=== PATIENT | female | born 1995 | race Caucasian/White ===

== ENCOUNTER → 2022-02-13 | Outpatient (CLI) | payer OTHER, SELFPAY ==
--- NOTE | 2022-02-13 11:59 | US_ITS ---
STUDY: ULTRASOUND OF THE FEMALE PELVIS - COMPLETE REASON FOR EXAM: Female, 26 years old. PELV HENRIK TECHNIQUE: Transabdominal COMPARISON: None. FINDINGS: The uterus is anteverted and is in a midline position. The uterus measures 8.6 x 5.8 cm. There is a Nabothian cyst of the cervix. The endometrium measures 6.8 mm in thickness, and is heterogeneous (striated). There is no demonstrated endometrial mass. There is no demonstrated myometrial mass. I.U.D. - The patient does not have an I.U.D. The right ovary is visualized. The right ovary measures 4.4 cm. Right ovary cyst measures 34 mm. This is cystic with internal echoes. This is likely hemorrhagic cyst. There is no visualized right adnexal mass or complex lesion. There is normal arterial and normal venous vascularity. The left ovary is visualized. The left ovary measures 2.8 cm. There is no left ovarian cyst or ovarian mass. There is no visualized left adnexal mass or complex lesion. There is normal arterial and normal venous vascularity. There is no fluid in the cul-de-sac. Urinary bladder volume is (in cc) 255. US/Pelvic (Non ) IMPRESSION: There are Nabothian cysts of the cervix. Electronically Signed: Nakul Thompson MD at 17:16 EST ,
== END | disposition home or self-care (01) ==
PROVIDERS: Referring Provider Registered Nurse; Visit Provider Registered Nurse
DX: R10.2 Pelvic and perineal pain (principal)
CPT/HCPCS: 76830; 76856; 93976

== ENCOUNTER → 2023-04-02 | Outpatient (CLI) | payer SELFPAY ==
[2023-04-06 20:07] LABS: Chlamydia By Nucleic Acid AMP Negative (Negative); Gonococcus By Nucleic Acid AMP Negative (Negative)
[2023-04-09 18:23] LABS: HPV Reflexed? NOT INDICATED
== END | disposition home or self-care (01) ==
PROVIDERS: Referring Provider Registered Nurse; Visit Provider Registered Nurse
DX: Z34.90 Encounter for supervision of normal pregnancy, unspecified, unspecified trimester (principal); Z3A.00 Weeks of gestation of pregnancy not specified
CPT/HCPCS: 87086; 87088; 87491; 87591; 88175; G0145

== ENCOUNTER → 2023-04-09 | Outpatient (CLI) | payer SELFPAY ==
--- OUTSIDE RECORDS SUMMARY | 2023-04-09 12:56 | XMS RPT_ITS | CCD ---
Author Name Unknown Address [address] [place] [address] [address] [place] [address] Organization [facility] Care Team Providers Care Water Reuse Program Manager Name Role Phone KJ NOVAK Admitting Unavailable NO, PHYSICIAN Primary Care Unavailable Encounters Encounter Date Encounter Type Care Provider Facility Start: 05-04-2018 End: 05-08-2018 Patient encounter procedure KJ NOVAK [facility] Payers Date Payer Category Payer Private Health Insurance [id number] 1995 Unknown [id number] Summary Purpose Family History No Family History Records Found Advance Directives No Advanced Directives Records Found Additional Source Comments INFORMATION SOURCE (unrecogn ized section and content) FOR RECORDS PERTAINING TO PATIENTS WHO ARE OR HAVE BEEN ENROLLED IN A CHEMICAL DEPENDENCY/SUBSTANCEABUSE PROGRAM, SOME INFORMATION MAY BE OMITTED. This clinical summary was aggregated from multiple sources. Caution should be exercised in using it in the provision of clinical care. This summary normalizes information from multiple sources, and as a consequence, information in this document may materially change the coding, format and clinical context of patient data. In addition, data may be omitted in some cases. CLINICAL DECISIONS SHOULD BE BASED ON THE PRIMARY CLINICAL RECORDS. [facility]. provides no warranty or guarantee of the accuracy or completeness of information in this document.
[2023-04-09 13:02] LABS: Absolute Lymphocyte Count 1.64 X10^3/uL (0.83-4.51); Absolute Neutrophil Count 5.2 X10^3/uL (2.0-7.7); Basophil# 0.04 X10^3/uL; Basophil% 0.5 % (0-1); Eosinophil# 0.06 X10^3/uL; Eosinophils% 0.8 % (0-5); Hematocrit 40.5 % (37-47); Hemoglobin 13.5 g/dL (12.0-15.0); Lymphocyte # 1.64 X10^3/ul (0.83-4.51); Lymphocyte % 21.7 % (19-41); Mean Corp Hgb Conc 33.3 g/dL (32-36); Mean Corpuscular Hgb 29.9 pg (27.0-32.0); Mean Corpuscular Volume 89.6 fL (81-99); Monocyte# 0.65 X10^3/uL; Monocyte% 8.6 % (0-10); NRBC Flagged by Analyzer 0 % (0-5); Neutrophil # 5.16 X10^3/uL (2.7-7.7); Neutrophil % 68.3 % (47-70); Platelet Count 285 K/mm3 (150-450); RBC Distribution Width CV 12.3 % (11.6-14.6); RBC Distribution Width SD 40.1 fl (35.1-43.9); Red Blood Count 4.52 M/mm3 (4.2-5.4); White Blood Count 7.6 K/mm3 (4.4-11.0)
[2023-04-09 13:38] LABS: NATERA MAILED SPECIMEN
[2023-04-09 14:05] LABS: HIV - WCH Non-Reactive (Nonreactive); Hepatitis B Surface Antigen Non-Reactive (Nonreactive); Hepatitis C Antibody Non-Reactive (Nonreactive); Rubella IgG Reactive (Nonreactive); Syphilis Antibodies Non-reactive
== END | disposition home or self-care (01) ==
PROVIDERS: Referring Provider Registered Nurse; Visit Provider Registered Nurse
DX: Z34.81 Encounter for supervision of other normal pregnancy, first trimester (principal); Z3A.00 Weeks of gestation of pregnancy not specified
CPT/HCPCS: 36415; 85025; 86703; 86762; 86780; 86803; 86850; 86900; 86901; 87086; 87088; 87340

== ENCOUNTER → 2023-06-11 | Outpatient (CLI) | payer SELFPAY ==
--- NOTE | 2023-06-11 13:58 | US_ITS ---
INDICATION: anatomy EXAMINATION: Ultrasound US OB Complete W/ Detail single or first gestation Ultrasound OB transvaginal TECHNIQUE: Transabdominal pelvic ultrasound was performed with grayscale color flow and M-mode Doppler. Transvaginal grayscale evaluation of the cervix and placental margin was performed.. COMPARISON: None. LMP: 01/28/2023 correlating with 19 weeks 1 day gestation and estimated delivery date 11/04/2023. FINDINGS: Gravid uterus with unremarkable imaged myometrium. Cervix is closed measuring 4.8 cm Anechoic amniotic fluid with deepest vertical pocket 4.7 cm. Single live intrauterine with heart rate 145 bpm. Placenta posterior, grade 0 without evidence of abruption or previa. Normal placental cord insertion. Normal sonographic appearance of the nose and lips. Unremarkable orbits. Normal cerebellum, farias magnum, lateral ventricles, choroid plexus, cava septum pellucidum. Normal appearance of the spine and skin line. Filled stomach. Four-chamber heart. Diaphragm appears intact. kidneys present without pelviectasis. Bladder filled. Three-vessel cord. Normal cord insertion. 2 legs and feet. 2 arms and hands. Biparietal diameter 4.8 cm 20 weeks 3 days Head circumference 17.5 cm 20 weeks 0 days Abdominal circumference 15.1 cm 20 weeks 2 days Femur length 3.1 cm 19 weeks 4 days Composite ultrasound age 20 weeks 0 days correlating with 10/29/2023 delivery date Estimated weight 329 g +/- 49 g. This is 90th percentile with Hadlock method Normal head circumference abdominal circumference ratio. Maternal ovaries are not appreciated due to bowel gas. No free fluid in the pelvis. IMPRESSION: Single live intrauterine with normal heart rate. anatomy assessment as described above is normal in appearance. . Placenta posterior without evidence of abruption or previa. Cervix long and closed with normal amniotic fluid. Electronically Signed: Deo oJe MD at 10:20 EST , INDICATION: anatomy EXAMINATION: Ultrasound US OB Greater Than 14 Weeks Ultrasound OB transvaginal TECHNIQUE: Transabdominal pelvic ultrasound was performed with grayscale color flow and M-mode Doppler. Transvaginal grayscale evaluation of the cervix and placental margin was performed.. COMPARISON: None. LMP: 01/28/2023 correlating with 19 weeks 1 day gestation and estimated delivery date 11/04/2023. FINDINGS: Gravid uterus with unremarkable imaged myometrium. Cervix is closed measuring 4.8 cm Anechoic amniotic fluid with deepest vertical pocket 4.7 cm. Single live intrauterine with heart rate 145 bpm. Placenta posterior, grade 0 without evidence of abruption or previa. Normal placental cord insertion. Normal sonographic appearance of the nose and lips. Unremarkable orbits. Normal cerebellum, farias magnum, lateral ventricles, choroid plexus, cava septum pellucidum. Normal appearance of the spine and skin line. Filled stomach. Four-chamber heart. Diaphragm appears intact. kidneys present without pelviectasis. Bladder filled. Three-vessel cord. Normal cord insertion. 2 legs and feet. 2 arms and hands. Biparietal diameter 4.8 cm 20 weeks 3 days Head circumference 17.5 cm 20 weeks 0 days Abdominal circumference 15.1 cm 20 weeks 2 days Femur length 3.1 cm 19 weeks 4 days Composite ultrasound age 20 weeks 0 days correlating with 10/29/2023 delivery date Estimated weight 329 g +/- 49 g. This is 90th percentile with Hadlock method Normal head circumference abdominal circumference ratio. Maternal ovaries are not appreciated due to bowel gas. No free fluid in the pelvis. US/OB Anatomy w/ Transvaginal IMPRESSION: Single live intrauterine with normal heart rate. anatomy assessment as described above is normal in appearance. . Placenta posterior without evidence of abruption or previa. Cervix long and closed with normal amniotic fluid. Electronically Signed: Deo Joe MD at 10:19 EST ,
--- OUTSIDE RECORDS SUMMARY | 2023-06-11 14:53 | XMS RPT_ITS | CCD ---
Author Name Unknown Address [address] [place] [address] [address] [place] [address] Organization [facility] Care Team Providers Care Welding Machine Operator Thermit Name Role Phone KJ NOVAK Admitting Unavailable NO, PHYSICIAN Primary Care Unavailable Encounters Encounter Date Encounter Type Care Provider Facility Start: 05-04-2018 End: 05-08-2018 Patient encounter procedure KJ NOVAK [facility] Payers Date Payer Category Payer Private Health Insurance [id number] 1995 Unknown [id number] Summary Purpose Family History No Family History [...] BE BASED ON THE PRIMARY CLINICAL RECORDS. [facility]. provides no warranty or guarantee of the accuracy or completeness of information in this document.
== END | disposition home or self-care (01) ==
LOC: US 13:58
PROVIDERS: Referring Provider Registered Nurse; Visit Provider Registered Nurse
DX: Z34.90 Encounter for supervision of normal pregnancy, unspecified, unspecified trimester (principal); Z3A.00 Weeks of gestation of pregnancy not specified
CPT/HCPCS: 76805; 76817

== ENCOUNTER → 2023-08-06 | Outpatient (CLI) | payer OTHER, SELFPAY ==
[2023-08-06 14:47] LABS: Absolute Lymphocyte Count 1.71 X10^3/uL (0.83-4.51); Absolute Neutrophil Count 5.9 X10^3/uL (2.0-7.7); Basophil# 0.04 X10^3/uL; Basophil% 0.5 % (0-1); Eosinophil# 0.15 X10^3/uL; Eosinophils% 1.8 % (0-5); Hematocrit 38.7 % (37-47); Hemoglobin 12.7 g/dL (12.0-15.0); Lymphocyte # 1.71 X10^3/ul (0.83-4.51); Lymphocyte % 20.3 % (19-41); Mean Corp Hgb Conc 32.8 g/dL (32-36); Mean Corpuscular Hgb 29.9 pg (27.0-32.0); Mean Corpuscular Volume 91.1 fL (81-99); Mean Platelet Vol. 10.4 fl (6.2-12.0); Monocyte# 0.61 X10^3/uL; Monocyte% 7.2 % (0-10); NRBC Flagged by Analyzer 0 % (0-5); Neutrophil # 5.87 X10^3/uL (2.7-7.7); Neutrophil % 69.7 % (47-70); Platelet Count 245 K/mm3 (150-450); RBC Distribution Width CV 12.3 % (11.6-14.6); RBC Distribution Width SD 40.4 fl (35.1-43.9); Red Blood Count 4.25 M/mm3 (4.2-5.4); White Blood Count 8.4 K/mm3 (4.4-11.0)
[2023-08-06 15:04] LABS: Glucose Challenge Gest 1H 50g 134 mg/dL (70-140)
[2023-08-06 17:38] LABS: HIV - WCH Non-Reactive (Nonreactive); Syphilis Antibodies Non-reactive
== END | disposition home or self-care (01) ==
LOC: LAB 13:48
PROVIDERS: Referring Provider Registered Nurse; Visit Provider Registered Nurse
DX: O09.92 Supervision of high risk pregnancy, unspecified, second trimester (principal); Z3A.23 23 weeks gestation of pregnancy; Z13.1 Encounter for screening for diabetes mellitus
CPT/HCPCS: 36415; 82950; 85025; 86703; 86780

== ENCOUNTER → 2023-10-15 | Outpatient (CLI) | payer OTHER, SELFPAY | END | disposition home or self-care (01) | LOC: LABSPEC 16:28 | PROVIDERS: Referring Provider Advanced Practice Midwife; Visit Provider Advanced Practice Midwife | DX: Z34.93 Encounter for supervision of normal pregnancy, unspecified, third trimester (principal); Z3A.35 35 weeks gestation of pregnancy | CPT/HCPCS: 87081 ==

== ENCOUNTER 2023-10-25 06:53 | Inpatient (IN) | payer OTHER, SELFPAY ==
[2023-10-25] VITALS (24 sets, daily range): BP systolic 112–139; BP diastolic 56–81; PULSE 65–98; RESP 14–16; TEMP 36.3–36.8; O2SAT 91–99; BMI 29.9
[2023-10-25] MEDS: Lactated Ringers 1,000 ML 999 ML IV (06:50)
[2023-10-25 07:32] LABS: Absolute Lymphocyte Count 1.99 X10^3/uL (0.83-4.51); Basophil# 0.05 X10^3/uL; Basophil% 0.3 % (0-1); Eosinophil# 0.06 X10^3/uL; Eosinophils% 0.4 % (0-5); Hematocrit 41.7 % (37-47); Hemoglobin 14.2 g/dL (12.0-15.0); Lymphocyte # 1.99 X10^3/ul (0.83-4.51); Lymphocyte % 12.4 % (19-41); Mean Corp Hgb Conc 34.1 g/dL (32-36); Mean Corpuscular Hgb 29.5 pg (27.0-32.0); Mean Corpuscular Volume 86.7 fL (81-99); Mean Platelet Vol. 11.6 fl (6.2-12.0); Monocyte# 0.88 X10^3/uL; Monocyte% 5.5 % (0-10); NRBC Flagged by Analyzer 0 % (0-5); Neutrophil # 12.97 X10^3/uL (2.7-7.7); Platelet Count 275 K/mm3 (150-450); RBC Distribution Width CV 13.2 % (11.6-14.6); RBC Distribution Width SD 41.5 fl (35.1-43.9); Red Blood Count 4.81 M/mm3 (4.2-5.4)
[2023-10-25] MEDS: Oxytocin 15 Units/NS 250ml 15 UNITS/250 ML IV.SOLN 334 UNITS IV (07:57)
[2023-10-25] MEDS: Lidocaine 1% (20 ml mdv) 20 ML Vial INFILT (07:58)
[2023-10-25] MEDS: Naproxen 500 MG Tablet PO (08:06)
--- NOTE | 2023-10-25 08:18 | HP.PCM.OB_ITS ---
HPI - General General Date of Admission: 10/25/23 Date of Service: 10/25/23 HPI Narrative KATHY AREVALO, is a 28 F who presents at 38.4 with spontaneous contractions since yesterday afternoon around 4pm. increased in intensity, frequency around 4am and became 5 minutes apart. arrived 9cm with urge to push. leaking of fluid with admission, clear. Maternal Data Information MIRIAM Calculator Estimated Delivery Date Method Current WG Current Estimate 11/04/23 LMP (Certain) 38w 4d Other Estimates 10/28/23 Ultrasound #1 39w 4d PFSH PFSH Medical History Abnormal Pap smear of cervix Chlamydia Seasonal allergies Panic attacks Home Medications ?Medication ?Instructions ?Recorded ?Last Taken ?Type multivit-min no.71-iron fum 28 1 cap PO see provid 03/26/23 10/24/23 19:40 History mg-folate no.1 1 mg-dha 300 mg capsule (PNV-Confluence) famotidine 20 mg tablet (Pepcid) 20 mg PO BID 30 days #60 tabs 08/06/23 Unknown Rx Allergy/AdvReac Type Severity Reaction Status Date / Time No Known Allergies Allergy Verified 10/25/23 07:40 Family History Grandmother Thyroid disorder Cancer thyroid ca- maternal Mother Thyroid disorder Other Diabetes Surgical History [place] teeth extracted Social History adopted: No household members: spouse current occupational status: employed 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, 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 pets and animals: Yes pets and animals: dog(s) history of recent travel: No sexually active: Yes Smoking Status: Never smoker alcohol intake: current alcohol intake frequency: holidays/special occasions only details: not while substance use type: does not use well-balanced diet: daily or most days caffeine: Yes Type: tea Number of servings: 1 eating out: 1-3 times/week during the past year weight has: remained stable what type of physical activity do you participate in: none, walking and other details: rides horses frequency: 5-6 times per week duration: > 90 minutes/day juana/latter-day: Sabianism seatbelt use: always do you feel safe at home: Yes additional social history: Damion Lucas 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 History 1 Elective abortions Hx Para 0 Spontaneous abortions Hx # Term Pregnancies Ectopic pregnancies Hx # Pregnancies Multiple births # of living children Visit Details Expected Delivery Route/Plan Labor Preferences- CB/BF classes: discussed and declined labor support person: zafar labor intervention preferees: prefers minimal intervention, hydrotherapy pain management options preferred: [] cut cord/dad catch: [] : [] PP control planned: [] discussed possible routes of delivery and associated risks: [] special requests: [] Plans Covid status: [] Flu vaccine: declined Tdap vaccine: given Rhogam: na LARC form signed: declined movement and labor precautions reviewed. Problem list reviewed and updated with the most current plan of care details and appropriate orders placed. Relevant counseling for the gestational age provided. Continue routine care and follow up unless otherwise noted in visit notes/problem list details OB Flowsheet Initial Weight: 157 lb Date -?-?-?-?-?-?-?-?-?-?-?-?- EGA Weight BP Urine Prot -?-?-?-?-?-?-?-?-?-?-?-?- Glucose FHR FuHt Pres Dilation -?-?-?-?-?-?-?-?-?-?-?-?- Effaced St Visit Note 04/02/23 -?-?-?-?-?-?-?-?-?-?-?-?- 9w 1d 157 lb 8 oz (+8 oz) 109/73 -?-?-?-?-?-?-?-?-?-?-?-?- 165 -?-?-?-?-?-?-?-?-?-?-?-?- LC- CRL not con with LMP. 10w1d. MIRIAM changed. LC- CRL not con with LMP. 10 w1d. MIRIAM changed 10/28/2023 LC- CRL not con with LMP. 10 w1d. MIRIAM changed 10/28/2023. desires nipt. 05/07/23 -?-?-?-?-?-?-?-?-?-?-?-?- 14w 1d 160 lb 2 oz (+3 lb 2 oz) 110/62 -?-?-?-?-?-?-?-?-?-?-?-?- 140 -?-?-?-?-?-?-?-?-?-?-?-?- LC- no vb/crampi ng. nausea is better! declines afp. low risk nipt its a BOY! 06/04/23 -?-?-?-?-?-?-?-?-?-?-?-?- 18w 1d 163 lb (+6 lb) 108/64 -?-?-?-?-?-?-?-?-?-?-?-?- 153 -?-?-?-?-?-?-?-?-?-?-?-?- JV-no lof, vagin al bleeding, or cramping. has us next week. drives from [employer]. 07/09/23 -?-?-?-?-?-?-?-?-?-?-?-?- 23w 1d 170 lb 4 oz (+13 lb 4 oz) 101/62 -?-?-?-?-?-?-?-?-?-?-?-?- 140 23 -?-?-?-?-?-?-?-?-?-?-?-?- LC- nl anatomy. no concerns. no vb/cramping. 08/06/23 -?-?-?-?-?-?-?-?-?-?-?-?- 27w 1d 175 lb 6 oz (+18 lb 6 oz) 112/78 Negative -?-?-?-?-?-?-?-?-?-?-?-?- Negative 145 -?-?-?-?-?-?-?-?-?-?-?-?- JV- glucose test pending today. not anemic. pepcid 10 mg not working. ordering 20 bid. has chronic constipation. will check in next visit and ask if wants to try reglan. uses levisin as needed also. 08/20/23 -?-?-?-?-?-?-?-?-?-?-?-?- 29w 1d 180 lb (+23 lb) 109/73 Negative -?-?-?-?-?-?-?-?-?-?-?-?- Negative 140 30 -?-?-?-?-?-?-?-?-?-?-?-?- SM- no vb lof go od fm no regular ctx reviewed just breathe classes 09/03/23 -?-?-?-?-?-?-?-?-?-?-?-?- 31w 1d 181 lb (+24 lb) 181 lb (+24 lb) 115/76 Negative -?-?-?-?-?-?-?-?-?-?-?-?- Negative 150 31 -?-?-?-?-?-?-?-?-?-?-?-?- SM- no vb lof go od fm no regular ctx 09/17/23 -?-?-?-?-?-?-?-?-?-?-?-?- 33w 1d 184 lb (+27 lb) 105/73 Negative -?-?-?-?-?-?-?-?-?-?-?-?- Negative 147 33 -?-?-?-?-?-?-?-?-?-?-?-?- LC- no vb/ctx/lo f. good fm. LC- no vb/ctx/lof. good fm. preferences reviewed. no concerns. 10/01/23 -?-?-?-?-?-?-?-?-?-?-?-?- 35w 1d 189 lb (+32 lb) 111/72 Negative -?-?-?-?-?-?-?-?-?-?-?-?- Negative 135 35 -?-?-?-?-?-?-?-?-?-?-?-?- SM- no vb lof go od fm n oregular ctx 10/15/23 -?-?-?-?-?-?-?-?-?-?-?-?- 37w 1d 192 lb 4 oz (+35 lb 4 oz) 128/86 Negative -?-?-?-?-?-?-?-?-?-?-?-?- Negative 130 36 1.5 -?-?-?-?-?-?-?-?-?-?-?-?- 60 -2 KW- no vb/ lof/reg ctx. good fm. gbs today 10/22/23 -?-?-?-?-?-?-?-?-?-?-?-?- 38w 1d 192 lb (+35 lb) 136/79 Negative -?-?-?-?-?-?-?-?-?-?-?-?- Negative 138 38 Cephalic 1 .5 -?-?-?-?-?-?-?-?-?-?-?-?- 80 JV- no l of, vaginal bleeding, or dec fm. ROS Cardiovascular Cardiovascular: Denies abdominal pain, chest pain, diaphoresis or dyspnea Respiratory/Chest Respiratory/Chest: Denies change in mental status, chest congestion, chest tightness, cough, shortness of breath at rest, shortness of breath with exertion, breast mass, breast pain, breast skin changes, breast swelling, change in breast shape or nipple discharge Genitourinary Genitourinary: Reports change in urinary stream Musculoskeletal Musculoskeletal: Reports none Integumentary Integumentary: Reports none Neurologic Neurologic: Reports none Psychiatric Psychiatric: Reports none Endocrine Endocrinology: Reports none Hematologic/Lymphatic Hematologic/Lymphatic: Reports none Allergic/Immunologic Allergic/Immunologic: Reports none Vital Signs Vital Signs Vital Signs: 10/25/23 07:14 10/25/23 07:14 10/25/23 07:14 Temperature Temperature Source Temporal Pulse Rate 77 Respiratory Rate Blood Pressure 139/70 H BP Systolic 139 BP Diastolic 70 Pulse Ox 10/25/23 07:14 10/25/23 07:14 10/25/23 07:14 Temperature 97.4 F L Temperature Source Pulse Rate Respiratory Rate 16 Blood Pressure BP Systolic BP Diastolic Pulse Ox 98 Weight Weight: 188 lb 11.451 oz Body Mass Index (BMI) 29.9 Physical Exam Const alert, oriented x3 and no apparent distress General Appearance: cooperative, comfortable and well kempt Orientation / Consciousness: awake and oriented to person Exam Limitations: no limitations HEENT normocephalic Neck full ROM Chest inspection of chest normal Resp normal respiratory effort, normal air movement and no retractions Effort and Inspection: able to speak in complete sentences and symmetric chest movement Cardio regular rate Peripheral Pulses: pulses 2+ throughout GI normal to inspection, nondistended, normoactive bowel sounds Inspection: gravid no CVA tenderness and appearance of the vagina normal External Female Exam: normal appearance of the urethra; Negative for external lesion OB / External & Speculum: external exam normal Manual OB Exam: estimated gestational size appropriate and presentation cephalic Uterus Palpation: Negative for uterus tender Extremity normal to inspection Skin no rashes or lesions noted Neuro deep tendon reflexes 2+ bilaterally and gait normal Motor Exam: strength 5/5 throughout and clonus absent Psych Activity / Motor Behavior: appropriate eye contact Speech: normal speech Labs Labs Labs: Blood Type O POSITIVE Antibody Screen NEGATIVE Hct 41.7 % (37-47) Hgb 14.2 g/dL (12.0-15.0) Pap Smear Negative Obstetrics Ultrasound Syphilis Total Ab Non-reactive Rubella IgG Antibody Reactive (Nonreactive) Hep Bs Antigen Non-Reactive (Nonreactive) Hepatitis C Antibody Non-Reactive (Nonreactive) Chlamydia DNA ([place]) Negative (Negative) N.gonorrhoeae DNA ([place]) Negative (Negative) HIV 1&2 Antibody Non-Reactive (Nonreactive) Glucose 1 Hr 50 gm 134 mg/dL (70-140) Assessment & Plan (1) Spontaneous onset of labor: PLAN: Patient presents IAL, plan expectant management for , pitocin/AROM PRN if needed. Pain management: plans unmedicated. GBS neg. Management of any complications: none I have reviewed the [facility] and made any clinically relevant updates.
--- NOTE | 2023-10-25 08:20 | OP.PCM_ITS ---
Assessment & Plan (1) Spontaneous vaginal delivery: COMMENT: LC IAL 38.4 Geo Maternal Data Information MIRIAM Calculator Estimated Delivery Date Method Current WG Current Estimate 11/04/23 LMP (Certain) 38w 4d Other Estimates 10/28/23 Ultrasound #1 39w 4d Final MIRIAM: 11/04/23 Final MIRIAM Source: LMP Gestational age: 38.4 Vaginal Delivery Maternal Presentation Maternal Presentation: Active Labor Maternal Presentation: at 38.4 in active labor, arrived 9cm with urge to push Operative Information Date of Procedure: 10/25/23 Pre-Operative Diagnosis: see problem list Post-Operative Diagnosis: Surgery / Procedure Performed: Spontaneous Vaginal Delivery Type of Anesthesia: Local with 1% Lidocaine Estimated Blood Loss: 250 Time of Delivery: 07:48 Findings Description of Procedure: Patient began pushing and delivered the head in the OA presentation. The head was delivered atraumatically. The anterior and posterior shoulders delivered without complication followed by the rest of the and the infant was placed on the maternal abdomen. Delayed cord clamping was employed for approximately 5 minutes, true knot was observed in cord. Cord was clamped and cut and gentle traction was applied to the cord and the placenta delivered spontaneously immediately following it was noted to be intact with three-vessel cord. The perineum and vagina were inspected and noted to have 1st degree laceration, repaired after lidocaine administered with 3.0 Vicryl in usual fashion. EBL was 200cc. Patient and infant tolerated delivery well. Dr. Foster updated on delivery. routine pp orders. Presentation: Vertex Amniotic Membrane Rupture Type: Spontaneous Amniotic Fluid Description: Clear Placental Delivery Description: Spontaneous Placenta Disposition: [facility] Cord Vessel Description: 3 Vessels Cord Entanglement: None A Gender: Male Delayed Cord Clamping: Yes Post Vaginal Delivery Medications Given After Delivery: IV Pitocin Episiotomy Description: None Laceration: 1st degree Procedures Urinary/Genital [id number]: [id number] Vaginal Delivery [facility]
[2023-10-25] MEDS: Oxytocin 15 Units/NS 250ml 15 UNITS/250 ML IV.SOLN 83 UNITS IV (08:42)
[2023-10-25] MEDS: Benzocaine/Lanolin/Aloe Vera 1 SPRAY EACH TOPICAL (09:34)
[2023-10-25] MEDS: Acetaminophen 500 MG Tablet 1000 MG PO ×2 (09:37→20:18)
[2023-10-26] MEDS: Naproxen 500 MG Tablet PO (01:33)
[2023-10-26 04:15] VITALS: BP 114/66; PULSE 79; RESP 12; TEMP 36.3; O2SAT 96
--- NOTE | 2023-10-26 07:38 | PCM.PN.OB ---
Subjective Subjective Patient doing well without complaints. Tolerating PO. Ambulating and voiding without difficulty. Feeding well. Denies chest pain, shortness of breath, calf pain/swelling, fevers, chills, lightheadedness. Objective Data Objective Data Vital Signs: Vital Signs Temp Pulse Resp BP Pulse Ox O2 Del Method 97.4 F L 79 12 114/66 96 Room Air 10/26/23 04:15 10/26/23 04:15 10/26/23 04:15 10/26/23 04:15 10/26/23 04:15 10/26/23 04:15 Oxygen Delivery Method Room Air Weight: 188 lb 11.451 oz Body Mass Index (BMI) 29.9 Intake & Output: Intake and Output for Last 24 Hours 10/24/23 10/25/23 10/26/23 23:59 23:59 23:59 Intake Total 1382.7 / 1382.7 Output Total 900 / 900 Balance 482.7 / 482.7 Lab / Micro Data 10/25/23 06:50 Labs: Laboratory Results - last 24 hr 10/25/23 06:50: Blood Type O POSITIVE, Antibody Screen NEGATIVE Physical Exam Const alert and oriented x3 HEENT normocephalic Eyes PERRL Neck full ROM Resp normal respiratory effort GI soft to palpation GI Narrative: FF below U Assessment & Plan (1) Spontaneous vaginal delivery: COMMENT: ANNA DAHL 38.4 Geo PLAN: Plan s/p PPD # 1 1. routine post delivery care 2. bottle feeding- support given 3. rh positive 4. rubella immune 5. home today
--- NOTE | 2023-10-26 08:30 | DCINST_ITS ---
Discharge Instructions Diet Discharge Diet: No restrictions Activity Discharge Activity: Return to Normal Activity, May Not Drive (while taking narcotic pain medications.) and May Shower May resume sexual activity in: 4 weeks (nothing in the vagina for 4 weeks.) Additional Activity Instructions:: Nothing in the vagina for 4-6 weeks. You may return to work/school in 6 weeks. Dressing / Incision Call your doctor if your incision/area has: Continuous Slow Oozing, Sudden Increased Bleeding, Increased Pain/ Swelling, Increased Redness and Foul Smelling Discharge Follow Up Care When: Call to make an appointment with your doctor in 6 weeks. If you had elevated Blood Pressure or 4th degree laceration you will need to be seen in 2 weeks. Test Results: Test results from this visit will be discussed in further detail at your follow- up appointment, if applicable. Discharge Plan Admission Admit Date/Time: 10/25/23 06:53 Attending Provider: Rhiannon Mccrary Primary Care Provider: Care Physician,No Primary Discharge Orders/Prescriptions Prescriptions: No Action PNV-[facility] [place] 28-1-300 mg capsule 1 cap PO famotidine [Pepcid] 20 mg tablet 20 mg PO BID 30 Days Qty: 60 6RF Referrals / Follow Up: Care Physician,No Primary [Primary Care Provider] -
[2023-10-26 08:45] VITALS: BP 106/66; PULSE 75; RESP 18; TEMP 36.6; O2SAT 97
[2023-10-26] MEDS: Benzocaine/Lanolin/Aloe Vera 1 SPRAY EACH TOPICAL (11:22)
--- NOTE | 2023-11-01 13:48 | NURSING ---
F/up phone call performed. Pt. reports they have been doing good, she did have a headache on right side yesterday, but it resolved once she was able to nap. Denies any issues with lochia or complications. is bottle feeding, doing well. Encouragement and support given.
== END 2023-10-26 13:15 | disposition home or self-care (01) | DRG 807 ==
PROVIDERS: Admitting Provider Obstetrics & Gynecology; Referring Provider Obstetrics & Gynecology; Visit Provider Obstetrics & Gynecology
DX: O42.92 Full-term premature rupture of membranes, unspecified as to length of time between rupture and onset of labor (principal); Z37.0 Single live birth; O69.2XX0 Labor and delivery complicated by other cord entanglement, with compression, not applicable or unspecified; O70.0 First degree perineal laceration during delivery; Z3A.38 38 weeks gestation of pregnancy
CPT/HCPCS: 59025; 59050; 85025; 86850; 86900; 86901; 99221; J7120; G0378

== ENCOUNTER → 2024-08-21 | Outpatient (CLI) | payer BC, SELFPAY ==
[2024-08-21 12:44] LABS: Absolute Lymphocyte Count 1.62 X10^3/uL (0.83-4.51); Absolute Neutrophil Count 4.5 X10^3/uL (2.0-7.7); Basophil# 0.03 X10^3/uL; Basophil% 0.4 % (0-1); Eosinophil# 0.11 X10^3/uL; Eosinophils% 1.6 % (0-5); Hematocrit 39.7 % (37-47); Hemoglobin 13.3 g/dL (12.0-15.0); Lymphocyte # 1.62 X10^3/ul (0.83-4.51); Lymphocyte % 23.2 % (19-41); Mean Corp Hgb Conc 33.5 g/dL (32-36); Mean Corpuscular Hgb 29.3 pg (27.0-32.0); Mean Corpuscular Volume 87.4 fL (81-99); Mean Platelet Vol. 10.6 fl (6.2-12.0); Monocyte# 0.65 X10^3/uL; Monocyte% 9.3 % (0-10); NRBC Flagged by Analyzer 0 % (0-5); Neutrophil # 4.54 X10^3/uL (2.7-7.7); Neutrophil % 65.2 % (47-70); Platelet Count 299 K/mm3 (150-450); RBC Distribution Width CV 13.9 % (11.6-14.6); RBC Distribution Width SD 44.5 fl (35.1-43.9); Red Blood Count 4.54 M/mm3 (4.2-5.4)
[2024-08-21 13:50] LABS: HIV Nonreactive (Nonreactive); Hepatitis B Surface Antigen Nonreactive (Nonreactive); Hepatitis C Antibody Nonreactive (Nonreactive); Rubella IgG REAC (Nonreactive); Syphilis Antibodies Nonreactive (Nonreactive)
[2024-08-22 20:08] LABS: Chlamydia By Nucleic Acid AMP Negative (Negative); Gonococcus By Nucleic Acid AMP Negative (Negative)
== END | disposition home or self-care (01) ==
PROVIDERS: Referring Provider Obstetrics & Gynecology; Visit Provider Obstetrics & Gynecology
DX: Z34.90 Encounter for supervision of normal pregnancy, unspecified, unspecified trimester (principal); Z3A.00 Weeks of gestation of pregnancy not specified
CPT/HCPCS: 36415; 85025; 86703; 86762; 86780; 86803; 86850; 86900; 86901; 87086; 87340; 87491; 87591

== ENCOUNTER → 2024-12-18 | Outpatient (CLI) | payer BC, SELFPAY ==
[2024-12-18 12:15] LABS: Hematocrit 35.4 % (37-47); Hemoglobin 12.0 g/dL (12.0-15.0); Immature Granulocytes Count 0.040 X10^3/uL (0.0-0.0); Mean Corp Hgb Conc 33.9 g/dL (32-36); Mean Corpuscular Volume 90.5 fL (81-99); Mean Platelet Vol. 10.5 fl (6.2-12.0); NRBC Flagged by Analyzer 0 % (0-5); Platelet Count 257 K/mm3 (150-450); RBC Distribution Width CV 13.2 % (11.6-14.6); RBC Distribution Width SD 43.3 fl (35.1-43.9); Red Blood Count 3.91 M/mm3 (4.2-5.4); White Blood Count 8.6 K/mm3 (4.4-11.0)
[2024-12-18 13:39] LABS: Glucose Challenge Gest 1H 50g 81 mg/dL (70-140); HIV Nonreactive (Nonreactive); Syphilis Antibodies Nonreactive (Nonreactive)
== END | disposition home or self-care (01) ==
PROVIDERS: Referring Provider Obstetrics & Gynecology; Visit Provider Obstetrics & Gynecology
DX: Z34.82 Encounter for supervision of other normal pregnancy, second trimester (principal); Z13.1 Encounter for screening for diabetes mellitus
CPT/HCPCS: 36415; 82950; 85025; 86703; 86780

== ENCOUNTER → 2025-02-20 | Outpatient (CLI) | payer BC, SELFPAY | END | disposition home or self-care (01) | LOC: LABSPEC 16:13 | PROVIDERS: Visit Provider Obstetrics & Gynecology | DX: Z34.82 Encounter for supervision of other normal pregnancy, second trimester (principal) | CPT/HCPCS: 87081 ==

== ENCOUNTER 2025-03-13 23:40 | Inpatient (IN) | payer BC, SELFPAY ==
[2025-03-13 23:18] VITALS: BMI 31.9
--- OUTSIDE RECORDS SUMMARY | 2025-03-13 23:18 | XMS RPT_ITS | CCD ---
Author Organization [facility] Care Team Providers Care Medical Appointment Scheduler Name Role Phone No, Physician Unavailable Unavailable Unavailable Primary Care Provider Unavailabl e Unavailable Primary Care Provider Unavailabl e JULIO C ANTON Emergency Provider NONE, NONE Family Provider Unavailable Rex Blackburn MD Primary Care Provider REX BLACKBURN Attending Unavailable BLACKBURNREX SYED Primary Care Unavailable BLACKBURN, REX Mccormack Attending Unavailable BLACKBURNREX SYED Primary Care Unavailable SHAWNA COLVIN Attending Unavailable BLACKBURNREX SYED Primary Care Unavailable BLACKBURN, REX Mccormack Attending Unavailable BLACKBURNREX CONDE Primary Care Unavailable BLACKBURN, REX CELINA Admitting Unavailab le BLACKBURN, REX CELINA Primary Care Unavailab le BLACKBURN, REX CELINA Referring Unavailab le RIVAS, AKEEK SANAT Attending Unavailable Rex Blackburn MD Primary Care Provider MEERA REX CELINA Primary Care Unavailab le RIVAS, AKEEK SANAT Admitting Unavailable BLACKBURN, REX CELINA Primary Care Unavailab le BLACKBURN, REX CELINA Primary Care Unavailab le RIVAS, AKEEK SANAT Admitting Unavailable BLACKBURN, REX CELINA Primary Care Unavailab le RIVAS, AKEEK SANAT Admitting Unavailable RIVAS, AKEEK SANAT Attending Unavailable GREG Aquino Attending Provider [phone] GREG Aquino Attending Provider [phone] Care Physician, No Primary Referring Provider Un available BLACKBURN, REX Primary Care Provider Unavailab le Vande Velde, Dr. Rhiannon Attending Provider [phone] GREG Aquino Attending Provider [phone] Care Physician, No Primary Primary Care Provider Unavailable Marleny LEAL MD, James A Primary Care Provider DARLING FARMER II Attending Unavailable MARLENY LEAL, DARLING Bear Primary Care Unavailable SELF, SELF Referring Unavailable Care Physician, No Primary Primary Care Provider Unavailable Care Physician, No Primary Referring Provider Un available Cristian MORALES, Dr. Solis Attending Provider [phone] Dr. Irma Foster MD Referring Provider Zonia GORDON-CIris Attending Provider [phone] Georgie Anton CNM Attending Provider [phone] PRIMARY CARE, MD Primary Care Unavailable IRIS CALI S Referring Unavailable RHIANNON MARTÍNEZ Attending Unavailable Dr. Rhiannon Mccrary DO Attending Provider Care Physician, No Primary Primary Care Physicia n Unavailable Care Physician, No Primary Referring Provider Un available Zonia GORDON-CIris Attending Physician [phone] Georgie Anton CNM Attending Physician [phone] Dr. Rhiannon Mccrary DO Attending Physician Dr. Rhiannon Mccrary DO Referring Provider Care Physician, No Primary Primary Care Physicia n Unavailable Care Physician, No Primary Referring Provider Un available Zonia GORDON-CIris Attending Physician [phone] Dr. Irma Foster MD Attending Physician Georgie Anton Attending Unavailable Care Physician, No Primary Primary Care Unava ilable Care Physician, No Primary Referring Unava ilable Care Physician, No Primary Primary Care Unava ilable Rhiannon Mccrary Attending Unavailabl e Care Physician, No Primary Referring Unava ilable Care Physician, No Primary Primary Care Unava ilable Iris Cali NP Attending Unavailable Care Physician, No Primary Referring Unava ilable Care Physician, No Primary Primary Care Unava ilable Georgie Anton Attending Unavailable Care Physician, No Primary Referring Unava ilable Irma Foster Attending Unavailable Care Physician, No Primary Referring Unava ilable Care Physician, No Primary Primary Care Unava ilable Care Physician, No Primary Referring Unava ilable Irma Foster Attending Unavailable Care Physician, No Primary Primary Care Unava ilable Irma Foster Attending Unavailable Care Physician, No Primary Primary Care Unava ilable Care Physician, No Primary Referring Unava ilable Care Physician, No Primary Primary Care Unava ilable Iris Cali NP Attending Unavailable Care Physician, No Primary Referring Unava ilable Irma Foster Attending Unavailable Irma Foster Referring Unavailable Care Physician, No Primary Primary Care Unava ilable Care Physician, No Primary Primary Care Unava ilable Rhiannon Mccrary Attending Unavailabl e Nadia Sheikh, Rhiannon Referring Unavailabl e Care Physician, No Primary Referring Unava ilable Rhiannon Mccrary Attending Unavailabl e Care Physician, No Primary Primary Care Unava ilable Medications Current Medications Medication Drug Class(es) Dates Sig (Normalized) Sig (Original) [id number] 200 actuat albuterol 0.09 mg/actuat metered dose inhaler (8 sources) beta2-Adrenergic Agonist take 2 puff(s) by inhalation every six hours as needed for wheezing albuterol 90 mcg/actuation inhaler Inhale 2 (two) puffs every 6 (six) hours as needed for wheezing . 0 Active take 2 puff(s) by in halation every six hours as needed for wheezing albuterol 90 mcg/actuation inhaler Inhal e 2 puffs every 6 (six) hours as needed for wheezing . 0 Active albuterol 90 mcg /actuation inhaler Inhale 2 puffs every 6 (six) hours as needed for wheezing . Active calcium carbonate 500 mg chewable tablet (2 sources) calcium carbonat e (TUMS) 200 mg calcium (500 mg) chewable tablet Chew and Swallow 1 tablet daily . 0 Active cephalexin 500 mg oral capsule (1 source) Cephalosporin Antibacterial Start: 12-11-19 take 1 capsule by mouth three times daily Cephalexin (Keflex) 500 MG Capsule Active 500 MG PO THREE TIMES A DAY 17 08December 10, 2020 4:18pm Ethinyl Estradiol / norgestimate (17 sources) Progestin, Estrogen Start: 04-03-20 take 1 tablet by mouth once daily norgestimate-ethinyl estradioL (Tri-Sprintec, 28,) 0.18/0.215/0.25 mg-35 mcg (28) per tablet Indications: Encounter for surveillance of contraceptive pills Take 1 (one) tablet by mouth daily . 30 tablet 12 04/03/2021 Active Start: 04-16-2020 take 1 tablet by emily th once daily Norgestimate-Ethinyl Estradiol 0.18/0.215/0.25 MG-35 MCG tablet take 1 tablet by mouth daily 28 tablet 04/16/2020 Active Start: 04-16-2020 take 1 tablet by emily th once daily Norgestimate-Ethinyl Estradiol 0.18/0.215/0.25 MG-35 MCG tablet take 1 tablet by mouth daily 28 tablet 0 04/16/2020 Active Start: 04-03-2020 take 1 tablet by meily th once daily norgestimate-ethinyl estradiol 0.25-35 MG-MCG tablet Take 1 tablet by mouth daily. 3 Package 3 04/03/2020 Active Start: 04-04-2019 End: 04-03-2021 take 1 tablet by mouth once daily norgestimate-ethinyl estradiol (Tri-Sprintec, 28,) 0.18/0.215/0.25 mg-35 mcg (28) per tablet Indications: Encounter for surveillance of contraceptive pills Take 1 (one) tablet by mouth daily . 30 tablet 12 04/04/2019 04/03/2021 Discontinued (Reorder) Start: 04-04-2019 take 1 tablet by emily th once daily norgestimate-ethinyl estradiol (Tri-Sprintec, 28,) 0.18/0.215/0.25 mg-35 mcg (28) per tablet Indications: Encounter for surveillance of contraceptive pills Take 1 (one) tablet by mouth daily . 30 tablet 12 04/04/2019 Active Start: 06-28-2018 End: 04-04-2019 take 1 tablet by mouth once daily norgestimate-ethinyl estradiol (TRI-SPRINTEC, 28,) 0.18/0.215/0.25 mg-35 mcg (28) per tablet Indications: Well woman exam with routine gynecological exam Take 1 (one) tablet by mouth daily . 30 tablet 0 06/28/2018 04/04/2019 Discontinued (Reorder) Start: 03-15-2018 take 1 tablet by emily th once daily norgestimate-ethinyl estradiol (TRI-SPRINTEC, 28,) 0.18/0.215/0.25 mg-35 mcg (28) per tablet Indications: Well woman exam with routine gynecological exam Take 1 (one) tablet by mouth daily . 30 tablet 12 03/15/2018 Active take 1 tablet by emily th once daily norgestimate-ethinyl estradiol 0.25-35 MG-MCG tablet Take 1 tablet by mouth daily. 0 Active End: 03-15-2018 take 1 tablet by mouth once daily norgestimate-ethinyl estradiol (ORTHO TRI-CYCLEN LO, 28,) 0.18/0.215/0.25 mg-25 mcg per tablet Take 1 tablet by mouth daily . 03/15/2018 Discontinued End: 03-15-2018 take 1 tablet by mouth once daily norgestimate-ethinyl estradiol (TRI-SPRINTEC, 28,) 0.18/0.215/0.25 mg-35 mcg (28) per tablet Take 1 tablet by mouth daily . 03/15/2018 Discontinued famotidine 20 mg oral tablet (9 sources) Histamine-2 Receptor Antagonist Start: 08-06-2023 take 1 tablet by mouth twice daily Famotidine (Pepcid) 20 mg tablet Active 20 mg PO TWICE A DAY 60 30 6 August 06, 2023 12:00am Complies with drug therapy hyoscyamine sulfate 0.125 mg oral tablet (3 sources) Start: 04-06-2021 take 1 tablet by mouth every four hours as needed hyoscyamine (LEVSIN) 0.125 mg tablet Take 1 (one) tablet (0.125 mg total) by mouth every 4 (four) hours as needed for cramping . 90 tablet 0 04/06/2021 Active lactobacillus combo no.11 (Probiotic) 15 billion cell CpSP (2 sources) lactobacillus co mbo no.11 (Probiotic) 15 billion cell CpSP Take by mouth . 0 Active Mv-Mins 64-Yltp-Pfbeh No.1-Dha (Pnv-Carson) 28-1-300 mg capsule (12 sources) Start: 03-26-2023 Mv-Mins 28-Wsac-Lweaj No.1-Dha (Pnv-Carson) 28-1-300 mg capsule Active 1 NMA PO March 26, 2023 1:00am see provid Complies with drug therapy Start: 03-26-2023 Mv-Mins 71-Iro n-Folic No.1-Dha (Pnv-Carson) 28-1-300 mg capsule Active 1 NMA PO March 26, 2023 1:00am see provid Start: 03-26-2023 Mv-Mins 71-Iro n-Folic No.1-Dha (Pnv-Carson) 28-1-300 mg capsule Active 1 NMA PO March 26, 2023 1:00am Start: 03-26-2023 take 1 capsule by mouth once M v-Mins 66-Waie-Cgirr No.1-Dha (Pnv-Carson) 28-1-300 mg capsule Active CAP PO March 26, 2023 1:00am Start: 03-26-2023 take 1 capsule by mouth once M v-Mins 28-Btao-Yzxwx No.1-Dha (Pnv-Carson) 28-1-300 mg capsule Active CAP PO March 26, 2023 12:00am polyethylene glycol 3350 13702 mg powder for oral solution (4 sources) Osmotic Laxative polyethylene gl ycol (MIRALAX) 17 gram powder Take 17 (seventeen) g by mouth daily . 0 Active vitamin with Ca-Iron-FA 27-1 mg Tab (2 sources) take 1 tablet by mouth once daily vitamin with Ca-Iron-FA 27-1 mg Tab Take 1 (one) tablet by mouth daily . 0 Active Completed/Discontinued Medications Medication Drug Class(es) Dates Sig (Normalized) Sig (Original) estrogens, conjugated (long-term) 0.625 mg/ml vaginal cream (8 sources) Estrogen Start: 12-09-2023 End: 12-16-2023 Conjugated Estrogens 0.625 mg/gram cream Discontinued 0.3125 mg VAGINAL daily 3.5 7 0 December 09, 2023 12:00am December 15, 2023 12:00am December 16, 2023 12:05am Laceration of vagina Laceration without foreign body of vagina and vulva, initial encounter Norethindrone Ac-Eth Estradiol (8 sources) Estrogen Start: 12-10-2023 End: 08-10-2024 Norethindrone Ac-Eth Estradiol (Jeremy 04/24 (21)) 1-20 mg-mcg tablet Discontinued 1 {tbl} PO daily 63 5 December 10, 2023 12:00am August 10, 2024 11:32am Start: 12-10-2023 End: 08-10-2024 Norethindrone Ac-Eth Estradi ol (Jeremy 04/24 (21)) 1-20 mg-mcg tablet Discontinued 1 {tbl} PO daily 63 December 10, 2023 12:00am August 10, 2024 11:32am ferrous sulfate 325 mg oral tablet (2 sources) End: 09-06-2020 ferrous sulfate 325 (65 Fe) MG tablet Take 325 mg by mouth As directed as needed. 0 09/06/2020 Discontinued Lactobacillus Combination No .9 (Adult 50 Plus Probiotic) 4 billion cell capsule (12 sources) Start: 02-04-2022 End: 03-26-2023 Lactobacillus Combination No .9 (Adult 50 Plus Probiotic) 4 billion cell capsule Discontinued PO February 04, 2022 12:00am March 26, 2023 3:24pm Start: 02-04-2022 End: 03-26-2023 Lactobacillus Combination No .9 (Adult 50 Plus Probiotic) 4 billion cell capsule Discontinued PO February 03, 2022 11:00pm March 26, 2023 2:24pm linaclotide 0.072 mg oral capsule (2 sources) Guanylate Cyclase-C Agonist Start: 04-03-2021 End: 04-06-2021 take 1 capsule by mouth once daily linaCLOtide 72 mcg cap Take 1 (one) capsule (72 mcg total) by mouth daily . 30 capsule 0 04/03/2021 04/06/2021 Discontinued Problems Active Problems Problem Classification Problem Date Documented Da te Episodic/Chronic Abdominal pain (20 sources) Generalized abdominal pain; Translations: [Generalized abdominal pain] Onset: 03-31-2021 Episodic Anxiety disorders (20 sources) Anxiety; Translations: [Anxiety disorder, unspecified] Onset: 01-01-2025 03-26-2023 Chronic Comment on above: stable Asthma (20 sources) Asthma; Translations: [Unspecified asthma, uncomplicated] Onset: 02-01-2025 03-26-2023 Chronic Comment on above: mild Contraceptive and procreative management (20 sources) Oral contraception; Translations: [Encounter for surveillance of contraceptive pills] Onset: 04-05-2021 Episodic Malaise and fatigue (1 source) Fatigue; Translations: [Other fatigue] Episodic Nausea and vomiting (3 sources) Nausea and vomiting; Translations: [Nausea with vomiting, unspecified] Onset: 07-13-2024 07-13-2024 Episodic Open wounds of head; neck; and trunk (8 sources) Laceration of vagina; Translations: [Laceration without foreign body of vagina and vulva, initial encounter] 08-21-2024 Episodic Other complications of (12 sources) High risk ; Translations: [Supervision of high risk , unspecified, unspecified trimester] 04-02-2023 Episodic Comment on above: PRR , MIRIAM 4, boy, Geo [place] Other complications of (9 sources) Supervision of high risk , unspecified, unspecified trimester; Translations: [Supervision of unspecified high-risk ] 04-02-2023 Episodic Other female genital disorders (1 source) Pruritus of vagina; Translations: [Other specified noninflammatory disorders of vagina] Episodic Other female genital disorders (8 sources) History of abnormal cervical Papanicolaou smear ; Translations: [Personal history of other diseases of the female genital tract] 08-21-2024 Episodic Comment on above: 2018, nl pap 2022 Other gastrointestinal disorders (1 source) Irritable bowel syndrome characterized by constipation; Translations: [Irritable bowel syndrome with constipation] Chronic Other gastrointestinal disorders (4 sources) Irritable bowel syndrome; Translations: [Irritable bowel syndrome without diarrhea] Onset: 04-05-2021 04-05-2021 Chronic Other gastrointestinal disorders (4 sources) Diarrhea, unspecified; Translations: [Diarrhea, unspecified] Onset: 04-05-2021 Episodic Other gastrointestinal disorders (3 sources) Diarrhea; Translations: [Diarrhea, unspecified] Onset: 09-16-2022 09-03-2022 Episodic Other infections; including parasitic (1 source) History of chlamydial infection; Translations: [History of chlamydia infection] Episodic Other and delivery including normal (20 sources) ; Translations: [Encounter for supervision of normal , unspecified, unspecified trimester] Onset: 05-22-2025 12-29-2023 Episodic Comment on above: , MIRIAM 03/19/25, PC Geo, [place] LC IAL 38.4 Geo discussed NIPT & Car rier testing-declined. GBS neg, declined nt d and carrier testingNIPT low risk. nl anatomy [id number], MIRIAM 5, PC [place], [place] discussed NIPT & Car rier testing-declined, nl anatomy [id number], MIIRAM 5, girl Aneira PC Geo, [place] Residual codes; unclassified (2 sources) First trimester ; Translations: [Less than 8 weeks gestation of ] Onset: 07-13-2024 07-13-2024 Episodic Residual codes; unclassified (1 source) Less than 8 weeks gestation of ; Translations: [Less than 8 weeks gestation of ] Onset: 07-13-2024 Episodic Residual codes; unclassified (8 sources) Infertile 10-26-2023 Episodic Comment on above: 13 months to conceiv e Residual codes; unclassified (1 source) 33 weeks gestation of ; Translations: [33 weeks gestation of ] Onset: 02-01-2025 Episodic Residual codes; unclassified (1 source) 29 weeks gestation of ; Translations: [29 weeks gestation of ] Onset: 01-01-2025 Episodic Residual codes; unclassified (1 source) 23 weeks gestation of ; Translations: [23 weeks gestation of ] Onset: 11-20-2024 Episodic Unclassified (4 sources) Patient encounter status; Translations: [Screening for STD (sexually transmitted disease)] Unclassified (11 sources) Infertile; Translations: [Infertility] 03-26-2023 Past or Other Problems Problem Classification Problem Date Documented Da te Episodic/Chronic Bacterial infection; unspecified site (7 sources) Chlamydial infection; Translations: [Chlamydial infection, unspecified] Onset: 03-16-2018 03-16-2018 Episodic Residual codes; unclassified (1 source) 19 weeks gestation of ; Translations: [19 weeks gestation of ] Onset: 10-23-2024 Episodic Residual codes; unclassified (1 source) 14 weeks gestation of ; Translations: [14 weeks gestation of ] Onset: 09-25-2024 Episodic Residual codes; unclassified (1 source) 10 weeks gestation of ; Translations: [10 weeks gestation of ] Onset: 08-21-2024 Episodic NEGATED: Highlighted row has been ruled out!Unclassified (1 source) No known active problems 07-13-2024 Results Test Name Value Interpretation Reference Range Facility Client Retention Specialist Office Visit Reporton 02-01-2025 Client Retention Specialist Office Visit Report [facility] [address], [address] [place] [address] OFFICE VISIT Date of Service: 02/01/25 MR#: [id number] Acct: [id number] Name: YULI AREVALO Rep #: [id number] : 1995 Provider: Dr. 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 [employer] Required: No Is patient in pain?: No Feel stressed/tense/nervo us/anxious/difficult y sleeping: not at all Allergies No Known Allergies Allergy (Verified 02/01/25 10:39) Medications ???Medication ???Instructions ???Recorded ???Confirmed ???Type multivit-min no.71-iron fum 28 1 cap PO see provid 03/26/2302/01 History mg-folate no.1 1 mg-dha 300 mg capsule (PNV-Carson) famotidine 20 mg tablet (Pepcid) 20 mg PO BID 30 days #60 tabs 06/2602/01/25 Rx Last Menstrual Period: 06/12/24 Zika: Zika virus screening: Negative : No PFSH PFSH Medical History Hx of infertility Abnormal Pap smear of cervix Chlamydia Seasonal allergies Surgical History [place] teeth extracted Family History Grandmother Thyroid disorder Maternal hyperthyroidism prior to cancer Cancer thyroid ca- maternal Mother Thyroid disorder Hyperthyroidism Other Diabetes Social History adopted: No household members: spouse and children housing: house number of children: 1 current occupational status: employed 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 Date Name GA/Weeks Outcome Route Bth Weight Gen Labor Lgth Anesthesia Del Locatn Provider FOB 10/25/23 Geo 38 live - full term 7#3oz Male none [facility] Carmella Golden HPI 34wk ob Details: YULI AREVALO is a 29 year old who presents for routine OB visit. OB Visit MIRIAM Calculator Estimated Delivery Date Method Current WG Current Estimate 03/19/25 LMP (Certain) 33w 3d Other Estimates 03/12/25 Ultrasound #1 34w 3d Expected Delivery Route/Plan Labor Preferences- CB/BF classes: no labor support person: [place] labor intervention preferences: [] pain management options preferred: limited cut cord/dad catch: mom cord : yes PP control planned: discussed discussed possible routes of delivery and associated risks: [] special requests: []. Specific Issue/Plans Covid status: [] Flu vaccine: declined Tdap vaccine: declined Rhogam: Na LARC form signed: yes movement and labor precautions reviewed. Problem list reviewed and updated with the most current plan of care details and appropriate orders placed. Relevant counseling for the gestational age provided. Continue routine care and follow up unless otherwise noted in visit notes/problem list details Initial Weight: Not Recorded Date -???-???-???-???-??? -???-???-???-???-??? -???-???- EGA Weight BP Urine Prot -???-???-???-???-??? -???-???-???-???-??? -???-???- Glucose FHR FuHt Pres Dilation -???-???-???-???-??? -???-???-???-???-??? -???-???- Effaced St Visit Note 08/21/24 -???-???-???-???-??? -???-???-???-???-??? -???-???- 10w 0d 155 lb 6 oz 115/71 -???-???-???-???-??? -???-???-???-???-??? -???-???- 160 -???-???-???-???-??? -???-???-???-???-??? -???-???- SM- no vb cr amping CRL cons with LMP SM- no vb cramping CRL 4.04cm cons with LMP 09/25/24 -???-???-???-???-??? -???-???-???-???-??? -???-???- 15w 0d 160 lb 4 o (more content not included)... Normal [facility] Client Retention Specialist Office Visit Reporton 01-16-2025 Client Retention Specialist Office Visit Report [facility] [address], [address] [place] [address] OFFICE VISIT Date of Service: 01/16/25 MR#: [id number] Acct: [id number] Name: YULI AREVALO Rep #: [id number] : 1995 Provider: Dr. Irma joseph MD Age/Sex: 29/F Location: [facility] [place] Status: Signed Intake Vital Signs 12/18/24 10:06 01/01/25 10:03 01/16/25 10:12 Height 5 ft 6.5 in 5 ft 6.5 in 5 ft 6.5 in Weight: 187 lb BMI 29.7 BP 113/70 Intake Visit Reasons: 32wk ob [employer] Required: No Is patient in pain?: No Allergies No Known Allergies Allergy (Verified 01/16/25 10:15) Medications ???Medication ???Instructions ???Recorded ???Confirmed ???Type multivit-min no.71-iron fum 28 1 cap PO see provid 03/26/2301/16 History mg-folate no.1 1 mg-dha 300 mg capsule (PNV-Carson) famotidine 20 mg tablet (Pepcid) 20 mg PO BID 30 days #60 tabs 05/0 06/2601/16/25 Rx Last Menstrual Period: 06/12/24 Zika: Zika virus screening: Negative : No PFSH PFSH Medical History (Updated 01/16/25 @ 10:[address] 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 Date Name GA/Weeks Outcome Route Bth Weight Infant Gen Labor Lgth Anesthesia Del Locatn Provider FOB 10/25/23 Geo 38 live - full term 7#3oz Male none [facility] Carmella Golden HPI 32wk ob Details: YULI AREVALO is a 29 year old who presents for routine OB visit. OB Visit MIRIAM Calculator Estimated Delivery Date Method Current WG Current Estimate 03/19/25 LMP (Certain) 31w 1d Other Estimates 03/12/25 Ultrasound #1 32w 1d Expected Delivery Route/Plan Labor Preferences- CB/BF classes: no labor support person: [place] labor intervention preferences: [] pain management options preferred: limited cut cord/dad catch: mom cord : yes PP control planned: discussed discussed possible routes of delivery and associated risks: [] special requests: []. Specific Issue/Plans Covid status: [] Flu vaccine: declined Tdap vaccine: declined Rhogam: Na LARC form signed: yes movement and labor precautions reviewed. Problem list reviewed and updated with the most current plan of care details and appropriate orders placed. Relevant counseling for the gestational age provided. Continue routine care and follow up unless otherwise noted in visit notes/problem list details Initial Weight: Not Recorded Date -???-???-???-???-??? -???-???-???-???-??? -???-???- EGA Weight BP Urine Prot -???-???-???-???-??? -???-???-???-???-??? -???-???- Glucose FHR FuHt Pres Dilation -???-???-???-???-??? -???-???-???-???-??? -???-???- Effaced St Visit Note 08/21/24 -???-???-???-???-??? -???-???-???-???-??? -???-???- 10w 0d 155 lb 6 oz 115/71 -???-???-???-???-??? -???-???-???-???-??? -???-???- 160 -???-???-???-???-??? -???-???-???-???-??? -???-???- SM- no vb cr amping CRL cons with LMP SM- no vb cramping CRL 4.04cm cons with LMP 09/25/24 -???-???-???-???-??? -???-???-???-???-??? -???-???- 15w 0d 160 lb 4 oz 114/67 Negative -???-???-???-???-??? -???-???-???-???-??? -? (more content not included)... Normal [facility] - Chemistry and C hemistry - challengeOrdered By: Georgie Anton on 01-01-2025 Glucose Ql (U) Negative [facility] - UrinalysisOrder ed By: Georgie Anton on 01-01-2025 Protein Ql (U) Negative [facility] Client Retention Specialist Office Visit Reporton 01-01-2025 Client Retention Specialist Office Visit Report [facility] Care [address] [place] [address], [address] [place] [address] OFFICE VISIT Date of Service: 01/01/25 MR#: [id number] Acct: [id number] Name: YULI AREVALO Rep #: [id number] : 1995 Provider: GREG White ams Age/Sex: 29/F Location: [facility] [place] Status: Signed Intake Vital Signs 10/23/24 10:17 12/18/24 10:06 01/01/25 10:03 01/01/25 10:03 Height 5 ft 6.5 in 5 ft 6.5 in 5 ft 6.5 in 5 ft 6.5 in Weight: 179 lb 9 oz BMI 28.5 BP 137/81 H Intake Visit Reasons: 30wk ob [employer] Required: No Is patient in pain?: No Allergies No Known Allergies Allergy (Verified 01/01/25 10:02) Medications ???Medication ???Instructions ???Recorded ???Confirmed ???Type multivit-min no.71-iron fum 28 1 cap PO see provid 03/26/2301/01 History mg-folate no.1 1 mg-dha 300 mg capsule (PNV-Carson) famotidine 20 mg tablet (Pepcid) 20 mg PO BID 30 days #60 tabs 05/0 06/2601/01/25 Rx Last Menstrual Period: 06/12/24 Zika: Zika virus screening: Negative : No PFSH PFSH Medical History Hx of infertility Abnormal Pap smear of cervix Chlamydia Seasonal allergies Panic attacks Surgical History [place] teeth extracted Family History Grandmother Thyroid disorder Maternal hyperthyroidism prior to cancer Cancer thyroid ca- maternal Mother Thyroid disorder Hyperthyroidism Other Diabetes Social History adopted: No household members: spouse and children housing: house number of children: 1 current occupational status: employed 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 Date Name GA/Weeks Outcome Route Bth Weight Infant Gen Labor Lgth Anesthesia Del Locatn Provider FOB 10/25/23 Geo 38 live - full term 7#3oz Male none [facility]ell[facility] Aquino [place] HPI 30wk ob Details: YULI AREVALO is a 29 year old who presents for routine OB visit. OB Visit MIRIAM Calculator Estimated Delivery Date Method Current WG Current Estimate 03/19/25 LMP (Certain) 29w 0d Other Estimates 03/12/25 Ultrasound #1 30w 0d Expected Delivery Route/Plan Labor Preferences- CB/BF classes: no labor support person: [place] labor intervention preferences: [] pain management options preferred: limited cut cord/dad catch: mom cord : yes PP control planned: discussed discussed possible routes of delivery and associated risks: [] special requests: []. Specific Issue/Plans Covid status: [] Flu vaccine: [] Tdap vaccine: [] Rhogam: Na LARC form signed: yes Problem list reviewed and updated with the most current plan of care details and appropriate orders placed. Relevant counseling for the gestational age provided. Continue routine care and follow up unless otherwise noted in visit notes/problem list details Initial Weight: Not Recorded Date -???-???-???-???-??? -???-???-???-???-??? -???-???- EGA Weight BP Urine Prot -???-???-???-???-??? -???-???-???-???-??? -???-???- Glucose FHR FuHt Pres Dilation -???-???-???-???-??? -???-???-???-???-??? -???-???- Effaced St Visit Note 08/21/24 -???-???-???-???-??? -???-???-???-???-??? -???-???- 10w 0d 155 lb 6 oz 115/71 -???-???-???-???-??? -???-???-???-???-??? -???-???- 160 -???-???-???-???-??? -???-???-???-???-??? -???-???- SM- no vb cr amping CRL cons with LMP SM- no vb cramping CRL 4.04cm cons with LMP 09/25/24 -???-???-???-???-??? -???-???-???-???-??? -???-???- 15w 0d 160 lb 4 oz 114/67 Negative -???-???-???-???-??? -???-???-???-???-??? -???-???- Negative 163 - (more content not included)... Normal [facility] Absolute lymphocyte countOrd ered By: Rhiannno Sheikh on 12-18-2024 Lymphocytes Auto (Unsp spec) [#/Vol] 1.32 10*3/uL 0.83-4.51 [facility] Absolute neutrophil countOrd ered By: Rhiannon Sheikh on 12-18-2024 Neutrophils (Bld) [#/Vol] 6.3 10*3/uL 2.0-7.7 [facility] Automated lymphocyte count a s percentage of total leukocytesOrdered By: Rhiannon Sheikh on 12-18-2024 Lymphocytes/100 WBC Auto (Unsp spec) 15.4 % Low 19-41 [facility] Basophil percentageOrdered B y: Rhiannon Sheikh on 12-18-2024 Basophils/100 WBC (Bld) 0.3 % 0-1 [facility] CBC W/Diff, Automatedon 12-04 Absolute Lymph 1.32 X10 3/uL Normal 0.83-4.51 [facility] Comment on above: Performed By: #### L 501.0250, L509.8002, L3890.6006, L100.0100 ####[facility] [address] [place], [address] Absolute Neut 6.3 X10 3/uL Normal 2.0-7.7 [facility] Comment on above: Performed By: #### L 501.0250, L509.8002, L3890.6006, L100.0100 ####[facility] [address] [place], [address] Basophils/100 WBC (Bld) 0.3 % Normal 0-1 [facility] Comment on above: Performed By: #### L 501.0250, L509.8002, L3890.6006, L100.0100 ####[facility] [address] [place], [address] Eosinophils/100 WBC (Bld) 2.1 % Normal 0-5 [facility] Comment on above: Performed By: #### L 501.0250, L509.8002, L3890.6006, L100.0100 ####[facility] [address] [place], [address] Erythrocyte distribution width (RBC) [Ratio] 13.2 % Normal 11.6-14.6 [facility] Comment on above: Performed By: #### L 501.0250, L509.8002, L3890.6006, L100.0100 ####[facility] [address] [place], [address] Hematocrit (Bld) [Volume fraction] 35.4 % Low 37-47 [facility] Comment on above: Performed By: #### L 501.0250, L509.8002, L3890.6006, L100.0100 ####[facility] [address] [place], [address] Hemoglobin (Bld) [Mass/Vol] 12.0 g/dL Normal 12.0-15.0 [facility] Comment on above: Performed By: #### L 501.0250, L509.8002, L3890.6006, L100.0100 ####[facility] [address] [place], [address] IG% 0.500 Normal 0.0-0.9 [facility] Comment on above: Result Comment: IG% - Immature Granulocytes (promyelocytes, myelocytes and metamyelocytes) > 1% indicates that a LEFT SHIFT is Present. Performed By: #### L 501.0250, L509.8002, L3890.6006, L100.0100 ####[facility] [address] [place], [address] Lymphocytes/100 WBC (Bld) 15.4 % Low 19-41 [facility] Comment on above: Performed By: #### L 501.0250, L509.8002, L3890.6006, L100.0100 ####[facility] [address] [place], [address] MCH (RBC) [Entitic mass] 30.7 pg Normal 27.0-32.0 [facility] Comment on above: Performed By: #### L 501.0250, L509.8002, L3890.6006, L100.0100 ####[facility] [address] [place], [address] MCHC (RBC) [Mass/Vol] 33.9 g/dL Normal 32-36 [facility] Comment on above: Performed By: #### L 501.0250, L509.8002, L3890.6006, L100.0100 ####[facility] [address] [place], [address] MCV (RBC) [Entitic vol] 90.5 fL Normal 81-99 [facility] Comment on above: Performed By: #### L 501.0250, L509.8002, L3890.6006, L100.0100 ####[facility] [address] [place], [address] Monocytes/100 WBC (Bld) 8.7 % Normal 0-10 [facility] Comment on above: Performed By: #### L 501.0250, L509.8002, L3890.6006, L100.0100 ####[facility] [address] [place], [address] Neutrophils/100 WBC (Bld) 73.0 % High 47-70 [facility] Comment on above: Performed By: #### L 501.0250, L509.8002, L3890.6006, L100.0100 ####[facility] [address] [place], [address] Nucleated RBC (Bld) [#/Vol] 0 10*3/uL Normal 0-5 [facility] Comment on above: Performed By: #### L 501.0250, L509.8002, L3890.6006, L100.0100 ####[facility] [address] [place], [address] Platelet mean volume (Bld) [Entitic vol] 10.5 fL Normal 6.2-12.0 [facility] Comment on above: Performed By: #### L 501.0250, L509.8002, L3890.6006, L100.0100 ####[facility] [address] [place], [address] Platelets (Bld) [#/Vol] 257 10*3/uL Normal 150-450 [facility] Comment on above: Performed By: #### L 501.0250, L509.8002, L3890.6006, L100.0100 ####[facility] [address] [place], [address] RBC (Bld) [#/Vol] 3.91 10*6/uL Low 4.2-5.4 [facility] Comment on above: Performed By: #### L 501.0250, L509.8002, L3890.6006, L100.0100 ####[facility] [address] [place], [address] RDW SD 43.3 fl Normal 35.1-43.9 [facility] Comment on above: Performed By: #### L 501.0250, L509.8002, L3890.6006, L100.0100 ####[facility] [address] [place], [address] WBC (Bld) [#/Vol] 8.6 10*3/uL Normal 4.4-11.0 [facility] Comment on above: Performed By: #### L 501.0250, L509.8002, L3890.6006, L100.0100 ####[facility] [address] [place], [address] Eosinophil percentageOrdered By: Rhiannon Sheikh on 12-18-2024 Eosinophils/100 WBC (Bld) 2.1 % 0-5 [facility] Erythrocyte distribution wid th ratioOrdered By: Rhiannon Sheikh on 12-18-2024 Erythrocyte distribution width (RBC) [Ratio] 13.2 % 11.6-14.6 [facility] Erythrocyte distribution wid th standard deviationOrdered By: Rhiannon Sheikh on 12-18-2024 Erythrocyte distribution width (RBC) [Ratio] 43.3 fl 35.1-43.9 [facility] Glucose Challenge Gest 1H 50 danae 12-18-2024 GLU GEST 50g 1H 81 mg/dL Normal 70-140 [facility] Comment on above: Performed By: #### L 501.0250, L509.8002, L3890.6006, L100.0100 ####[facility] [address] [place], [place], [id number] Glucose measurement at 2 jaime rs post-dose gestational glucose tolerance testOrdered By: Rhiannon Sheikh on 12-18-2024 Glucose [Mass/Vol] 81 mg/dL 70-140 [facility] HIVon 12-18-2024 HIV Non-Reactive Normal Nonreactive [facility] Comment on above: Result Comment: Non- Reactive Reactive Repeatedly reactive samples must be confirmed according to CDC recommended confirmatory algorithms. The subresults for either HIVAG or AHIV can be used as an aid in the selection of the confirmation algorithm for reactive samples. Send out specimens with Reactive results to [facility] for confirmation. Order the HIV antibody detection and differentiation: #[id number] Performed By: #### L 501.0250, L509.8002, L3890.6006, L100.0100 ####[facility] [address] [place], [place], [id number] Hematocrit Auto (Bld) [Volum e fraction]Ordered By: Rhiannon Sheikh on 12-18-2024 Hematocrit (Bld) [Volume fraction] 35.4 % Low 37-47 [facility] Hemoglobin measurementOrdere d By: Rhiannon Sheikh on 12-18-2024 Hemoglobin (Bld) [Mass/Vol] 12.0 g/dL 12.0-15.0 [facility] Immature granulocytes/100 WB C Auto (Bld)Ordered By: Rhiannon Sheikh on 12-18-2024 Immature granulocytes/100 WBC (Bld) 0.500 % 0.0-0.9 [facility] Comment on above: IG% - Immature Granu locytes (promyelocytes, myelocytes and metamyelocytes) > 1% indicates that a LEFT SHIFT is Present. Laboratory - Chemistry and C hemistry - challengeOrdered By: Iris Cali on 12-18-2024 Glucose Ql (U) Negative [facility] - UrinalysisOrder ed By: Iris Cali on 12-18-2024 Protein Ql (U) Negative [facility] MCV (mean corpuscular volume ) determinationOrdered By: Rhiannon Sheikh on 12-18-2024 MCV (RBC) [Entitic vol] 90.5 fL 81-99 [facility] Mean corpuscular hemoglobin (MCH) determinationOrdered By: Rhiannon Sheikh on 12-18-2024 MCH (RBC) [Entitic mass] 30.7 pg 27.0-32.0 [facility] Mean corpuscular hemoglobin concentration (MCHC) determinationOrdered By: Rhiannon Sheikh on 12-18-2024 MCHC (RBC) [Mass/Vol] 33.9 g/dL 32-36 [facility] Mean platelet volume determi nationOrdered By: Rhiannon Sheikh on 12-18-2024 Platelet mean volume (Bld) [Entitic vol] 10.5 fL 6.2-12.0 [facility] Monocyte percentageOrdered B y: Rhiannon Sheikh on 12-18-2024 Monocytes/100 WBC (Bld) 8.7 % 0-10 [facility] Neutrophil percentageOrdered By: Rhiannon Sheikh on 12-18-2024 Neutrophils/100 WBC (Bld) 73.0 % High 47-70 [facility] No Panel InformationOrdered By: Rhiannon Sheikh on 12-18-2024 HIV (1&2) Antibody Non-Reactive Nonreactive [facility] Comment on above: Non-ReactiveReactive Repeatedly reactive samples must be confirmed according to CDC recommended confirmatory algorithms. The subresults for either HIVAG or AHIV can be used as an aid in the selection of the confirmation algorithm for reactive samples.Send out specimens with Reactive results to [facility] for confirmation.Order the HIV antibody detection and differentiation: #[id number] Nucleated red blood cell per centageOrdered By: Rhiannon Sheikh on 12-18-2024 Nucleated RBC/100 WBC (Bld) [Ratio] 0 % 0-5 [facility] Client Retention Specialist Office Visit Reporton 12-18-2024 Client Retention Specialist Office Visit Report [facility]'s [address], [address] [place] [address] OFFICE VISIT Date of Service: 12/18/24 MR#: [id number] Acct: [id number] Name: YULI AREVALO Rep #: [id number] : 1995 Provider: BRENDA kulkarni Age/Sex: 29/F Location: [facility] [place] Status: Signed Intake Vital Signs 10/23/24 10:17 11/20/24 09:31 12/18/24 10:06 12/18/24 10:17 Height 5 ft 6.5 in 5 ft 6.5 in 5 ft 6.5 in Weight: 5 lb 6.5 oz 177 lb 3.2 oz BMI 0.8 BP 123/70 H Intake Visit Reasons: 28wk ob/glucose Chief Complaint: 28 Week OB/Glucose [employer] Required: No Is patient in pain?: No Allergies No Known Allergies Allergy (Verified 12/18/24 10:07) Medications ???Medication ???Instructions ???Recorded ???Confirmed ???Type multivit-min no.71-iron fum 28 1 cap PO see provid 03/26/2312/18 History mg-folate no.1 1 mg-dha 300 mg capsule (PNV-Carson) famotidine 20 mg tablet (Pepcid) 20 mg PO BID 30 days #60 tabs 05/0 06/2612/18/24 Rx Last Menstrual Period: 06/12/24 Zika: Zika virus screening: Negative : Yes PFSH PFSH Medical History Hx of infertility Abnormal Pap smear of cervix Chlamydia Seasonal allergies Panic attacks Surgical History [place] teeth extracted Family History Grandmother Thyroid disorder Maternal hyperthyroidism prior to cancer Cancer thyroid ca- maternal Mother Thyroid disorder Hyperthyroidism Other Diabetes Social History adopted: No household members: spouse and children housing: house number of children: 1 current occupational status: employed 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 Date Name GA/Weeks Outcome Route Bth Weight Infant Gen Labor Lgth Anesthesia Del Locatn Provider FOB 10/25/23 Geo 38 live - full term 7#3oz Male none [facility] Carmella Golden HPI 28wk ob/glucose Details: YULI AREVALO is a 29 year old who presents for routine OB visit. OB Visit MIRIAM Calculator Estimated Delivery Date Method Current WG Current Estimate 03/19/25 LMP (Certain) 27w 0d Other Estimates 03/12/25 Ultrasound #1 28w 0d Expected Delivery Route/Plan Labor Preferences- CB/BF classes: no labor support person: [place] labor intervention preferences: [] pain management options preferred: limited cut cord/dad catch: mom cord : yes PP control planned: discussed discussed possible routes of delivery and associated risks: [] special requests: []. Specific Issue/Plans Covid status: [] Flu vaccine: [] Tdap vaccine: [] Rhogam: Na LARC form signed: yes Problem list reviewed and updated with the most current plan of care details and appropriate orders placed. Relevant counseling for the gestational age provided. Continue routine care and follow up unless otherwise noted in visit notes/problem list details Initial Weight: Not Recorded Date -???-???-???-???-??? -???-???-???-???-??? -???-???- EGA Weight BP Urine Prot -???-???-???-???-??? -???-???-???-???-??? -???-???- Glucose FHR FuHt Pres Dilation -???-???-???-???-??? -???-???-???-???-??? -???-???- Effaced St Visit Note 08/21/24 -???-???-???-???-??? -???-???-???-???-??? -???-???- 10w 0d 155 lb 6 oz 115/71 -???-???-???-???-??? -???-???-???-???-??? -???-???- 160 -???-???-???-???-??? -???-???-???-???-??? -???-???- SM- no vb cr amping CRL cons with LMP SM- no vb cramping CRL 4.04cm cons with LMP 09/25/24 -???-???-???-???-??? -???-???-???-???-??? -???-???- 15w 0d 160 lb 4 oz 114/67 Negative -???-?? (more content not included)... Normal [facility] Platelet countOrdered By: Wilmar Sheikh on 12-18-2024 Platelets (Bld) [#/Vol] 257 10*3/uL 150-450 [facility] RBC Auto (Bld) [#/Vol]Ordere d By: Rhiannon Sheikh on 12-18-2024 RBC (Bld) [#/Vol] 3.91 10*6/uL Low 4.2-5.4 [facility] Syphilis Antibodieson 2024 Syphilis Abs Non-Reactive Normal Nonreactive [facility] Comment on above: Performed By: #### L 501.0250, L509.8002, L3890.6006, L100.0100 ####[facility] [address] [place], [address] White blood cell (WBC) count Ordered By: Rhiannon Sheikh on 12-18-2024 WBC (Bld) [#/Vol] 8.6 10*3/uL 4.4-11.0 [facility] Laboratory - Chemistry and C hemistry - challengeOrdered By: Rhiannon Sheikh on 11-20-2024 Glucose Ql (U) Negative [facility] Laboratory - UrinalysisOrder ed By: Rhiannon Sheikh on 11-20-2024 Protein Ql (U) Negative [facility] Client Retention Specialist Office Visit Reporton 11-20-2024 Client Retention Specialist Office Visit Report [facility]'s [address], [address] [place] [address] OFFICE VISIT Date of Service: 11/20/24 MR#: [id number] Acct: [id number] Name: YULI AREVALO Rep #: [id number] : 1995 Provider: Dr. Rhiannon Doan, Age/Sex: 29/F Location: [facility] [place] Status: Signed Intake Vital Signs 09/25/24 13:32 09/25/24 13:53 10/23/24 10:17 11/20/24 09:31 Height 5 ft 6.5 in 5 ft 6.5 in 5 ft 6.5 in 5 ft 6.5 in Weight: 168 lb 8 oz BMI 26.8 BP 115/67 Intake Visit Reasons: 24 wk ob [employer] Required: No Is patient in pain?: No Allergies No Known Allergies Allergy (Verified 11/20/24 09:31) Medications ???Medication ???Instructions ???Recorded ???Confirmed ???Type multivit-min no.71-iron fum 28 1 cap PO see provid 03/26/2311/20 History mg-folate no.1 1 mg-dha 300 mg capsule (PNV-Carson) famotidine 20 mg tablet (Pepcid) 20 mg PO BID 30 days #60 tabs 05/0 06/2611/20/24 Rx Last Menstrual Period: 06/12/24 Zika: Zika virus screening: Negative : No PFSH PFSH Medical History Hx of infertility Abnormal Pap smear of cervix Chlamydia Seasonal allergies Panic attacks Surgical History [place] teeth extracted Family History Grandmother Thyroid disorder Maternal hyperthyroidism prior to cancer Cancer thyroid ca- maternal Mother Thyroid disorder Hyperthyroidism Other Diabetes Social History adopted: No household members: spouse and children housing: house number of children: 1 current occupational status: employed 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 Date Name GA/Weeks Outcome Route Bth Weight Gen Labor Lgth Anesthesia Del Locatn Provider FOB 10/25/23 Geo 38 live - full term 7#3oz Male none [facility] Carmella ay Aquino [place] HPI 24 wk ob Details: YULI AREVALO is a 29 year old who presents for routine OB visit. OB Visit MIRIAM Calculator Estimated Delivery Date Method Current WG Current Estimate 03/19/25 LMP (Certain) 23w 0d Other Estimates 03/12/25 Ultrasound #1 24w 0d Expected Delivery Route/Plan Labor Preferences- CB/BF classes: [] labor support person: [] labor intervention preferences: [] pain management options preferred: [] cut cord/dad catch: [] : [] PP control planned: [] discussed possible routes of delivery and associated risks: [] special requests: []. Specific Issue/Plans Covid status: [] Flu vaccine: [] Tdap vaccine: [] Rhogam: [] LARC form signed: [] Problem list reviewed and updated with the most current plan of care details and appropriate orders placed. Relevant counseling for the gestational age provided. Continue routine care and follow up unless otherwise noted in visit notes/problem list details Initial Weight: Not Recorded Date -???-???-???-???-??? -???-???-???-???-??? -???-???- EGA Weight BP Urine Prot -???-???-???-???-??? -???-???-???-???-??? -???-???- Glucose FHR FuHt Pres Dilation -???-???-???-???-??? -???-???-???-???-??? -???-???- Effaced St Visit Note 08/21/24 -???-???-???-???-??? -???-???-???-???-??? -???-???- 10w 0d 155 lb 6 oz 115/71 -???-???-???-???-??? -???-???-???-???-??? -???-???- 160 -???-???-???-???-??? -???-???-???-???-??? -???-???- SM- no vb cr amping CRL cons with LMP SM- no vb cramping CRL 4.04cm cons with LMP 09/25/24 -???-???-???-???-??? -???-???-???-???-??? -???-???- 15w 0d 160 lb 4 oz 114/67 Negative -???-???-???-???-??? -???-???-???-???-??? -???-???- Negative 163 -???-???-???-?? (more content not included)... Normal [facility] - Chemistry and C hemistry - challengeOrdered By: Georgie Anton on 10-23-2024 Glucose Ql (U) Negative [facility] - UrinalysisOrder ed By: Georgie Anton on 10-23-2024 Protein Ql (U) Negative [facility] Client Retention Specialist Office Visit Reporton 10-23-2024 Client Retention Specialist Office Visit Report [facility]'s [address], [address] [place] [address] OFFICE VISIT Date of Service: 10/23/24 MR#: [id number] Acct: [id number] Name: YULI AREVALO Rep #: [id number] : 1995 Provider: GREG White ams Age/Sex: 29/F Location: [facility] [place] Status: Signed Intake Vital Signs 08/21/24 10:04 09/25/24 13:53 10/23/24 10:17 Height 5 ft 6.5 in 5 ft 6.5 in 5 ft 6.5 in Weight: 165 lb 8 oz BMI 26.3 BP 122/75 H Intake Visit Reasons: 20wk ob Chief Complaint: 20wk OB [employer] Required: No Is patient in pain?: No Allergies No Known Allergies Allergy (Verified 10/23/24 10:19) Medications ???Medication ???Instructions ???Recorded ???Confirmed ???Type multivit-min no.71-iron fum 28 1 cap PO see provid 03/26/2310/23 History mg-folate no.1 1 mg-dha 300 mg capsule (PNV-Carson) famotidine 20 mg tablet (Pepcid) 20 mg PO BID 30 days #60 tabs 05/0 06/2610/23/24 Rx Last Menstrual Period: 06/12/24 : No PFSH PFSH Medical History Hx of infertility Abnormal Pap smear of cervix Chlamydia Seasonal allergies Panic attacks Surgical History [place] teeth extracted Family History Grandmother Thyroid disorder Maternal hyperthyroidism prior to cancer Cancer thyroid ca- maternal Mother Thyroid disorder Hyperthyroidism Other Diabetes Social History adopted: No household members: spouse and children housing: house number of children: 1 current occupational status: employed 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 Date Name GA/Weeks Outcome Route Bth Weight Gen Labor Lgth Anesthesia Del Locatn Provider FOB 10/25/23 Geo 38 live - full term 7#3oz Male none [facility] ay Miles Golden HPI 20wk ob Details: YULI AREVALO is a 29 year old who presents for routine OB visit. OB Visit MIRIAM Calculator Estimated Delivery Date Method Current WG Current Estimate 03/19/25 LMP (Certain) 19w 0d Other Estimates 03/12/25 Ultrasound #1 20w 0d Expected Delivery Route/Plan Labor Preferences- CB/BF classes: [] labor support person: [] labor intervention preferences: [] pain management options preferred: [] cut cord/dad catch: [] : [] PP control planned: [] discussed possible routes of delivery and associated risks: [] special requests: []. Specific Issue/Plans Covid status: [] Flu vaccine: [] Tdap vaccine: [] Rhogam: [] LARC form signed: [] Problem list reviewed and updated with the most current plan of care details and appropriate orders placed. Relevant counseling for the gestational age provided. Continue routine care and follow up unless otherwise noted in visit notes/problem list details Initial Weight: Not Recorded Date -???-???-???-???-??? -???-???-???-???-??? -???-???- EGA Weight BP Urine Prot -???-???-???-???-??? -???-???-???-???-??? -???-???- Glucose FHR FuHt Pres Dilation -???-???-???-???-??? -???-???-???-???-??? -???-???- Effaced St Visit Note 08/21/24 -???-???-???-???-??? -???-???-???-???-??? -???-???- 10w 0d 155 lb 6 oz 115/71 -???-???-???-???-??? -???-???-???-???-??? -???-???- 160 -???-???-???-???-??? -???-???-???-???-??? -???-???- SM- no vb cr amping CRL cons with LMP SM- no vb cramping CRL 4.04cm cons with LMP 09/25/24 -???-???-???-???-??? -???-???-???-???-??? -???-???- 15w 0d 160 lb 4 oz 114/67 Negative -???-???-???-???-??? -???-???-???-???-??? -???-???- Negative 163 -???-???-???-???-??? -???-???-???-???-??? -???-???- -No VB. Na usea resolved. Br U (more content not included)... Normal [facility] - Chemistry and C hemistry - challengeOrdered By: Iris Cali on 09-25-2024 Glucose Ql (U) Negative [facility] - UrinalysisOrder ed By: Iris Cali on 09-25-2024 Protein Ql (U) Negative [facility] Client Retention Specialist Office Visit Reporton 09-25-2024 Client Retention Specialist Office Visit Report [address], [address] [place] [address] OFFICE VISIT Date of Service: 09/25/24 MR#: [id number] Acct: [id number] Name: YULI AREVALO Rep #: [id number] : 1995 Provider: BRENDA kulkarni Age/Sex: 29/F Location: [facility] [place] Status: Signed Intake Vital Signs 12/09/23 15:05 08/21/24 10:04 09/25/24 13:32 Height 5 ft 6.5 in 5 ft 6.5 in 5 ft 6.5 in Weight: 160 lb 4 oz BMI 25.4 BP 114/67 Intake Visit Reasons: 16wk ob Chief Complaint: 16 Week OB [employer] Required: No Is patient in pain?: No Allergies No Known Allergies Allergy (Verified 09/25/24 13:36) Medications ???Medication ???Instructions ???Recorded ???Confirmed ???Type multivit-min no.71-iron fum 28 1 cap PO see provid 03/26/2309/25 History mg-folate no.1 1 mg-dha 300 mg capsule (PNV-Carson) famotidine 20 mg tablet (Pepcid) 20 mg PO BID 30 days #60 tabs 0506/2609/25/24 Rx Last Menstrual Period: 06/12/24 Zika: Zika virus screening: Negative : No PFSH PFSH Medical History Hx of infertility Abnormal Pap smear of cervix Chlamydia Seasonal allergies Panic attacks Surgical History [place] teeth extracted Family History Grandmother Thyroid disorder Maternal hyperthyroidism prior to cancer Cancer thyroid ca- maternal Mother Thyroid disorder Hyperthyroidism Other Diabetes Social History adopted: No household members: spouse and children housing: house number of children: 1 current occupational status: employed 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 Date Name GA/Weeks Outcome Route Bth Weight Gen Labor Lgth Anesthesia Del Locatn Provider FOB 10/25/23 Geo 38 live - full term 7#3oz Male none [facility] Carmella [place] HPI 16wk ob Details: YULI AREVALO is a 29 year old who presents for routine OB visit. OB Visit MIRIAM Calculator Estimated Delivery Date Method Current WG Current Estimate 03/19/25 LMP (Certain) 15w 0d Other Estimates 03/12/25 Ultrasound #1 16w 0d Expected Delivery Route/Plan Labor Preferences- CB/BF classes: [] labor support person: [] labor intervention preferences: [] pain management options preferred: [] cut cord/dad catch: [] : [] PP control planned: [] discussed possible routes of delivery and associated risks: [] special requests: []. Specific Issue/Plans Covid status: [] Flu vaccine: [] Tdap vaccine: [] Rhogam: [] LARC form signed: [] Problem list reviewed and updated with the most current plan of care details and appropriate orders placed. Relevant counseling for the gestational age provided. Continue routine care and follow up unless otherwise noted in visit notes/problem list details Initial Weight: Not Recorded Date -???-???-???-???-??? -???-???-???-???-??? -???-???- EGA Weight BP Urine Prot -???-???-???-???-??? -???-???-???-???-??? -???-???- Glucose FHR FuHt Pres Dilation -???-???-???-???-??? -???-???-???-???-??? -???-???- Effaced St Visit Note 08/21/24 -???-???-???-???-??? -???-???-???-???-??? -???-???- 10w 0d 155 lb 6 oz 115/71 -???-???-???-???-??? -???-???-???-???-??? -???-???- 160 -???-???-???-???-??? -???-???-???-???-??? -???-???- SM- no vb cr amping CRL cons with LMP SM- no vb cramping CRL 4.04cm cons with LMP 09/25/24 -???-???-???-???-??? -???-???-???-???-??? -???-???- 15w 0d 160 lb 4 oz 114/67 Negative -???-???-???-???-??? -???-???-???-???-??? -???-???- Negative 163 -???-???-???-???-??? - (more content not included)... Normal [facility] Chlamydia/GC HOLLEY aptimaon CHLAMY,NUC ACID Negative Normal Negative [facility] Comment on above: Performed By: #### M 100.2200, L7000.1800 #### [facility] [address] [place], [place], [id number] GC BY NUC ACID Negative Normal Negative [facility] Comment on above: Result Comment: Perf ormed at: =G - [facility] [address] [id number] Education Dean: Jennifer Hoang MD, Phone: [phone] Performed By: #### M 100.2200, L7000.1800 #### [facility] [address] [place], [address] Urine Cultureon 08-22-2024 [facility] Culture exhibits no growth. Normal [facility] Comment on above: Performed By: #### M 100.2200, L7000.1800 #### [facility] [address] [place], [address] Absolute lymphocyte countOrd ered By: Irma Cristian on 08-21-2024 Lymphocytes Auto (Unsp spec) [#/Vol] 1.62 10*3/uL 0.83-4.51 [facility] Absolute neutrophil countOrd ered By: Irma Cristian on 08-21-2024 Neutrophils (Bld) [#/Vol] 4.5 10*3/uL 2.0-7.7 [facility] Automated lymphocyte count a s percentage of total leukocytesOrdered By: Irma Foster on 08-21-2024 Lymphocytes/100 WBC Auto (Unsp spec) 23.2 % 19-41 [facility] Basophil percentageOrdered B y: Irma Cristian on 08-21-2024 Basophils/100 WBC (Bld) 0.4 % 0-1 [facility] CBC W/Diff, Automatedon 08-03 Absolute Lymph 1.62 X10 3/uL Normal 0.83-4.51 [facility] Comment on above: Performed By: #### L 3890.6006, L3890.6102, L100.0100, L3890.6301, L509.8002, L509.4006, BTS #### [facility] [address] [place], [address] Absolute Neut 4.5 X10 3/uL Normal 2.0-7.7 [facility] Comment on above: Performed By: #### L 3890.6006, L3890.6102, L100.0100, L3890.6301, L509.8002, L509.4006, BTS #### [facility] [address] [place], [address] Basophils/100 WBC (Bld) 0.4 % Normal 0-1 [facility] Comment on above: Performed By: #### L 3890.6006, L3890.6102, L100.0100, L3890.6301, L509.8002, L509.4006, BTS #### [facility] [address] [place], [address] Eosinophils/100 WBC (Bld) 1.6 % Normal 0-5 [facility] Comment on above: Performed By: #### L 3890.6006, L3890.6102, L100.0100, L3890.6301, L509.8002, L509.4006, BTS #### [facility] [address] [place], [address] Erythrocyte distribution width (RBC) [Ratio] 13.9 % Normal 11.6-14.6 [facility] Comment on above: Performed By: #### L 3890.6006, L3890.6102, L100.0100, L3890.6301, L509.8002, L509.4006, BTS #### [facility] [address] [place], [address] Hematocrit (Bld) [Volume fraction] 39.7 % Normal 37-47 [facility] Comment on above: Performed By: #### L 3890.6006, L3890.6102, L100.0100, L3890.6301, L509.8002, L509.4006, BTS #### [facility] [address] [place], [address] Hemoglobin (Bld) [Mass/Vol] 13.3 g/dL Normal 12.0-15.0 [facility] Comment on above: Performed By: #### L 3890.6006, L3890.6102, L100.0100, L3890.6301, L509.8002, L509.4006, BTS #### [facility] [address] [facility], [address] IG% 0.300 Normal 0.0-0.9 [facility] Comment on above: Result Comment: IG% - Immature Granulocytes (promyelocytes, myelocytes and metamyelocytes) > 1% indicates that a LEFT SHIFT is Present. Performed By: #### L 3890.6006, L3890.6102, L100.0100, L3890.6301, L509.8002, L509.4006, BTS #### [facility] [address] [facility], [address] Lymphocytes/100 WBC (Bld) 23.2 % Normal 19-41 [facility] Comment on above: Performed By: #### L 3890.6006, L3890.6102, L100.0100, L3890.6301, L509.8002, L509.4006, BTS #### [facility] [address] [facility] [place], [address] MCH (RBC) [Entitic mass] 29.3 pg Normal 27.0-32.0 [facility] Comment on above: Performed By: #### L 3890.6006, L3890.6102, L100.0100, L3890.6301, L509.8002, L509.4006, BTS #### [facility] [address] [place], [address] MCHC (RBC) [Mass/Vol] 33.5 g/dL Normal 32-36 [facility] Comment on above: Performed By: #### L 3890.6006, L3890.6102, L100.0100, L3890.6301, L509.8002, L509.4006, BTS #### [facility] [address] [place], [address] MCV (RBC) [Entitic vol] 87.4 fL Normal 81-99 [facility] Comment on above: Performed By: #### L 3890.6006, L3890.6102, L100.0100, L3890.6301, L509.8002, L509.4006, BTS #### [facility] [address] [place], [address] Monocytes/100 WBC (Bld) 9.3 % Normal 0-10 [facility] Comment on above: Performed By: #### L 3890.6006, L3890.6102, L100.0100, L3890.6301, L509.8002, L509.4006, BTS #### [facility] [address] [place], [address] Neutrophils/100 WBC (Bld) 65.2 % Normal 47-70 [facility] Comment on above: Performed By: #### L 3890.6006, L3890.6102, L100.0100, L3890.6301, L509.8002, L509.4006, BTS #### [facility] [address] [place], [address] Nucleated RBC (Bld) [#/Vol] 0 10*3/uL Normal 0-5 [facility] Comment on above: Performed By: #### L 3890.6006, L3890.6102, L100.0100, L3890.6301, L509.8002, L509.4006, BTS #### [facility] [address] [place], [address] Platelet mean volume (Bld) [Entitic vol] 10.6 fL Normal 6.2-12.0 [facility] Comment on above: Performed By: #### L 3890.6006, L3890.6102, L100.0100, L3890.6301, L509.8002, L509.4006, BTS #### [facility] [address] [place], [address] Platelets (Bld) [#/Vol] 299 10*3/uL Normal 150-450 [facility] Comment on above: Performed By: #### L 3890.6006, L3890.6102, L100.0100, L3890.6301, L509.8002, L509.4006, BTS #### [facility] [address] [place], [address] RBC (Bld) [#/Vol] 4.54 10*6/uL Normal 4.2-5.4 [facility] Comment on above: Performed By: #### L 3890.6006, L3890.6102, L100.0100, L3890.6301, L509.8002, L509.4006, BTS #### [facility] [address] [place], [address] RDW SD 44.5 fl High 35.1-43.9 [facility] Comment on above: Performed By: #### L 3890.6006, L3890.6102, L100.0100, L3890.6301, L509.8002, L509.4006, BTS #### [facility] [address] [place], [address] WBC (Bld) [#/Vol] 7.0 10*3/uL Normal 4.4-11.0 [facility] Comment on above: Performed By: #### L 3890.6006, L3890.6102, L100.0100, L3890.6301, L509.8002, L509.4006, BTS #### [facility] [address] [place], [address] Chlamydia trachomatis rRNA d etection by probe and target amplification methodOrdered By: Irma Foster on 08-21-2024 C. trachomatis rRNA HOLLEY+probe Ql (Unsp spec) Negative Negative [facility] Eosinophil percentageOrdered By: Irma Foster on 08-21-2024 Eosinophils/100 WBC (Bld) 1.6 % 0-5 [facility] Erythrocyte distribution wid th ratioOrdered By: Irma Foster on 08-21-2024 Erythrocyte distribution width (RBC) [Ratio] 13.9 % 11.6-14.6 [facility] Erythrocyte distribution wid th standard deviationOrdered By: Irma Foster on 08-21-2024 Erythrocyte distribution width (RBC) [Ratio] 44.5 fl High 35.1-43.9 [facility] HIVon 08-21-2024 HIV Non-Reactive Normal Nonreactive [facility] Comment on above: Result Comment: Non- Reactive Reactive Repeatedly reactive samples must be confirmed according to CDC recommended confirmatory algorithms. The subresults for either HIVAG or AHIV can be used as an aid in the selection of the confirmation algorithm for reactive samples. Send out specimens with Reactive results to [facility] for confirmation. Order the HIV antibody detection and differentiation: [id number] Performed By: #### L 3890.6006, L3890.6102, L100.0100, L3890.6301, L509.8002, L509.4006, BTS #### [facility] [address] [place], [place], [id number] Hematocrit Auto (Bld) [Volum e fraction]Ordered By: Irma Foster on 08-21-2024 Hematocrit (Bld) [Volume fraction] 39.7 % 37-47 [facility] Hemoglobin measurementOrdere d By: Irma Foster on 08-21-2024 Hemoglobin (Bld) [Mass/Vol] 13.3 g/dL 12.0-15.0 [facility] Hepatitis C Antibodyon 08-21 Hepatitis C Ab Non-Reactive Normal Nonreactive [facility] Comment on above: Result Comment: Reac tive: Presumptive evidence of antibodies to HCV. Follow CDC recommendations for supplemental testing. Non-Reactive: Antibodies to HCV were not detected; does not exclude the possibility of exposure to HCV Reactive Results are presumptive evidence of antibodies to HCV. Follow CDC recommendations for supplemental testing. Order confirmation testing: HCV Quant by PCR testing - HCVPCR #[id number] Non Reactive: < 0.8 Equivocal: >/= 0.8 to < 1.0 Reactive: >/= 1.0 The CDC requires that a reactive/equivocal HCV antibody result be sent out for confirmation. HCV Quant by PCR testing. Performed By: #### L 3890.6006, L3890.6102, L100.0100, L3890.6301, L509.8002, L509.4006, BTS ####[facility] [id number] [place], [place], [id number] Immature granulocytes/100 WB C Auto (Bld)Ordered By: Irma Foster on 08-21-2024 Immature granulocytes/100 WBC (Bld) 0.300 % 0.0-0.9 [facility] Comment on above: IG% - Immature Granu locytes (promyelocytes, myelocytes and metamyelocytes) > 1% indicates that a LEFT SHIFT is Present. L3890.6102on 08-21-2024 HEP B Surf Ag Non-Reactive Normal Nonreactive [facility] Comment on above: Result Comment: Reac tive: Presumptive evidence of HBV. Repeatedly reactive samples must be confirmed using a neutralization test ([employer] HBsAg Confirmatory Test) Non-Reactive: HBsAg not detected; does not exclude the possibility of exposure to HBV Performed By: #### L 3890.6006, L3890.6102, L100.0100, L3890.6301, L509.8002, L509.4006, BTS ####[facility] [address] [place], [place], [id number] L509.4006on 08-21-2024 Rubella IgG REAC Normal Nonreactive [facility] Comment on above: Result Comment: Anti body Result: Interpretation Non-Reactive: Non-Immune Reactive: Immune The following results were obtained with the [employer] Rubella IgG assay. Results from assays of other manufacturers cannot be used interchangeably. Performed By: #### L 3890.6006, L3890.6102, L100.0100, L3890.6301, L509.8002, L509.4006, BTS #### [facility] [place], [address] Laboratory - Microbiology an d Antimicrobial susceptibilityOrdered By: Irma Foster on 08-21-2024 HBV surface Ag Ql (S) Non-Reactive Nonreactive [facility] Comment on above: Reactive: Presumptiv e evidence of HBV. Repeatedly reactive samples must be confirmed using a neutralization test ([employer] HBsAg Confirmatory Test)Non-Reactive: HBsAg not detected; does not exclude the possibility of exposure to HBV MCV (mean corpuscular volume ) determinationOrdered By: Irma Foster on 08-21-2024 MCV (RBC) [Entitic vol] 87.4 fL 81-99 [facility] Mean corpuscular hemoglobin (MCH) determinationOrdered By: Irma Foster on 08-21-2024 MCH (RBC) [Entitic mass] 29.3 pg 27.0-32.0 [facility] Mean corpuscular hemoglobin concentration (MCHC) determinationOrdered By: Irma Foster on 08-21-2024 MCHC (RBC) [Mass/Vol] 33.5 g/dL 32-36 [facility] Mean platelet volume determi nationOrdered By: Irma Foster on 08-21-2024 Platelet mean volume (Bld) [Entitic vol] 10.6 fL 6.2-12.0 [facility] Monocyte percentageOrdered B y: Irma Foster on 08-21-2024 Monocytes/100 WBC (Bld) 9.3 % 0-10 [facility] Neisseria gonorrhoeae nuclei c acid detection by amplified probe techniqueOrdered By: Irma Foster on 08-21-2024 N. gonorrhoeae DNA HOLLEY+probe Ql (Unsp spec) Negative Negative [facility] Comment on above: Performed at: =G - [address] [place] [id number] Director: Jennifer Hoang MD, Phone: [phone] Neutrophil percentageOrdered By: Irma Foster on 08-21-2024 Neutrophils/100 WBC (Bld) 65.2 % 47-70 [facility] No Panel InformationOrdered By: Irma Foster on 08-21-2024 HIV (1&2) Antibody Non-Reactive Nonreactive [facility] Comment on above: Non-ReactiveReactive Repeatedly reactive samples must be confirmed according to CDC recommended confirmatory algorithms. The subresults for either HIVAG or AHIV can be used as an aid in the selection of the confirmation algorithm for reactive samples.Send out specimens with Reactive results to [facility] for confirmation.Order the HIV antibody detection and differentiation: #[id number] Nucleated red blood cell per centageOrdered By: Irma Foster on 08-21-2024 Nucleated RBC/100 WBC (Bld) [Ratio] 0 % 0-5 [facility] Client Retention Specialist Office Visit Reporton 08-21-2024 Client Retention Specialist Office Visit Report [facility] [address], [address] [place] [address] OFFICE VISIT Date of Service: 08/21/24 MR#: [id number] Acct: [id number] Name: YULI AREVALO Rep #: [id number] : 1995 Provider: Dr. Irma joseph MD Age/Sex: 29/F Location: [facility] [place] Status: Signed Intake Vital Signs 12/09/23 15:05 08/21/24 10:04 Height 5 ft 6.5 in 5 ft 6.5 in Weight: 155 lb 6 oz BMI 24.7 BP 115/71 Intake Visit Reasons: NOB: LMP 06/12, MIRIAM 03/19 [employer] Required: No Is patient in pain?: No Feel stressed/tense/nervo us/anxious/difficult y sleeping: not at all Allergies No Known Allergies Allergy (Verified 08/21/24 10:05) Medications ???Medication ???Instructions ???Recorded ???Confirmed ???Type multivit-min no.71-iron fum 28 1 cap PO see provid 03/26/2312/08 History mg-folate no.1 1 mg-dha 300 mg capsule (PNV-Carson) famotidine 20 mg tablet (Pepcid) 20 mg PO BID 30 days #60 tabs 06/2612/09/23 Rx Last Menstrual Period: 06/12/24 Zika: Zika virus screening: Negative : No PFSH PFSH Medical History Hx of infertility Abnormal Pap smear of cervix Chlamydia Seasonal allergies Panic attacks Surgical History [place] teeth extracted Family History Grandmother Thyroid disorder Maternal hyperthyroidism prior to cancer Cancer thyroid ca- maternal Mother Thyroid disorder Hyperthyroidism Other Diabetes Social History adopted: No household members: spouse and children housing: house number of children: 1 current occupational status: employed 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 Date Name GA/Weeks Outcome Route Bth Weight Gen Labor Lgth Anesthesia Del Locatn Provider FOB 10/25/23 Geo 38 live - full term 7#3oz Male none [facility] Carmella Golden HPI NOB: LMP 06/12, MIRIAM 03/19 Details: YULI AREVALO is a 29 year old who presents for New OB visit. OB Visit MIRIAM Calculator Estimated Delivery Date Method Current WG Current Estimate 03/19/25 LMP (Certain) 10w 0d Other Estimates 03/12/25 Ultrasound #1 11w 0d Comments: HIV: Urine Culture: Sequential Screen: NIPT Screen: Estimated Due Date: 03/19/25 Expected Delivery Route/Plan Labor Preferences- CB/BF classes: [] labor support person: [] labor intervention preferences: [] pain management options preferred: [] cut cord/dad catch: [] : [] PP control planned: [] discussed possible routes of delivery and associated risks: [] special requests: []. Specific Issue/Plans Covid status: [] Flu vaccine: [] Tdap vaccine: [] Rhogam: [] LARC form signed: [] Problem list reviewed and updated with the most current plan of care details and appropriate orders placed. Relevant counseling for the gestational age provided. Continue routine care and follow up unless otherwise noted in visit notes/problem list details Initial Weight: Not Recorded Date -???-???-???-???-??? -???-???-???-???-??? -???-???- EGA Weight BP Urine Prot -???-???-???-???-??? -???-???-???-???-??? -???-???- Glucose FHR FuHt Pres Dilation -???-???-???-???-??? -???-???-???-???-??? -???-???- Effaced St Visit Note 08/21/24 -???-???-???-???-??? -???-???-???-???-??? -???-???- 10w 0d 155 lb 6 oz 115/71 -???-???-???-???-??? -???-???-???-???-??? -???-???- 160 -???-???-???-???-??? -???-???-???-???-??? -???-???- SM- no vb cr amping CRL cons with LMP SM- no vb cramping CRL 4.04cm cons with LMP Menstrual History Last Menstrual Period: 06/03 (more content not included)... Normal [facility] Platelet countOrdered By: Dafne Foster on 08-21-2024 Platelets (Bld) [#/Vol] 299 10*3/uL 150-450 [facility] RBC Auto (Bld) [#/Vol]Ordere d By: Irma Foster on 08-21-2024 RBC (Bld) [#/Vol] 4.54 10*6/uL 4.2-5.4 [facility] Syphilis Antibodieson 2024 Syphilis Abs Non-Reactive Normal Nonreactive [facility] Comment on above: Performed By: #### L 3890.6006, L3890.6102, L100.0100, L3890.6301, L509.8002, L509.4006, BTS #### [facility] [address] [place], [place], [id number] Type AND Screenon 08-21-2024 Ab SCREEN GEL Negative Normal [facility] Comment on above: Order Comment: PN Performed By: #### L 3890.6006, L3890.6102, L100.0100, L3890.6301, L509.8002, L509.4006, BTS #### [facility] [address] [place], [address] Urine cultureOrdered By: Edil Foster on 08-21-2024 Bacteria identified Cx Nom (U) Culture exhibits no growth. [facility] White blood cell (WBC) count Ordered By: Irma Foster on 08-21-2024 WBC (Bld) [#/Vol] 7.0 10*3/uL 4.4-11.0 [facility] Absolute lymphocyte countOrd ered By: Ernestina Aquino on 08-06-2023 Lymphocytes Auto (Unsp spec) [#/Vol] 1.71 10*3/uL 0.83-4.51 [facility] Automated lymphocyte count a s percentage of total leukocytesOrdered By: Ernestina Aquino on 08-06-2023 Lymphocytes/100 WBC Auto (Unsp spec) 20.3 % 19-41 [facility] Basophil percentageOrdered B y: Ernestina Aquino on 08-06-2023 Basophils/100 WBC (Bld) 0.5 % 0-1 [facility] Eosinophils/100 WBC (Bld) 1.8 % 0-5 [facility] Hemoglobin (Bld) [Mass/Vol] 12.7 g/dL 12.0-15.0 [facility] Monocytes/100 WBC (Bld) 7.2 % 0-10 [facility] Neutrophils (Bld) [#/Vol] 5.9 10*3/uL 2.0-7.7 [facility] Neutrophils/100 WBC (Bld) 69.7 % 47-70 [facility] WBC (Bld) [#/Vol] 8.4 10*3/uL 4.4-11.0 [facility] Determination of erythrocyte mean corpuscular volume (MCV)Ordered By: Ernestina Aquino on 08-06-2023 MCV (RBC) [Entitic vol] 91.1 fL 81-99 [facility] Erythrocyte distribution wid th ratioOrdered By: Ernestina Aquino on 08-06-2023 Erythrocyte distribution width (RBC) [Ratio] 12.3 % 11.6-14.6 [facility] Erythrocyte distribution wid th standard deviationOrdered By: Ernestina Aquino on 08-06-2023 Erythrocyte distribution width (RBC) [Entitic vol] 40.4 fL 35.1-43.9 [facility] Gestational diabetes screen 1-hour screen with 50g oral glucose loadOrdered By: Ernestina Aquino on 08-06-2023 Glucose 1 Hr post 50 g glucose PO [Mass/Vol] 134 mg/dL 70-140 [facility] HIV 1 and HIV-2 antibody ass ay with HIV-1 p24 antigen detectionOrdered By: Ernestina Aquino on 08-06-2023 HIV 1+2 Ab+HIV1 p24 Ag IA Ql Non-Reactive Nonreactive [facility] Hematocrit Auto (Bld) [Volum e fraction]Ordered By: Ernestina Auqino on 08-06-2023 Hematocrit (Bld) [Volume fraction] 38.7 % 37-47 [facility] Immature granulocytes/100 WB C Auto (Bld)Ordered By: Ernestina Aquino on 08-06-2023 Immature granulocytes/100 WBC (Bld) 0.500 % 0.0-0.9 [facility] Comment on above: IG% - Immature Granu locytes (promyelocytes, myelocytes and metamyelocytes) > 1% indicates that a LEFT SHIFT is Present. Laboratory - Chemistry and C hemistry - challengeon 08-06-2023 Glucose Ql (U) Negative [facility] - Hematology and Cell countsOrdered By: Ernestina Aquino on 08-06-2023 MCH (RBC) [Entitic mass] 29.9 pg 27.0-32.0 [facility] MCHC (RBC) [Mass/Vol] 32.8 g/dL 32-36 [facility] Nucleated RBC/100 WBC (Bld) [Ratio] 0 % 0-5 [facility] Platelet mean volume (Bld) [Entitic vol] 10.4 fL 6.2-12.0 [facility] Platelets (Bld) [#/Vol] 245 10*3/uL 150-450 [facility] Laboratory - Urinalysison Protein Ql (U) Negative [facility] RBC Auto (Bld) [#/Vol]Ordere d By: Ernestina Aquino on 08-06-2023 RBC (Bld) [#/Vol] 4.25 10*6/uL 4.2-5.4 [facility] Serum Treponema species anti body detectionOrdered By: Ernestina Aquino on 08-06-2023 Treponema sp Ab Ql (S) Non-Reactive [facility] Absolute lymphocyte countOrd ered By: Ernestina Aquino on 04-09-2023 Lymphocytes Auto (Unsp spec) [#/Vol] 1.64 10*3/uL 0.83-4.51 [facility] Basophil percentageOrdered B y: Ernestina Aquino on 04-09-2023 Basophils/100 WBC (Bld) 0.5 % 0-1 [facility] Eosinophils/100 WBC (Bld) 0.8 % 0-5 [facility] Neutrophils (Bld) [#/Vol] 5.2 10*3/uL 2.0-7.7 [facility] Neutrophils/100 WBC (Bld) 68.3 % 47-70 [facility] WBC (Bld) [#/Vol] 7.6 10*3/uL 4.4-11.0 [facility] Blood erythrocytes count (nu mber/volume)Ordered By: Ernestina Aquino on 04-09-2023 RBC (Bld) [#/Vol] 4.52 10*6/uL 4.2-5.4 [facility] Blood hemoglobin measurement (mass/volume)Ordered By: Ernestina Aquino on 04-09-2023 Hemoglobin (Bld) [Mass/Vol] 13.5 g/dL 12.0-15.0 [facility] Blood lymphocytes/100 leukoc ytesOrdered By: Ernestina Aquino on 04-09-2023 Lymphocytes/100 WBC (Bld) 21.7 % 19-41 [facility] Blood monocytes/100 leukocyt esOrdered By: Ernestina Aquino on 04-09-2023 Monocytes/100 WBC (Bld) 8.6 % 0-10 [facility] Blood platelet mean volumeOr dered By: Ernestina Aquino on 04-09-2023 Platelet mean volume (Bld) [Entitic vol] 10.0 fL 6.2-12.0 [facility] Culture, urineOrdered By: Yasmany Anton on 04-09-2023 Bacteria identified Cx Nom (U) Positive [facility] Bacteria identified Cx Nom (U) Positive [facility] Determination of erythrocyte mean corpuscular volume (MCV)Ordered By: Ernestina Aquino on 04-09-2023 MCV (RBC) [Entitic vol] 89.6 fL 81-99 [facility] HIV 1 and HIV-2 antibody ass ay with HIV-1 p24 antigen detectionOrdered By: Ernestina Aquino on 04-09-2023 HIV 1+2 Ab+HIV1 p24 Ag IA Ql Non-Reactive Nonreactive [facility] Hematocrit Auto (Bld) [Volum e fraction]Ordered By: Ernestina Aquino on 04-09-2023 Hematocrit (Bld) [Volume fraction] 40.5 % 37-47 [facility] - Hematology and Cell countsOrdered By: Ernestina Aquino on 04-09-2023 Erythrocyte distribution width (RBC) [Entitic vol] 40.1 fL 35.1-43.9 [facility] Erythrocyte distribution width (RBC) [Ratio] 12.3 % 11.6-14.6 [facility] Immature granulocytes/100 WBC (Bld) 0.100 % 0.0-0.9 [facility] Comment on above: IG% - Immature Granu locytes (promyelocytes, myelocytes and metamyelocytes) > 1% indicates that a LEFT SHIFT is Present. MCH (RBC) [Entitic mass] 29.9 pg 27.0-32.0 [facility] Nucleated RBC/100 WBC (Bld) [Ratio] 0 % 0-5 [facility] MCHC Auto (RBC) [Mass/Vol]Or dered By: Ernestina Aquino on 04-09-2023 MCHC (RBC) [Mass/Vol] 33.3 g/dL 32-36 [facility] No Panel InformationOrdered By: Ernestina Aquino on 04-09-2023 Hepatitis B Surface Antigen Non-Reactive Nonreactive [facility] Hepatitis C Antibody Non-Reactive Nonreactive [facility] Comment on above: Non Reactive: < 0.8 Equivocal: >/= 0.8 to < 1.0 Reactive: >/= 1.0The CDC recommends that a reactive/equivocal HCV antibody result be followed up by the HCV Nucleic Acid Amplificationtest (147686) Rubella IgG Antibody Reactive Nonreactive [facility] Comment on above: Antibody Results Int erpretation of Immune Status Non Reactive Presumed Non-Immune Equivocal Equivocal Reactive Presumed Immune Miscellaneous Test Comment MAILED SPECIMEN [facility] Platelets bldOrdered By: Elma Aquino on 04-09-2023 Platelets (Bld) [#/Vol] 285 10*3/uL 150-450 [facility] Serum Treponema species anti body detectionOrdered By: Ernestina Aquino on 04-09-2023 Treponema sp Ab Ql (S) Non-Reactive [facility] Cervical or vagninal specime n microscopic examination by cytology stain (reported asOrdered By: Ernestina Aquino on 04-02-2023 Cytology report Cyto stain Doc (Cvx/Vag) Comment . [facility] Comment on above: The Pap smear is a s creening test designed to aid in thedetection of premalignant and malignant conditions of theuterine cervix. It is not a diagnostic procedure andshould not be used as the sole means of detecting cervicalcancer. Both false-positive and false-negative reports dooccur. Chlamydia trachomatis rRNA d etection by probe and target amplification methodOrdered By: Ernestina Aquino on 04-02-2023 C. trachomatis rRNA HOLLEY+probe Ql (Unsp spec) Negative Negative [facility] Culture, urineOrdered By: Viridiana Aquino on 04-02-2023 Bacteria identified Cx Nom (U) Mixed Gram Pos & Gram Neg Org [facility] Bacteria identified Cx Nom (U) Mixed Gram Pos & Gram Neg Org [facility] Laboratory - CytologyOrdered By: Ernestina Aquino on 04-02-2023 Mechanic'S Assistant Cyto stain Nom (Cvx/Vag) [ID] Comment . [facility] Comment on above: Rosie Malik chnologist (ASC) Laboratory - Microbiology an d Antimicrobial susceptibilityOrdered By: Ernestina Aquino on 04-02-2023 N. gonorrhoeae DNA HOLLEY+probe Ql (Unsp spec) Negative Negative [facility] Comment on above: Performed at: =[address] [id number] Director: Jennifer Hoang MD, Phone: [phone] Laboratory - Miscellaneous t estsOrdered By: Ernestina Aquino on 04-02-2023 Service comment (Unsp spec) [Interp] Comment . [facility] Comment on above: This liquid based Th inPrep(R) pap test was screened withthe use of an image guided system. Service comment (Unsp spec) [Interp] . . [facility] No Panel InformationOrdered By: Ernestina Aquino on 04-02-2023 Human Papillomavirus Screen Comment . [facility] Comment on above: The HPV DNA reflex c riteria were not met with this specimenresult therefore, no HPV testing was performed.Performed at: [facility] [address] [facility], [place], [place] [id number] Director: Aden Avila MD, Phone: [phone] at: [facility] - [facility] [address] [place] [id number] Director: Jennifer Hoang MD, Phone: [phone] Pathology report final diagnosis Narrative Comment . [facility] Comment on above: NEGATIVE FOR INTRAEP ITHELIAL LESION OR MALIGNANCY. CRP [Mass/Vol]on 09-03-2022 Interpretation and review of laboratory results Normal [facility] CRP, Inflammationon 09-04-19 CRP [Mass/Vol] mg/L NINF - 10.0 mg/L [facility] ESR Westergren method (Bld) [Velocity]on 09-03-2022 ESR (Bld) [Velocity] 7 mm/h [facility] Interpretation and review of laboratory results Normal [facility] FACIAL BONES MIN 3 VIEWSon 0 12-10-2020 FACIAL BONES MIN 3 VIEWS [facility] Patient: YULI AREVALO [address] [place] [id number] Admit Date: 12/10/20 /Age: 04 1995 ED Physician: FARHEEN Pratt DIAGNOSTIC RADIOLOGY REQUISITION Attending Physician: Med Rec #: [id number] EXAM: FACIAL BONES MIN 3 VIEWS HISTORY: Hit in face by spooked horse outer canthus lac/edema. COMPARISON: None. TECHNIQUE: Facial bones 3 views. FINDINGS: Nasal bones and spinous process of maxilla normal. No air-fluid level. No facial bone fracture. Orbital floors are intact. IMPRESSION: Normal facial bones. Authenticated on: 12/10/201656 [id number]/JUAN JOSEIA 56 Job ID# [id number] CC: NONE,NONE FARHEEN Pratt Normal [facility].PROVREPon 12-10-2020 [facility] Patient: YULI AREVALO URGENT CARE PROVIDER REPORT Admit Date: 12/10/20 /Age/Sex: 1995 Author: FARHEEN Pratt Provider: Med Rec #: [id number] History Of Present Illness - General Time Seen by Provider: 12/10/20 15:50 History Provided By: Patient Exam Limitations: No Limitations Patient Complains Of Injury To: Face HPI: 25-year-old female presents to the urgent care with complaint of laceration over her left eye which happened just prior to arrival. 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 She denies any change or vision loss. Patient denies any oral injury or neck pain. Patient is up-to-date with her tetanus vaccination. She denies any other symptoms related to this complaint. Timing: Just Prior to Arrival Duration: Constant Severity: Mild Context: Direct Blow Location: Face Past Medical History Allergies No Known Allergies Allergy (Unverified 12/10/20 15:56) Home Medications Cephalexin [Keflex] 500 mg PO TID 5 Days #15 cap 12/10/20 - Vaccination History Hx Tetanus, Diphtheria Vaccination: Yes - just recently - Female History Patient : No - bc pill Review Of Systems All Other Systems: Reviewed and negative for new complaints Constitutional: Reports: No Symptoms Reported EENT: Reports: No Symptoms Reported Respiratory: Reports: No Symptoms Reported Cardiac (ROS): Reports: No Symptoms Reported ABD/GI: Reports: No Symptoms Reported : Reports: No Symptoms Reported Musculoskeletal: Reports: See HPI Skin: Reports: See HPI Neurological/Psych: Reports: No Symptoms Reported Hematologic/Lymphati c: Reports: No Symptoms Reported Physical Exam General Appearance: No Acute Distress, Alert Head: See Diagram Eyes Bilateral: Normal Inspection, PERRL Face Map: 1 - 1 cm superficial laceration 2 - Mild edema 3 - Ecchymosis 4 - Ecchymosis Neck: Non-Tender, Painless ROM, Trachea Midline Nexus Criteria: Negative Respiratory: Chest Non-Tender, No Respiratory Distress, Breath Sounds Normal Cardiovascular: Reg Rate Rhythm, No Murmur, No Gallop Peripheral Pulses: Radial (L): 2+, Radial (R): 2+ Back: Normal Inspection Skin: No Embolic Lesions, Color Normal, No Rash, Warm, Dry, See Diagram Extremities: Non-Tender, Full ROM, Normal Appearance Neurologic/Psychiatr ic: Oriented x3, CN's Normal (2-12), Motor Normal, Sensation Normal, Mood/Affect Normal Progress ED Course/Plan: Radiologist report of facial bones does not indicate any bony abnormalities. X-ray report discussed with patient. Patient was given ice pack upon presentation. Wound was flushedwith spray normal saline and dried with sterile gauze. Wound was closed using Steri-Strips. Wound is hemostatic. There was no evidence of foreign body in the wound. Patient to continue applying ice pack for 15 to 20 minutes every 1-2 hours while awake and instructed to sleep with her head elvated to decrease edema surrounding her orbit. Patient to follow-up with her primary care provider return to the emergency department for worsening symptoms as indicated on her discharge instructions and discussed with her. Patient prescribed Keflex prophylactically. Patient was also given acial laceration discharge instructions with emphasis on sterile tape wound closure. Patient verbalized understanding of the discharge instructions and agrees with the treatment plan. Departure Last Set Of Vital Signs: Last Vital Signs Temp 97.9 F 12/10/20 16:01 Pulse 83 12/10/20 16:01 Resp 12 12/10/20 16:01 BP 116/79 12/10/20 16:01 Pulse Ox 99 12/10/20 16:01 Impression: Impression: 1 cm superficial left eyelid laceration with Steri-Strip repair and left upper facial contusion This dictation is generated by a voice recognition computer software. Although all attempts are made to check the dictation for accuracy, there may be errors in the transcriptions that are not intended. Instructions: Facial Laceration (ED) Additional Instructions: Facial x-ray does not indicate that there is any fracture of bone surrounding your eye. Read sterile tape closure section of facial laceration. May take ibuprofen or Tylenol for discomfort as needed. Apply ice or cold pack for 20 minutes every 1-2 hours while awake to help decrease swelling. Complete antibiotic as prescribed to help prevent any infection. Follow-up with primary care provider or return for further concerns as necessary. Prescriptions: Cephalexin [Keflex] 500 mg PO TID 5 Days #15 cap Disposition: HOME/SELF CARE ROUTINE Condition: Stable Referrals: NONE,NONE [Family Provider] - 12/11/20 1308 [id number] [phone] [id number] CC: NONE,NONE Normal [facility] CBC, EDIF, PLATELETon 2019 ABSOLUTE BASOPHIL COUNT 0.0 10*3/uL 0 - 0.2 10*3/uL [facility] Comment on above: Testing performed at [place], [place] [address] Basophils/100 WBC (Bld) 0.5 % 0 - 2 % [facility] Differential cell count method Nom (Bld) AUTO DIFF % [facility] Eosinophils (Bld) [#/Vol] 0.10 10*3/uL 0 - 0.7 10*3/uL [facility] Eosinophils/100 WBC (Bld) 1.4 % 0 - 11 % [facility] Erythrocyte distribution width (RBC) [Ratio] 13.2 % 11.5 - 14.5 % [facility] Hematocrit (Bld) [Volume fraction] 41.2 % 36 - 48 % [facility] Hemoglobin (Bld) [Mass/Vol] 14.2 g/dL [facility] Lymphocytes (Bld) [#/Vol] 1.60 10*3/uL 1.2 - 3.4 10*3/uL [facility] Lymphocytes/100 WBC (Bld) 26.6 % 20 - 55 % [facility] MCH (RBC) [Entitic mass] 30.5 pg 26 - 35 PG [facility] MCHC (RBC) [Mass/Vol] 34.4 g/dL [facility] MCV (RBC) [Entitic vol] 88.7 fL [facility] Monocytes (Bld) [#/Vol] 0.5 10*3/uL 0 - 0.7 10*3/uL [facility] Monocytes/100 WBC (Bld) 8.7 % 0 - 10 % [facility] Neutrophils (Bld) [#/Vol] 3.8 10*3/uL 1.4 - 6.5 10*3/uL [facility] Neutrophils/100 WBC (Bld) 62.8 % 37 - 75 % [facility] Platelet mean volume (Bld) [Entitic vol] 8.9 fL [facility] Platelets (Bld) [#/Vol] 279 10*3/uL 130 - 400 10*3/uL [facility] RBC (Bld) [#/Vol] 4.65 10*6/uL 4 - 5.4 10*6/uL [facility] WBC (Bld) [#/Vol] 6.1 10*3/uL 3.6 - 11 10*3/uL [facility] TSHon 03-15-2020 TSH Qn 3.230 m[IU]/L [facility] Comment on above: Testing performed at [place], [place] [address] Vital Signs Date Time Vital Sign Value Performing Clinician Facility 01-16-2025 10:120400 Body height 168.91 cm No Primary Care Physician [facility] 01-16-2025 10:12-0400 Body mass index (BMI) [Ratio] 29.7 kg/m2 No Primary Care Physician [facility] 01-16-2025 10:12-0400 Body weight 84.82 kg No Primary Care Physician [facility] 01-16-2025 10:12-0400 Diastolic blood pressure 70 mm[Hg] No Primary Care Physician [facility] 01-16-2025 10:12-0400 Systolic blood pressure 113 mm[Hg] No Primary Care Physician [facility] 01-01-2025 10:03-0400 Body height 168.91 cm No Primary Care Physician [facility] 01-01-2025 10:03-0400 Body mass index (BMI) [Ratio] 28.5 kg/m2 No Primary Care Physician [facility] 01-01-2025 10:03-0400 Body weight 81.44 kg No Primary Care Physician [facility] 01-01-2025 10:03-0400 Diastolic blood pressure 81 mm[Hg] No Primary Care Physician [facility] 01-01-2025 10:03-0400 Systolic blood pressure 137 mm[Hg] No Primary Care Physician [facility] 12-18-2024 10:17-0400 Body weight 80.37 kg No Primary Care Physician [facility] 12-18-2024 10:06-0400 Body height 168.91 cm No Primary Care Physician [facility] 12-18-2024 10:06-0400 Body mass index (BMI) [Ratio] 0.8 kg/m2 No Primary Care Physician [facility] 12-18-2024 10:06-0400 Body weight 2.45 kg No Primary Care Physician [facility] 12-18-2024 10:06-0400 Diastolic blood pressure 70 mm[Hg] No Primary Care Physician [facility] 12-18-2024 10:06-0400 Systolic blood pressure 123 mm[Hg] No Primary Care Physician [facility] 11-20-2024 09:31-0400 Body height 168.91 cm No Primary Care Physician [facility] 11-20-2024 09:31-0400 Body mass index (BMI) [Ratio] 26.8 kg/m2 No Primary Care Physician [facility] 11-20-2024 09:31-0400 Body weight 76.43 kg No Primary Care Physician [facility] 11-20-2024 09:31-0400 Diastolic blood pressure 67 mm[Hg] No Primary Care Physician [facility] 11-20-2024 09:31-0400 Systolic blood pressure 115 mm[Hg] No Primary Care Physician [facility] 10-23-2024 10:17-0400 Body height 168.91 cm No Primary Care Physician [facility] 10-23-2024 10:17-0400 Body mass index (BMI) [Ratio] 26.3 kg/m2 No Primary Care Physician [facility] 10-23-2024 10:17-0400 Body weight 75.06 kg No Primary Care Physician [facility] 10-23-2024 10:17-0400 Diastolic blood pressure 75 mm[Hg] No Primary Care Physician [facility] 10-23-2024 10:17-0400 Systolic blood pressure 122 mm[Hg] No Primary Care Physician [facility] 09-25-2024 13:32-0400 Body mass index (BMI) [Ratio] 25.4 kg/m2 No Primary Care Physician [facility] 09-25-2024 13:32-0400 Body weight 72.68 kg No Primary Care Physician [facility] 09-25-2024 13:32-0400 Diastolic blood pressure 67 mm[Hg] No Primary Care Physician [facility] 09-25-2024 13:32-0400 Systolic blood pressure 114 mm[Hg] No Primary Care Physician [facility] 08-21-2024 10:04-0400 Body height 168.91 cm No Primary Care Physician [facility] 08-21-2024 10:04-0400 Body mass index (BMI) [Ratio] 24.7 kg/m2 No Primary Care Physician [facility] 08-21-2024 10:04-0400 Body weight 70.47 kg No Primary Care Physician [facility] 08-21-2024 10:04-0400 Diastolic blood pressure 71 mm[Hg] No Primary Care Physician [facility] 08-21-2024 10:04-0400 Systolic blood pressure 115 mm[Hg] No Primary Care Physician [facility] 07-13-2024 13:46-0400 Body height 168.9 cm Darling Farmer II, MD Work Phone: [facility] 07-13-2024 13:46-0400 Body mass index (BMI) [Ratio] 24.72 kg/m2 Darling Farmer II, MD Work Phone: [facility] 07-13-2024 13:46-0400 Body temperature 98.1 [degF] Darling Farmer II, MD Work Phone: [facility] 07-13-2024 13:46-0400 Body weight 70.53 kg Darling Farmer II, MD Work Phone: [facility] 07-13-2024 13:46-0400 Diastolic blood pressure 70 mm[Hg] Darling Farmer II, MD Work Phone: [facility] 07-13-2024 13:46-0400 Heart rate 80 /min Darling Farmer II, MD Work Phone: [facility] 07-13-2024 13:46-0400 Respiratory rate 16 /min Darling Farmer II, MD Work Phone: [facility] 07-13-2024 13:46-0400 SaO2% (BldA) [Mass fraction] 99 % Darling Farmer II, MD Work Phone: [facility] 07-13-2024 13:46-0400 Systolic blood pressure 118 mm[Hg] Darling Farmer II, MD Work Phone: [facility] 08-06-2023 14:44-0400 Body height 168.91 cm No Primary Care Physician [facility] 08-06-2023 14:44-0400 Body mass index (BMI) [Ratio] 27.8 kg/m2 No Primary Care Physician [facility] 08-06-2023 14:44-0400 Body weight 79.54 kg No Primary Care Physician [facility] 08-06-2023 14:44-0400 Diastolic blood pressure 78 mm[Hg] No Primary Care Physician [facility] 08-06-2023 14:44-0400 Systolic blood pressure 112 mm[Hg] No Primary Care Physician [facility] 07-09-2023 14:04-0400 Body mass index (BMI) [Ratio] 27 kg/m2 No Primary Care Physician [facility] 07-09-2023 14:04-0400 Body weight 77.22 kg No Primary Care Physician [facility] 07-09-2023 14:04-0400 Diastolic blood pressure 62 mm[Hg] No Primary Care Physician [facility] 07-09-2023 14:04-0400 Systolic blood pressure 101 mm[Hg] No Primary Care Physician [facility] 06-04-2023 13:11-0500 Body height 168.91 cm No Primary Care Physician [facility] 06-04-2023 13:08-0500 Body mass index (BMI) [Ratio] 25.9 kg/m2 No Primary Care Physician [facility] 06-04-2023 13:08-0500 Body weight 73.93 kg No Primary Care Physician [facility] 06-04-2023 13:08-0500 Diastolic blood pressure 64 mm[Hg] No Primary Care Physician [facility] 06-04-2023 13:08-0500 Systolic blood pressure 108 mm[Hg] No Primary Care Physician [facility] 05-07-2023 13:29-0500 Body mass index (BMI) [Ratio] 25.4 kg/m2 No Primary Care Physician [facility] 05-07-2023 13:29-0500 Body weight 72.63 kg No Primary Care Physician [facility] 05-07-2023 13:29-0500 Diastolic blood pressure 62 mm[Hg] No Primary Care Physician [facility] 05-07-2023 13:29-0500 Systolic blood pressure 110 mm[Hg] No Primary Care Physician [facility] 04-02-2023 14:16-0500 Body height 168.91 cm [facility] Ernestina Aquino Work Phone: [facility] 04-02-2023 14:15-0500 Body mass index (BMI) [Ratio] 25 kg/m2 [facility] Ernestina Aquino Work Phone: [facility] 04-02-2023 14:15-0500 Body weight 71.44 kg [facility] Ernestina Aquino Work Phone: [facility] 04-02-2023 14:15-0500 Diastolic blood pressure 73 mm[Hg] [facility] Ernestina Aquino Work Phone: [facility] 04-02-2023 14:15-0500 Systolic blood pressure 109 mm[Hg] [facility] Ernestina Aquino Work Phone: [facility] 09-03-2022 10:50-0400 Body mass index (BMI) [Ratio] 23.27 kg/m2 Anay Paredes MD Work Phone: [facility] 09-03-2022 10:50-0400 Body weight 67.41 kg Anay Paredes MD Work Phone: [facility] 09-03-2022 10:50-0400 Diastolic blood pressure 64 mm[Hg] Anay Paredes MD Work Phone: [facility] 09-03-2022 10:50-0400 Heart rate 65 /min Anay Paredes MD Work Phone: [facility] 09-03-2022 10:50-0400 SaO2% (BldA) [Mass fraction] 99 % Anay Paredes MD Work Phone: [facility] 09-03-2022 10:50-0400 Systolic blood pressure 102 mm[Hg] Anay Paredes MD Work Phone: [facility] 04-03-2021 14:07-0500 Body height 170.2 cm Rex Blackburn MD Work Phone: [facility] 04-03-2021 14:07-0500 Body mass index (BMI) [Ratio] 25.31 kg/m2 Rex Blackburn MD Work Phone: [facility] 04-03-2021 14:07-0500 Body temperature 97.81 [degF] Rex Blackburn MD Work Phone: [facility] 04-03-2021 14:07-0500 Body weight 73.3 kg Rex Blackburn MD Work Phone: [facility] 04-03-2021 14:07-0500 Diastolic blood pressure 72 mm[Hg] Rex Blackburn MD Work Phone: [facility] 04-03-2021 14:07-0500 Heart rate 79 /min Rex Blackburn MD Work Phone: [facility] 04-03-2021 14:07-0500 Respiratory rate 18 /min Rex Blackburn MD Work Phone: [facility] 04-03-2021 14:07-0500 SaO2% (BldA) [Mass fraction] 99 % Rex Blackburn MD Work Phone: [facility] 04-03-2021 14:07-0500 Systolic blood pressure 124 mm[Hg] Rex Blackburn MD Work Phone: [facility] 03-21-2021 14:18-0500 Body height 170.2 cm Rex Blackburn MD Work Phone: [facility] 03-21-2021 14:18-0500 Body mass index (BMI) [Ratio] 24.35 kg/m2 Rex Blackburn MD Work Phone: [facility] 03-21-2021 14:18-0500 Body temperature 98.4 [degF] Rex Blackburn MD Work Phone: [facility] 03-21-2021 14:18-0500 Body weight 70.53 kg Rex Blackburn MD Work Phone: [facility] 03-21-2021 14:18-0500 Diastolic blood pressure 73 mm[Hg] Rex Blackburn MD Work Phone: [facility] 03-21-2021 14:18-0500 SaO2% (BldA) [Mass fraction] 98 % Rex Blackburn MD Work Phone: [facility] 03-21-2021 14:18-0500 Systolic blood pressure 124 mm[Hg] Rex Blackburn MD Work Phone: [facility] 12-10-2020 16:01-0400 Body temperature 97.9 [degF] JULIO C ANTON Work Phone: [facility] Work Phone: 12-10-2020 16:01-0400 Diastolic blood pressure 79 mm[Hg] JULIO C ANTON Work Phone: [facility] Work Phone: 12-10-2020 16:01-0400 Heart rate 83 /min JULIO C ANTON Work Phone: [facility] Work Phone: 12-10-2020 16:01-0400 Respiratory rate 12 /min JULIO C ANTON Work Phone: [facility] Work Phone: 12-10-2020 16:01-0400 SaO2% (BldA) [Mass fraction] 99 % JULIO C ANTON Work Phone: [facility] Work Phone: 12-10-2020 16:01-0400 Systolic blood pressure 116 mm[Hg] JULIO C ANTON Work Phone: [facility] Work Phone: 09-06-2020 13:19-0400 Body height 168.9 cm Paco Kendall MD Work Phone: [facility] 09-06-2020 13:19-0400 Body mass index (BMI) [Ratio] 24.64 kg/m2 Paco Kendall MD Work Phone: [facility] 09-06-2020 13:19-0400 Body temperature 98.4 [degF] Paco Kendall MD Work Phone: [facility] 09-06-2020 13:19-0400 Body weight 70.31 kg Paco Kendall MD Work Phone: [facility] 09-06-2020 13:19-0400 Diastolic blood pressure 80 mm[Hg] Paco Kendall MD Work Phone: [facility] 09-06-2020 13:19-0400 Systolic blood pressure 104 mm[Hg] Paco Kendall MD Work Phone: [facility] 03-15-2020 13:58-0500 Body Temperature 98.01 [degF] Paco Kendall [facility] 03-15-2020 13:58-0500 Body weight 72.67 kg Paco Faiza [facility] 03-15-2020 13:58-0500 BP Diastolic 60 mm[Hg] Paco Kendall [facility] 03-15-2020 13:58-0500 BP Systolic 118 mm[Hg] Paco Kendall [facility] 04-04-2019 13:37-0500 BP Diastolic 84 mm[Hg] [facility] 04-04-2019 13:37-0500 BP Systolic 134 mm[Hg] [facility] 04-04-2019 12:58-0500 BMI (Body Mass Index) 26.31 kg/m2 [facility] 04-04-2019 12:58-0500 Body weight 76.2 kg [facility] 04-04-2019 12:58-0500 Height 170.2 cm [facility] 04-04-2019 12:58-0500 Pulse (Heart Rate) 77 /min [facility] 05-04-2018 13:47-0500 BMI (Body Mass Index) 25.37 kg/m2 [facility] 05-04-2018 13:47-0500 BP Diastolic 81 mm[Hg] [facility] 05-04-2018 13:47-0500 BP Systolic 132 mm[Hg] [facility] 05-04-2018 13:47-0500 Pulse (Heart Rate) 73 /min [facility] 05-04-2018 13:47-0500 Weight 73.48 kg [facility] 03-15-2018 09:07-0500 BMI (Body Mass Index) 25.06 kg/m2 [facility] 03-15-2018 09:07-0500 BP Diastolic 72 mm[Hg] [facility] 03-15-2018 09:07-0500 BP Systolic 117 mm[Hg] [facility] 03-15-2018 09:07-0500 Height 170.2 cm [facility] 03-15-2018 09:07-0500 Pulse (Heart Rate) 77 /min [facility] 03-15-2018 09:07-0500 Weight 72.58 kg [facility] Encounters Encounter Date Encounter Type Care Provider Facility Start: 02-15-2025 ambulatory No Primary Car e Physician Facility:[facility] Start: 02-01-2025 End: 02-01-2025 ambulatory No Primary Care Physician Facility:[facility] Start: 01-16-2025 End: 01-16-[address] Irma Foster MD -[facility] Work Phone: Start: 01-16-2025 End: 01-16-2025 ambulatory No Primary Care Physician -[facility] Start: 01-01-2025 End: 01-01-2025 Patient encounter procedure Georgie Anton CNM -[facility] Work Phone: Start: 01-01-2025 End: 01-01-2025 ambulatory No Primary Care Physician -[facility] Start: 12-18-2024 End: 12-18-2024 Patient encounter procedure Iris GUTIERREZ -[facility] Work Phone: Start: 12-18-2024 End: 12-18-2024 ambulatory No Primary Care Physician -[facility] Start: 12-18-2024 End: 12-18-2024 ambulatory No Primary Care Physician Facility:[facility] Start: 11-20-2024 End: 11-20-[address] Rhiannon Mccrary DO -[facility] Work Phone: Start: 11-20-2024 End: 11-20-2024 ambulatory No Primary Care Physician -[facility] Start: 10-26-2024 End: 10-26-2024 ambulatory MD NO PRIMARY CARE [facility] Start: 10-23-2024 End: 10-23-2024 Patient encounter procedure Georgie Anton CNM -[facility] Work Phone: Start: 10-23-2024 End: 10-23-2024 ambulatory No Primary Care Physician -[facility] Start: 09-25-2024 End: 09-25-2024 Patient encounter procedure Iris Cali NP-Cristi -[facility] Work Phone: Start: 09-25-2024 End: 09-25-2024 ambulatory No Primary Care Physician [facility] Work Phone: Start: 08-21-2024 End: 08-21-[address] Irma Foster MD -[facility] Start: 08-21-2024 End: 08-21-[address] Irma Foster MD -[facility] Work Phone: Start: 08-21-2024 End: 08-21-2024 ambulatory No Primary Care Physician [facility] Work Phone: Start: 08-21-2024 End: 08-21-2024 ambulatory Irma Foster Facility:[facility] Start: 07-13-2024 End: 07-13-2024 Office outpatient new 30 minutes Darling Farmer MD Work Phone: [facility] [place] Comment on above: Nausea and vomiting, unspecified vomiting type (Primary Dx); Less than 8 weeks gestation of Start: 07-13-2024 ambulatory DARLING Bear MARLENY [facility] Start: 08-06-2023 End: 08-06-2023 ambulatory No Primary Care Physician [facility] Work Phone: Start: 08-06-2023 End: 08-06-2023 Patient encounter procedure No Primary Care Physician [facility] Work Phone: Start: 07-09-2023 End: 07-09-2023 Patient encounter procedure No Primary Care Physician [facility] Work Phone: Start: 06-11-2023 End: 06-11-2023 ambulatory No Primary Care Physician [facility] Work Phone: Start: 06-11-2023 End: 06-11-2023 Patient encounter procedure No Primary Care Physician [facility] Work Phone: Start: 06-04-2023 End: 06-04-2023 Patient encounter procedure No Primary Care Physician [facility] Work Phone: Start: 05-07-2023 End: 05-07-2023 Patient encounter procedure No Primary Care Physician [facility] Work Phone: Start: 04-09-2023 End: 04-09-2023 ambulatory CNM Ernestina Aquino Work Phone: [facility] Work Phone: Start: 04-09-2023 End: 04-09-2023 Patient encounter procedure CNM Ernestina Aquino Work Phone: [facility] Work Phone: Start: 04-02-2023 End: 04-02-2023 ambulatory CN Ernestina Aquino Work Phone: [facility] Work Phone: Start: 04-02-2023 End: 04-02-2023 Patient encounter procedure GREG Aquino Work Phone: [facility], Specimen Work Phone: Start: 04-02-2023 End: 04-02-2023 Patient encounter procedure GREG Aquino Work Phone: [facility] Work Phone: Start: 09-25-2022 End: 09-29-2022 ambulatory [facility] Start: 09-17-2022 ambulatory [facility] Start: 09-16-2022 [facility] Kathleen Gutierrez LPN [facility] Comment on above: Diarrhea, unspecifie d type (Primary Dx) Start: 09-14-2022 End: 09-18-2022 ambulatory [facility] Start: 09-03-2022 End: 09-07-2022 ambulatory [facility] Start: 09-03-2022 End: 09-03-2022 Office outpatient new 30 minutes Rex Blackburn MD Work Phone: [facility] Comment on above: Diarrhea, unspecifie d type (Primary Dx) Start: 07-07-2021 [facility] Start: 05-09-2021 End: 05-09-2021 ambulatory SHAWNA COLVIN [facility] Start: 04-06-2021 Orders Only Rex Blackburn MD Work Phone: [facility] Start: 04-03-2021 End: 04-03-2021 [facility] Start: 04-03-2021 End: 04-03-2021 Office outpatient visit 25 minutes Rex Blackburn MD Work Phone: [facility] Comment on above: Generalized abdomina l pain (Primary Dx); Irritable bowel syndrome with constipation; Encounter for surveillance of contraceptive pills Start: 03-21-2021 End: 03-21-2021 ambulatory REX BLACKBURN [facility] Start: 03-21-2021 End: 03-21-2021 Office outpatient new 30 minutes Rex Blackburn MD Work Phone: [facility] Comment on above: Generalized abdomina l pain (Primary Dx) Start: 12-10-2020 End: 12-10-2020 Emergency department patient visit JULIO C ANTON [facility] Start: 09-06-2020 End: 09-06-2020 Office outpatient visit 15 minutes Deepak Garrett MD Work Phone: [facility] [employer] Comment on above: Itching in the vagin al area (Primary Dx) Start: 03-15-2020 End: 03-15-2020 Initial preventive medicine new pt age 18-39yrs Paco Kendall Work Phone: [facility] [employer] ATTEND[employer] Comment on above: Other fatigue (Prima ry Dx); Annual physical exam Start: 04-04-2019 End: 04-04-2019 Periodic preventive med est patient 18-39 yrs Fay Oliver Work Phone: [facility] Comment on above: Encounter for gyneco logical examination without abnormal finding (Primary Dx); Encounter for surveillance of contraceptive pills Start: 05-04-2018 End: 05-04-2018 Office outpatient visit 15 minutes Fay Oliver Work Phone: [facility] Comment on above: History of chlamydia infection (Primary Dx); Screening for STD (sexually transmitted disease) Start: 03-15-2018 End: 03-15-2018 Initial preventive medicine new pt age 18-39yrs Fay Oliver Work Phone: [facility] Comment on above: Well woman exam with routine gynecological exam (Primary Dx); Encounter for surveillance of contraceptive pills Procedures Date Procedure Procedure Detail Performing Clinician Start: 12-18-2024 Serologic test for syphilis No Primary Care Physician Start: 08-21-2024 Urine culture No Primar y Care Physician Start: 08-21-2024 Hepatitis C antibody measurement No Primary Care Physician Comment on above: Reactive: Presumptiv e evidence of antibodies to HCV. Follow CDC recommendations for supplemental testing.Non-Reactive: Antibodies to HCV were not detected; does not exclude the possibility of exposure to HCVReactive Results are presumptive evidence of antibodies to HCV. Follow CDC recommendations for supplemental testing.Order confirmation testing: HCV Quant by PCR testing - HCVPCR #[id number] Non Reactive: < 0.8 Equivocal: >/= 0.8 to < 1.0 Reactive: >/= 1.0The CDC requires that a reactive/equivocal HCV antibody result be sent out for confirmation. HCV Quant by PCR testing. Start: 08-21-2024 Rubella IgG measurement No Primary Care Physician Comment on above: Antibody Result: Int erpretationNon-Reactive: Non- ImmuneReactive: ImmuneThe following results were obtained with the [employer] Rubella IgG assay. Results from assays of other manufacturers cannot be used interchangeably. Start: 08-21-2024 Serologic test for syphilis No Primary Care Physician Start: 06-11-2023 Ultrasonography in f irst trimester No Primary Care Physician Start: 04-09-2023 Urine culture GREG Aquino Work Phone: Start: 04-02-2023 Urine culture CNKristina Aquino Work Phone: Start: 03-21-2021 Adult depression scr eening assessment Rex Blackburn MD Work Phone: Start: 12-10-2020 Diagnostic radiograp hy of facial bones JULIO C ANTON Work Phone: Start: 03-15-2020 Assay of thyroid sti mulating hormone tsh Paco Kendall Work Phone: Start: 03-15-2020 Complete blood count with white cell differential, automated Paco Kendall Work Phone: Start: 03-15-2020 PAP IG, RFX HPV ASCU Karrie Kendall Work Phone: Start: 03-15-2018 Microscopic observat ion [Identifier] in Cervix by Cyto stain Fay Oliver Plan of Treatment Date Care Activity Detail Author Start: 07-05-2070 RSV VACCINE (1 - 1-d ose 75+ series) RSV VACCINE (1 - 1-dose 75+ series) [facility] Start: 08-19-2033 Tetanus vaccination TETANUS [facility] Start: 10-31-2030 Tetanus vaccination Tetanus: Every 1 0yrs [facility] Start: 01-16-2025 [facility] Start: 01-01-2025 End: 01-01-2025 Patient encounter procedure Anxiety -[facility] Work Phone: Start: 12-04-2024 Influenza vaccination INFLUENZ A VACCINE (Season Ended) [facility] Start: 08-21-2024 CBC W Auto Different ial panel - Blood [facility] Start: 08-21-2024 Hepatitis C antibody measurement [facility] Start: 08-21-2024 Rubella IgG measurement [facility] Start: 08-21-2024 Serologic test for syphilis [facility] Start: 08-21-2024 [facility] Start: 08-11-2024 End: 08-11-2024 Clinical Support Encounter 08/11/2024 2:00 PM EDT Clinical Support Encounter [facility] [employer] [address] [place] [id number] [facility] [employer]END[employer] Start: 12-05-2023 COVID-19 VACCINE ( season) COVID-19 VACCINE ( season) [facility] Start: 04-02-2023 Liquid based cervica l cytology screening [facility] Start: 12-04-2022 Influenza vaccination Sequenti al Influenza Vaccine (Season Ended) [facility] Start: 12-04-2022 Subsequent hospital visit by physician 12/04/2022 Hospital Encounter [facility] [address] [place] [id number] Anay Paredes MD [address] [place] [address] [facility] Start: 09-03-2022 End: 09-04-2023 Comprehensive metabolic 2000 panel - Serum or Plasma [facility] Comment on above: Expected: 09/03/2022 , Expires: 09/04/2023 Start: 09-03-2022 End: 09-04-2023 Measurement of immunoglobulin A in serum specimen [facility] Comment on above: Expected: 09/03/2022 , Expires: 09/04/2023 Start: 09-03-2022 End: 09-04-2023 Quantitative measurement of calprotectin in stool specimen Calprote[facility] Lab Routine Diarrhea, unspecified type Expected: 09/03/2022, Expires: 09/04/2023 [facility] Comment on above: Expected: 09/03/2022 , Expires: 09/04/2023 Start: 09-03-2022 End: 09-04-2023 Tissue transglutaminase IgA measurement [facility] Work Phone: Comment on above: Expected: 09/03/2022 , Expires: 09/04/2023 Start: 03-21-2022 Depression screening using PHQ-9 (Patient Health Questionnaire 9) score Depression Screening (PHQ-2/9) [facility] Start: 05-02-2021 End: 05-02-2021 Patient encounter procedure 05/02/2021 Office Visit Primary Care Rex Blackburn MD [address] [place] [id number] [facility] Start: 04-03-2021 End: 04-03-2021 Patient encounter procedure 04/03/2021 Office Visit Primary Care Rex Blackburn MD [address] [place] [id number] [facility] Start: 03-15-2021 History and physical examination, annual for health maintenance [facility] [facility] Start: 03-15-2021 Screening for malign ant neoplasm of cervix [facility] Start: 12-04-2020 [facility] Start: 04-04-2020 History and physical examination, annual for health maintenance Wellness Visit [facility] Start: 12-05-2019 Influenza vaccination INFLUENZA VACC INE (#1) [facility] Start: 05-04-2019 Screening for Chlamy promise trachomatis Chlamydia Screening [facility] Start: 03-15-2019 History and physical examination, annual for health maintenance [facility] Start: 12-04-2018 Influenza vaccinatio n given SEQUENTIAL INFLUENZA VACCINE (#1) [facility] Start: 12-04-2017 Influenza vaccination SEQUENTI AL INFLUENZA VACCINE (#1) [facility] Start: 12-04-2017 Influenza vaccinatio n given SEQUENTIAL INFLUENZA VACCINE (#1) [facility] Start: 07-05-2014 Hepatitis B vaccination HEP B VACCINE (1 of 3 - 19+ 3-dose series) [facility] Start: 07-05-2014 Third diphtheria, te tanus and acellular pertussis (DTaP) vaccination TDAP (ADULT) [facility] Start: 07-05-2013 Tetanus vaccination TETANUS [facility] Start: 2011 Screening for Chlamy promise trachomatis CHLAMYDIA SCREEN [facility] Start: 07-05-2010 HIV screening HIV SCREENING DISCUSSION [facility] Start: 07-05-2010 Vaccination for zakiya n papillomavirus HPV VACCINES (1 - Female 3-dose series) [facility] Start: 07-05-2008 HIV screening HIV SCREENING DISCUSSION [facility] Start: 2007 COVID-19 VACCINE (1) COVID-19 VACCIN E (1) [facility] Start: 07-05-2006 Vaccination for zakiya n papillomavirus [facility] Start: 07-05-2000 COVID-19 Vaccine (1) COVID-19 Vaccin e (1) [facility] Start: 01-05-1996 COVID-19 Vaccine (#1) COVID-19 Vacci ne (#1) [facility] Start: 1995 GONORRHEA SCREEN GONORRHEA SCREEN [facility] Start: 1995 Hepatitis C antibody , confirmatory test HEPATITIS C VIRUS SCREENING [facility] Start: 1995 Hepatitis C screening HEPATITI S C VIRUS SCREENING [facility] Start: 1995 Screening for malign ant neoplasm of cervix PAP SMEAR [facility] Start: 1995 Tetanus vaccination TETANUS EVERY 10 YR [facility] End: 09-04-2023 B12/Folate B12/Folate Lab Routine Diarrhea, unspecified type 1 Occurrences starting 09/03/2022 until 09/04/2023 [facility] Comment on above: 1 Occurrences starti ng 09/03/2022 until 09/04/2023 B12/Folate B12/Folate Lab R outine Diarrhea, unspecified type 09/03/2022 11:34 AM EDT [facility] CBC W Auto Different ial panel - Blood [facility] CBC W Auto Different ial panel - Blood [facility] Chlamydia deoxyribon ucleic acid detection [facility] Chlamydia trachomati s rRNA assay [facility] Comment on above: Ordered: 03/15/2018 Ordered: 05/04/2018 Ordered: 04/04/2019 Colonoscopy COLONOSCOPY Diar michelle, unspecified type [facility] Erythrocyte mean corpuscular volume determination [facility] Hematocrit [Volume Fraction] of Blood [facility] Hemoglobin [Mass/vol ume] in Blood [facility] Hepatitis B surface antigen measurement Hepatitis B Surface Antigen Routine Screening for STD (sexually transmitted disease) History of chlamydia infection 05/04/2018 1:58 PM EST [facility] Hepatitis B surface antigen measurement [facility] Hepatitis B virus adams rface Ag [Presence] in Serum [facility] Hepatitis C antibody measurement Hepatitis C Antibody Routine Screening for STD (sexually transmitted disease) History of chlamydia infection 05/04/2018 1:58 PM EST [facility] Hepatitis C antibody measurement [facility] HIV 1+2 Ab+HIV1 p24 Ag [Presence] in Serum or Plasma by Immunoassay [facility] Human immunodeficien cy virus test HIV Antibody (HIV1/HIV2) Routine Screening for STD (sexually transmitted disease) History of chlamydia infection 05/04/2018 1:58 PM EST [facility] End: 09-04-2023 Iron measurement Iron Study with Ferritin Lab Routine Diarrhea, unspecified type 1 Occurrences starting 09/03/2022 until 09/04/2023 [facility] Comment on above: 1 Occurrences starti ng 09/03/2022 until 09/04/2023 Iron measurement Iron Study with Ferritin Lab Routine Diarrhea, unspecified type 09/03/2022 11:34 AM EDT [facility] Leukocytes [#/volume ] in Blood [facility] Mean corpuscular hemoglobin concentration determination [facility] Mean corpuscular hemoglobin determination [facility] Measurement of gluco se 2 hours after glucose challenge for glucose tolerance test [facility] Microscopic examinat ion of vaginal Papanicolaou smear Thinprep Pap Smear Routine Well woman exam with routine gynecological exam Ordered: 03/15/2018 [facility] Comment on above: Ordered: 03/15/2018 Neisseria gonorrhoea e nucleic acid detection [facility] Comment on above: Ordered: 03/15/2018 Ordered: 05/04/2018 Ordered: 04/04/2019 Neutrophil count [facility] Neutrophil percent differential count [facility] PAP IG, RFX HPV ASCU PAP IG, RFX HPV ASCU LAB SEND OUTS Routine 03/15/2020 2:44 PM EST [facility] Path report.final Dx Spec [facility] Patient Education Facial Laceration (ED) [facility] Work Phone: Patient referral [facility] Work Phone: Platelets [#/volume] in Blood [facility] Red blood cell count [facility] Red cell distributio n width determination [facility] Rubella IgG measurement [facility] Serologic test for syphilis [facility] T. pallidum IgG Ql (S) Syphilis Antibody Routine Screening for STD (sexually transmitted disease) History of chlamydia infection 05/04/2018 1:58 PM EST [facility] End: 09-04-2023 Tissue transglutaminase IgG measurement Tissue Transglutaminase, IgG Lab Routine Diarrhea, unspecified type 1 Occurrences starting 09/03/2022 until 09/04/2023 [facility] Comment on above: 1 Occurrences starti ng 09/03/2022 until 09/04/2023 Tissue transglutamin ase IgG measurement Tissue Transglutaminase, IgG Lab Routine Diarrhea, unspecified type 09/03/2022 11:34 AM EDT [facility] Treponema sp Ab [Pre sence] in Serum [facility] Trichomonas vaginali s Amplified RNA [facility] Comment on above: Ordered: 03/15/2018 Ordered: 05/04/2018 Ordered: 04/04/2019 [facility] Immunizations Immunization Date Immunization Notes Care Provider Fa [facility] 08-20-2023 tetanus toxoid, reduced diphtheria toxoid, and acellular pertussis vaccine, adsorbed No Primary Care Physician [facility] 10-31-2020 tetanus toxoid, reduced diphtheria toxoid, and acellular pertussis vaccine, adsorbed Rex Blackburn MD Work Phone: [facility] Payers Date Payer Category Payer Self-pay [id number] 2024 Medicaid (Managed Care) NED [employer] [id number] 2024 Private Health Insurance [id number] 2024 Managed Care (unspecified) ANTH HMO PPO POS [id number] 2024 Unknown [id number] 2021 Unknown MMO MED MUTUAL S UPERMED PPO ACCESS/TPA [id number] 2021-Present [address] [address] [place] [address] [id number] 2021 Unknown [id number] 2017 Private Health Insurance TAYLOR VAZQUEZ xxxxxxxxxx 2017-Present xxxxxxxxxx [id number] 2017 Private Health Insurance [id number] 1995 Unknown [id number] 2.16.840.1.843563.3.579.2. 903 1995 Unknown [id number] 2.16.840.1.125115.3.579.2. 903 1995 Unknown [id number] 2.16.840.1.401461.3.579.2. 903 1995 Unknown [id number] 2.16.840.1.401911.3.579.2. 903 1995 Unknown [id number] 2.16.840.1.401834.3.579.2. 903 1995 Unknown [id number] 2.16840.1.647110.3.579.2. 903 1995 Unknown [id number] 2.840.1.968364.3.579.2. 983 1995 Unknown [id number] 2.16840.1.779351.3.579.2. 479 Self-pay [id number] Unknown [id number] Unknown [facility] PACKAGE PLAN [id number] Unknown [id number] 2.16840.1.504406.3.579.2. 462 Unknown [id number] 2.16.840.1.538020.3.579.2. 462 Unknown [id number] 2.16.840.1.769557.3.579.2. 462 Unknown [id number] 2.16.840.1.416343.3.579.2. 462 Unknown [id number] 2.16840.1.062130.3.579.2. 462 Unknown [id number] 2.16840.1.184367.3.579.2. 462 Unknown [id number] 2.0.1.918337.3.579.2. 462 Unknown [id number] 2.0.1.030211.3.579.2. 462 Unknown [id number] 2.0.1.077216.3.579.2. 462 Unknown [id number] 20.1.364616.3.579.2. 462 Unknown [id number] 2.0.1.225780.3.579.2. 462 Social History Date Type Detail Facility Start: 03-15-2018 End: 09-25-2024 Tobacco smoking status NMIS Never smoker [facility] Start: 1995 Sex Assigned At Not on file [facility] Start: 03-15-2018 End: 09-06-2020 Alcohol Comment social [facility] Start: 04-04-2019 End: 07-13-2024 Alcohol intake Current drinker of alcohol (finding) [facility] Start: 09-06-2020 End: 09-03-2022 Tobacco use and exposure [facility] Start: 08-24-2022 End: 09-03-2022 Exposure to SARS-CoV-2 (event) Not sure [facility] Start: 1995 Sex Assigned At Female [facility] Start: 10-22-2021 End: 07-13-2024 History of Social function [facility] Start: 10-22-2021 End: 07-13-2024 Humiliation, Afraid, Rape, and Kick questionnaire [HARK] [facility] Within the last year , have you been afraid of your partner or ex-partner? No [facility] In a typical week, h ow many times do you talk on the telephone with family, friends, or neighbors? Patient refused [facility] Are you now , , , , never or living with a partner? [facility] How often to you hav e a drink containing alcohol? 2-4 times a month [facility] How many standard dr inks containing alcohol do you have on a typical day? 3 or 4 [facility] How often do you hav e 6 or more drinks on 1 occasion? Less than monthly [facility] (I/We) worried wheth er (my/our) food would run out before (I/we) got money to buy more. DK or Refused [facility] Start: 03-15-2018 Gender identity Identifies as female gender (finding) [facility] Start: 03-15-2018 Sexual orientation Heterosexual (finding) [facility] Start: 04-02-2023 End: 07-09-2023 Tobacco smoking status NHIS Unknown if ever smoked [facility] Start: 06-26-2024 [facility] Start: 03-04-2020 Sex Female (finding) [facility] Clinical Notes 09-06-2020 to 01-16-2025 Note Date & Type Note Facility 01-16-2025 Progress note [facility] 01-01-2025 Progress note [facility] 11-20-2024 Progress note [facility] 10-23-2024 Evaluation note Diagnosis Onset Date Resolution Asthma acute October 23 10:13am acute October 23 10:13am Supervision of normal acute October 23, 2024 10:13am Anxiety resolved October 23 10:13am Asthma acute November 20 025 9:25am acute November 20 9:25am Supervision of normal acute November 20 9:25am Anxiety resolved November 20 9:25am acute December 9:57am Supervision of normal acute December 18, 2024 9:57am Anxiety resolved December 9:57am Asthma acute December 9:55am acute December 9:55am Supervision of normal acute January 01, 2025 9:55am Anxiety resolved December 9:55am Asthma acute January 16, 2025 10:09am acute January 16, 2025 10:09am Supervision of normal acute January 16 10:09am [facility] Work Phone: 1(900) 889-514507-21-2025 [facility] [address] [place] [address], [address] [place] [address] OFFICE VISIT Date of Service: 10/23/24 MR#: [id number] Acct: [id number] Name: YULI AREVALO Rep #: [id number] : 1995 Provider: GREG Anton Age/Sex: 29/F Location: [facility] Status: Signed Intake Vital Signs 08/21/24 10:04 09/25/24 13:53 10/23/24 10:17 Height 5 ft 6.5 in 5 ft 6.5 in 5 ft 6.5 in Weight: 165 lb 8 oz BMI 26.3 BP 122/75 H Intake Visit Reasons: 20wk ob Chief Complaint: 20wk OB [employer] Required: No Is patient in pain?: No Allergies No Known Allergies Allergy (Verified 10/23/24 10:19) Medications ?Medication ?Instructions ?Recorded ?Confirmed ?Type multivit-min no.71-iron fum 28 1 cap PO see provid 10/23/24 History mg-folate no.1 1 mg-dha 300 mg capsule (PNV-Carson) famotidine 20 mg tablet (Pepcid) 20 mg PO BID 30 days #60 tabs 08/06/23 10/23/24 Rx Last Menstrual Period: 06/12/24 : No PFSH PFSH Medical History Hx of infertility Abnormal Pap smear of cervix Chlamydia Seasonal allergies Panic attacks Surgical History [place] teeth extracted Family History Grandmother Thyroid disorder Maternal hyperthyroidism prior to cancer Cancer thyroid ca- maternal Mother Thyroid disorder Hyperthyroidism Other Diabetes Social History adopted: No household members: spouse and children housing: house number of children: 1 current occupational status: employed 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 Date Name GA/Weeks Outcome Route Bth Weight Gen Labor Lgth Anesthesia Del Locatn Provider FOB 10/25/23 Geo 38 live - full term 7#3oz Male none [facility] Ernestina Golden HPI 20wk ob Details: YULI ARVEALO is a 29 year old who presents for routine OB visit. OB Visit MIRIAM Calculator Estimated Delivery Date Method Current WG Current Estimate 03/19/25 LMP (Certain) 19w 0d Other Estimates 03/12/25 Ultrasound #1 20w 0d Expected Delivery Route/Plan Labor Preferences- CB/BF classes: [] labor support person: [] labor intervention preferences: [] pain management options preferred: [] cut cord/dad catch: [] : [] PP control planned: [] discussed possible routes of delivery and associated risks: [] special requests: []. Specific Issue/Plans Covid status: [] Flu vaccine: [] Tdap vaccine: [] Rhogam: [] LARC form signed: [] Problem list reviewed and updated with the most current plan of care details and appropriate ordersplaced. Relevant counseling for the gestational age provided. Continue routine care and follow up unless otherwise noted in visit notes/problem list details Initial Weight: Not Recorded Date -?-?-?-?-?-?-?-?-?-?-?-?- EGA Weight BP Urine Prot -?-?-?-?-?-?-?-?-?-?-?-?- Glucose FHR FuHt Pres Dilation -?-?-?-?-?-?-?-?-?-?-?-?- Effaced St Visit Note 08/21/24 -?-?-?-?-?-?-?-?-?-?-?-?- 10w 0d 155 lb 6 oz 115/71 -?-?-?-?-?-?-?-?-?-?-?-?- 160 -?-?-?-?-?-?-?-?-?--?-?-?- SM- no vb crampi ng CRL cons with LMP SM- no vb cramping CRL 4.04c m cons with LMP 09/25/24 -?-?-?-?-?-?-?-?-?-?-?-?- 15w 0d 160 lb 4 oz 114/67 Nega tive -?-?-?-?-?-?-?-?-?-?-?-?- Negative 163 -?-?-?-?-?-?-?-?-?-?-?-?- MH-No VB. Nausea resolved. Br US confirm FHT 10/23/24 -?-?-?-?-?-?-?-?-?-?--?-?- 19w 0d 165 lb 8 oz 122/75 Nega tive -?-?-?-?-?-?-?-?-?-?-?-?- Negative 145 -?-?-?-?-?-?-?-?-?-?-?-?- KW- no vb/crampi ng. anatomy US on thurs. ACOG First Trimester First Trimester: Desire for , Alcohol, Tobacco Cessation, Illicit/Recreational Drug/Substance Use, Intimate Partner Violence, Barriers to care, Unstable Housing, Communication Barriers, Environmental/Work Hazards, Anticipated Course of Care, Toxoplasmosis Precations, Use of Any med ications, Sexual activity, Exercise, Dental Care, Sauna/Hot tub use, Seat Belt use, Childbirth classes/Hospital facilities, Travel, Indications for Ultrasound and Screening for Aneuploidy; Discussed Second Trimester Second Trimester: Signs and Symptoms of Labor, Selecting a care provider, Reproductive Life Planning & Contreception, Care Planning, Depression/Anxiety and Intimate Partner Violence; Discussed Tobacco Cessation Third Trimester Third Trimester: Pain Management Plans, Labor support person(s), Immediate Larc, Movement Monitoring, Signs and Symptoms of Preeclampsia and [place] Education ROS Const Reports system reviewed and no additional complaints, except as documented Eyes Reports system reviewed and no additional complaints, except as documented ENT Reports system reviewed and no additional complaints, except as documented Card Reports system reviewed and no additional complaints, except as documented Resp Reports system reviewed and no additional complaints, except as documented GI Reports system reviewed and no additional complaints, except as documented, Denies nausea and Denies vomiting Reports system reviewed and no additional complaints, except as documented Musc Reports system reviewed and no additional complaints, except as documented Skin/Breast Reports system reviewed and no additional complaints, except as documented Neuro Yes system reviewed and no additional complaints, except as documented Psych Reports system reviewed and no additional complaints, except as documented Endo Reports system reviewed and no additional complaints, except as documented Benedict/Lymph Reports system reviewed and no additional complaints, except as documented Aller/Immun Reports system reviewed and no additional complaints, except as documented Exam Const General: cooperative, healthy appearing and no acute distress Orientation: alert, awake and oriented x3 Neck Neck: normal visual inspection and full ROM Resp Effort & Inspection: normal respiratory effort, able to speak in complete sentences and symmetric chest movement GI Inspection: normal to inspection Palpation: soft and other Other: gravid Skin General: no rashes or lesions noted Neuro General: patient alert, patient awake and patient oriented x3 Cognition: normal cognition Speech: speech normal Gait: normal gait Motor: muscle tone normal throughout Extrem General: normal to inspection and full ROM Psych Appearance: grossly normal Mental Status: mental status grossly normal Mood: congruent mood Affect: normal affect Speech and Movement: speech and movement normal Attitude: cooperative Thought Process: normal Thought Content: normal Judgment: judgment good Results POC Urinalysis 2 Dip (Clinic) Office Urine Glucose Negative Last Edit by Trinity Valadez on 10/23/24 10:24 Office Urine Protein Negative Last Edit by Trinity Valadez on 10/23/24 10:24 Coding Level of Care Code OB Routine Diagnoses Encounter for supervision of other normal in second trimester Z34.82 Normal : other normal Trimester: second trimester 19 weeks gestation of Z3A.19 Weeks of gestation: 19 weeks Anxiety F41.9 Asthma J45.909 Assessment and Plan Assessment and Plan (1) Supervision of normal : Status: Acute Qualifiers: Normal : other normal Trimester: second trimester Qualified Code(s): Z34.82 - Encounter for supervision of other normal , second trimester Comment: [id number], MIRIAM 03/19/25, PC [place], [place] (2) : Status: Acute Qualifiers: Weeks of gestation: 19 weeks Qualified Code(s): Z3A.19 - 19 weeks gestation of Comment: discussed NIPT & Carrier testing-declined. (3) Anxiety: Status: Acute Comment: stable (4) Asthma: Status: Acute Comment: mild Orders: Orders POC Urinalysis 2 Dip (Clinic) Today Plan Details Additional Comments: ACOG trimester education reviewed and updated. see problem list details for updated plan management information and see below for orders placed atthis visit. GA appropriate handout given. 10/23/24 1036 s GREG> Date _ Georgie Anton CNM Cosigner Signature: Date (if applicable) CC: ~ [facility]06-23-2025 Evaluation note* Diagnosis Onset Date Resolution Status Admit Date Anxiety acute September 25 1:30pm acute September 25 1:30pm Supervision of normal acute September 25, 2024 1:30pm Anxiety acute October 23 10:13am Asthma acute October 23 10:13am acute October 23 10:13am Supervision of normal acute October 23, 2024 10:13am Anxiety acute November 20, 025 9:25am Asthma acute November 20 025 9:25am acute November 20 025 9:25am Supervision of normal acute November 20 9:25am Anxiety acute December 9:57am acute December 9:57am Supervision of normal acute December 18, 2024 9:57am Anxiety acute December 9:55am Asthma acute December 9:55am acute December 9:55am Supervision of normal acute January 01, 2025 9:55am [facility] Work Phone: 1(381) 189-394406-23-2025 [facility] [address], [address] [place] [address] OFFICE VISIT Date of Service: 09/25/24 MR#: [id number] Acct: [id number] Name: YULI AREVALO Rep #: [id number] : 1995 Provider: BRENDA Cali Age/Sex: 29/F Location: [facility] [place] Status: Signed Intake Vital Signs 12/09/23 15:05 08/21/24 10:04 09/25/24 13:32 Height 5 ft 6.5 in 5 ft 6.5 in 5 ft 6.5 in Weight: 160 lb 4 oz BMI 25.4 BP 114/67 Intake Visit Reasons: 16wk ob Chief Complaint: 16 Week OB [employer] Required: No Is patient in pain?: No Allergies No Known Allergies Allergy (Verified 09/25/24 13:36) Medications ?Medication ?Instructions ?Recorded ?Confirmed ?Type multivit-min no.71-iron fum 28 1 cap PO see provid 09/25/24 History mg-folate no.1 1 mg-dha 300 mg capsule (PNV-Carson) famotidine 20 mg tablet (Pepcid) 20 mg PO BID 30 days #60 tabs 08/06/23 09/25/24 Rx Last Menstrual Period: 06/12/24 Zika: Zika virus screening: Negative : No PFSH PFSH Medical History Hx of infertility Abnormal Pap smear of cervix Chlamydia Seasonal allergies Panic attacks Surgical History [place] teeth extracted Family History Grandmother Thyroid disorder Maternal hyperthyroidism prior to cancer Cancer thyroid ca- maternal Mother Thyroid disorder Hyperthyroidism Other Diabetes Social History adopted: No household members: spouse and children housing: house number of children: 1 current occupational status: employed 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 Date Name GA/Weeks Outcome Route Bth Weight Infant Gen Labor Lgth Anesthesia Del Locatn Provider FOB 10/25/23 Geo 38 live - full term 7#3oz Male none [facility] Ernestina Golden HPI 16wk ob Details: YULI AREVALO is a 29 year old who presents for routine OB visit. OB Visit MIRIAM Calculator Estimated Delivery Date Method Current WG Current Estimate 03/19/25 LMP (Certain) 15w 0d Other Estimates 03/12/25 Ultrasound #1 16w 0d Expected Delivery Route/Plan Labor Preferences- CB/BF classes: [] labor support person: [] labor intervention preferences: [] pain management options preferred: [] cut cord/dad catch: [] : [] PP control planned: [] discussed possible routes of delivery and associated risks: [] special requests: []. Specific Issue/Plans Covid status: [] Flu vaccine: [] Tdap vaccine: [] Rhogam: [] LARC form signed: [] Problem list reviewed and updated with the most current plan of care details and appropriate ordersplaced. Relevant counseling for the gestational age provided. Continue routine care and follow up unless otherwise noted in visit notes/problem list details Initial Weight: Not Recorded Date -?-?-?-?-?-?-?-?-?-?-?-?- EGA Weight BP Urine Prot -?--?-?-?-?-?-?-?-?-?-?-?- Glucose FHR FuHt Pres Dilation -?-?-?-?-?-?-?--?-?-?-?-?- Effaced St Visit Note 08/21/24 -?-?-?-?-?-?-?-?-?-?-?-?- 10w 0d 155 lb 6 oz 115/71 -?-?-?-?-?-?-?-?-?-?-?-?- 160 -?-?-?-?-?-?-?-?-?-?-?-?- SM- no vb crampi ng CRL cons with LMP SM- no vb cramping CRL 4.04c m cons with LMP 09/25/24 -?-?-?-?-?-?-?-?-?-?-?-?- 15w 0d 160 lb 4 oz 114/67 Nega tive -?-?-?-?-?-?-?-?-?-?-?-?- Negative 163 -?-?-?-?-?-?-?-?-?-?-?-?- MH-No VB. Nausea resolved. Br US confirm FHT ACOG First Trimester First Trimester: Desire for , Alcohol, Tobacco Cessation, Illicit/Recreational Drug/Substance Use, Intimate Partner Violence, Barriers to care, Unstable Housing, Communication Barriers, Environmental/Work Hazards, Anticipated Course of Care, Toxoplasmosis Precations, Use of Any med ications, Sexual activity, Exercise, Dental Care, Sauna/Hot tub use, Seat Belt use, Childbirth classes/Hospital facilities, Travel, Indications for Ultrasound and Screening for Aneuploidy; Discussed Second Trimester Second Trimester: Signs and Symptoms of Labor, Selecting a care provider, Reproductive Life Planning & Contreception, Care Planning, Depression/Anxiety and Intimate Partner Violence; Discussed Tobacco Cessation Third Trimester Third Trimester: Pain Management Plans, Labor support person(s), Immediate Larc, Movement Monitoring, Signs and Symptoms of Preeclampsia and Millsap Education ROS Const Reports system reviewed and no additional complaints, except as documented GI Denies abdominal pain, Denies nausea and Denies vomiting Exam Const General: cooperative Nutritional Appearance: well nourished GI Palpation: soft, nontender and other (gravid) Results POC Urinalysis 2 Dip (Clinic) Office Urine Glucose Negative Last Edit by Jennifer Heath on 09/25/24 13 :40 Office Urine Protein Negative Last Edit by Jennifer Heath on 09/25/24 13 :40 Coding Level of Care Code OB Routine Diagnoses Encounter for supervision of other normal in second trimester Z34.82 Normal : other normal Trimester: second trimester 14 weeks gestation of Z3A.14 Weeks of gestation: 14 weeks Anxiety F41.9 Assessment and Plan Assessment and Plan (1) Supervision of normal : Status: Acute Qualifiers: Normal : other normal Trimester: second trimester Qualified Code(s): Z34.82 - Encounter for supervision of other normal , second trimester Comment: [id number], MIRIAM 03/19/25, PC [place], [place] (2) : Status: Acute Qualifiers: Weeks of gestation: 14 weeks Qualified Code(s): Z3A.14 - 14 weeks gestation of Comment: discussed NIPT & Carrier testing-declined. (3) Anxiety: Status: Acute Comment: stable Orders: Orders POC Urinalysis 2 Dip (Clinic) Today Plan problem list reviewed and updated for most current plan of care and appropriate orders placed. Relevant counseling for the gestational age appropriate provided and ACOG education checklist updated. Continue routine care and follow up. 09/25/24 1352 s PRINT BUYER PRINT BUYER-C> Date _ Iris Cali PRINT BUYER PRINT BUYER-C Cosigner Signature: Date (if applicable) CC: ~ [facility]05-19-2025 Evaluation note* Diagnosis Onset Date Resolution Status Admit Date Anxiety acute August 21, 2024 9:42am Asthma acute August 21, 2024 9:42am acute August 21, 2024 9:42am Supervision of normal acut e August 21, 2024 9:42am Anxiety acute September 25 1:30pm acute September 25 1:30pm Supervision of normal acut e September 25, 2024 1:30pm [place] [facility] Work Phone: 1(211) 762-447905-19-2025 Evaluation note* Diagnosis Onset Date Resolution Status Admit Date Anxiety acute August 21, 2024 9:42am Asthma acute August 21, 2024 9:42am acute August 21, 2024 9:42am Supervision of normal acut e August 21, 2024 9:42am Anxiety acute September 25 1:30pm acute September 25 1:30pm Supervision of normal acut e September 25, 2024 1:30pm Anxiety acute October 23 10:13am Asthma acute October 23 10:13am acute October 23 10:13am Supervision of normal acut e October 23, 2024 10:13am [facility] Work Phone: 1(466) 404-363705-19-2025 Evaluation note* Diagnosis Onset Date Resolution Status Admit Date Anxiety acute August 21, 2024 9:42am Asthma acute August 21, 2024 9:42am acute August 21, 2024 9:42am Supervision of normal acut e August 21, 2024 9:42am Anxiety acute September 25 1:30pm acute September 25 1:30pm Supervision of normal acut e September 25, 2024 1:30pm Anxiety acute October 23 10:13am Asthma acute October 23 10:13am acute October 23 10:13am Supervision of normal acut e October 23, 2024 10:13am Anxiety acute November 20, 2 025 9:25am Asthma acute November 20, 2 025 9:25am acute November 20, 2 025 9:25am Supervision of normal acut e November 20, 2024 9:25am [facility] Work Phone: 1(860) 174-937605-19-2025 Evaluation note* Diagnosis Onset Date Resolution Status Admit Date Anxiety acute August 21, 2024 9:42am Asthma acute August 21, 2024 9:42am acute August 21, 2024 9:42am Supervision of normal acute August 21, 2024 9 :42am Anxiety acute September 25 1:30pm acute September 25 1:30pm Supervision of normal acute September 25, 2024 1:30pm Anxiety acute October 23 10:13am Asthma acute October 23 10:13am acute October 23 10:13am Supervision of normal acute October 23, 2024 10:13am Anxiety acute November 20, 025 9:25am Asthma acute November 20 025 9:25am acute November 20, 025 9:25am Supervision of normal acute November 20 9:25am Anxiety acute December 9:57am Asthma acute December 9:57am acute December 9:57am Supervision of normal acute December 18, 2024 9:57am [facility] Work Phone: 1(794) 542-257405-19-2025 [facility] [address] [place] [address], [address] [place] [address] OFFICE VISIT Date of Service: 08/21/24 MR#: [id number] Acct: [id number] Name: YULI AREVALO Rep #: [id number] : 1995 Provider: Dr. Jimmy Foster MD Age/Sex: 29/F Location: [facility] [place] Status: Signed Intake Vital Signs 12/09/23 15:05 08/21/24 10:04 Height 5 ft 6.5 in 5 ft 6.5 in Weight: 155 lb 6 oz BMI 24.7 BP 115/71 Intake Visit Reasons: NOB: LMP 310, MIRIAM 03/19 [employer] Required: No Is patient in pain?: No Feel stressed/tense/nervous/anxious/difficulty sleeping: not at all Allergies No Known Allergies Allergy (Verified 08/21/24 10:05) Medications ?Medication ?Instructions ?Recorded ?Confirmed ?Type multivit-min no.71-iron fum 28 1 cap PO see provid 12/09/23 History mg-folate no.1 1 mg-dha 300 mg capsule (PNV-Carson) famotidine 20 mg tablet (Pepcid) 20 mg PO BID 30 days #60 tabs 08/06/23 12/09/23 Rx Last Menstrual Period: 06/12/24 Zika: Zika virus screening: Negative : No PFSH PFSH Medical History Hx of infertility Abnormal Pap smear of cervix Chlamydia Seasonal allergies Panic attacks Surgical History [place] teeth extracted Family History Grandmother Thyroid disorder Maternal hyperthyroidism prior to cancer Cancer thyroid ca- maternal Mother Thyroid disorder Hyperthyroidism Other Diabetes Social History adopted: No household members: spouse and children housing: house number of children: 1 current occupational status: employed 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 Date Name GA/Weeks Outcome Route Bth Weight Infant Gen Labor Lgth Anesthesia Del Locatn Provider FOB 10/25/23 Geo 38 live - full term 7#3oz Male none [facility] Ernestina Golden HPI NOB: LMP 06/12, MIRIAM 03/19 Details: YULI AREVALO is a 29 year old who presents for New OB visit. OB Visit MIRIAM Calculator Estimated Delivery Date Method Current WG Current Estimate 03/19/25 LMP (Certain) 10w 0d Other Estimates 03/12/25 Ultrasound #1 11w 0d Comments: HIV: Urine Culture: Sequential Screen: NIPT Screen: Estimated Due Date: 03/19/25 Expected Delivery Route/Plan Labor Preferences- CB/BF classes: [] labor support person: [] labor intervention preferences: [] pain management options preferred: [] cut cord/dad catch: [] : [] PP control planned: [] discussed possible routes of delivery and associated risks: [] special requests: []. Specific Issue/Plans Covid status: [] Flu vaccine: [] Tdap vaccine: [] Rhogam: [] LARC form signed: [] Problem list reviewed and updated with the most current plan of care details and appropriate ordersplaced. Relevant counseling for the gestational age provided. Continue routine care and follow up unless otherwise noted in visit notes/problem list details Initial Weight: Not Recorded Date -?-?-?-?-?-?-?-?-?-?-?-?- EGA Weight BP Urine Prot -?-?-?-?-?-?-?-?-?-?-?-?- Glucose FHR FuHt Pres Dilation -?-?-?-?-?-?-?-?-?-?-?-?- Effaced St Visit Note 08/21/24 -?-?-?-?-?-?-?-?-?-?-?-?- 10w 0d 155 lb 6 oz 115/71 -?-?-?-?-?-?-?-?-?-?-?-?- 160 -?-?-?-?-?-?-?-?-?-?-?-?- SM- no vb crampi ng CRL cons with LMP SM- no vb cramping CRL 4.04c m cons with LMP Menstrual History Last Menstrual Period: 06/12/24 Reported LMP: definite Normal amount/duration: Yes Frequency in days: 28 On hormonal BC at conception: No hCG+: 07/11/24 Antepartum Record Genetic Screening: Congenital Heart Defect: Other, Neural Tube Defect: Other, Hemoglobinopathy Or Carrier: Other, Cystic Fibrosis: Other, Chromosome Abnormality: Other, Ruben-Sachs: Other, Hemophilia: Other, Intellectual Disability/Autism: Other, Recurrent Loss/Stillbirth: Other, Other Structural Defect: Other, Other Genetic Disease: Other and Maternal Metabolic Disorder: Other Infection History: Live with someone with TB or Exposed to TB: No, Patient or Partner has history of Genital Herpes: No, Rash or Viral illness since last mentrual period: Yes (stomach flu -June), Prior GBS-Infected child: No, History of STD: Yes (chlamydia 7yrs ago), HIV Infection: No, History of Hepatitis: No, Recent travel outside of [place]: No, Concern for hepatitis exposure: No, Varicella immune: Yes (immune- Virus) and Covid Vaccinated: No Medical History Medical History: Positive: Psychiatric (H/O anxiety resolved), Seasonal allergies (mild), Operations/hospitalizations (wisdom teeth) and Infertility (13 months for first , 3 months to conceive this ) and Negative: Diabetes, Hypertension, Heart disease, Auto-immune disorder, Kidneydisease/UTI, Neurologic/epilepsy, Depression/ depression, Hepatitis/liver disease, Varicosities/phlebitis, Thyroid dysfunction, Trauma/domestic violence, History of blood transfusions, D (Rh) Sensitized, Pulmonary (e.g.,TB,Asthma) (mild childhood asthma, exercise induced), Drug/latex allergies/reactions, Breast, Right Of Way Worker surgery, Anesthetic complications, History of abnormal pap, Uterine anom tonja/haile, Anti-retroviral treatment, Relevant family history (Nothing to add. See PFSH) and Other ACOG First Trimester First Trimester: Desire for , Alcohol, Tobacco Cessation, Illicit/Recreational Drug/Substance Use, Intimate Partner Violence, Barriers to care, Unstable Housing, Communication Barriers, Environmental/Work Hazards, Anticipated Course of Care, Nurtrition and weight gain, Toxoplasmosis Precations, Use of Any medications, Sexual activity, Exercise, Dental Care, Sauna/Hot tub use, Seat Belt use, Childbirth classes/Hospital facilities, Travel, Indications for Ultrasound and Screening for Aneuploidy; Discussed Second Trimester Second Trimester: Signs and Symptoms of Labor, Selecting a care provider, Reproductive Life Planning & Contreception, Care Planning, Depression/Anxiety and Intimate Partner Violence; Discussed Tobacco Cessation Third Trimester Third Trimester: Pain Management Plans, Labor support person(s), Immediate Larc, Movement Monitoring, Signs and Symptoms of Preeclampsia and Millsap Education ROS Const Reports system reviewed and no additional complaints, except as documented, Reports fatigue and Denies fever(s) Eyes Reports system reviewed and no additional complaints, except as documented ENT Reports system reviewed and no additional complaints, except as documented Card Denies chest pain and Denies dyspnea Resp Reports system reviewed and no additional complaints, except as documented, Denies cough and Deniesdyspnea GI Denies abdominal pain and Reports nausea Reports system reviewed and no additional complaints, except as documented Musc Reports system reviewed and no additional complaints, except as documented Skin/Breast Reports system reviewed and no additional complaints, except as documented Neuro Yes system reviewed and no additional complaints, except as documented Psych Reports system reviewed and no additional complaints, except as documented Endo Reports system reviewed and no additional complaints, except as documented and Reports fatigue Exam Const General: healthy appearing, comfortable and no acute distress Orientation: alert HENMT Head: normal to inspection, normocephalic and atraumatic Ears: hearing grossly normal bilaterally and external ears normal Nose: external nose normal and nares normal Mouth: oral mucosae normal Teeth and gingiva: dentition normal Eyes General: appearance normal, both eyes and all related structures Neck Neck: normal visual inspection, no lymphadenopathy and supple Thyroid: thyroid normal Chest Chest palpation & inspection: normal inspection of the chest Breast inspection: normal inspection of the breasts and normal inspection of the axillae Breast palpation: normal palpation of the breasts and normal palpation of the axillae Resp Effort & Inspection: normal respiratory effort GI Inspection: normal to inspection Palpation: soft and no hepatosplenomegaly General: bladder normal to palpation External Female Exam: normal external appearance and normal appearance of the urethra Urethra: normal appearance of the urethra Speculum Exam - Vagina: normal appearance of the vagina and normal vaginal discharge Speculum Exam - Cervix: normal appearance of the cervix Bimanual Exam- Vagina & Uterus: normal bimanual exam, bladder normal to palpation, non-tender and other Bimanual Exam- Adnexa, other: non-tender Skin General: no rashes or lesions noted Neuro Motor: muscle tone normal throughout and no movement abnormalities noted Extrem General: normal to inspection and full ROM Supplemental Info ACOG book given and patient encouraged to read about nutrition, exercise, weight gain, and food avoidance in . Coding Level of Care Code OB Routine Diagnoses Supervision of normal Z34.90 10 weeks gestation of Z3A.10 Weeks of gestation: 10 weeks Anxiety F41.9 Asthma J45.909 Assessment and Plan Assessment and Plan (1) Supervision of normal : Status: Acute Comment: , MIRIAM 03/19/25, PC [facility], [place] (2) : Status: Acute Qualifiers: Weeks of gestation: 10 weeks Qualified Code(s): Z3A.10 - 10 weeks gestation of Comment: discussed NIPT & Carrier testing-declined. (3) Anxiety: Status: Acute Comment: stable (4) Asthma: Status: Acute Comment: mild Orders: Orders CBC W/Diff, Automated 08/10/24 Z34.90 - Encounter for supervision of normal , unspecified,unspecified trimester Type & Screen 08/10/24 Z34.90 - Encounter for supervision of normal , unspecified, unspecified trimester Rubella IgG 08/10/24 Z34.90 - Encounter for supervision of normal , unspecified, unspecified trimester Hepatitis C Antibody 08/10/24 Z34.90 - Encounter for supervision of normal , unspecified, unspecified trimester Hepatitis B Surface Antigen 08/10/24 Z34.90 - Encounter for supervision of normal , unspecified, unspecified trimester Culture, Urine Today Z34.90 - Encounter for supervision of normal , unspecified, unspecified trimester Syphilis Antibodies 08/10/24 Z34.90 - Encounter for supervision of normal , unspecified, unspecified trimester Chlamydia/GC HOLLEY aptima Today Z34.90 - Encounter for supervision of normal , unspecified, unspecified trimester HIV 08/10/24 Z34.90 - Encounter for supervision of normal , unspecified, unspecified trimester Plan Patient oriented to practice and discussed care expectations and screenings. ACOG book offered to patient. Discussed routine and specially indicated labs if needed- patient consents to testing. See problem list details for plan information. Optional screening including maternal carrier screenings, neural tube defect screening, genetic screening options including quad screen, nuchal translucency, sequential screening, and NIPT screening offered to patient and patient chose: declined 08/21/24 Mckenzie correa MD> Date _ Irma Foster MD [facility] Signature: Date (if applicable) CC: ~ [facility]04-10-2025 History of Present illness Narrative* Emory Vallecillo LPN - 07/13/2024 2:15 PM EDT Nurse Note: Review of Systems Constitutional: Negative. HENT: Negative. Eyes: Negative. Respiratory: Negative. Cardiovascular: Negative. Gastrointestinal: Negative. Endocrine: Negative. Genitourinary: Negative. Musculoskeletal: Negative. Skin: Negative. Allergic/Immunologic: Negative. Neurological: Negative. Hematological: Negative. Psychiatric/Behavioral: Negative. Pt is currently Nursing Assessment: * Darling Farmer II, MD - 07/13/2024 2:15 PM EDT Nurse Note: Review of Systems Constitutional: Negative. HENT: Negative. Eyes: Negative. Respiratory: Negative. Cardiovascular: Negative. Gastrointestinal: Negative. Endocrine: Negative. Genitourinary: Negative. Musculoskeletal: Negative. Skin: Negative. Allergic/Immunologic: Negative. Neurological: Negative. Hematological: Negative. Psychiatric/Behavioral: Negative. Pt is currently Nursing Assessment: HISTORY OF PRESENT ILLNESS 29 y.o. female History No Known Allergies does not have a problem list on file. Current Outpatient Medications Medication Sig Dispense Refill Norgestimate-Ethinyl Estradiol 0.18/0.215/0.25 MG-35 MCG tablet take 1 tablet by mouth daily (Patient not taking: Reported on 07/13/2024) 28 tablet 0 norgestimate-ethinyl estradiol 0.25-35 MG-MCG tablet Take 1 tablet by mouth daily. (Patient not taking: Reported on 07/13/2024) 3 Package 3 No current facility-administered medications for this visit. family history includes Hypertension in her paternal grandmother; No known problems in her brother and sister; Thyroid Cancer in her maternal grandmother; Thyroid Disease in her mother. Past Medical History: Diagnosis Date Anemia Asthma H/O seasonal allergies Past Surgical History: Procedure Laterality Date WISDOM TEETH EXTRACTION Social History Tobacco Use Smoking Status Never Smokeless Tobacco Never Social History Substance and Sexual Activity Alcohol Use Yes Comment: social Physical Examination: Vital Signs: BP 118/70 (BP Location: Left arm, BP Position: Sitting) Pulse 80 Temp 98.1 F (36.7 C) (Infrared) Resp 16 Ht 1.689 m (5' 6.5) Wt 70.5 kg (155 lb 8 oz) SpO2 99% BMI 24.72 kg/m Smoking Status Never Constitutional: Oriented to person, place, and time. Appears well developed and well nourished. Eyes: conjunctiva/corneas clear, normal vision Ears/Nose/Mouth Eyes -EOMI. Ears - External normal ear. Hearing normal. Mouth - Lips normal color. Head/Neck: Face symmetrical, trachea midline, Head - Normocephalic. symmetrical. Normal ROM, neck supple. Thyroid normal. Pulmonary/chest: Normal respiratory effort, non-labored breathing. Abdominal/GI: Soft, non-tender, no organomegaly. Bowel sounds normal. Cardiovascular Normal rate and regular rhythm. No Murmurs or Rubs, Radial pulses normal. Circulation Normal. Neurologic: Alert and oriented x3. No focal neurological deficits noted. Extremities: No clubbing, cyanosis, or edema noted, no calf tenderness bilaterally. Skin: Warm and dry.Normal turgor, well-hydrated, no rashes noted. Psych: Normal mood and affect. Behavior is normal. ASSESSMENT AND PLAN patient is here for evaluation abdominal pain. Over the past couple years she has had abdominal pain cramping at times diarrhea. At other times preceded by constipation. Stool hard enough to cause rectal bleeding. Uses MiraLax at times which usually results in diarrhea does get a good bowel movement. Patient states even after eating and bowels are moving still can get nausea and vomiting. Abdominal pain is pretty generalized. Exam today is nonspecific no pain no guarding no rebound positive bowel sounds normal patient does have a 9-1/2-month-old son in his now can. Discussed that does limit us in what we can use. Would like her to get established with a youth court judge [place] and help us use are medication. Would like to use of milk of magnesia tablets to keep her bowel soft and Pepcid for stomach upset.. Will need to run that by the OBGYN. Yuli was seen today for new patient. Diagnoses and all orders for this visit: Nausea and vomiting, unspecified vomiting type Less than 8 weeks gestation of [facility] NotePap Smear Specimen AdequacyDekresge eye instituteer 2022 11:59pmComment.Satisfactory for evaluation. Endocervical and/or squamous metaplasticcells (endocervical component)are present.[facility] INTERFACED A#[id number] Health SystemComment on above: Satisfactory for evaluation. Endocervical and/or squamous metaplasticcells (endocervical component)are present.04-02-2023 NotePap Smear Specimen Adequacy April 03, 2023 12:59amComment.Satisfactory for evaluation. Endocervical and/or squamous metaplasticcells (endocervical component)are present.[facility] INTERFACED A#[id number] Health SystemComment on above:Satisfactory for evaluation. Endocervical and/or squamous metaplasticcells (endocervical component)are present.09-03-2022 Instructions* Patient Instructions* Anay Paredes MD - 09/03/2022 11:14 AM EDT For Diarrhea: 1)Start with increasing fiber with a fiber supplement. For example, Benefiber 2tsps 2-3x/day in 4oznoncarbonated hot or cold beverage or Metamucil (psyllium fiber) 1 tbsp in 8oz water twice daily 2) Start daily probiotic--[facility] or [facility] brand or daily Activia yogurt 3)Start relaxation techniques such as exercise, yoga, meditation 4) Explore FODMAPs as a trigger (visit [employer]) 5)Start logging a food diary to identify triggers I recommend a trial of lactose/dairy elimination (stop milk, cheese, ice cream, sweets/desserts, anything that has milk or is dairy based) for 2 weeks. If diarrhea improves or resolves, you have lactose intolerance. Most people with lactose intolerance can enjoy some milk products without symptoms. It may be possible to increase your tolerance to dairy products by gradually introducing them into your diet. Some people find that they can tolerate full-fat dairy products, such as whole milk and cheese, more easily than dairy products with no or reduced fat. Ways to change your diet to minimize symptoms of lactose intolerance include: Choosing smaller servings of dairy. Sip small servings of milk up to 4 ounces (118 milliliters) at a time. The smaller the serving, the less likely it is to cause gastrointestinal problems. Saving milk for mealtimes. Drink milk with other foods. This slows the digestive process and may lessen symptoms of lactose intolerance. Experimenting with an assortment of dairy products. Not all dairy products have the same amount of lactose. For example, hard cheeses, such as Salvadorean or cheddar, have small amounts of lactose and generally cause no symptoms. You may be able to tolerate cultured milk products, such as yogurt, becausethe bacteria used in the culturing process naturally produce the enzyme that breaks down lactose. Buying lactose-reduced or lactose-free products. You can find these products at most supermarkets in the refrigerated dairy section. Using lactase enzyme tablets or drops. Hbvz-wcx-tcsttjx tablets or drops containing the lactase enzyme (Dairy Ease, Lactaid, others) may help you digest dairy products. You can take tablets just before a meal or snack. Or the drops can be added to a carton of milk. Not everyone with lactose intolerance is helped by these products. documented in this [id number] History of Present illness Narrative* Anay Paredes MD - 09/03/2022 10:55 AM EDT [facility] [address] [place] [id number] Yuliso Arevalo is here today for Chief Complaint Patient presents with Consult Inconsistent constipation with diarrhea Abd pain, and cramping History: HPI 27yo WF referred by Dr Blackburn in [place]. She complains of generalized abd cramping and diarrhea, intermittently lasting 4 hours never for more than that day, occuring for the past few years. No blood in stools.She says symptoms have improved with probiotics that she has been on for a few months. Levsin helps when she has episodes. She says she can get pale, sweat and shiver with episodes. She has normal bowel movements otherwise. No flushing, rashes, swelling. She tried FODMAP elimination without improvement. No famhx of IBD or colon cancer. Past Medical History: Diagnosis Date Asthma STD (sexually transmitted disease) History reviewed. No pertinent surgical history. No Known Allergies Prior to Admission medications Medication Sig Start Date End Date Taking? Authorizing Provider albuterol 90 mcg/actuation inhaler Inhale 2 (two) puffs every 6 (six) hours as needed for wheezing . Yes Historical Provider, hyoscyamine (LEVSIN) 0.125 mg tablet Take 1 (one) tablet (0.125 mg total) by mouth every 4 (four) hours as needed for cramping . 04/06/21 Yes Rex Blackburn MD lactobacillus combo no.11 (Probiotic) 15 billion cell CpSP Take by mouth . Yes Historical Provider, polyethylene glycol (MIRALAX) 17 gram powder Take 17 (seventeen) g by mouth daily . Yes Historical Provider, vitamin with Ca-Iron-FA 27-1 mg Tab Take 1 (one) tablet by mouth daily . Yes Historical Provider, norgestimate-ethinyl estradioL (Tri-Sprintec, 28,) 0.18/0.215/0.25 mg-35 mcg (28) per tablet Take 1(one) tablet by mouth daily . Patient not taking: Reported on 09/03/2022 . 04/03/21 Rex Blackburn MD Family History Problem Relation Age of Onset Cancer Maternal Grandmother Thyroid Breast cancer Neg Hx Colon cancer Neg Hx Ovarian cancer Neg Hx Uterine cancer Neg Hx Review of Systems All other systems reviewed and are negative. Social History Tobacco Use Smoking status: Never Smokeless tobacco: Never Vaping Use Vaping Use: Never used Substance Use Topics Alcohol use: Yes Comment: social Drug use: No Data Unavailable BP 102/64 (BP Location: Right arm) Pulse 65 Wt 67.4 kg (148 lb 9.6 oz) SpO2 99% BMI 23.27 kg/m Wt Readings from Last 6 Encounters: 09/03/22 67.4 kg (148 lb 9.6 oz) 04/03/21 73.3 kg (161 lb 9.6 oz) 03/21/21 70.5 kg (155 lb 8 oz) 04/04/19 76.2 kg (168 lb) 05/04/18 73.5 kg (162 lb) 03/15/18 72.6 kg (160 lb) Body mass index is 23.27 kg/m . Physical Exam Constitutional: Oriented to person, place, and time. Well-developed, well- nourished, and in no distress. HEENT: Head: Normocephalic and atraumatic. Mouth/Throat: Oropharynx is clear and moist. No lesions. Eyes: Conjunctivae and EOM are normal. Neck: Neck supple. No tracheal deviation. No thyromegaly present. Cardiovascular: Normal rate and regular rhythm. Normal S1/S2. No murmurs, rubs, or gallops. Pulmonary/Chest: Clear to auscultation bilaterally. No wheezes, rales or rhonchi. Normal respiratory effort. Abdominal: Soft, nontender, nondistended. No hepatosplenomegaly. No fluid wave. No caput medusae. No hernia. No masses. Musculoskeletal: No gross deformities. Lymphadenopathy: No cervical or supraclavicular LAD. Neurological: Alert and oriented to person, place, and time. No cranial nerve deficits. Skin: Skin is warm and dry. No rash noted. No cyanosis. Nails show no clubbing. Psychiatric: Mood and affect normal. Assessment and Plan: 1. Diarrhea, unspecified type Tissue Transglutaminase, IgA Tissue Transglutaminase, IgG IgA Sedimentation Rate CRP, Inflammation CBC and Differential Comprehensive Metabolic Panel B12/Folate Iron Study with Ferritin Calprotectin Suspect IBS-D if normal labs For Diarrhea: 1)Start with increasing fiber with a fiber supplement. For example, Benefiber 2tsps 2-3x/day in 4oznoncarbonated hot or cold beverage or Metamucil (psyllium fiber) 1 tbsp in 8oz water twice daily 2) Start daily probiotic--[facility]S or [facility] brand or daily Activia yogurt 3)Start relaxation techniques such as exercise, yoga, meditation 4) Explore FODMAPs as a trigger (visit [employer]FoodFan) 5)Start logging a food diary to identify triggers I recommend a trial of lactose/dairy elimination (stop milk, cheese, ice cream, sweets/desserts, anything that has milk or is dairy based) for 2 weeks. If diarrhea improves or resolves, you have lactose intolerance. Most people with lactose intolerance can enjoy some milk products without symptoms. It may be possible to increase your tolerance to dairy products by gradually introducing them into your diet. Some people find that they can tolerate full-fat dairy products, such as whole milk and cheese, more easily than dairy products with no or reduced fat. Ways to change your diet to minimize symptoms of lactose intolerance include: Choosing smaller servings of dairy. Sip small servings of milk up to 4 ounces (118 milliliters) at a time. The smaller the serving, the less likely it is to cause gastrointestinal problems. Saving milk for mealtimes. Drink milk with other foods. This slows the digestive process and may lessen symptoms of lactose intolerance. Experimenting with an assortment of dairy products. Not all dairy products have the same amount of lactose. For example, hard cheeses, such as Salvadorean or cheddar, have small amounts of lactose and generally cause no symptoms. You may be able to tolerate cultured milk products, such as yogurt, becausethe bacteria used in the culturing process naturally produce the enzyme that breaks down lactose. Buying lactose-reduced or lactose-free products. You can find these products at most supermarkets in the refrigerated dairy section. Using lactase enzyme tablets or drops. Zasw-efl-aprophv tablets or drops containing the lactase enzyme (Dairy Ease, Lactaid, others) may help you digest dairy products. You can take tablets just before a meal or snack. Or the drops can be added to a carton of milk. Not everyone with lactose intolerance is helped by these products. Return if symptoms worsen or fail to improve. Thank you very much for allowing me to participate in your patient's care and if you have any further questions please do not hesitate to call. Sincerely; Anay Paredes MD documented in this [id number] Miscellaneous Notes* Assessment & Plan Note - Rex Blackburn MD - 04/05/2021 8:14 PM EST Associated Problem(s): IBS (irritable bowel syndrome) Will trial linzess. Patient to message if medication not covered or too expensive. May need to trial elavil. * Assessment & Plan Note - Rex Blackburn MD - 04/05/2021 8:12 PM EST Associated Problem(s): Abdominal pain Can continue miralax Will order linzess, if not covered or too expensive then will trial elavil. Follow up in 4 weeks. * Assessment & Plan Note - Rex Blackburn MD - 04/05/2021 6:16 PM EST Associated Problem(s): Encounter for surveillance of contraceptive pills Refilled control. documented in this [id number] History of Present illness Narrative* Rex Blackburn MD - 04/03/2021 2:31 PM EST OFFICE VISIT PROGRESS NOTE HPI Yuli Arevalo is here to follow up for abdominal pain. States that miralax is helping bowel movements slightly But abdominal pain still occurring, sharp pain with bloating and gas pains after consuming food. Does not matter what she eats, pain occurs with everything. Irregular bowel movements occurring since she was a child The following portions of the patient's history were reviewed and updated as appropriate: allergies, current medications and problem list. The patient's surgical, family, and social history was reviewed and updated as appropriate. Review of Systems Review of Systems Constitutional: Negative for chills and fever. HENT: Negative for congestion and sore throat. Eyes: Negative for visual disturbance. Respiratory: Negative for cough. Gastrointestinal: Positive for abdominal distention, abdominal pain and constipation. Negative for diarrhea. Musculoskeletal: Negative for back pain and myalgias. Skin: Negative for rash and wound. Neurological: Negative for dizziness, weakness and headaches. Psychiatric/Behavioral: Negative for sleep disturbance. The patient is not nervous/anxious. Vitals: 04/03/21 1407 BP: 124/72 BP Location: Left arm Patient Position: Sitting BP Cuff Size: Adult Pulse: 79 Resp: 18 Temp: 97.8 F (36.6 C) TempSrc: Oral SpO2: 99% Weight: 73.3 kg (161 lb 9.6 oz) Height: 5' 7 Body mass index is 25.31 kg/m . Physical Exam Physical Exam Vitals and nursing note reviewed. Constitutional: Appearance: Normal appearance. HENT: Head: Normocephalic and atraumatic. Eyes: Conjunctiva/sclera: Conjunctivae normal. Cardiovascular: Rate and Rhythm: Normal rate and regular rhythm. Heart sounds: Normal heart sounds. Pulmonary: Effort: Pulmonary effort is normal. Breath sounds: Normal breath sounds. Skin: General: Skin is warm. Neurological: General: No focal deficit present. Mental Status: She is alert. Psychiatric: Mood and Affect: Mood normal. Behavior: Behavior normal. Thought Content: Thought content normal. Judgment: Judgment normal. OARRS/NARxCHECK Report Received and Assessed: No data found Date controlled substance agreement signed: No data found Date of last drug screen: No data found Functional Assessment: No data found Assessment/Plan Problem List Items Addressed This Visit Digestive IBS (irritable bowel syndrome) Will trial linzess. Patient to message if medication not covered or too expensive. May need to trial elavil. Other Abdominal pain - Primary Can continue miralax Will order linzess, if not covered or too expensive then will trial elavil. Follow up in 4 weeks. Encounter for surveillance of contraceptive pills Refilled control. Relevant Medications norgestimate-ethinyl estradioL (Tri-Sprintec, 28,) 0.18/0.215/0.25 mg-35 mcg (28) per tablet Goals None If any referrals were placed at today's visit the patient was instructed to call the office if theyhavn't heard anything about the referral within 2 weeks of today's visit. For any new medications prescribed today, patient was educated about indications for the medication, how to take the medication and potential side effects of the medications. Depression Screening 03/21/2021 Little interest or pleasure in doing things 0 Feeling down, depressed, or hopeless 0 PHQ-2 Total Score 0 Trouble falling or staying asleep, or sleeping too much 0 Feeling tired or having little energy 0 Poor appetite or overeating 0 Feeling bad about yourself - or that you are a failure or have let yourself or your family down 0 Trouble concentrating on things, such as reading the newspaper or watching television 0 Moving or speaking so slowly that other people could have noticed. Or the opposite - being so fidgety or restless that you have been moving around a lot more than usual 0 Thoughts that you would be better off , or of hurting yourself in some way 0 PHQ-9 Total Score 0 If you checked off any problems, how difficult have these problems made it for you to do your work,take care of things at home, or get along with other people? Not difficult at all * Parvin Venegas LPN - 04/03/2021 2:09 PM EST Patient not interested in COVID or flu shot at this time Patient's last PAP was done in Apr at Dr. Kendall in [place], will call and get report documented in this [id number] Miscellaneous Notes* Assessment & Plan Note - Rex Blackburn MD - 03/31/2021 12:54 AM EST Associated Problem(s): Abdominal pain Most likely due to constipation. Discussed doing a bowel clean out with miralax. Follow up in 2 weeks. documented in this [id number] History of Present illness Narrative* Rex Blackburn MD - 03/21/2021 2:59 PM EST OFFICE VISIT PROGRESS NOTE HPI Yuli Arevalo is here to establish care with complaints of abdominal pain. Having bowel movements 2-3 times a week Occasionally with straining No blood in stool Sharp pain generalized abdominal pain No nausea or vomiting Eating well Drinking water Stool softener did not help Has not tried miralax The following portions of the patient's history were reviewed and updated as appropriate: allergies, current medications and problem list. The patient's surgical, family, and social history was reviewed and updated as appropriate. Review of Systems Review of Systems Constitutional: Negative for chills and fever. HENT: Negative for congestion and sore throat. Eyes: Negative for visual disturbance. Respiratory: Negative for cough. Gastrointestinal: Positive for abdominal pain and constipation. Negative for diarrhea. Musculoskeletal: Negative for back pain and myalgias. Skin: Negative for rash and wound. Neurological: Negative for dizziness, weakness and headaches. Psychiatric/Behavioral: Negative for sleep disturbance. The patient is not nervous/anxious. Vitals: 03/21/21 1418 BP: 124/73 BP Location: Left arm Patient Position: Sitting BP Cuff Size: Adult Temp: 98.4 F (36.9 C) TempSrc: Oral SpO2: 98% Weight: 70.5 kg (155 lb 8 oz) Height: 5' 7 Body mass index is 24.35 kg/m . Physical Exam Physical Exam Vitals and nursing note reviewed. Constitutional: Appearance: Normal appearance. HENT: Head: Normocephalic and atraumatic. Eyes: Conjunctiva/sclera: Conjunctivae normal. Cardiovascular: Rate and Rhythm: Normal rate and regular rhythm. Heart sounds: Normal heart sounds. Pulmonary: Effort: Pulmonary effort is normal. Breath sounds: Normal breath sounds. Abdominal: General: Abdomen is flat. Palpations: Abdomen is soft. Tenderness: There is no abdominal tenderness. Skin: General: Skin is warm. Neurological: General: No focal deficit present. Mental Status: She is alert. Psychiatric: Mood and Affect: Mood normal. Behavior: Behavior normal. Thought Content: Thought content normal. Judgment: Judgment normal. OARRS/NARxCHECK Report Received and Assessed: No data found Date controlled substance agreement signed: No data found Date of last drug screen: No data found Functional Assessment: No data found Assessment/Plan Problem List Items Addressed This Visit Other Abdominal pain - Primary Most likely due to constipation. Discussed doing a bowel clean out with miralax. Follow up in 2 weeks. Goals None If any referrals were placed at today's visit the patient was instructed to call the office if theyhavn't heard anything about the referral within 2 weeks of today's visit. For any new medications prescribed today, patient was educated about indications for the medication, how to take the medication and potential side effects of the medications. Depression Screening 03/21/2021 Little interest or pleasure in doing things 0 Feeling down, depressed, or hopeless 0 PHQ-2 Total Score 0 Trouble falling or staying asleep, or sleeping too much 0 Feeling tired or having little energy 0 Poor appetite or overeating 0 Feeling bad about yourself - or that you are a failure or have let yourself or your family down 0 Trouble concentrating on things, such as reading the newspaper or watching television 0 Moving or speaking so slowly that other people could have noticed. Or the opposite - being so fidgety or restless that you have been moving around a lot more than usual 0 Thoughts that you would be better off , or of hurting yourself in some way 0 PHQ-9 Total Score 0 If you checked off any problems, how difficult have these problems made it for you to do your work,take care of things at home, or get along with other people? Not difficult at all Depression Screening 03/21/2021 Little interest or pleasure in doing things 0 Feeling down, depressed, or hopeless 0 PHQ-2 Total Score 0 Trouble falling or staying asleep, or sleeping too much 0 Feeling tired or having little energy 0 Poor appetite or overeating 0 Feeling bad about yourself - or that you are a failure or have let yourself or your family down 0 Trouble concentrating on things, such as reading the newspaper or watching television 0 Moving or speaking so slowly that other people could have noticed. Or the opposite - being so fidgety or restless that you have been moving around a lot more than usual 0 Thoughts that you would be better off , or of hurting yourself in some way 0 PHQ-9 Total Score 0 If you checked off any problems, how difficult have these problems made it for you to do your work,take care of things at home, or get along with other people? Not difficult at all * Kalani Soler MA - 03/21/2021 2:17 PM EST PHQ-9: 0 KATHY-7: 0 [facility]: [place]: Colonoscopy: Mammo: PAP: Pt Is due COVID Vaccine: pt declined Flu Vaccine: pt declined documented in this [id number] Hospital Discharge instructions Additional Instructions Facial x-ray does not indicate that there is any fracture of bone surrounding your eye. Read sterile tape closure section of facial laceration. May take ibuprofen or Tylenol for discomfort as needed. Apply ice or cold pack for 20 minutes every 1-2 hours while awake to help decrease swelling. Complete antibiotic as prescribed to help prevent any infection. Follow-up with primary care provider or return for further concerns as necessary.[facility] Work Phone: [phone] 786-107606-04-2021 History of Present illness Narrative* Paco Kendall MD - 09/06/2020 1:30 PM EDT [facility] HPI: Ms. Yuli Arevalo is a 25 y.o. who presents for Chief Complaint Patient presents with Vaginal Discharge vaginal itching with occ. pelvic pain and white discharge. x 1-2 months Ms. Arevalo reports vaginal itching that has been present for 1-2 months. She also notes a change inthe amount of her discharge. She describes the the itching location at the superior aspect of the the fold between the labia minora and majora. She denies odor. She recalls using napkins since running out of toilet paper in one of her bathrooms. She has switched back to toilet paper recently. She has also started wearing cotton underwear. She began using a different body wash 3 days ago. About 2 days ago, her symptoms resolved and she no longer has any vaginal itching. She denies any other changes in clothes, soaps, detergents, etc. She reports normal bowel and bladder function, but has bowel movements only every 3-4 days. She was advised to start a stool softener until having bowel movement frequency at least every 1-[address] [employer] History: Last menstrual period: Patient's last menstrual period was 08/19/2020. Menses: Prior to OCPs, every month, with 5 days of medium bleeding. Menarche: Age ~9 Menopause: N/A Last Pap: NILM 03/15/2020 History of abnormal Paps: Denies Sexual activity: Active with for 3 years ( for 1 year) Contraception: OCPs History of STIs: Remote history of chlamydia (2018) Family [employer] [address] Worker Cancer: Denies Mammogram: Due at age 40 Colonoscopy: Due at age 50 REVIEW OF SYSTEMS She reports vaginal itching and discharge, and constipation. She denies any vaginal bleeding, pain, burning, or odor. She denies headache, changes in vision, fevers, chills, cough, shortness of breath, nausea, vomiting, diarrhea, dysuria, or swelling of her extremities. PHYSICAL EXAMINATION BP 104/80 (BP Location: Left arm, BP Position: Sitting) Temp 98.4 F (36.9 C) (Temporal) Ht 5' 6.5 (1.689 m) Wt 155 lb (70.3 kg) BMI 24.64 kg/m Smoking Status Never Smoker General: WNWD, NAD Pulm: Normal work of breathing Abd: Soft, NTND Ext: No LE edema. No calf TTP. Pelvic: Normal external genitalia. No visible lesions. Skin between labia minor and majora without lesions, erythema, or current itching. Vaginal rizo without lesions, moist, pink, well rugated. Normal appearing physiologic discharge in posterior fornix. Cervix without lesions. No apparent odor. Bimanual: No cervical motion tenderness No adnexal fullness or tenderness. Mobile, normal sized uterus. Firm stool palpable through posterior vaginal wall. ASSESSMENT AND PLAN Ms. Yuli Arevalo is a 25 y.o. who presents for vaginal itching. - Advised patient to dart stool softener - Symptoms have resolved as of 2 days ago. - Patient advised to return if symptoms recur. Schedule return in 6 months for annual exam No future appointments. 09/06/2020 Paco Kendall MD * Kemi Tijerina LPN - 09/06/2020 1:30 PM EDT vaginal itching with occ. pelvic pain and white discharge. x 1-2 months [facility] Diagnosis Itching in the vaginal area- Primary Pruritus of genital organs [facility] noteNo assessment information availableThe [facility] Work Phone: Evaluation note* Diagnosis Generalized abdominal pain- Primary Abdominal pain, generalized [facility] Diagnosis Generalized abdominal pain- Primary Abdominal pain, generalized Irritable bowel syndrome with constipation Irritable bowel syndrome Encounter for surveillance of contraceptive pills [facility] Diagnosis Diarrhea, unspecified type- Primary [facility] Diagnosis Diarrhea, unspecified type- Primary [facility]* Diagnosis Onset Date Resolution Status Anxiety acute Asthma acute Infertility acute Pelvic pain acute Pre-conception counseling [place] Supervision of high-risk [facility] Work Phone: Evaluation note* Diagnosis Onset Date Resolution Status Anxiety acute Asthma acute Infertility acute Pelvic pain acute Pre-conception counseling [place] acute Supervision of high-risk acute Anxiety acute Asthma acute acute Supervision of high-risk acute Anxiety acute Asthma acute Infertility acute Pelvic pain acute Pre-conception counseling [place] acute Supervision of high-risk [facility] Work Phone: Evaluation note* Diagnosis Onset Date Resolution Status Anxiety acute Asthma acute acute Supervision of high-risk acute Anxiety acute Asthma acute Infertility acute Pelvic pain acute Pre-conception counseling [place] acute Supervision of high-risk acute Anxiety acute Asthma acute Infertility acute Pelvic pain acute Pre-conception counseling [place] acute Supervision of high-risk acute Anxiety acute Asthma acute Infertility acute Pelvic pain acute Pre-conception counseling [place] acute Supervision of high-risk [facility] Work Phone: Evaluation note* Diagnosis Nausea and vomiting, unspecified vomiting type- Primary Less than 8 weeks gestation of state, incidental documented in this encounter [facility] Diagnosis Onset Date Resolution Status Admit Date Anxiety acute August 21, 2024 9:42am Asthma acute August 21, 2024 9:42am acute August 21, 2024 9:42am Supervision of normal acut e August 21, 2024 9:42am [facility] Work Phone: Progress note Author Irma Foster [facility] Note Date/Time August 21, 2024 10:58 am [facility] [address] [place] [address], [address] [place] [address] OFFICE VISIT Date of Service: 08/21/24 MR#: [id number] Acct: [id number] Name: YULI AREVALO Rep #: [id number] : 1995 Provider: Dr. Jimmy Foster MD Age/Sex: 29/F Location: [facility] [place] Status: Signed Intake Vital Signs 12/09/23 15:05 08/21/24 10:04 Height 5 ft 6.5 in 5 ft 6.5 in Weight: 155 lb 6 oz BMI 24.7 BP 115/71 Intake Visit Reasons: NOB: LMP 06/12, MIRIAM 03/19 [employer] Required: No Is patient in pain?: No Feel stressed/tense/nervous/anxious/difficulty sleeping: not at all Allergies No Known Allergies Allergy (Verified 08/21/24 10:05) Medications ?Medication ?Instructions ?Recorded ?Confirmed ?Type multivit-min no.71-iron fum 28 1 cap PO see provid 12/09/23 History mg-folate no.1 1 mg-dha 300 mg capsule (PNV-Carson) famotidine 20 mg tablet (Pepcid) 20 mg PO BID 30 days #60 tabs 08/06/23 12/09/23 Rx Last Menstrual Period: 06/12/24 Zika: Zika virus screening: Negative : No PFSH PFSH Medical History Hx of infertility Abnormal Pap smear of cervix Chlamydia Seasonal allergies Panic attacks Surgical History [place] teeth extracted Family History Grandmother Thyroid disorder Maternal hyperthyroidism prior to cancer Cancer thyroid ca- maternal Mother Thyroid disorder Hyperthyroidism Other Diabetes Social History adopted: No household members: spouse and children housing: house number of children: 1 current occupational status: employed 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 Date Name GA/Weeks Outcome Route Bth Weight Gen Labor Lgth Anesthesia Del Locatn Provider FOB 10/25/23 Geo 38 live - full term 7#3oz Male none [facility] Ernestina Golden HPI NOB: LMP 06/12, MIRIAM 03/19 Details: YULI AREVALO is a 29 year old who presents for New OB visit. OB Visit MIRIAM Calculator Estimated Delivery Date Method Current WG Current Estimate 03/19/25 LMP (Certain) 10w 0d Other Estimates 03/12/25 Ultrasound #1 11w 0d Comments: HIV: Urine Culture: Sequential Screen: NIPT Screen: Estimated Due Date: 03/19/25 Expected Delivery Route/Plan Labor Preferences- CB/BF classes: [] labor support person: [] labor intervention preferences: [] pain management options preferred: [] cut cord/dad catch: [] : [] PP control planned: [] discussed possible routes of delivery and associated risks: [] special requests: []. Specific Issue/Plans Covid status: [] Flu vaccine: [] Tdap vaccine: [] Rhogam: [] LARC form signed: [] Problem list reviewed and updated with the most current plan of care details and appropriate orders placed. Relevant counseling for the gestational age provided. Continue routine care and follow up unless otherwise noted in visit notes/problem list details Initial Weight: Not Recorded Date -?-?-?-?-?-?-?-?-?-?-?-?- EGA Weight BP Urine Prot -?-?-?-?-?-?-?-?-?-?-?-?- Glucose FHR FuHt Pres Dilation -?-?-?-?-?-?-?-?-?-?-?-?- Effaced St Visit Note 08/21/24 -?-?-?-?-?-?-?-?-?-?-?-?- 10w 0d 155 lb 6 oz 115/71 -?-?-?-?-?-?-?-?-?-?-?-?- 160 -?-?-?-?-?-?-?-?-?-?-?-?- SM- no vb crampi ng CRL cons with LMP SM- no vb cramping CRL 4.04c m cons with LMP Menstrual History Last Menstrual Period: 06/12/24 Reported LMP: definite Normal amount/duration: Yes Frequency in days: 28 On hormonal BC at conception: No hCG+: 07/11/24 Antepartum Record Genetic Screening: Congenital Heart Defect: Other, Neural Tube Defect: Other, Hemoglobinopathy Or Carrier: Other, Cystic Fibrosis: Other, Chromosome Abnormality: Other, Ruben-Sachs: Other, Hemophilia: Other, Intellectual Disability/Autism: Other, Recurrent Loss/Stillbirth: Other, Other Structural Defect: Other, Other Genetic Disease: Other and Maternal Metabolic Disorder: Other Infection History: Live with someone with TB or Exposed to TB: No, Patient or Partner has history of Genital Herpes: No, Rash or Viral illness since last mentrual period: Yes (stomach flu -June), Prior GBS-Infected child: No, History of STD: Yes (chlamydia 7yrs ago), HIV Infection: No, History of Hepatitis: No, Recent travel outside of [place]: No, Concern for hepatitis exposure: No, Varicella immune: Yes (immune- Virus) and Covid Vaccinated: No Medical History Medical History: Positive: Psychiatric (H/O anxiety resolved), Seasonal allergies (mild), Operations/hospitalizations (wisdom teeth) and Infertility (13 months for first , 3 months to conceive this ) and Negative: Diabetes, Hypertension, Heart disease, Auto-immune disorder, Kidney disease/UTI, Neurologic/epilepsy, Depression/ depression, Hepatitis/liver disease, Varicosities/phlebitis, Thyroid dysfunction, Trauma/domestic violence, History of blood transfusions, D (Rh) Sensitized, Pulmonary (e.g.,TB,Asthma) (mild childhood asthma, exercise induced), Drug/latex allergies/reactions, Breast, Right Of Way Worker surgery, Anesthetic complications, History of abnormal pap, Uterine anomaly/haile, Anti-retroviral treatment, Relevant family history (Nothing to add. See PFSH) and Other ACOG First Trimester First Trimester: Desire for , Alcohol, Tobacco Cessation, Illicit/Recreational Drug/Substance Use, Intimate Partner Violence, Barriers to care, Unstable Housing, Communication Barriers, Environmental/Work Hazards, Anticipated Course of Care, Nurtrition and weight gain, Toxoplasmosis Precations, Use of Any medications, Sexual activity, Exercise, Dental Care, Sauna/Hot tub use, Seat Belt use, Childbirth classes/Hospital facilities, Travel, Indications for Ultrasound and Screening for Aneuploidy; Discussed Second Trimester Second Trimester: Signs and Symptoms of Labor, Selecting a care provider, Reproductive Life Planning & Contreception, Care Planning, Depression/Anxiety and Intimate Partner Violence; Discussed Tobacco Cessation Third Trimester Third Trimester: Pain Management Plans, Labor support person(s), Immediate Larc, Movement Monitoring, Signs and Symptoms of Preeclampsia and Millsap Education ROS Const Reports system reviewed and no additional complaints, except as documented, Reports fatigue and Denies fever(s) Eyes Reports system reviewed and no additional complaints, except as documented ENT Reports system reviewed and no additional complaints, except as documented Card Denies chest pain and Denies dyspnea Resp Reports system reviewed and no additional complaints, except as documented, Denies cough and Denies dyspnea GI Denies abdominal pain and Reports nausea Reports system reviewed and no additional complaints, except as documented Musc Reports system reviewed and no additional complaints, except as documented Skin/Breast Reports system reviewed and no additional complaints, except as documented Neuro Yes system reviewed and no additional complaints, except as documented Psych Reports system reviewed and no additional complaints, except as documented Endo Reports system reviewed and no additional complaints, except as documented and Reports fatigue Exam Const General: healthy appearing, comfortable and no acute distress Orientation: alert [facility] Head: normal to inspection, normocephalic and atraumatic Ears: hearing grossly normal bilaterally and external ears normal Nose: external nose normal and nares normal Mouth: oral mucosae normal Teeth and gingiva: dentition normal Eyes General: appearance normal, both eyes and all related structures Neck Neck: normal visual inspection, no lymphadenopathy and supple Thyroid: thyroid normal Chest Chest palpation & inspection: normal inspection of the chest Breast inspection: normal inspection of the breasts and normal inspection of the axillae Breast palpation: normal palpation of the breasts and normal palpation of the axillae Resp Effort & Inspection: normal respiratory effort GI Inspection: normal to inspection Palpation: soft and no hepatosplenomegaly General: bladder normal to palpation External Female Exam: normal external appearance and normal appearance of the urethra Urethra: normal appearance of the urethra Speculum Exam - Vagina: normal appearance of the vagina and normal vaginal discharge Speculum Exam - Cervix: normal appearance of the cervix Bimanual Exam- Vagina & Uterus: normal bimanual exam, bladder normal to palpation, non-tender and other Bimanual Exam- Adnexa, other: non-tender Skin General: no rashes or lesions noted Neuro Motor: muscle tone normal throughout and no movement abnormalities noted Extrem General: normal to inspection and full ROM Supplemental Info ACOG book given and patient encouraged to read about nutrition, exercise, weight gain, and food avoidance in . Coding Level of Care Code OB Routine Diagnoses Supervision of normal Z34.90 10 weeks gestation of Z3A.10 Weeks of gestation: 10 weeks Anxiety F41.9 Asthma J45.909 Assessment and Plan Assessment and Plan (1) Supervision of normal : Status: Acute Comment: , MIRIAM 03/19/25, PC [place], [place] (2) : Status: Acute Qualifiers: Weeks of gestation: 10 weeks Qualified Code(s): Z3A.10 - 10 weeks gestation of Comment: discussed NIPT & Carrier testing-declined. (3) Anxiety: Status: Acute Comment: stable (4) Asthma: Status: Acute Comment: mild Orders: Orders CBC W/Diff, Automated 08/10/24 Z34.90 - Encounter for supervision of normal , unspecified, unspecified trimester Type & Screen 08/10/24 Z34.90 - Encounter for supervision of normal , unspecified, unspecified trimester Rubella IgG 08/10/24 Z34.90 - Encounter for supervision of normal , unspecified, unspecified trimester Hepatitis C Antibody 08/10/24 Z34.90 - Encounter for supervision of normal , unspecified, unspecified trimester Hepatitis B Surface Antigen 08/10/24 Z34.90 - Encounter for supervision of normal , unspecified, unspecified trimester Culture, Urine Today Z34. - Encounter for supervision of normal , unspecified, unspecified trimester Syphilis Antibodies 08/10/24 Z34.90 - Encounter for supervision of normal , unspecified, unspecified trimester Chlamydia/GC HOLLEY aptima Today Z34. - Encounter for supervision of normal , unspecified, unspecified trimester HIV 08/10/24 Z34.90 - Encounter for supervision of normal , unspecified, unspecified trimester Plan Patient oriented to practice and discussed care expectations and screenings. ACOG book offered to patient. Discussed routine and specially indicated labs if needed- patient consents to testing. See problem list details for plan information. Optional screening including maternal carrier screenings, neural tube defect screening, genetic screening options including quad screen, nuchal translucency, sequential screening, and NIPT screening offered to patient and patient chose: declined 08/21/24 7631 <Electronically signed by Irma correa MD> Date _ Irma Foster MD Cosigner Signature: Date (if applicable) CC: ~ [facility] Work Phone: Progress note Author Iris Cali [facility] Note Date/Time September 25, 2024 1:52 pm [facility] [address], [address] [place] [address] OFFICE VISIT Date of Service: 09/25/24 MR#: [id number] Acct: [id number] Name: YULI AREVALO Rep #: [id number] : 1995 Provider: BRENDA Cali Age/Sex: 29/F Location: [facility] [place] Status: Signed Intake Vital Signs 12/09/23 15:05 08/21/24 10:04 09/25/24 13:32 Height 5 ft 6.5 in 5 ft 6.5 in 5 ft 6.5 in Weight: 160 lb 4 oz BMI 25.4 BP 114/67 Intake Visit Reasons: 16wk ob Chief Complaint: 16 Week OB [employer] Required: No Is patient in pain?: No Allergies No Known Allergies Allergy (Verified 09/25/24 13:36) Medications ?Medication ?Instructions ?Recorded ?Confirmed ?Type multivit-min no.71-iron fum 28 1 cap PO see provid 09/25/24 History mg-folate no.1 1 mg-dha 300 mg capsule (PNV-Carson) famotidine 20 mg tablet (Pepcid) 20 mg PO BID 30 days #60 tabs 08/06/23 09/25/24 Rx Last Menstrual Period: 06/12/24 Zika: Zika virus screening: Negative : No PFSH PFSH Medical History Hx of infertility Abnormal Pap smear of cervix Chlamydia Seasonal allergies Panic attacks Surgical History [place] teeth extracted Family History Grandmother Thyroid disorder Maternal hyperthyroidism prior to cancer Cancer thyroid ca- maternal Mother Thyroid disorder Hyperthyroidism Other Diabetes Social History adopted: No household members: spouse and children housing: house number of children: 1 current occupational status: employed 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 Date Name GA/Weeks Outcome Route Bth Weight Infant Gen Labor Lgth Anesthesia Del Locatn Provider FOB 10/25/23 Geo 38 live - full term 7#3oz Male none [facility] Ernestina Aquino [place] HPI 16wk ob Details: YULI AREVALO is a 29 year old who presents for routine OB visit. OB Visit MIRIAM Calculator Estimated Delivery Date Method Current WG Current Estimate 03/19/25 LMP (Certain) 15w 0d Other Estimates 03/12/25 Ultrasound #1 16w 0d Expected Delivery Route/Plan Labor Preferences- CB/BF classes: [] labor support person: [] labor intervention preferences: [] pain management options preferred: [] cut cord/dad catch: [] : [] PP control planned: [] discussed possible routes of delivery and associated risks: [] special requests: []. Specific Issue/Plans Covid status: [] Flu vaccine: [] Tdap vaccine: [] Rhogam: [] LARC form signed: [] Problem list reviewed and updated with the most current plan of care details and appropriate orders placed. Relevant counseling for the gestational age provided. Continue routine care and follow up unless otherwise noted in visit notes/problem list details Initial Weight: Not Recorded Date -?-?-?-?-?-?-?-?-?-?-?-?- EGA Weight BP Urine Prot -?--?-?-?-?-?-?-?-?-?-?-?- Glucose FHR FuHt Pres Dilation -?-?-?-?-?-?-?--?-?-?-?-?- Effaced St Visit Note 08/21/24 -?-?-?-?-?-?-?-?-?-?-?-?- 10w 0d 155 lb 6 oz 115/71 -?-?-?-?-?-?-?-?-?-?-?-?- 160 -?-?-?-?-?-?-?-?-?-?-?-?- SM- no vb crampi ng CRL cons with LMP SM- no vb cramping CRL 4.04c m cons with LMP 09/25/24 -?-?-?-?-?-?-?-?-?-?-?-?- 15w 0d 160 lb 4 oz 114/67 Nega tive -?-?-?-?-?-?-?-?-?-?-?-?- Negative 163 -?-?-?-?-?-?-?-?-?-?-?-?- MH-No VB. Nausea resolved. Br US confirm FHT ACOG First Trimester First Trimester: Desire for , Alcohol, Tobacco Cessation, Illicit/Recreational Drug/Substance Use, Intimate Partner Violence, Barriers to care, Unstable Housing, Communication Barriers, Environmental/Work Hazards, Anticipated Course of Care, Toxoplasmosis Precations, Use of Any medications, Sexual activity, Exercise, Dental Care, Sauna/Hot tub use, Seat Belt use, Childbirth classes/Hospital facilities, Travel, Indications for Ultrasound and Screening for Aneuploidy; Discussed Second Trimester Second Trimester: Signs and Symptoms of Labor, Selecting a care provider, Reproductive Life Planning & Contreception, Care Planning, Depression/Anxiety and Intimate Partner Violence; Discussed Tobacco Cessation Third Trimester Third Trimester: Pain Management Plans, Labor support person(s), Immediate Larc, Movement Monitoring, Signs and Symptoms of Preeclampsia and Millsap Education ROS Const Reports system reviewed and no additional complaints, except as documented GI Denies abdominal pain, Denies nausea and Denies vomiting Exam Const General: cooperative Nutritional Appearance: well nourished GI Palpation: soft, nontender and other (gravid) Results POC Urinalysis 2 Dip (Clinic) Office Urine Glucose Negative Last Edit by Jennifer Heath on 09/25/24 13 :40 Office Urine Protein Negative Last Edit by Jennifer Heath on 09/25/24 13 :40 Coding Level of Care Code OB Routine Diagnoses Encounter for supervision of other normal in second trimester Z34.82 Normal : other normal Trimester: second trimester 14 weeks gestation of Z3A.14 Weeks of gestation: 14 weeks Anxiety F41.9 Assessment and Plan Assessment and Plan (1) Supervision of normal : Status: Acute Qualifiers: Normal : other normal Trimester: second trimester Qualified Code(s): Z34.82 - Encounter for supervision of other normal , second trimester Comment: [id number], MIRIAM 03/19/25, PC [place], [place] (2) : Status: Acute Qualifiers: Weeks of gestation: 14 weeks Qualified Code(s): Z3A.14 - 14 weeks gestation of Comment: discussed NIPT & Carrier testing-declined. (3) Anxiety: Status: Acute Comment: stable Orders: Orders POC Urinalysis 2 Dip (Clinic) Today Plan problem list reviewed and updated for most current plan of care and appropriate orders placed. Relevant counseling for the gestational age appropriate provided and ACOG education checklist updated. Continue routine care and follow up. 09/25/24 1352 <Electronically signed by Iris lundberg PRINT BUYER PRINT BUYER-C> Date _ Iris Cali NP PRINT BUYER-C Cosigner Signature: Date (if applicable) CC: ~ [facility] Work Phone: Progress note Author Georgie Anton [facility] Note Date/Time October 23, 2024 10:3 6am [facility] [address], [address] [place] [address] OFFICE VISIT Date of Service: 10/23/24 MR#: [id number] Acct: [id number] Name: YULI AREVALO Rep #: [id number] : 1995 Provider: GREG Anton Age/Sex: 29/F Location: [facility] [place] Status: Signed Intake Vital Signs 08/21/24 10:04 09/25/24 13:53 10/23/24 10:17 Height 5 ft 6.5 in 5 ft 6.5 in 5 ft 6.5 in Weight: 165 lb 8 oz BMI 26.3 BP 122/75 H Intake Visit Reasons: 20wk ob Chief Complaint: 20wk OB [employer] Required: No Is patient in pain?: No Allergies No Known Allergies Allergy (Verified 10/23/24 10:19) Medications ?Medication ?Instructions ?Recorded ?Confirmed ?Type multivit-min no.71-iron fum 28 1 cap PO see provid 10/23/24 History mg-folate no.1 1 mg-dha 300 mg capsule (PNV-Carson) famotidine 20 mg tablet (Pepcid) 20 mg PO BID 30 days #60 tabs 08/06/23 10/23/24 Rx Last Menstrual Period: 06/12/24 : No PFSH PFSH Medical History Hx of infertility Abnormal Pap smear of cervix Chlamydia Seasonal allergies Panic attacks Surgical History [place] teeth extracted Family History Grandmother Thyroid disorder Maternal hyperthyroidism prior to cancer Cancer thyroid ca- maternal Mother Thyroid disorder Hyperthyroidism Other Diabetes Social History adopted: No household members: spouse and children housing: house number of children: 1 current occupational status: employed 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 Date Name GA/Weeks Outcome Route Bth Weight Gen Labor Lgth Anesthesia Del Locatn Provider FOB 10/25/23 Geo 38 live - full term 7#3oz Male none [facility] Ernestina Golden HPI 20wk ob Details: YULI AREVALO is a 29 year old who presents for routine OB visit. OB Visit MIRIAM Calculator Estimated Delivery Date Method Current WG Current Estimate 03/19/25 LMP (Certain) 19w 0d Other Estimates 03/12/25 Ultrasound #1 20w 0d Expected Delivery Route/Plan Labor Preferences- CB/BF classes: [] labor support person: [] labor intervention preferences: [] pain management options preferred: [] cut cord/dad catch: [] : [] PP control planned: [] discussed possible routes of delivery and associated risks: [] special requests: []. Specific Issue/Plans Covid status: [] Flu vaccine: [] Tdap vaccine: [] Rhogam: [] LARC form signed: [] Problem list reviewed and updated with the most current plan of care details and appropriate orders placed. Relevant counseling for the gestational age provided. Continue routine care and follow up unless otherwise noted in visit notes/problem list details Initial Weight: Not Recorded Date -?-?-?-?-?-?-?-?-?-?-?-?- EGA Weight BP Urine Prot -?-?-?-?-?-?-?-?-?-?-?-?- Glucose FHR FuHt Pres Dilation -?-?-?-?-?-?-?-?-?-?-?-?- Effaced St Visit Note 05/19/25 -?-?-?-?-?-?-?-?-?-?-?-?- 10w 0d 155 lb 6 oz 115/71 -?-?-?-?-?-?-?-?-?-?-?-?- 160 -?-?-?-?-?-?-?-?-?--?-?-?- SM- no vb crampi ng CRL cons with LMP SM- no vb cramping CRL 4.04c m cons with LMP 09/25/24 -?-?-?-?-?-?-?-?-?-?-?-?- 15w 0d 160 lb 4 oz 114/67 Nega tive -?-?-?-?-?-?-?-?-?-?-?-?- Negative 163 -?-?-?-?-?-?-?-?-?-?-?-?- MH-No VB. Nausea resolved. Br US confirm FHT 10/23/24 -?-?-?-?-?-?-?-?-?-?--?-?- 19w 0d 165 lb 8 oz 122/75 Nega tive -?-?-?-?-?-?-?-?-?-?-?-?- Negative 145 -?-?-?-?-?-?-?-?-?-?-?-?- KW- no vb/crampi ng. anatomy US on thurs. ACOG First Trimester First Trimester: Desire for , Alcohol, Tobacco Cessation, Illicit/Recreational Drug/Substance Use, Intimate Partner Violence, Barriers to care, Unstable Housing, Communication Barriers, Environmental/Work Hazards, Anticipated Course of Care, Toxoplasmosis Precations, Use of Any medications, Sexual activity, Exercise, Dental Care, Sauna/Hot tub use, Seat Belt use, Childbirth classes/Hospital facilities, Travel, Indications for Ultrasound and Screening for Aneuploidy; Discussed Second Trimester Second Trimester: Signs and Symptoms of Labor, Selecting a care provider, Reproductive Life Planning & Contreception, Care Planning, Depression/Anxiety and Intimate Partner Violence; Discussed Tobacco Cessation Third Trimester Third Trimester: Pain Management Plans, Labor support person(s), Immediate Larc, Movement Monitoring, Signs and Symptoms of Preeclampsia and [place] Education ROS Const Reports system reviewed and no additional complaints, except as documented Eyes Reports system reviewed and no additional complaints, except as documented ENT Reports system reviewed and no additional complaints, except as documented Card Reports system reviewed and no additional complaints, except as documented Resp Reports system reviewed and no additional complaints, except as documented GI Reports system reviewed and no additional complaints, except as documented, Denies nausea and Denies vomiting Reports system reviewed and no additional complaints, except as documented Musc Reports system reviewed and no additional complaints, except as documented Skin/Breast Reports system reviewed and no additional complaints, except as documented Neuro Yes system reviewed and no additional complaints, except as documented Psych Reports system reviewed and no additional complaints, except as documented Endo Reports system reviewed and no additional complaints, except as documented Benedict/Lymph Reports system reviewed and no additional complaints, except as documented Aller/Immun Reports system reviewed and no additional complaints, except as documented Exam Const General: cooperative, healthy appearing and no acute distress Orientation: alert, awake and oriented x3 Neck Neck: normal visual inspection and full ROM Resp Effort & Inspection: normal respiratory effort, able to speak in complete sentences and symmetric chest movement GI Inspection: normal to inspection Palpation: soft and other Other: gravid Skin General: no rashes or lesions noted Neuro General: patient alert, patient awake and patient oriented x3 Cognition: normal cognition Speech: speech normal Gait: normal gait Motor: muscle tone normal throughout Extrem General: normal to inspection and full ROM Psych Appearance: grossly normal Mental Status: mental status grossly normal Mood: congruent mood Affect: normal affect Speech and Movement: speech and movement normal Attitude: cooperative Thought Process: normal Thought Content: normal Judgment: judgment good Results POC Urinalysis 2 Dip (Clinic) Office Urine Glucose Negative Last Edit by Trinity Valadez on 10/23/24 10:24 Office Urine Protein Negative Last Edit by Trinity Valadez on 10/23/24 10:24 Coding Level of Care Code OB Routine Diagnoses Encounter for supervision of other normal in second trimester Z34.82 Normal : other normal Trimester: second trimester 19 weeks gestation of Z3A.19 Weeks of gestation: 19 weeks Anxiety F41.9 Asthma J45.909 Assessment and Plan Assessment and Plan (1) Supervision of normal : Status: Acute Qualifiers: Normal : other normal Trimester: second trimester Qualified Code(s): Z34.82 - Encounter for supervision of other normal , second trimester Comment: [id number], MIRIAM 03/19/25, PC Geo, [place] (2) : Status: Acute Qualifiers: Weeks of gestation: 19 weeks Qualified Code(s): Z3A.19 - 19 weeks gestation of Comment: discussed NIPT & Carrier testing-declined. (3) Anxiety: Status: Acute Comment: stable (4) Asthma: Status: Acute Comment: mild Orders: Orders POC Urinalysis 2 Dip (Clinic) Today Plan Details Additional Comments: ACOG trimester education reviewed and updated. see problem list details for updated plan management information and see below for orders placed at this visit. GA appropriate handout given. 10/23/24 1036 <Electronically signed by Georgie lundberg CNM> Date _ Georgie Anton CNM Cosigner Signature: Date (if applicable) CC: ~ [facility] Work Phone: Progress note Author Rhiannon Sheikh [facility] Note Date/Time November 20, 2024 9: 45am [facility] [address] [place] [address], [address] [place] [address] OFFICE VISIT Date of Service: 11/20/24 MR#: [id number] Acct: [id number] Name: YULI AREVALO Rep #: [id number] : 1995 Provider: Dr. Nuvia Mccrray, Age/Sex: 29/F Location: [facility] [place] Status: Signed Intake Vital Signs 09/25/24 13:32 09/25/24 13:53 10/23/24 10:17 11/20/24 09:31 Height 5 ft 6.5 in 5 ft 6.5 in 5 ft 6.5 in 5 ft 6.5 in Weight: 168 lb 8 oz BMI 26.8 BP 115/67 Intake Visit Reasons: 24 wk ob [employer] Required: No Is patient in pain?: No Allergies No Known Allergies Allergy (Verified 11/20/24 09:31) Medications ?Medication ?Instructions ?Recorded ?Confirmed ?Type multivit-min no.71-iron fum 28 1 cap PO see provid 11/20/24 History mg-folate no.1 1 mg-dha 300 mg capsule (PNV-Carson) famotidine 20 mg tablet (Pepcid) 20 mg PO BID 30 days #60 tabs 08/06/23 11/20/24 Rx Last Menstrual Period: 06/12/24 Zika: Zika virus screening: Negative : No PFSH PFSH Medical History Hx of infertility Abnormal Pap smear of cervix Chlamydia Seasonal allergies Panic attacks Surgical History [place] teeth extracted Family History Grandmother Thyroid disorder Maternal hyperthyroidism prior to cancer Cancer thyroid ca- maternal Mother Thyroid disorder Hyperthyroidism Other Diabetes Social History adopted: No household members: spouse and children housing: house number of children: 1 current occupational status: employed 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 Date Name GA/Weeks Outcome Route Bth Weight Infant Gen Labor Lgth Anesthesia Del Locatn Provider FOB 10/25/23 Geo 38 live - full term 7#3oz Male none [facility] Ernestina Golden HPI 24 wk ob Details: YULI AREVALO is a 29 year old who presents for routine OB visit. OB Visit MIRIAM Calculator Estimated Delivery Date Method Current WG Current Estimate 03/19/25 LMP (Certain) 23w 0d Other Estimates 03/12/25 Ultrasound #1 24w 0d Expected Delivery Route/Plan Labor Preferences- CB/BF classes: [] labor support person: [] labor intervention preferences: [] pain management options preferred: [] cut cord/dad catch: [] : [] PP control planned: [] discussed possible routes of delivery and associated risks: [] special requests: []. Specific Issue/Plans Covid status: [] Flu vaccine: [] Tdap vaccine: [] Rhogam: [] LARC form signed: [] Problem list reviewed and updated with the most current plan of care details and appropriate orders placed. Relevant counseling for the gestational age provided. Continue routine care and follow up unless otherwise noted in visit notes/problem list details Initial Weight: Not Recorded Date -?-?-?-?-?-?-?-?-?-?-?-?- EGA Weight BP Urine Prot -?--?-?-?-?-?-?-?-?-?-?-?- Glucose FHR FuHt Pres Dilation -?-?-?-?-?-?-?--?-?-?-?-?- Effaced St Visit Note 08/21/24 -?-?-?-?-?-?-?-?-?-?-?-?- 10w 0d 155 lb 6 oz 115/71 -?-?-?-?-?-?-?-?-?-?-?-?- 160 -?-?-?-?-?-?-?-?-?-?-?-?- SM- no vb crampi ng CRL cons with LMP SM- no vb cramping CRL 4.04c m cons with LMP 09/25/24 -?-?-?-?-?-?-?-?-?-?-?-?- 15w 0d 160 lb 4 oz 114/67 Nega tive -?-?-?-?-?-?-?-?-?-?-?-?- Negative 163 -?-?-?-?-?-?-?-?-?-?-?-?- MH-No VB. Nausea resolved. Br US confirm FHT 10/23/24 -?-?-?-?-?-?-?-?-?-?-?-?- 19w 0d 165 lb 8 oz 122/75 Nega tive -?-?-?-?-?-?-?-?-?-?-?-?- Negative 145 -?-?-?-?-?-?-?-?-?-?-?-?- KW- no vb/crampi ng. anatomy US on thurs. 11/20/24 -?-?-?-?-?-?-?-?-?-?-?-?- 23w 0d 168 lb 8 oz 115/67 -?-?-?-?-?-?-?-?-?-?-?-?- 145 25 -?-?-?-?-?-?-?-?-?-?-?-?- JV- no lof, vagi nal bleeding, or cramping. normal anatomy scan. ACOG First Trimester First Trimester: Desire for , Alcohol, Tobacco Cessation, Illicit/Recreational Drug/Substance Use, Intimate Partner Violence, Barriers to care, Unstable Housing, Communication Barriers, Environmental/Work Hazards, Anticipated Course of Care, Toxoplasmosis Precations, Use of Any medications, Sexual activity, Exercise, Dental Care, Sauna/Hot tub use, Seat Belt use, Childbirth classes/Hospital facilities, Travel, Indications for Ultrasound and Screening for Aneuploidy; Discussed Second Trimester Second Trimester: Signs and Symptoms of Labor, Selecting a care provider, Reproductive Life Planning & Contreception, Care Planning, Depression/Anxiety and Intimate Partner Violence; Discussed Tobacco Cessation Third Trimester Third Trimester: Pain Management Plans, Labor support person(s), Immediate Larc, Movement Monitoring, Signs and Symptoms of Preeclampsia and Education Coding Level of Care Code OB Routine Diagnoses Encounter for supervision of other normal in second trimester Z34.82 Normal : other normal Trimester: second trimester 23 weeks gestation of Z3A.23 Weeks of gestation: 23 weeks Anxiety F41.9 Asthma J45.909 Assessment and Plan Assessment and Plan (1) Supervision of normal : Status: Acute Qualifiers: Normal : other normal Trimester: second trimester Qualified Code(s): Z34.82 - Encounter for supervision of other normal , second trimester Comment: [id number], MIRIAM 03/19/25, PC Geo, [place] (2) : Status: Acute Qualifiers: Weeks of gestation: 23 weeks Qualified Code(s): Z3A.23 - 23 weeks gestation of Comment: discussed NIPT & Carrier testing-declined, nl anatomy (3) Anxiety: Status: Acute Comment: stable (4) Asthma: Status: Acute Comment: mild Orders: Orders POC Urinalysis 2 Dip (Clinic) Today CBC W/Diff, Automated Today Z34.82 - Encounter for supervision of other normal , second trimester Glucose Challenge Gest 1H 50g Today Z13.1 - Encounter for screening for diabetes mellitus, Z34.82 - Encounter for supervision of other normal , second trimester HIV Today Z34.82 - Encounter for supervision of other normal , second trimester Syphilis Antibodies Today Z34.82 - Encounter for supervision of other normal , second trimester 11/20/24 0945 <Electronically signed by Rhiannon Rome DO> Date _ Rhiannon Mccrary DO Cosigner Signature: Date (if applicable) CC: ~ [facility] Work Phone: Progress note Author Georgie Anton [facility] Note Date/Time January 01, 2025 10:15[facility] [address], [address] [place] [address] OFFICE VISIT Date of Service: 01/01/25 MR#: [id number] Acct: [id number] Name: YULI AREVALO Rep #: [id number] : 1995 Provider: GREG Anton Age/Sex: 29/F Location: [facility] [place] Status: Signed Intake Vital Signs 10/23/24 10:17 12/18/24 10:06 01/01/25 10:03 01/01/25 10:03 Height 5 ft 6.5 in 5 ft 6.5 in 5 ft 6.5 in 5 ft 6.5 in Weight: 179 lb 9 oz BMI 28.5 BP 137/81 H Intake Visit Reasons: 30wk ob [employer] Required: No Is patient in pain?: No Allergies No Known Allergies Allergy (Verified 01/01/25 10:02) Medications ?Medication ?Instructions ?Recorded ?Confirmed ?Type multivit-min no.71-iron fum 28 1 cap PO see provid 01/01/25 History mg-folate no.1 1 mg-dha 300 mg capsule (PNV-Carson) famotidine 20 mg tablet (Pepcid) 20 mg PO BID 30 days #60 tabs 08/06/23 01/01/25 Rx Last Menstrual Period: 06/12/24 Zika: Zika virus screening: Negative : No PFSH PFSH Medical History Hx of infertility Abnormal Pap smear of cervix Chlamydia Seasonal allergies Panic attacks Surgical History [place] teeth extracted Family History Grandmother Thyroid disorder Maternal hyperthyroidism prior to cancer Cancer thyroid ca- maternal Mother Thyroid disorder Hyperthyroidism Other Diabetes Social History adopted: No household members: spouse and children housing: house number of children: 1 current occupational status: employed 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 Date Name GA/Weeks Outcome Route Bth Weight Gen Labor Lgth Anesthesia Del Locatn Provider FOB 10/25/23 Geo 38 live - full term 7#3oz Male none [facility] Ernestina Golden HPI 30wk ob Details: YULI AREVALO is a 29 year old who presents for routine OB visit. OB Visit MIRIAM Calculator Estimated Delivery Date Method Current WG Current Estimate 03/19/25 LMP (Certain) 29w 0d Other Estimates 03/12/25 Ultrasound #1 30w 0d Expected Delivery Route/Plan Labor Preferences- CB/BF classes: no labor support person: [place] labor intervention preferences: [] pain management options preferred: limited cut cord/dad catch: mom cord : yes PP control planned: discussed discussed possible routes of delivery and associated risks: [] special requests: []. Specific Issue/Plans Covid status: [] Flu vaccine: [] Tdap vaccine: [] Rhogam: Na LARC form signed: yes Problem list reviewed and updated with the most current plan of care details and appropriate orders placed. Relevant counseling for the gestational age provided. Continue routine care and follow up unless otherwise noted in visit notes/problem list details Initial Weight: Not Recorded Date -?-?-?-?-?-?-?-?-?-?-?-?- EGA Weight BP Urine Prot -?-?-?-?-?-?-?-?-?-?-?-?- Glucose FHR FuHt Pres Dilation -?-?-?-?-?-?-?-?-?-?-?-?- Effaced St Visit Note 08/21/24 -?-?-?-?-?-?-?-?-?-?-?-?- 10w 0d 155 lb 6 oz 115/71 -?-?-?-?-?-?-?-?-?-?-?-?- 160 -?-?-?-?-?-?-?-?-?-?-?-?- SM- no vb crampi ng CRL cons with LMP SM- no vb cramping CRL 4.04c m cons with LMP 09/25/24 -?-?-?-?-?-?-?-?-?-?-?-?- 15w 0d 160 lb 4 oz 114/67 Nega tive -?-?-?-?-?-?-?-?-?-?-?-?- Negative 163 -?-?-?-?-?-?-?-?-?-?-?-?- MH-No VB. Nausea resolved. Br US confirm FHT 10/23/24 -?-?-?-?-?-?-?-?-?-?-?-?- 19w 0d 165 lb 8 oz 122/75 Nega tive -?-?-?-?-?-?-?-?-?-?-?-?- Negative 145 -?-?-?-?-?-?-?-?-?-?-?-?- KW- no vb/crampi ng. anatomy US on thurs. 11/20/24 -?-?-?-?-?-?-?-?-?-?-?-?- 23w 0d 168 lb 8 oz 115/67 Nega tive -?-?-?-?-?-?-?-?-?-?-?-?- Negative 145 25 -?-?-?-?-?-?-?-?-?-?-?-?- JV- no lof, vagi nal bleeding, or cramping. normal anatomy scan. 12/18/24 -?-?-?-?-?-?-?-?-?-?-?-?- 27w 0d 5 lb 6.5 oz 177 lb 3.2 oz 123/70 Negative -?-?-?-?-?-?-?-?-?-?-?-?- Negative 142 27 -?-?-?-?-?-?-?-?-?-?-?-?- MH-No Vb, LOF. G ood FM. Larc. 28 wk labs pending 01/01/25 -?-?-?-?-?-?-?-?-?-?-?-?- 29w 0d 179 lb 9 oz 137/81 Nega tive -?-?-?-?-?-?-?-?-?-?-?-?- Negative 140 29 -?-?-?-?-?-?-?-?-?-?-?-?- KW- no vb/lof/ct x. good fm. ACOG First Trimester First Trimester: Desire for , Alcohol, Tobacco Cessation, Illicit/Recreational Drug/Substance Use, Intimate Partner Violence, Barriers to care, Unstable Housing, Communication Barriers, Environmental/Work Hazards, Anticipated Course of Care, Toxoplasmosis Precations, Use of Any medications, Sexual activity, Exercise, Dental Care, Sauna/Hot tub use, Seat Belt use, Childbirth classes/Hospital facilities, Travel, Indications for Ultrasound and Screening for Aneuploidy; Discussed Second Trimester Second Trimester: Signs and Symptoms of Labor, Selecting a care provider, Reproductive Life Planning & Contreception, Care Planning, Depression/Anxiety and Intimate Partner Violence; Discussed Tobacco Cessation Third Trimester Third Trimester: Pain Management Plans, Labor support person(s), Immediate Larc, Movement Monitoring, Signs and Symptoms of Preeclampsia, Infant Feeding No , Mills[place] Education and Family Medical Leave or Disability Forms ROS Const Reports system reviewed and no additional complaints, except as documented Eyes Reports system reviewed and no additional complaints, except as documented ENT Reports system reviewed and no additional complaints, except as documented Card Reports system reviewed and no additional complaints, except as documented Resp Reports system reviewed and no additional complaints, except as documented GI Reports system reviewed and no additional complaints, except as documented, Denies nausea and Denies vomiting Reports system reviewed and no additional complaints, except as documented Musc Reports system reviewed and no additional complaints, except as documented Skin/Breast Reports system reviewed and no additional complaints, except as documented Neuro Yes system reviewed and no additional complaints, except as documented Psych Reports system reviewed and no additional complaints, except as documented Endo Reports system reviewed and no additional complaints, except as documented Benedict/Lymph Reports system reviewed and no additional complaints, except as documented Aller/Immun Reports system reviewed and no additional complaints, except as documented Exam Const General: cooperative, healthy appearing and no acute distress Orientation: alert, awake and oriented x3 Neck Neck: normal visual inspection and full ROM Resp Effort & Inspection: normal respiratory effort, able to speak in complete sentences and symmetric chest movement GI Inspection: normal to inspection Palpation: soft and other Other: gravid Skin General: no rashes or lesions noted Neuro General: patient alert, patient awake and patient oriented x3 Cognition: normal cognition Speech: speech normal Gait: normal gait Motor: muscle tone normal throughout Extrem General: normal to inspection and full ROM Psych Appearance: grossly normal Mental Status: mental status grossly normal Mood: congruent mood Affect: normal affect Speech and Movement: speech and movement normal Attitude: cooperative Thought Process: normal Thought Content: normal Judgment: judgment good Results POC Urinalysis 2 Dip (Clinic) Office Urine Glucose Negative Last Edit by Michelle Mahmood on 01/01/25 10: 11 Office Urine Protein Negative Last Edit by Michelle Mahmood on 01/01/25 10: 11 Coding Level of Care Code OB Routine Diagnoses Encounter for supervision of other normal in second trimester Z34.82 Normal : other normal Trimester: second trimester 29 weeks gestation of Z3A.29 Weeks of gestation: 29 weeks Anxiety F41.9 Asthma J45.909 Assessment and Plan Assessment and Plan (1) Supervision of normal : Status: Acute Qualifiers: Normal : other normal Trimester: second trimester Qualified Code(s): Z34.82 - Encounter for supervision of other normal , second trimester Comment: [id number], MIRIAM 03/19/25, ALBERT [place], [place] (2) : Status: Acute Qualifiers: Weeks of gestation: 29 weeks Qualified Code(s): Z3A.29 - 29 weeks gestation of Comment: discussed NIPT & Carrier testing-declined, nl anatomy (3) Anxiety: Status: Acute Comment: stable (4) Asthma: Status: Acute Comment: mild Orders: Orders POC Urinalysis 2 Dip (Clinic) Today Plan Details Additional Comments: ACOG trimester education reviewed and updated. see problem list details for updated plan management information and see below for orders placed at this visit. [place] appropriate handout given. 01/01/25 1015 <Electronically signed by Georgie lundberg CNM> Date _ Georgie Anton CNM Cosigner Signature: Date (if applicable) CC: ~ [facility] Work Phone: Progress note Author Irma Foster [facility] Note Date/Time January 16, 2025 1 0:38am [facility] [address], [address] [place] [address] OFFICE VISIT Date of Service: 01/16/25 MR#: [id number] Acct: [id number] Name: YULI AREVALO Rep #: [id number] : 1995 Provider: Dr. Jimmy Foster MD Age/Sex: 29/F Location: [facility] [place] Status: Signed Intake Vital Signs 12/18/24 10:06 01/01/25 10:03 01/16/25 10:12 Height 5 ft 6.5 in 5 ft 6.5 in 5 ft 6.5 in Weight: 187 lb BMI 29.7 BP 113/70 Intake Visit Reasons: 32wk ob [employer] Required: No Is patient in pain?: No Allergies No Known Allergies Allergy (Verified 01/16/25 10:15) Medications ?Medication ?Instructions ?Recorded ?Confirmed ?Type multivit-min no.71-iron fum 28 1 cap PO see provid 01/16/25 History mg-folate no.1 1 mg-dha 300 mg capsule (PNV-Carson) famotidine 20 mg tablet (Pepcid) 20 mg PO BID 30 days #60 tabs 08/06/23 01/16/25 Rx Last Menstrual Period: 06/12/24 Zika: Zika virus screening: Negative : No PFSH PFSH Medical History (Updated 01/16/25 @ 10:[address] 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 Date Name GA/Weeks Outcome Route Bth Weight Gen Labor Lgth Anes t hesia Del Locatn Provider FOB 10/25/23 Geo 38 live - full term 7#3oz Male none [facility] Ernestina Golden HPI 32wk ob Details: YULI AREVALO is a 29 year old who presents for routine OB visit. OB Visit MIRIAM Calculator Estimated Delivery Date Method Current WG Current Estimate 03/19/25 LMP (Certain) 31w 1d Other Estimates 03/12/25 Ultrasound #1 32w 1d Expected Delivery Route/Plan Labor Preferences- CB/BF classes: no labor support person: [place] labor intervention preferences: [] pain management options preferred: limited cut cord/dad catch: mom cord : yes PP control planned: discussed discussed possible routes of delivery and associated risks: [] special requests: []. Specific Issue/Plans Covid status: [] Flu vaccine: declined Tdap vaccine: declined Rhogam: Na LARC form signed: yes movement and labor precautions reviewed. Problem list reviewed and updated with the most current plan of care details and appropriate orders placed. Relevant counseling for the gestational age provided. Continue routine care and follow up unless otherwise noted in visit notes/problem list details Initial Weight: Not Recorded Date -?-?-?-?-?-?-?-?-?-?-?-?- EGA Weight BP Urine Prot -?-?-?-?-?-?-?-?-?-?-?-?- Glucose FHR FuHt Pres Dilation -?-?-?-?-?-?-?-?-?-?-?-?- Effaced St Visit Note 08/21/24 -?-?-?-?-?-?-?-?-?-?-?-?- 10w 0d 155 lb 6 oz 115/71 -?-?-?-?-?-?-?-?-?-?-?-?- 160 -?-?-?-?-?-?-?-?-?-?-?-?- SM- no vb crampi ng CRL cons with LMP SM- no vb cramping CRL 4.04c m cons with LMP 09/25/24 -?-?-?-?-?-?-?-?-?-?-?-?- 15w 0d 160 lb 4 oz 114/67 Nega tive -?-?-?-?-?-?-?-?-?-?-?-?- Negative 163 -?-?-?-?-?-?-?-?-?--?-?-?- MH-No VB. Nausea resolved. Br US confirm FHT 10/23/24 -?-?-?-?-?-?-?-?-?-?-?-?- 19w 0d 165 lb 8 oz 122/75 Nega tive -?-?-?-?-?-?-?-?-?-?-?-?- Negative 145 -?-?-?-?-?-?-?-?-?-?-?-?- KW- no vb/crampi ng. anatomy US on thurs. 11/20/24 -?-?-?-?-?-?-?-?-?-?-?-?- 23w 0d 168 lb 8 oz 115/67 Nega tive -?-?-?-?-?-?-?-?-?-?-?-?- Negative 145 25 -?-?-?-?-?-?-?-?-?-?-?-?- JV- no lof, vagi nal bleeding, or cramping. normal anatomy scan. 12/18/24 -?-?-?-?-?-?-?-?-?-?-?-?- 27w 0d 5 lb 6.5 oz 177 lb 3.2 oz 123/70 Negative -?-?-?-?-?-?-?-?-?-?-?-?- Negative 142 27 -?-?-?-?-?-?--?-?-?-?-?-?- MH-No Vb, LOF. G ood FM. Larc. 28 wk labs pending 01/01/25 -?-?-?-?-?-?-?-?-?-?-?-?- 29w 0d 179 lb 9 oz 137/81 Nega tive -?-?-?-?-?-?-?-?-?-?-?-?- Negative 140 29 -?-?-?-?-?-?-?-?-?-?-?-?- KW- no vb/lof/ct x. good fm. 01/16/25 -?-?-?-?-?-?-?-?-?-?-?-?- 31w 1d 187 lb 113/70 -?-?-?-?-?-?-?-?-?-?-?-?- 140 30 -?-?-?-?-?-?-?-?-?-?-?-?- Sm- no vb lof go od fm n oregular ctx ACOG First Trimester First Trimester: Desire for , Alcohol, Tobacco Cessation, Illicit/Recreational Drug/Substance Use, Intimate Partner Violence, Barriers to care, Unstable Housing, Communication Barriers, Environmental/Work Hazards, Anticipated Course of Care, Toxoplasmosis Precations, Use of Any medications, Sexual activity, Exercise, Dental Care, Sauna/Hot tub use, Seat Belt use, Childbirth classes/Hospital facilities, Travel, Indications for Ultrasound and Screening for Aneuploidy; Discussed Second Trimester Second Trimester: Signs and Symptoms of Labor, Selecting a care provider, Reproductive Life Planning & Contreception, Care Planning, Depression/Anxiety and Intimate Partner Violence; Discussed Tobacco Cessation Third Trimester Third Trimester: Pain Management Plans, Labor support person(s), Immediate Larc, Movement Monitoring, Signs and Symptoms of Preeclampsia, Infant Feeding No , Education and Family Medical Leave or Disability Forms Coding Level of Care Code OB Routine Diagnoses Encounter for supervision of other normal in second trimester Z34.82 Normal : other normal Trimester: second trimester 31 weeks gestation of Z3A.31 Weeks of gestation: 31 weeks Asthma J45.909 Assessment and Plan Assessment and Plan (1) Supervision of normal : Status: Acute Qualifiers: Normal : other normal Trimester: second trimester Qualified Code(s): Z34.82 - Encounter for supervision of other normal , second trimester Comment: [id number], MIRIAM 03/19/25, girl Julian Guardado, [place] (2) : Status: Acute Qualifiers: Weeks of gestation: 31 weeks Qualified Code(s): Z3A.31 - 31 weeks gestation of Comment: discussed NIPT & Carrier testing-declined, nl anatomy (3) Asthma: Status: Acute Comment: mild Orders: Orders POC Urinalysis 2 Dip (Clinic) Today 01/16/25 1038 <Electronically signed by Irma correa MD> Date _ Irma Foster MD [facility] Signature: Date (if applicable) CC: ~ [facility] Work Phone: Reason for referral (narrative)No reason for referral information availableMer[facility] Work Phone: Instructions * Patient Instructions - Fay Oliver MD - 03/15/2018 9:24 AM EST Breast Self-Exam: Care Instructions Your Care Instructions A breast self-exam is when you check your breasts for lumps or changes. This regular exam helps youlearn how your breasts normally look and feel. Most breast problems or changes are not because of cancer. Breast self-exam is not a substitute for a mammogram. Having regular breast exams by your doctor and regular mammograms improve your chances of finding any problems with your breasts. Some women set a time each month to do a [id number] breast self-exam. Other women like a less formal system. They might look at their breasts as they brush their teeth, or feel their breasts once in a while in the shower. If you notice a change in your breast, tell your doctor. Follow-up care is a rogers part of your treatment and safety. Be sure to make and go to all appointments, and call your doctor if you are having problems. It's also a good idea to know your test resultsand keep a list of the medicines you take. How do you do a breast self-exam? The best time to examine your breasts is usually one week after your menstrual period begins. Your breasts should not be tender then. If you do not have periods, you might do your exam on a day of the month that is easy to remember. To examine your breasts: Remove all your clothes above the waist and lie down. When you are lying down, your breast tissue spreads evenly over your chest wall, which makes it easier to feel all your breast tissue. Use the pads-not the fingertips-of the 3 middle fingers of your left hand to check your right breast. Move your fingers slowly in small coin-sized circles that overlap. Use three levels of pressure to feel of all your breast tissue. Use light pressure to feel the tissue close to the skin surface. Use medium pressure to feel a little deeper. Use firm pressure to feelyour tissue close to your breastbone and ribs. Use each pressure level to feel your breast tissue before moving on to the next spot. Check your entire breast, moving up and down as if following a strip from the collarbone to the braline, and from the armpit to the ribs. Repeat until you have covered the entire breast. Repeat this procedure for your left breast, using the pads of the 3 middle fingers of your right hand. To examine your breasts while in the shower: Place one arm over your head and lightly soap your breast on that side. Using the pads of your fingers, gently move your hand over your breast (in the strip pattern described above), feeling carefully for any lumps or changes. Repeat for the other breast. Have your doctor inspect anything you notice to see if you need further testing. Where can you learn more? Log into your personal health record on https://ClearServe.[employer]ble[employer] and enter P148 in the Education box to learn more about Breast Self-Exam: Care Instructions. Current as of: August 14, 2016 Content Version: 11.6 9494-4875 [employer]. Care instructions adapted under license by your healthcare professional. If you have questions about a medical condition or this instruction, always ask your healthcare professional. [employer] disclaims any warranty or liability for your use of this information. in this encounter* Patient Instructions* Fay Oliver MD - 04/04/2019 1:19 PM EST Breast Self-Exam: Care Instructions Your Care Instructions A breast self-exam is when you check your breasts for lumps or changes. This regular exam helps youlearn how your breasts normally look and feel. Most breast problems or changes are not because of cancer. Breast self-exam is not a substitute for a mammogram. Having regular breast exams by your doctor and regular mammograms improve your chances of finding any problems with your breasts. Some women set a time each month to do a [id number] breast self-exam. Other women like a less formal system. They might look at their breasts as they brush their teeth, or feel their breasts once in a while in the shower. If you notice a change in your breast, tell your doctor. Follow-up care is a rogers part of your treatment and safety. Be sure to make and go to all appointments, and call your doctor if you are having problems. It's also a good idea to know your test resultsand keep a list of the medicines you take. How do you do a breast self-exam? The best time to examine your breasts is usually one week after your menstrual period begins. Your breasts should not be tender then. If you do not have periods, you might do your exam on a day of the month that is easy to remember. To examine your breasts: ? Remove all your clothes above the waist and lie down. When you are lying down, your breast tissuespreads evenly over your chest wall, which makes it easier to feel all your breast tissue. ? Use the pads not the fingertips of the 3 middle fingers of your left hand to check your right breast. Move your fingers slowly in small coin-sized circles that overlap. ? Use three levels of pressure to feel of all your breast tissue. Use light pressure to feel the tissue close to the skin surface. Use medium pressure to feel a little deeper. Use firm pressure to feel your tissue close to your breastbone and ribs. Use each pressure level to feel your breast tissuebefore moving on to the next spot. ? Check your entire breast, moving up and down as if following a strip from the collarbone to the bra line, and from the armpit to the ribs. Repeat until you have covered the entire breast. ? Repeat this procedure for your left breast, using the pads of the 3 middle fingers of your right hand. To examine your breasts while in the shower: ? Place one arm over your head and lightly soap your breast on that side. ? Using the pads of your fingers, gently move your hand over your breast (in the strip pattern described above), feeling carefully for any lumps or changes. ? Repeat for the other breast. Have your doctor inspect anything you notice to see if you need further testing. Where can you learn more? Log into your personal health record on https://ClearServe.[employer] and enter P148 in the Education box to learn more about Breast Self-Exam: Care Instructions. Current as of: November 23, 2018 Content Version: 12.3 [employer]. Care instructions adapted under license by your healthcare professional. If you have questions about a medical condition or this instruction, always ask your healthcare professional. [employer] disclaims any warranty or liability for your use of this information. documented in this encounter History of Present Illness * Fay Oliver MD - 03/15/2018 9:23 AM EST Formatting of this note may be different from the original. [facility] [address] [place] [id number] HPI: Yuli Stevenson is a 22 y.o. female who presents for an annual exam. The patient has no complaints today. The patient is sexually active. [employer] screening history: last pap: was normal 1 year prior per pt. Moved here form [place]. 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 The following portions of the patients chart were reviewed: OB History: OB History Para Term AB Living 0 0 0 0 0 0 SAB TAB Ectopic Multiple Live Births 0 0 0 0 0 Menstrual History: Patient's last menstrual period was 03/09/2018. Period Cycle (Days): 28 Period Duration (Days): 6-7 Period Pattern: Regular Menstrual Flow: Moderate Dysmenorrhea: None Past Medical History: Diagnosis Date Asthma No past surgical history on file. Family History Problem Relation Age of Onset Cancer Maternal Grandmother Thyroid Breast cancer Neg Hx Colon cancer Neg Hx Ovarian cancer Neg Hx Uterine cancer Neg Hx Social History Social History Marital status: Spouse name: N/A Number of children: N/A Years of education: N/A Occupational History Not on file. Social History Main Topics Smoking status: Never Smoker Smokeless tobacco: Never Used Alcohol use Yes Comment: social Drug use: No Sexual activity: Yes Partners: Male control/ protection: OCP Other Topics Concern Not on file Social History Narrative No narrative on file No Known Allergies Current Outpatient Prescriptions Medication Sig Dispense Refill albuterol 90 mcg/actuation inhaler Inhale 2 puffs every 6 (six) hours as needed for wheezing . norgestimate-ethinyl estradiol (TRI-SPRINTEC, 28,) 0.18/0.215/0.25 mg-35 mcg (28) per tablet Take 1tablet by mouth daily . No current facility-administered medications for this visit. Review of Systems Constitutional: Negative for chills and fever. Respiratory: Negative for shortness of breath. Cardiovascular: Negative for chest pain. Gastrointestinal: Negative for nausea and vomiting. Genitourinary: Negative for dysuria, hematuria, menstrual problem and pelvic pain. Patient's last menstrual period was 03/09/2018. BP 117/72 Pulse 77 Ht 5' 7 Wt 72.6 kg (160 lb) LMP 03/09/2018 BMI 25.06 kg/m General: alert, appears stated age and cooperative Lungs: Normal effort Breast: normal appearance, no masses or tenderness Abdomen: soft, non-tender, without masses or organomegaly Vulva: normal Vagina: normal mucosa, scant blood Cervix: no bleeding following Pap, no cervical motion tenderness, no lesions and nulliparous appearance Uterus: normal size, mobile, non-tender, normal shape and consistency Adnexa: normal adnexa and no mass, fullness, tenderness Assessment and Plan: SNOMED CT(R) 1. Well woman exam with routine gynecological exam PATIENT ENCOUNTER STATUS Chlamydia/GC/Trichomonas Amplified RNA Thinprep Pap Smear - Pap, GC/CT done - SBE encouraged - Cont OCPs Await pap smear results. No orders of the defined types were placed in this encounter. in this encounter* Fay Oliver MD - 05/04/2018 1:48 PM EST [facility] [address] [place] [id number] HPI: Yuli Stevenson is a 22 y.o. female who presents for retesting for chlamydia. Pt was diagnosed with chlamydia at annual exam in March. Her and her partner were both treated. Is still with the same partner. Patient's history reviewed including allergies, current medications and problem list Review of Systems No LMP recorded. BP 132/81 Pulse 73 Wt 73.5 kg (162 lb) BMI 25.37 kg/m General: alert, appears stated age and cooperative Abdomen: soft, non-tender, without masses or organomegaly Vulva: normal Vagina: normal mucosa Cervix: no lesions and nulliparous appearance Assessment and Plan: SNOMED CT(R) 1. Screening for STD (sexually transmitted disease) PATIENT ENCOUNTER STATUS Chlamydia/GC/Trichomonas Amplified RNA - GC/CT repeated today - Offered pt full STD testing and she accepted No orders of the defined types were placed in this encounter. in this encounter* Fay Oliver MD - 04/04/2019 1:08 PM EST [facility] [address] [place] [id number] HPI: Yuli Stevenson is a 23 y.o. female who presents for an annual exam. The patient has no complaints today. The patient is sexually active. [employer] screening history: last pap: was normal, NILM in 2018. Pt reports dryness with IC. 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 Pt got engaged earlier this month. The following portions of the patients chart were reviewed: OB History: OB History 0 Para 0 Term 0 0 AB 0 Living 0 SAB 0 TAB 0 Ectopic 0 Multiple 0 Live Births 0 Menstrual History: Patient's last menstrual period was 03/26/2019. Past Medical History: Diagnosis Date Asthma History reviewed. No pertinent surgical history. Family History Problem Relation Age of Onset Cancer Maternal Grandmother Thyroid Breast cancer Neg Hx Colon cancer Neg Hx Ovarian cancer Neg Hx Uterine cancer Neg Hx Social History Socioeconomic History Marital status: Spouse name: Not on file Number of children: Not on file Years of education: Not on file Highest education level: Not on file Occupational History Not on file Social Needs Financial resource strain: Not on file Food insecurity Worry: Not on file Inability: Not on file Transportation needs Medical: Not on file Non-medical: Not on file Tobacco Use Smoking status: Never Smoker Smokeless tobacco: Never Used Substance and Sexual Activity Alcohol use: Yes Comment: social Drug use: No Sexual activity: Yes Partners: Male control/protection: OCP Lifestyle Physical activity Days per week: Not on file Minutes per session: Not on file Stress: Not on file Relationships Social connections Talks on phone: Not on file Gets together: Not on file Attends roman catholic service: Not on file Active member of club or organization: Not on file Attends meetings of clubs or organizations: Not on file Relationship status: Not on file Other Topics Concern Not on file Social History Narrative Not on file No Known Allergies Current Outpatient Medications Medication Sig Dispense Refill albuterol 90 mcg/actuation inhaler Inhale 2 puffs every 6 (six) hours as needed for wheezing . norgestimate-ethinyl estradiol (TRI-SPRINTEC, 28,) 0.18/0.215/0.25 mg-35 mcg (28) per tablet Take 1(one) tablet by mouth daily . 30 tablet 0 No current facility-administered medications for this visit. Review of Systems Patient's last menstrual period was 03/26/2019. BP (!) 143/79 Pulse 77 Ht 5' 7 Wt 76.2 kg (168 lb) LMP 03/26/2019 BMI 26.31 kg/m General: alert, appears stated age and cooperative Lungs: Normal effort Breast: normal appearance, no masses or tenderness Abdomen: soft, non-tender, without masses or organomegaly Vulva: normal Vagina: normal mucosa, thin white frothy discharge noted Cervix: no cervical motion tenderness, no lesions and nulliparous appearance Uterus: normal size, mobile, non-tender, normal shape and consistency Adnexa: normal adnexa and no mass, fullness, tenderness Assessment and Plan: 1. Encounter for gynecological examination without abnormal finding Chlamydia/GC/Trichomonas Amplified RNA - Pap not due. GC/CT done. - Contraception: pt's BP elevated at beginning of visit but she had a [place]ull immediately prior. BPimproved on rpt, cont OCPs. - Vaginal dryness: nl exam. Discussed using water based lubricants. All questions answered. No orders of the defined types were placed in this encounter. documented in this encounter* Paco Kendall MD - 03/15/2020 2:10 PM EST [facility] [place] [facility] Visit Ms. Yuli Arevalo is a 24 y.o. who presents for her annual exam. Ms. Arevalo has well controlled asthma and seasonal allergies, and a history of anemia. 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 Menses: Prior to OCPs, every month, with 5 days of medium bleeding. Menarche: Age ~9 Menopause: N/A Last Pap: Normal per patient 2018. History of abnormal Paps: Denies Sexual activity: Active with for 2 years Contraception: OCPs History of STIs: Remote history of chlamydia (2018) Family Right Of Way Worker Cancer: Denies Mammogram: Due at age 40 Colonoscopy: Due at age 50 Health and Safety Wears seatbelt?: Yes Immunizations up to date? Yes The patient reports that there has never been intimate partner violence in her life. REVIEW OF SYSTEMS Review of Systems Constitutional: Negative for activity change, appetite change, chills, fatigue, fever and unexpected weight change. HENT: Negative for trouble swallowing. Respiratory: Negative for cough and shortness of breath. Cardiovascular: Negative for chest pain, palpitations and leg swelling. Gastrointestinal: Negative for blood in stool, constipation, diarrhea, nausea and vomiting. Endocrine: Positive for cold intolerance. Negative for heat intolerance. Genitourinary: Negative for difficulty urinating, dyspareunia, dysuria, frequency, hematuria, menstrual problem, pelvic pain, urgency, vaginal bleeding, vaginal discharge and vaginal pain. Musculoskeletal: Negative for neck pain. Skin: Negative. Neurological: Negative for weakness and headaches. Psychiatric/Behavioral: The patient is not nervous/anxious. PHYSICAL EXAMINATION BP 118/60 (BP Location: Left arm, BP Position: Sitting) Temp 98 F (36.7 C) (Temporal) Wt 160 lb3.2 oz (72.7 kg) Smoking Status Never Smoker Physical Exam Exam conducted with a computer technology trainer present. Constitutional: General: She is awake. She is not in acute distress. Appearance: Normal appearance. She is well-developed and normal weight. Comments: Wearing facemask for coronavirus SARS-2 prophylaxis HENT: Head: Normocephalic and atraumatic. Mouth/Throat: Mouth: Mucous membranes are moist. Pharynx: Oropharynx is clear. Eyes: Extraocular Movements: Extraocular movements intact. Conjunctiva/sclera: Conjunctivae normal. Neck: Musculoskeletal: Neck supple. Thyroid: No thyroid mass, thyromegaly or thyroid tenderness. Cardiovascular: Rate and Rhythm: Normal rate and regular rhythm. Heart sounds: Normal heart sounds. No murmur. No friction rub. No gallop. Pulmonary: Effort: Pulmonary effort is normal. Breath sounds: Normal breath sounds. Abdominal: General: Abdomen is flat. Bowel sounds are normal. There is no distension. Palpations: Abdomen is soft. Tenderness: There is no abdominal tenderness. There is no guarding or rebound. Genitourinary: General: Normal vulva. Exam position: Lithotomy position. Casey stage (genital): 5. Labia: Right: No rash, tenderness or lesion. Left: No rash, tenderness or lesion. Vagina: Normal. No vaginal discharge, erythema, bleeding or lesions. Cervix: Normal. Uterus: Normal. Adnexa: Right adnexa normal and left adnexa normal. Right: No mass, tenderness or fullness. Left: No mass, tenderness or fullness. Musculoskeletal: Normal range of motion. Right lower leg: No edema. Left lower leg: No edema. Comments: No calf tenderness bilaterally Lymphadenopathy: Head: Right side of head: No submandibular adenopathy. Left side of head: No submandibular adenopathy. Cervical: No cervical adenopathy. Upper Body: Right upper body: No supraclavicular adenopathy. Left upper body: No supraclavicular adenopathy. Lower Body: No right inguinal adenopathy. No left inguinal adenopathy. Skin: General: Skin is warm and dry. Neurological: General: No focal deficit present. Mental Status: She is alert and oriented to person, place, and time. Cranial Nerves: Cranial nerves are intact. Sensory: Sensation is intact. Motor: Motor function is intact. Coordination: Coordination is intact. Gait: Gait is intact. Deep Tendon Reflexes: Reflex Scores: Patellar reflexes are 2+ on the right side and 2+ on the left side. Psychiatric: Mood and Affect: Mood normal. Behavior: Behavior normal. Behavior is cooperative. ASSESSMENT AND PLAN Ms. Yuli Arevalo is a 24 y.o. who presents for her annual exam. - TSH drawn for cold intolerance - CBC drawn for report of anemia - Pap collected Schedule return in 1 year for annual exam. No future appointments. 03/15/2020 Paco Kendall MD * Kemi Tijerina LPN - 03/15/2020 2:10 PM EST Breast Health Screening Breast concerns or complaints? No Last mammogram: NA She reports that she is performing self breast examination regularly. History of Previous breast biopsy or other breast surgery? No Breast cancer in the family? No Osteoporosis Screening She reports that she is participating in regular exercise (Daily). She is not taking calcium and vitamin D supplements. She has not had a bone density study (result NA). History of Osteoporosis? No Osteoporosis in the family? No Genitourinary Screening Last Pap: was normal Abnormal bleeding? No Pelvic pressure or fullness? No Urinary complaints or concerns? No Pelvic prolapse symptoms? No Fecal incontinence or concerns? No Dyspareunia or sexual concerns? Yes 1 x sharp abdominal pain with intercourse. Premenstrual symptoms? Yes cramps Other comments: NA documented in this encounter Assessments Diagnosis Well woman exam with routine gynecological exam - Primary Routine gynecological examination Encounter for surveillance o f contraceptive pills Diagnosis History of chlamydia infection- Primary Screening for STD (sexually transmitted disease) Diagnosis Encounter for gynecological examination without abnormal finding Encounter for surveillance of contraceptive pills Diagnosis Other fatigue- Primary Annual physical exam Routine general medical examination at a health care facility Advance Directives No Advanced Directives Records FoundDocuments on File Type Date Recorded Patient Receiving Operator Expl anation Advance Directives and Living Will Advance Directive Response Recorded Date/ Time State DNR No December 10 021 4:30pm Living Will No December 10 4:30pm Chief Complaint and Reason for Visit Chief Complaint CUT ON FACE Chief Complaint LMP 01/28 Reason for Visit Anxiety Asthma Infertility Pelvic pain Pre-conception counseling Supervision of high-risk Chief Complaint LMP 01/28 E ORDERS Reason for Visit Anxiety Asthma Infertility Pelvic pain Pre-conception counseling Supervision of high-risk Chief Complaint LMP 01/28 E ORDERS 14 WK OB, declined sooner 18 WK OB Reason for Visit Anxiety Asthma Infertility Pelvic pain Pre-conception counseling Supervision of high-risk Anxiety Asthma Supervision of high-risk Anxiety Asthma Infertility Pelvic pain Pre-conception counseling Supervision of high-risk Chief Complaint 14 WK OB, declined s ooner 18 WK OB 23 WK OB 27 WK OB Reason for Visit Anxiety Asthma Supervision of high-risk Anxiety Asthma Infertility Pelvic pain Pre-conception counseling Supervision of high-risk Anxiety Asthma Infertility Pelvic pain Pre-conception counseling Supervision of high-risk Anxiety Asthma Infertility Pelvic pain Pre-conception counseling Supervision of high-risk Chief Complaint Admit Date NOB: LMP 06/12, MIRIAM 03/19August 21, 2024 9:42am Reason for Visit Admit Date Anxiety August 21, 2024 9:42a m Asthma August 21, 2024 9:42a m August 21, 2024 9:42a m Supervision of normal August 9:42am Chief Complaint Admit Date NOB: LMP 3/10, MIRIAM 03/19August 21, 2024 9:42am 16wk ob September 25, 2024 1:30 pm Reason for Visit Admit Date Anxiety August 21, 2024 9:42a m Asthma August 21, 2024 9:42a m August 21, 2024 9:42a m Supervision of normal August 9:42am Anxiety September 25, 2024 1:30 pm September 25, 2024 1:30 pm Supervision of normal September 1:30pm Chief Complaint Admit Date NOB: LMP 3/10, MIRIAM 03/19August 21, 2024 9:42am 16wk ob September 25, 2024 1:30 pm 20wk ob October 23, 2024 10:1 3am Reason for Visit Admit Date Anxiety August 21, 2024 9:42a m Asthma August 21, 2024 9:42a m August 21, 2024 9:42a m Supervision of normal August 9:42am Anxiety September 25, 2024 1:30 pm September 25, 2024 1:30 pm Supervision of normal September 1:30pm Anxiety October 23, 2024 10:1 3am Asthma October 23, 2024 10:1 3am October 23, 2024 10:1 3am Supervision of normal October 10:13am Chief Complaint Admit Date NOB: LMP 3/10, MIRIAM 03/19August 21, 2024 9:42am 16wk ob September 25, 2024 1:30 pm 20wk ob October 23, 2024 10:1 3am 24 wk ob November 20, 2024 9: 25am Reason for Visit Admit Date Anxiety August 21, 2024 9:42a m Asthma August 21, 2024 9:42a m August 21, 2024 9:42a m Supervision of normal August 9:42am Anxiety September 25, 2024 1:30 pm September 25, 2024 1:30 pm Supervision of normal September 1:30pm Anxiety October 23, 2024 10:1 3am Asthma October 23, 2024 10:1 3am October 23, 2024 10:1 3am Supervision of normal October 10:13am Anxiety November 20, 2024 9: 25am Asthma November 20, 2024 9: 25am November 20, 2024 9: 25am Supervision of normal November 032024 9:25am Chief Complaint Admit Date NOB: LMP 06/12, MIRIAM 03/19August 21, 2024 9:42am 16wk ob September 25, 2024 1:30 pm 20wk ob October 23, 2024 10:1 3am 24 wk ob November 20, 2024 9: 25am 28wk ob/glucose December 18, 2024 9:57am Reason for Visit Admit Date Anxiety August 21, 2024 9:42a m Asthma August 21, 2024 9:42a m August 21, 2024 9:42a m Supervision of normal August 9:42am Anxiety September 25, 2024 1:30 pm September 25, 2024 1:30 pm Supervision of normal September 1:30pm Anxiety October 23, 2024 10:1 3am Asthma October 23, 2024 10:1 3am October 23, 2024 10:1 3am Supervision of normal October 10:13am Anxiety November 20, 2024 9: 25am Asthma November 20, 2024 9: 25am November 20, 2024 9: 25am Supervision of normal November 032024 9:25am Anxiety December 18, 2024 9:57am Asthma December 18, 2024 9:57am December 18, 2024 9:57am Supervision of normal Septembe 2024 9:57am Chief Complaint Admit Date 16wk ob September 25, 2024 1:30 pm 20wk ob October 23, 2024 10:1 3am 24 wk ob November 20, 2024 9: 25am 28wk ob/glucose December 18, 2024 9:57am 30wk ob January 01, 2025 9:55am Reason for Visit Admit Date Anxiety September 25, 2024 1:30 pm September 25, 2024 1:30 pm Supervision of normal September 1:30pm Anxiety October 23, 2024 10:1 3am Asthma October 23, 2024 10:1 3am October 23, 2024 10:1 3am Supervision of normal October 10:13am Anxiety November 20, 2024 9: 25am Asthma November 20, 2024 9: 25am November 20, 2024 9: 25am Supervision of normal November 032024 9:25am Anxiety December 18, 2024 9:57am December 18, 2024 9:57am Supervision of normal Septembe r 2024 9:57am Anxiety January 01, 2025 9:55am Asthma January 01, 2025 9:55am January 01, 2025 9:55am Supervision of normal Septembe r 2024 9:55am Chief Complaint Admit Date 20wk ob October 23, 2024 10:1 3am 24 wk ob November 20, 2024 9: 25am 28wk ob/glucose December 18, 2024 9:57am 30wk ob January 01, 2025 9:55am 32wk ob January 16, 2025 1 0:09am Reason for Visit Admit Date Asthma October 23, 2024 10:1 3am October 23, 2024 10:1 3am Supervision of normal October 10:13am Anxiety October 23, 2024 10:1 3am Asthma November 20, 2024 9: 25am November 20, 2024 9: 25am Supervision of normal November 032024 9:25am Anxiety November 20, 2024 9: 25am December 18, 2024 9:57am Supervision of normal Septembe r 2024 9:57am Anxiety December 18, 2024 9:57am Asthma January 01, 2025 9:55am January 01, 2025 9:55am Supervision of normal Septembe r 2024 9:55am Anxiety January 01, 2025 9:55am Asthma January 16, 2025 1 0:09am January 16, 2025 1 0:09am Supervision of normal January 16, 2025 10:09am Summary Purpose Family History No Family History Records Found Relationship Condition Age at Onset Recorded Date/T linda Not Specified Diabetes mellitus Unknown grandmother Disorder of thyroid Unknown Malignant neoplasm Unknown mother Disorder of thyroid Unknown Additional Source Comments Reason for Visit (unrecogniz ed section and content) Reason Comments Annual Exam here for WWE, no con cerns Reason Comments Follow-up pt present for MAGED, pt denies any concerns Reason Comments Annual Exam here for WWE, states occ dryness w/IC Reason Comments 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 done with [facility] Status Reason Specialty Diagnoses / Procedures Referre d By Contact Referred To Contact Closed Diagnoses Encounter to establish care System, Provider Not In Teetee Blanchard, [employer]COMPUT[employer] TRAINING SPECIALIST [id number] [place] [address] Reason Comments Vaginal Discharge vaginal itching with occ. pelvic pain and white discharge. x 1-2 months Reason Comments Establish Care Stomach pain Reason Comments Acute Visit Abdominal pain start ed about 1 year ago. Experiencing sharp pain, bloating and gas pains after consuming food. Pt states doesn't matter what she eats she experiences these symptoms after eating. Irregular BM's since a child. Reason Comments Consult Inconsistent constip ation with diarrheaAbd pain, and cramping Specialty Diagnoses / Procedures Referred By Moustapha t Referred To Contact Gastroenterology Diagnoses Irritable bowel syndrome with constipation Generalized abdominal pain Rex Blackburn MD [address] [place] [address] Anay Paredes MD [facility] [place] [address] Referral ID Status Reason Start Date Expiration Date Visits Re quested Visits Authorized [id number] Closed 07/20/2022 07/20/2023 1 1 Reason Comments New Patient 29 YOF-Patient arriv es at clinic to establish care Goals (unrecognized section and content) Type Care Experience svdLabor Preferences -CB/BF classes: discussed and declinedlabor support person: justinlabor intervention preferees: prefers minimal intervention, hydrotherapypain management options preferred: []cut cord/dad catch: []: []PP control planned: []discussed possible routes of delivery and associated risks: []special requests: [] Care Experience Labor Preferences-CB /BF classes: nolabor support person: Justinlabor intervention preferences: []pain management options preferred: limitedcut cord/dad catch: mom cordbreastfeeding: yesPP control planned: discusseddiscussed possible routes of delivery and associated risks: []special requests: []. Type Detail Care Experience svdLabor Preferences -CB/BF classes: discussed and declinedlabor support person: justinlabor intervention preferees: prefers minimal intervention, hydrotherapypain management options preferred: []cut cord/dad catch: []: []PP control planned: []discussed possible routes of delivery and associated risks: []special requests: [] Care Experience svdLabor Preferences -CB/BF classes: nolabor support person: Justinlabor intervention preferences: []pain management options preferred: limitedcut cord/dad catch: mom cordbreastfeeding: yesPP control planned: discusseddiscussed possible routes of delivery and associated risks: []special requests: []. INFORMATION SOURCE (unrecogn ized section and content) DATE CREATED AUTHOR 12/12/2020 [facility] DATE CREATED AUTHOR AUTHOR[facility]S OR[facility]IZ AT[facility] DATE CREATED AUTHOR AUTHOR'S ORGANIZ ATION 09/12/2022 [facility] DATE CREATED AUTHOR AUTHOR'S ORGANIZ ATION 09/29/2022 [facility] DATE CREATED AUTHOR AUTHOR'S ORGANIZ ATION 07/14/2024 [facility] DATE CREATED AUTHOR AUTHOR'S ORGANIZ ATION 10/27/2024 [facility] DATE CREATED AUTHOR AUTHOR'S ORGANIZ ATION 02/13/2025 [facility] Care Teams (unrecognized sec tion and content) Medical Appointment Scheduler Relationship Specialty Start Date End Date Rex Blackburn MD [address] [place] [address] PCP - General Family Medicine 03/21/21 Medical Appointment Scheduler Relationship Specialty Start Date End Date Rex Blackburn MD [address] [place] [address] PCP - General Family Medicine 03/21/21 Medical Appointment Scheduler Relationship Specialty Start Date End Date Rex Blackburn MD [address] [place] [address] PCP - General Family Medicine 03/21/21 Medical Appointment Scheduler Relationship Specialty Start Date End Date Rex Blackburn MD [address] [place] [address] PCP - General Family Medicine 03/21/21 Medical Appointment Scheduler Relationship Specialty Start Date End Date Rex Blackburn MD [address] [place] [address] PCP - General Family Medicine 03/21/21 Team Status: Active Member Role Status Dates No Primary Care Physician Primary Care Provider Active Team Status: Inactive Member Role Status Dates Ernestina Aquino CNM Attending Provider Active Team Status: Inactive Member Role Status Dates Ernestina Aquino CNM Attending Provider, Referring Pr ovider Active No Primary Care Physician Primary Care Provider Active Team Status: Active Member Role Status Dates REX BLACKBURN Primary Care Provider Active Team Status: Inactive Member Role Status Dates MEERA SIEGEL Primary Care Provider Active Ernestina Aquino CNM Attending Provider, Referring Pr ovider Active Team Status: Inactive Member Role Status Dates No Primary Care Physician Referring Provider Active Ernestina Aquino CNM Attending Provider Active MEERA SIEGEL Primary Care Provider Active Team Status: Inactive Member Role Status Dates Dr. Rhiannon Mccrary , DO Attending Provider Activ e Team Status: Inactive Member Role Status Dates Ernestina Aquino CNM Attending Provider Active No Primary Care Physician Primary Care Provider, Refer ring Provider Active Team Status: Inactive Member Role Status Dates No Primary Care Physician Primary Care Provider, Refer ring Provider Active Dr. Rhiannon Mccrary DO Attending Provider Activ e Team Status: Inactive Member Role Status Dates No Primary Care Physician Primary Care Provider Active Ernestina Aquino CNM Attending Provider, Referring Pr ovider Active Medical Appointment Scheduler Relationship Specialty Start Date End Date Darling Farmer II, MD [address] [place] [address] PCP - General Internal Medicine 07/13/24 Team Status: Inactive Member Role Status Dates No Primary Care Physician Primary Care Provider Active Start: August 21, 2024 End: August 21, 2024 No Primary Care Physician Referring Provider Active Start: August 21, 2024 End: August 21, 2024 Dr. Irma Foster MD Attending Provider Active Start: August 21, 2024 End: August 21, 2024 Team Status: Active Member Role Status Dates No Primary Care Physician Primary Care Provider Active Start: August 21, 2024 Dr. Irma Foster MD Attending Provider Active Start: August 21, 2024 Dr. Irma Foster MD Referring Provider Active Start: August 21, 2024 Team Status: Inactive Member Role Status Dates No Primary Care Physician Primary Care Provider Active Start: August 21, 2024 End: August 21, 2024 Dr. Irma Foster MD Attending Provider Active Start: August 21, 2024 End: August 21, 2024 Dr. Irma Foster MD Referring Provider Active Start: August 21, 2024 End: August 21, 2024 Team Status: Inactive Member Role Status Dates No Primary Care Physician Primary Care Provider Active Start: September 25, 2024 End: September 25, 2024 No Primary Care Physician Referring Provider Active Start: September 25, 2024 End: September 25, 2024 Iris Cali NP, [employer] BU[employer]ER-C Attending Provider Active Start: September 25, 2024 End: September 25, 2024 Team Status: Active Member Role/Relationship Status Dates No Primary Care Physician Primary Care Provider Active Team Status: Inactive Member Role/Relationship Status Dates No Primary Care Physician Primary Care Provider Active Start: August 21, 2024 End: August 21, 2024 No Primary Care Physician Referring Provider Active Start: August 21, 2024 End: August 21, 2024 Dr. Irma Foster MD Attending Provider Active Start: August 21, 2024 End: August 21, 2024 Team Status: Inactive Member Role/Relationship Status Dates No Primary Care Physician Primary Care Provider Active Start: August 21, 2024 End: August 21, 2024 Dr. Irma Foster MD Attending Provider Active Start: August 21, 2024 End: August 21, 2024 Dr. Irma Foster MD Referring Provider Active Start: August 21, 2024 End: August 21, 2024 Team Status: Inactive Member Role/Relationship Status Dates No Primary Care Physician Primary Care Provider Active Start: September 25, 2024 End: September 25, 2024 No Primary Care Physician Referring Provider Active Start: September 25, 2024 End: September 25, 2024 Iris Cali PRINT BUYER, [employer] BU[employer]ER-C Attending Provider Active Start: September 25, 2024 End: September 25, 2024 Team Status: Inactive Member Role/Relationship Status Dates No Primary Care Physician Primary Care Provider Active Start: October 23, 2024 End: October 23, 2024 No Primary Care Physician Referring Provider Active Start: October 23, 2024 End: October 23, 2024 Georgie Anton CNM Attending Provider Active S tart: October 23, 2024 End: October 23, 2024 Team Status: Inactive Member Role/Relationship Status Dates No Primary Care Physician Primary Care Provider Active Start: November 20, 2024 End: November 20, 2024 No Primary Care Physician Referring Provider Active Start: November 20, 2024 End: November 20, 2024 Dr. Rhiannon Mccrary DO Attending Provider Activ e Start: November 20, 2024 End: November 20, 2024 Team Status: Inactive Member Role/Relationship Status Dates No Primary Care Physician Primary Care Provider Active Start: December 18, 2024 End: December 18, 2024 No Primary Care Physician Referring Provider Active Start: December 18, 2024 End: December 18, 2024 Iris Cali NP, PRINT BU[employer]ER-C Attending Provider Active Start: December 18, 2024 End: December 18, 2024 Team Status: Active Member Role/Relationship Status Dates No Primary Care Physician Primary care physician Activ e Team Status: Inactive Member Role/Relationship Status Dates No Primary Care Physician Primary care physician Activ e Start: September 25, 2024 End: September 25, 2024 No Primary Care Physician Referring Provider Active Start: September 25, 2024 End: September 25, 2024 Iris Cali NP [employer]-C Attending physician Active Start: September 25, 2024 End: September 25, 2024 Team Status: Inactive Member Role/Relationship Status Dates No Primary Care Physician Primary care physician Activ e Start: October 23, 2024 End: October 23, 2024 No Primary Care Physician Referring Provider Active Start: October 23, 2024 End: October 23, 2024 Georgie Anton CNM Attending physician Active Start: October 23, 2024 End: October 23, 2024 Team Status: Inactive Member Role/Relationship Status Dates No Primary Care Physician Primary care physician Activ e Start: November 20, 2024 End: November 20, 2024 No Primary Care Physician Referring Provider Active Start: November 20, 2024 End: November 20, 2024 Dr. Rhiannon Mccrary DO Attending physician Acti ve Start: November 20, 2024 End: November 20, 2024 Team Status: Inactive Member Role/Relationship Status Dates No Primary Care Physician Primary care physician Activ e Start: December 18, 2024 End: December 18, 2024 No Primary Care Physician Referring Provider Active Start: December 18, 2024 End: December 18, 2024 Iris Cali NP [employer]-C Attending physician Active Start: December 18, 2024 End: December 18, 2024 Team Status: Inactive Member Role/Relationship Status Dates No Primary Care Physician Primary care physician Activ e Start: December 18, 2024 End: December 18, 2024 Dr. Rhiannon Mccrary DO Attending physician Active Start: December End: December 18, 2024 Dr. Rhiannon Mccrary DO Referring Provider Active Start: December End: December 18, 2024 Team Status: Inactive Member Role/Relationship Status Dates No Primary Care Physician Primary care physician Activ e Start: January 01, 2025 End: January 01, 2025 No Primary Care Physician Referring Provider Active Start: January 01, 2025 End: January 01, 2025 Georgie Anton CNM Attending physician Active Start: January 01, 2025 End: January 01, 2025 Team Status: Inactive Member Role/Relationship Status Dates No Primary Care Physician Primary care physician Activ e Start: October 23, 2024 End: October 23, 2024 No Primary Care Physician Referring Provider Active Start: October 23, 2024 End: October 23, 2024 Georgie Anton CNM Attending physician Active Start: October 23, 2024 End: October 23, 2024 Team Status: Inactive Member Role/Relationship Status Dates No Primary Care Physician Primary care physician Activ e Start: November 20, 2024 End: November 20, 2024 No Primary Care Physician Referring Provider Active Start: November 20, 2024 End: November 20, 2024 Dr. Rhiannon Mccrary DO Attending physician Acti ve Start: November 20, 2024 End: November 20, 2024 Team Status: Inactive Member Role/Relationship Status Dates No Primary Care Physician Primary care physician Activ e Start: December 18, 2024 End: December 18, 2024 No Primary Care Physician Referring Provider Active Start: December 18, 2024 End: December 18, 2024 Iris Cali NP, PRINT BUYER-C Attending physician Active Start: December 18, 2024 End: December 18, 2024 Team Status: Inactive Member Role/Relationship Status Dates No Primary Care Physician Primary care physician Activ e Start: December 18, 2024 End: December 18, 2024 Dr. Rhiannon Mccrary DO Attending physician Active Start: December End: December 18, 2024 Dr. Rhiannon Mccrary DO Referring Provider Active Start: December End: December 18, 2024 Team Status: Inactive Member Role/Relationship Status Dates No Primary Care Physician Primary care physician Activ e Start: January 01, 2025 End: January 01, 2025 No Primary Care Physician Referring Provider Active Start: January 01, 2025 End: January 01, 2025 Georgie Anton CNM Attending physician Active Start: January 01, 2025 End: January 01, 2025 Team Status: Inactive Member Role/Relationship Status Dates No Primary Care Physician Primary care physician Activ e Start: January 16, 2025 End: January 16, 2025 No Primary Care Physician Referring Provider Active Start: January 16, 2025 End: January 16, 2025 Dr. Irma Foster MD Attending physician Active Start: January 16, 2025 End: January 16, 2025 FOR RECORDS PERTAINING TO PATIENTS WHO ARE [...] BE BASED ON THE PRIMARY CLINICAL RECORDS. [facility] [employer] [facility]. provides no warranty or guarantee of the accuracy or completeness of information in this document.
[2025-03-13 23:29] VITALS: PULSE 82; RESP 15; TEMP 36.4; O2SAT 98
[2025-03-13 23:30] VITALS: BP 122/68; PULSE 81; O2SAT 85
[2025-03-13] MEDS: 0.9% Saline Lock 10 ML Syringe IV (23:45)
--- OUTSIDE RECORDS SUMMARY | 2025-03-13 23:45 | XMS RPT_ITS | CCD ---
Author Organization [facility] Care Team Providers Care News Analyst Name Role Phone No, Physician Unavailable Unavailable Unavailable Primary Care Provider Unavailabl e Unavailable Primary Care Provider Unavailabl e JULIO C ANTON Emergency Provider [phone] NONE, NONE Family Provider Unavailable Rex Blackburn [...] SANAT Attending Unavailable GREG Aquino Attending Provider GREG Aquino Attending Provider Care Physician, No Primary Referring Provider Un available BLACKBURN, REX Primary Care Provider Unavailab le Vande Velde, Dr. Rhiannon Attending Provider [phone] GREG Aquino Attending Provider [phone] Care Physician, No Primary Primary Care Provider Unavailable Marleny LEAL MD, James A Primary Care Provider [phone] DARLING FARMER II Attending Unavailable MARLENY LEAL, DARLING Bear Primary Care Unavailable SELF, SELF Referring Unavailable Care Physician, No Primary Primary Care Provider Unavailable Care Physician, No Primary Referring Provider Un available Cristian MORALES, Dr. Solis Attending Provider Dr. Irma Foster MD Referring Provider Zonia [...] Drug Class(es) Dates Sig (Normalized) Sig (Original) [id number] 200 actuat albuterol 0.09 mg/actuat metered dose [...] Active Start: 04-03-2020 take 1 tablet by emily th once [...] Take by mouth . 0 Active Mv-Mins 51-Oemc-Ovbwq No.1-Dha (Pnv-Gresham) 28-1-300 mg capsule (12 sources) Start: 03-26-2023 Mv-Mins 53-Lqbz-Xcazx No.1-Dha (Pnv-Gresham) 28-1-300 mg capsule Active 1 NMA PO March 26, 2023 1:00am see provid Complies with drug therapy Start: 03-26-2023 Mv-Mins 71-Iro n-Folic No.1-Dha (Pnv-Gresham) 28-1-300 mg capsule Active 1 NMA PO March 26, 2023 1:00am see provid Start: 03-26-2023 Mv-Mins 71-Iro n-Folic No.1-Dha (Pnv-Gresham) 28-1-300 mg capsule Active 1 NMA PO March 26, 2023 1:00am Start: 03-26-2023 take 1 capsule by mouth once M v-Mins 34-Nxmp-Njlwh No.1-Dha (Pnv-Gresham) 28-1-300 mg capsule Active CAP PO March 26, 2023 1:00am Start: 03-26-2023 take 1 capsule by mouth once M v-Mins 92-Kupu-Ghqcw No.1-Dha (Pnv-Gresham) 28-1-300 mg capsule Active CAP PO March 26, 2023 12:00am polyethylene glycol 3350 33979 mg powder for oral solution (4 sources) [...] Dates Sig (Normalized) Sig (Original) estrogens, conjugated (prison) 0.625 mg/ml vaginal cream (8 sources) Estrogen [...] and carrier testingNIPT low risk. nl anatomy [id number], MIRIAM 5, PC [place], [place] discussed NIPT & Car rier testing-declined, nl anatomy [id number], MIRIAM 5, girl Aneira [facility] [place], [place] Residual [...] Test Name Value Interpretation Reference Range Facility Property Supervisor Office Visit Reporton 02-01-2025 Property Supervisor Office Visit Report [facility] [address], [address] [place] [address] OFFICE VISIT Date of Service: 02/01/25 MR#: [id number] Acct: [id number] Name: YULI AREVALO Rep #: [id number] : 1995 Provider: Dr. Irma joseph MD Age/Sex: 29/F Location: [facility] Status: Signed Intake Vital Signs 12/18/24 10:06 01/16/25 10:12 02/01/25 10:39 Height 5 ft 6.5 in 5 ft 6.5 in 5 ft 6.5 in Weight: 190 lb 8 oz BMI 30.2 BP 116/68 Intake Visit Reasons: 34wk ob Manager Pe Required: No Is patient in pain?: No Feel stressed/tense/nervo us/anxious/difficult y sleeping: not at all Allergies No Known Allergies Allergy (Verified 02/01/25 10:39) Medications ???Medication ???Instructions ???Recorded ???Confirmed ???Type multivit-min no.71-iron fum 28 1 cap PO see provid 03/26/2302/01 History mg-folate no.1 1 mg-dha 300 mg capsule (PNV-Gresham) famotidine 20 mg tablet (Pepcid) 20 mg PO BID 30 days #60 tabs 06/2602/01/25 Rx Last Menstrual Period: 06/12/24 Zika: Zika virus screening: Negative : No PFSH PFSH Medical History Hx of infertility Abnormal Pap smear of cervix Chlamydia Seasonal allergies Surgical History [place] teeth extracted Family History Grandmother Thyroid disorder [...] 3-4 times per week duration: 30-45 minutes/day juana/gnosticist: Gnosticist seatbelt use: always do you feel safe at home: Yes additional social history: [employer] 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 Date Name GA/Weeks Outcome Route Bth Weight Gen Labor Lgth Anesthesia Del Locatn Provider FOB 10/25/23 Geo 38 live - full term 7#3oz Male none [facility] Carmella Golden HPI 34wk ob Details: [...] 4 o (more content not included)... Normal [facility] Property Supervisor Office Visit Reporton 01-16-2025 Property Supervisor Office Visit Report [facility] [address], [address] [place] [address] OFFICE VISIT Date of Service: 01/16/25 MR#: [id number] Acct: [id number] Name: YULI AREVALO Rep #: [id number] : 1995 Provider: Dr. Irma joseph MD Age/Sex: 29/F Location: [facility] Status: Signed Intake Vital Signs 12/18/24 10:06 01/01/25 10:03 01/16/25 10:12 Height 5 ft 6.5 in 5 ft 6.5 in 5 ft 6.5 in Weight: 187 lb BMI 29.7 BP 113/70 Intake Visit Reasons: 32wk ob Manager Pe Required: No Is patient in pain?: No Allergies No Known Allergies Allergy (Verified 01/16/25 10:15) Medications ???Medication ???Instructions ???Recorded ???Confirmed ???Type multivit-min no.71-iron fum 28 1 cap PO see provid 03/26/2301/16 History mg-folate no.1 1 mg-dha 300 mg capsule (PNV-Gresham) famotidine 20 mg tablet (Pepcid) 20 mg PO BID 30 days #60 tabs 05/0 06/2601/16/25 Rx Last Menstrual Period: 06/12/24 Zika: Zika virus screening: Negative : No PFSH PFSH Medical History (Updated 01/16/25 @ 10:[address] 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 Date Name GA/Weeks Outcome Route Bth Weight Infant Gen Labor Lgth Anesthesia Del Locatn Provider FOB 10/25/23 Geo 38 live - full term 7#3oz Male none [facility] Camrella Golden HPI 32wk ob Details: YULI AREVALO [...] -???-???-???-???-??? -? (more content not included)... Normal [facility] Laboratory - Chemistry and C hemistry - challengeOrdered By: Georgie Anton on 01-01-2025 Glucose Ql (U) Negative [facility] Laboratory - UrinalysisOrder ed By: Georgie Anton on 01-01-2025 Protein Ql (U) Negative [facility] Property Supervisor Office Visit Reporton 01-01-2025 Property Supervisor Office Visit Report [facility] [address] [place] [address], [address] [place] [address] OFFICE VISIT Date of Service: 01/01/25 MR#: [id number] Acct: [id number] Name: YULI AREVALO Rep #: [id number] : 1995 Provider: GREG White ams Age/Sex: 29/F Location: [facility] Status: Signed Intake Vital Signs 10/23/24 10:17 12/18/24 10:06 01/01/25 10:03 01/01/25 10:03 Height 5 ft 6.5 in 5 ft 6.5 in 5 ft 6.5 in 5 ft 6.5 in Weight: 179 lb 9 oz BMI 28.5 BP 137/81 H Intake Visit Reasons: 30wk ob Manager Pe Required: No Is patient in pain?: No Allergies No Known Allergies Allergy (Verified 01/01/25 10:02) Medications ???Medication ???Instructions ???Recorded ???Confirmed ???Type multivit-min no.71-iron fum 28 1 cap PO see provid 03/26/2301/01 History mg-folate no.1 1 mg-dha 300 mg capsule (PNV-Gresham) famotidine 20 mg tablet (Pepcid) 20 mg PO BID 30 days #60 tabs 05/0 06/2601/01/25 Rx Last Menstrual Period: 06/12/24 Zika: Zika virus screening: Negative : No PFSH PFSH Medical History Hx of infertility Abnormal Pap smear of cervix Chlamydia Seasonal allergies Panic attacks Surgical History [place] teeth extracted Family History Grandmother Thyroid disorder [...] 3-4 times per week duration: 30-45 minutes/day juana/gnosticist: Gnosticist seatbelt use: always do you feel safe at home: Yes additional social history: Damion Lucas 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 Normal [facility] Absolute lymphocyte countOrd ered By: Rhiannon Sheikh on 12-18-2024 Lymphocytes Auto (Unsp spec) [#/Vol] 1.32 10*3/uL 0.83-4.51 [facility] Absolute neutrophil countOrd ered By: Rhiannon Sheikh on 12-18-2024 Neutrophils (Bld) [#/Vol] 6.3 10*3/uL 2.0-7.7 [facility] Automated lymphocyte count a s percentage of total leukocytesOrdered By: Rhiannon Sheikh on 12-18-2024 Lymphocytes/100 WBC Auto (Unsp spec) 15.4 % Low 19-41 [facility] Basophil percentageOrdered B y: Rhiannon Sheikh on 12-18-2024 Basophils/100 WBC (Bld) 0.3 % 0-1 [facility] CBC W/Diff, Automatedon 12-04 Absolute Lymph 1.32 X10 3/uL Normal 0.83-4.51 [facility] Comment on above: Performed By: #### L 501.0250, L509.8002, L3890.6006, L100.0100 ####[facility] [address] [place], [address] Absolute Neut 6.3 X10 3/uL Normal 2.0-7.7 [facility] Comment on above: Performed By: #### L 501.0250, L509.8002, L3890.6006, L100.0100 ####[facility] [address] [place], [address] Basophils/100 WBC (Bld) 0.3 % Normal 0-1 [facility] Comment on above: Performed By: #### L 501.0250, L509.8002, L3890.6006, L100.0100 ####[facility] [address] [place], [address] Eosinophils/100 WBC (Bld) 2.1 % Normal 0-5 [facility] Comment on above: Performed By: #### L 501.0250, L509.8002, L3890.6006, L100.0100 ####[facility] [address] [place], [address] Erythrocyte distribution width (RBC) [Ratio] 13.2 % Normal 11.6-14.6 [facility] Comment on above: Performed By: #### L 501.0250, L509.8002, L3890.6006, L100.0100 ####[facility] [address] [place], [address] Hematocrit (Bld) [Volume fraction] 35.4 % Low 37-47 [facility] Comment on above: Performed By: #### L 501.0250, L509.8002, L3890.6006, L100.0100 ####[facility] [address] [place], [address] Hemoglobin (Bld) [Mass/Vol] 12.0 g/dL Normal 12.0-15.0 [facility] Comment on above: Performed By: #### L 501.0250, L509.8002, L3890.6006, L100.0100 ####[facility] [address] [place], [address] IG% 0.500 Normal 0.0-0.9 [facility] Comment on above: Result Comment: IG% - Immature Granulocytes (promyelocytes, myelocytes and metamyelocytes) > 1% indicates that a LEFT SHIFT is Present. Performed By: #### L 501.0250, L509.8002, L3890.6006, L100.0100 ####[facility] [address] [place], [address] Lymphocytes/100 WBC (Bld) 15.4 % Low 19-41 [facility] Comment on above: Performed By: #### L 501.0250, L509.8002, L3890.6006, L100.0100 ####[facility] [address] [place], [address] MCH (RBC) [Entitic mass] 30.7 pg Normal 27.0-32.0 [facility] Comment on above: Performed By: #### L 501.0250, L509.8002, L3890.6006, L100.0100 ####[facility] [address] [place], [address] MCHC (RBC) [Mass/Vol] 33.9 g/dL Normal 32-36 [facility] Comment on above: Performed By: #### L 501.0250, L509.8002, L3890.6006, L100.0100 ####[facility] [address] [place], [address] MCV (RBC) [Entitic vol] 90.5 fL Normal 81-99 [facility] Comment on above: Performed By: #### L 501.0250, L509.8002, L3890.6006, L100.0100 ####[facility] [address] [place], [address] Monocytes/100 WBC (Bld) 8.7 % Normal 0-10 [facility] Comment on above: Performed By: #### L 501.0250, L509.8002, L3890.6006, L100.0100 ####[facility] [address] [place], [address] Neutrophils/100 WBC (Bld) 73.0 % High 47-70 [facility] Comment on above: Performed By: #### L 501.0250, L509.8002, L3890.6006, L100.0100 ####[facility] [address] [place], [address] Nucleated RBC (Bld) [#/Vol] 0 10*3/uL Normal 0-5 [facility] Comment on above: Performed By: #### L 501.0250, L509.8002, L3890.6006, L100.0100 ####[facility] [address] [place], [address] Platelet mean volume (Bld) [Entitic vol] 10.5 fL Normal 6.2-12.0 [facility] Comment on above: Performed By: #### L 501.0250, L509.8002, L3890.6006, L100.0100 ####[facility] [address] [place], [address] Platelets (Bld) [#/Vol] 257 10*3/uL Normal 150-450 [facility] Comment on above: Performed By: #### L 501.0250, L509.8002, L3890.6006, L100.0100 ####[facility] [address] [place], [address] RBC (Bld) [#/Vol] 3.91 10*6/uL Low 4.2-5.4 [facility] Comment on above: Performed By: #### L 501.0250, L509.8002, L3890.6006, L100.0100 ####[facility] [address] [place], [address] RDW SD 43.3 fl Normal 35.1-43.9 [facility] Comment on above: Performed By: #### L 501.0250, L509.8002, L3890.6006, L100.0100 ####[facility] [address] [place], [address] WBC (Bld) [#/Vol] 8.6 10*3/uL Normal 4.4-11.0 [facility] Comment on above: Performed By: #### L 501.0250, L509.8002, L3890.6006, L100.0100 ####[facility] [address] [place], [address] Eosinophil percentageOrdered By: Rhiannon Sheikh on 12-18-2024 Eosinophils/100 WBC (Bld) 2.1 % 0-5 [facility] Erythrocyte distribution wid th ratioOrdered By: Rhiannon Sheikh on 12-18-2024 Erythrocyte distribution width (RBC) [Ratio] 13.2 % 11.6-14.6 [facility] Erythrocyte distribution wid th standard deviationOrdered By: Rhiannon Sheikh on 12-18-2024 Erythrocyte distribution width (RBC) [Ratio] 43.3 fl 35.1-43.9 [facility] Glucose Challenge Gest 1H 50 danae 12-18-2024 GLU GEST 50g 1H 81 mg/dL Normal 70-140 [facility] Comment on above: Performed By: #### L 501.0250, L509.8002, L3890.6006, L100.0100 ####[facility] [address] [place], [place], [id number] Glucose measurement at 2 jaime rs post-dose gestational glucose tolerance testOrdered By: Rhiannon Sheikh on 12-18-2024 Glucose [Mass/Vol] 81 mg/dL 70-140 [facility] HIVon 12-18-2024 HIV Non-Reactive Normal Nonreactive [facility] Comment on above: Result Comment: Non- Reactive Reactive Repeatedly reactive samples must be confirmed according to CDC recommended confirmatory algorithms. The subresults for either HIVAG or AHIV can be used as an aid in the selection of the confirmation algorithm for reactive samples. Send out specimens with Reactive results to [facility] for confirmation. Order the HIV antibody detection and differentiation: #[id number] Performed By: #### L 501.0250, L509.8002, L3890.6006, L100.0100 ####[facility] [address] [place], [place], [address] Hematocrit Auto (Bld) [Volum e fraction]Ordered By: Rhiannon Sheikh on 12-18-2024 Hematocrit (Bld) [Volume fraction] 35.4 % Low 37-47 [facility] Hemoglobin measurementOrdere d By: Rhiannon Sheikh on 12-18-2024 Hemoglobin (Bld) [Mass/Vol] 12.0 g/dL 12.0-15.0 [facility] Immature granulocytes/100 WB C Auto (Bld)Ordered By: Rhiannon Sheikh on 12-18-2024 Immature granulocytes/100 WBC (Bld) 0.500 % 0.0-0.9 [facility] Comment on above: IG% - Immature Granu locytes (promyelocytes, myelocytes and metamyelocytes) > 1% indicates that a LEFT SHIFT is Present. Laboratory - Chemistry and C hemistry - challengeOrdered By: Iris Cali on 12-18-2024 Glucose Ql (U) Negative [facility] Laboratory - UrinalysisOrder ed By: Iris Cali on 12-18-2024 Protein Ql (U) Negative [facility] MCV (mean corpuscular volume ) determinationOrdered By: Rhiannon Sheikh on 12-18-2024 MCV (RBC) [Entitic vol] 90.5 fL 81-99 [facility] Mean corpuscular hemoglobin (MCH) determinationOrdered By: Rhiannon Sheikh on 12-18-2024 MCH (RBC) [Entitic mass] 30.7 pg 27.0-32.0 [facility] Mean corpuscular hemoglobin concentration (MCHC) determinationOrdered By: Rhiannon Sheikh on 12-18-2024 MCHC (RBC) [Mass/Vol] 33.9 g/dL 32-36 [facility] Mean platelet volume determi nationOrdered By: Rhiannon Sheikh on 12-18-2024 Platelet mean volume (Bld) [Entitic vol] 10.5 fL 6.2-12.0 [facility] Monocyte percentageOrdered B y: Rhiannon Sheikh on 12-18-2024 Monocytes/100 WBC (Bld) 8.7 % 0-10 [facility] Neutrophil percentageOrdered By: Rhiannon Sheikh on 12-18-2024 Neutrophils/100 WBC (Bld) 73.0 % High 47-70 [facility] No Panel InformationOrdered By: Rhiannon Sheikh on 12-18-2024 HIV (1&2) Antibody Non-Reactive Nonreactive [facility] Comment on above: Non-ReactiveReactive Repeatedly reactive samples must be confirmed according to CDC recommended confirmatory algorithms. The subresults for either HIVAG or AHIV can be used as an aid in the selection of the confirmation algorithm for reactive samples.Send out specimens with Reactive results to [facility] for confirmation.Order the HIV antibody detection and differentiation: #[id number] Nucleated red blood cell per centageOrdered By: Rhiannon Sheikh on 12-18-2024 Nucleated RBC/100 WBC (Bld) [Ratio] 0 % 0-5 [facility] Property Supervisor Office Visit Reporton 12-18-2024 Property Supervisor Office Visit Report [facility] [address], [address] [place] [address] OFFICE VISIT Date of Service: 12/18/24 MR#: [id number] Acct: [id number] Name: YULI AREVALO Rep #: [id number] : 1995 Provider: BRENDA kulkarni Age/Sex: 29/F Location: [facility] Status: Signed Intake Vital Signs 10/23/24 10:17 11/20/24 09:31 12/18/24 10:06 12/18/24 10:17 Height 5 ft 6.5 in 5 ft 6.5 in 5 ft 6.5 in Weight: 5 lb 6.5 oz 177 lb 3.2 oz BMI 0.8 BP 123/70 H Intake Visit Reasons: 28wk ob/glucose Chief Complaint: 28 Week OB/Glucose Manager Pe Required: No Is patient in pain?: No Allergies No Known Allergies Allergy (Verified 12/18/24 10:07) Medications ???Medication ???Instructions ???Recorded ???Confirmed ???Type multivit-min no.71-iron fum 28 1 cap PO see provid 03/26/2312/18 History mg-folate no.1 1 mg-dha 300 mg capsule (PNV-Gresham) famotidine 20 mg tablet (Pepcid) 20 mg PO BID 30 days #60 tabs 05/0 06/2612/18/24 Rx Last Menstrual Period: 06/12/24 Zika: Zika virus screening: Negative : Yes PFSH PFSH Medical History Hx of infertility Abnormal Pap smear of cervix Chlamydia Seasonal allergies Panic attacks Surgical History [place] teeth extracted Family History Grandmother Thyroid disorder [...] 3-4 times per week duration: 30-45 minutes/day juana/gnosticist: Gnosticist seatbelt use: always do you feel safe at home: Yes additional social history: Damion Lucas 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 Date Name GA/Weeks Outcome Route Bth Weight Infant Gen Labor Lgth Anesthesia Del Locatn Provider FOB 10/25/23 Geo 38 live - full term 7#3oz Male none [facility] Carmella Golden HPI 28wk ob/glucose Details: [...] 12-18-2024 Platelets (Bld) [#/Vol] 257 10*3/uL 150-450 [facility] RBC Auto (Bld) [#/Vol]Ordere d By: Rhiannon Sheikh on 12-18-2024 RBC (Bld) [#/Vol] 3.91 10*6/uL Low 4.2-5.4 [facility] Syphilis Antibodieson 2024 Syphilis Abs Non-Reactive Normal Nonreactive [facility] Comment on above: Performed By: #### L 501.0250, L509.8002, L3890.6006, L100.0100 ####[facility] [address] [place], [address] White blood cell (WBC) count Ordered By: Rhiannon Sheikh on 12-18-2024 WBC (Bld) [#/Vol] 8.6 10*3/uL 4.4-11.0 [facility] Laboratory - Chemistry and C hemistry - challengeOrdered By: Rhiannon Sheikh on 11-20-2024 Glucose Ql (U) Negative [facility] Laboratory - UrinalysisOrder ed By: Rhiannon Sheikh on 11-20-2024 Protein Ql (U) Negative [facility] Property Supervisor Office Visit Reporton 11-20-2024 Property Supervisor Office Visit Report [facility] [address], [address] [place] [address] OFFICE VISIT Date of Service: 11/20/24 MR#: [id number] Acct: [id number] Name: YULI AREVALO Rep #: [id number] : 1995 Provider: Dr. Rhiannon Doan, Age/Sex: 29/F Location: [facility] Status: Signed Intake Vital Signs 09/25/24 13:32 09/25/24 13:53 10/23/24 10:17 11/20/24 09:31 Height 5 ft 6.5 in 5 ft 6.5 in 5 ft 6.5 in 5 ft 6.5 in Weight: 168 lb 8 oz BMI 26.8 BP 115/67 Intake Visit Reasons: 24 wk ob Manager Pe Required: No Is patient in pain?: No Allergies No Known Allergies Allergy (Verified 11/20/24 09:31) Medications ???Medication ???Instructions ???Recorded ???Confirmed ???Type multivit-min no.71-iron fum 28 1 cap PO see provid 03/26/2311/20 History mg-folate no.1 1 mg-dha 300 mg capsule (PNV-Gresham) famotidine 20 mg tablet (Pepcid) 20 mg PO BID 30 days #60 tabs 05/0 06/2611/20/24 Rx Last Menstrual Period: 06/12/24 Zika: Zika virus screening: Negative : No PFSH PFSH Medical History Hx of infertility Abnormal Pap smear of cervix Chlamydia Seasonal allergies Panic attacks Surgical History [place] teeth extracted Family History Grandmother Thyroid disorder [...] 3-4 times per week duration: 30-45 minutes/day juana/gnosticist: Gnosticist seatbelt use: always do you feel safe at home: Yes additional social history: [place]atalie Lucas 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 Date Name GA/Weeks Outcome Route Bth Weight Gen Labor Lgth Anesthesia Del Locatn Provider FOB 10/25/23 Geo 38 live - full term 7#3oz Male none [facility] Carmella ay Aquino [place] HPI 24 [...] 163 -???-???-???-?? (more content not included)... Normal [facility] Laboratory - Chemistry and C hemistry - challengeOrdered By: Georgie Anton on 10-23-2024 Glucose Ql (U) Negative [facility] Laboratory - UrinalysisOrder ed By: Georgie Anton on 10-23-2024 Protein Ql (U) Negative [facility] Property Supervisor Office Visit Reporton 10-23-2024 Property Supervisor Office Visit Report [facility] [address], [address] [place] [address] OFFICE VISIT Date of Service: 10/23/24 MR#: [id number] Acct: [id number] Name: YULI AREVALO Rep #: [id number] : 1995 Provider: GREG White ams Age/Sex: 29/F [place] [facility] Status: Signed Intake Vital Signs 08/21/24 10:04 09/25/24 13:53 10/23/24 10:17 Height 5 ft 6.5 in 5 ft 6.5 in 5 ft 6.5 in Weight: 165 lb 8 oz BMI 26.3 BP 122/75 H Intake Visit Reasons: 20wk ob Chief Complaint: 20wk OB Manager Pe Required: No Is patient in pain?: No Allergies No Known Allergies Allergy (Verified 10/23/24 10:19) Medications ???Medication ???Instructions ???Recorded ???Confirmed ???Type multivit-min no.71-iron fum 28 1 cap PO see provid 03/26/2310/23 History mg-folate no.1 1 mg-dha 300 mg capsule (PNV-Gresham) famotidine 20 mg tablet (Pepcid) 20 mg PO BID 30 days #60 tabs 05/0 06/2610/23/24 Rx Last Menstrual Period: 06/12/24 : No PFSH PFSH Medical History Hx of infertility Abnormal Pap smear of cervix Chlamydia Seasonal allergies Panic attacks Surgical History [place] teeth extracted Family History Grandmother Thyroid disorder [...] 3-4 times per week duration: 30-45 minutes/day juana/gnosticist: Gnosticist seatbelt use: always do you feel safe at home: Yes additional social history: Damion Lucas 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 Date Name GA/Weeks Outcome Route Bth Weight Gen Labor Lgth Anesthesia Del Locatn Provider FOB 10/25/23 Geo 38 live - full term 7#3oz Male none [facility] ay Miles Golden HPI 20wk ob Details: [...] Br U (more content not included)... Normal [facility] - Chemistry and C hemistry - challengeOrdered By: Iris Cali on 09-25-2024 Glucose Ql (U) Negative [facility] - UrinalysisOrder ed By: Iris Cali on 09-25-2024 Protein Ql (U) Negative [facility] Property Supervisor Office Visit Reporton 09-25-2024 Property Supervisor Office Visit Report [address], [address] [place] [address] OFFICE VISIT Date of Service: 09/25/24 MR#: [id number] Acct: [id number] Name: YULI AREVALO Rep #: [id number] : 1995 Provider: BRENDA kulkarni Age/Sex: 29/F Location: [facility] Status: Signed Intake Vital Signs 12/09/23 15:05 08/21/24 10:04 09/25/24 13:32 Height 5 ft 6.5 in 5 ft 6.5 in 5 ft 6.5 in Weight: 160 lb 4 oz BMI 25.4 BP 114/67 Intake Visit Reasons: 16wk ob Chief Complaint: 16 Week OB Manager Pe Required: No Is patient in pain?: No Allergies No Known Allergies Allergy (Verified 09/25/24 13:36) Medications ???Medication ???Instructions ???Recorded ???Confirmed ???Type multivit-min no.71-iron fum 28 1 cap PO see provid 03/26/2309/25 History mg-folate no.1 1 mg-dha 300 mg capsule (PNV-Gresham) famotidine 20 mg tablet (Pepcid) 20 mg PO BID 30 days #60 tabs 0506/2609/25/24 Rx Last Menstrual Period: 06/12/24 Zika: Zika virus screening: Negative : No PFSH PFSH Medical History Hx of infertility Abnormal Pap smear of cervix Chlamydia Seasonal allergies Panic attacks Surgical History [place] teeth extracted Family History Grandmother Thyroid disorder [...] 3-4 times per week duration: 30-45 minutes/day juana/gnosticist: Gnosticist seatbelt use: always do you feel safe at home: Yes additional social history: Damion Lucas 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 - (more content not included)... Normal [facility] Chlamydia/GC HOLLEY aptimaon CHLAMY,NUC ACID Negative Normal Negative [facility] Comment on above: Performed By: #### M 100.2200, L7000.1800 #### [facility] [address] [place], [place], [id number] GC BY NUC ACID Negative Normal Negative [facility] Comment on above: Result Comment: Perf ormed at: =G - [facility] [address] [id number] High Speed Printer Operator: Jennifer Hoang MD, Phone: [phone] Performed By: #### M 100.2200, L7000.1800 #### [facility] [address] [place], [address] Urine Cultureon 08-22-2024 [facility] Culture exhibits no growth. Normal [facility] Comment on above: Performed By: #### M 100.2200, L7000.1800 #### [facility] [address] [place], [address] Absolute lymphocyte countOrd ered By: Irma Cristian on 08-21-2024 Lymphocytes Auto (Unsp spec) [#/Vol] 1.62 10*3/uL 0.83-4.51 [facility] Absolute neutrophil countOrd ered By: Irma Cristian on 08-21-2024 Neutrophils (Bld) [#/Vol] 4.5 10*3/uL 2.0-7.7 [facility] Automated lymphocyte count a s percentage of total leukocytesOrdered By: Irma Foster on 08-21-2024 Lymphocytes/100 WBC Auto (Unsp spec) 23.2 % 19-41 [facility] Basophil percentageOrdered B y: Irma Cristian on 08-21-2024 Basophils/100 WBC (Bld) 0.4 % 0-1 [facility] CBC W/Diff, Automatedon 08-03 Absolute Lymph 1.62 X10 3/uL Normal 0.83-4.51 [facility] Comment on above: Performed By: #### L 3890.6006, L3890.6102, L100.0100, L3890.6301, L509.8002, L509.4006, BTS #### [facility] [address] [place], [address] Absolute Neut 4.5 X10 3/uL Normal 2.0-7.7 [facility] Comment on above: Performed By: #### L 3890.6006, L3890.6102, L100.0100, L3890.6301, L509.8002, L509.4006, BTS #### [facility] [address] [place], [address] Basophils/100 WBC (Bld) 0.4 % Normal 0-1 [facility] Comment on above: Performed By: #### L 3890.6006, L3890.6102, L100.0100, L3890.6301, L509.8002, L509.4006, BTS #### [facility] [address] [place], [address] Eosinophils/100 WBC (Bld) 1.6 % Normal 0-5 [facility] Comment on above: Performed By: #### L 3890.6006, L3890.6102, L100.0100, L3890.6301, L509.8002, L509.4006, BTS #### [facility] [address] [place], [address] Erythrocyte distribution width (RBC) [Ratio] 13.9 % Normal 11.6-14.6 [facility] Comment on above: Performed By: #### L 3890.6006, L3890.6102, L100.0100, L3890.6301, L509.8002, L509.4006, BTS #### [facility] [address] [place], [address] Hematocrit (Bld) [Volume fraction] 39.7 % Normal 37-47 [facility] Comment on above: Performed By: #### L 3890.6006, L3890.6102, L100.0100, L3890.6301, L509.8002, L509.4006, BTS #### [facility] [address] [place], [address] Hemoglobin (Bld) [Mass/Vol] 13.3 g/dL Normal 12.0-15.0 [facility] Comment on above: Performed By: #### L 3890.6006, L3890.6102, L100.0100, L3890.6301, L509.8002, L509.4006, BTS #### [facility] [address] [facility] [place], [address] IG% 0.300 Normal 0.0-0.9 [facility] Comment on above: Result Comment: IG% - Immature Granulocytes (promyelocytes, myelocytes and metamyelocytes) > 1% indicates that a LEFT SHIFT is Present. Performed By: #### L 3890.6006, L3890.6102, L100.0100, L3890.6301, L509.8002, L509.4006, BTS #### [facility] [address] [facility] [place], [address] Lymphocytes/100 WBC (Bld) 23.2 % Normal 19-41 [facility] Comment on above: Performed By: #### L 3890.6006, L3890.6102, L100.0100, L3890.6301, L509.8002, L509.4006, BTS #### [facility] [address] [place], [address] MCH (RBC) [Entitic mass] 29.3 pg Normal 27.0-32.0 [facility] Comment on above: Performed By: #### L 3890.6006, L3890.6102, L100.0100, L3890.6301, L509.8002, L509.4006, BTS #### [facility] [address] [place], [address] MCHC (RBC) [Mass/Vol] 33.5 g/dL Normal 32-36 [facility] Comment on above: Performed By: #### L 3890.6006, L3890.6102, L100.0100, L3890.6301, L509.8002, L509.4006, BTS #### [facility] [address] [place], [address] MCV (RBC) [Entitic vol] 87.4 fL Normal 81-99 [facility] Comment on above: Performed By: #### L 3890.6006, L3890.6102, L100.0100, L3890.6301, L509.8002, L509.4006, BTS #### [facility] [address] [place], [address] Monocytes/100 WBC (Bld) 9.3 % Normal 0-10 [facility] Comment on above: Performed By: #### L 3890.6006, L3890.6102, L100.0100, L3890.6301, L509.8002, L509.4006, BTS #### [facility] [address] [place], [address] Neutrophils/100 WBC (Bld) 65.2 % Normal 47-70 [facility] Comment on above: Performed By: #### L 3890.6006, L3890.6102, L100.0100, L3890.6301, L509.8002, L509.4006, BTS #### [facility] [address] [place], [address] Nucleated RBC (Bld) [#/Vol] 0 10*3/uL Normal 0-5 [facility] Comment on above: Performed By: #### L 3890.6006, L3890.6102, L100.0100, L3890.6301, L509.8002, L509.4006, BTS #### [facility] [address] [place], [address] Platelet mean volume (Bld) [Entitic vol] 10.6 fL Normal 6.2-12.0 [facility] Comment on above: Performed By: #### L 3890.6006, L3890.6102, L100.0100, L3890.6301, L509.8002, L509.4006, BTS #### [facility] [address] [place], [address] Platelets (Bld) [#/Vol] 299 10*3/uL Normal 150-450 [facility] Comment on above: Performed By: #### L 3890.6006, L3890.6102, L100.0100, L3890.6301, L509.8002, L509.4006, BTS #### [facility] [address] [place], [address] RBC (Bld) [#/Vol] 4.54 10*6/uL Normal 4.2-5.4 [facility] Comment on above: Performed By: #### L 3890.6006, L3890.6102, L100.0100, L3890.6301, L509.8002, L509.4006, BTS #### [facility] [address] [place], [address] RDW SD 44.5 fl High 35.1-43.9 [facility] Comment on above: Performed By: #### L 3890.6006, L3890.6102, L100.0100, L3890.6301, L509.8002, L509.4006, BTS #### [facility] [address] [place], [address] WBC (Bld) [#/Vol] 7.0 10*3/uL Normal 4.4-11.0 [facility] Comment on above: Performed By: #### L 3890.6006, L3890.6102, L100.0100, L3890.6301, L509.8002, L509.4006, BTS #### [facility] [address] [place], [address] Chlamydia trachomatis rRNA d etection by probe and target amplification methodOrdered By: Irma Foster on 08-21-2024 C. trachomatis rRNA HOLLEY+probe Ql (Unsp spec) Negative Negative [facility] Eosinophil percentageOrdered By: Irma Foster on 08-21-2024 Eosinophils/100 WBC (Bld) 1.6 % 0-5 [facility] Erythrocyte distribution wid th ratioOrdered By: Irma Foster on 08-21-2024 Erythrocyte distribution width (RBC) [Ratio] 13.9 % 11.6-14.6 [facility] Erythrocyte distribution wid th standard deviationOrdered By: Irma Foster on 08-21-2024 Erythrocyte distribution width (RBC) [Ratio] 44.5 fl High 35.1-43.9 [facility] HIVon 08-21-2024 HIV Non-Reactive Normal Nonreactive [facility] Comment on above: Result Comment: Non- Reactive Reactive Repeatedly reactive samples must be confirmed according to CDC recommended confirmatory algorithms. The subresults for either HIVAG or AHIV can be used as an aid in the selection of the confirmation algorithm for reactive samples. Send out specimens with Reactive results to [facility] for confirmation. Order the HIV antibody detection and differentiation: lc#[id number] Performed By: #### L 3890.6006, L3890.6102, L100.0100, L3890.6301, L509.8002, L509.4006, BTS #### [facility] [address] [place], [place], [id number] Hematocrit Auto (Bld) [Volum e fraction]Ordered By: Irma Foster on 08-21-2024 Hematocrit (Bld) [Volume fraction] 39.7 % 37-47 [facility] Hemoglobin measurementOrdere d By: Irma Foster on 08-21-2024 Hemoglobin (Bld) [Mass/Vol] 13.3 g/dL 12.0-15.0 [facility] Hepatitis C Antibodyon 08-21 Hepatitis C Ab Non-Reactive Normal Nonreactive [facility] Comment on above: Result Comment: Reac tive: Presumptive evidence of antibodies to HCV. Follow CDC recommendations for supplemental testing. Non-Reactive: Antibodies to HCV were not detected; does not exclude the possibility of exposure to HCV Reactive Results are presumptive evidence of antibodies to HCV. Follow CDC recommendations for supplemental testing. Order confirmation testing: HCV Quant by PCR testing - HCVPCR #[id number] Non Reactive: < 0.8 Equivocal: >/= 0.8 to < 1.0 Reactive: >/= 1.0 The CDC requires that a reactive/equivocal HCV antibody result be sent out for confirmation. HCV Quant by PCR testing. Performed By: #### L 3890.6006, L3890.6102, L100.0100, L3890.6301, L509.8002, L509.4006, BTS ####[facility] [address] [place], [place], [id number] Immature granulocytes/100 WB C Auto (Bld)Ordered By: Irma Foster on 08-21-2024 Immature granulocytes/100 WBC (Bld) 0.300 % 0.0-0.9 [facility] Comment on above: IG% - Immature Granu locytes (promyelocytes, myelocytes and metamyelocytes) > 1% indicates that a LEFT SHIFT is Present. L3890.6102on 08-21-2024 HEP B Surf Ag Non-Reactive Normal Nonreactive [facility] Comment on above: Result Comment: Reac tive: Presumptive evidence of HBV. Repeatedly reactive samples must be confirmed using a neutralization test ([employer] HBsAg Confirmatory Test) Non-Reactive: HBsAg not detected; does not exclude the possibility of exposure to HBV Performed By: #### L 3890.6006, L3890.6102, L100.0100, L3890.6301, L509.8002, L509.4006, BTS ####[facility] [address] [place], [place], [id number] L509.4006on 08-21-2024 Rubella IgG REAC Normal Nonreactive [facility] Comment on above: Result Comment: Anti body Result: Interpretation Non-Reactive: Non-Immune Reactive: Immune The following results were obtained with the [employer] Rubella IgG assay. Results from assays of other manufacturers cannot be used interchangeably. Performed By: #### L 3890.6006, L3890.6102, L100.0100, L3890.6301, L509.8002, L509.4006, BTS #### [facility] [place], [address] Laboratory - Microbiology an d Antimicrobial susceptibilityOrdered By: Irma Foster on 08-21-2024 HBV surface Ag Ql (S) Non-Reactive Nonreactive [facility] Comment on above: Reactive: Presumptiv e evidence of HBV. Repeatedly reactive samples must be confirmed using a neutralization test ([employer] HBsAg Confirmatory Test)Non-Reactive: HBsAg not detected; does not exclude the possibility of exposure to HBV MCV (mean corpuscular volume ) determinationOrdered By: Irma Foster on 08-21-2024 MCV (RBC) [Entitic vol] 87.4 fL 81-99 [facility] Mean corpuscular hemoglobin (MCH) determinationOrdered By: Irma Foster on 08-21-2024 MCH (RBC) [Entitic mass] 29.3 pg 27.0-32.0 [facility] Mean corpuscular hemoglobin concentration (MCHC) determinationOrdered By: Irma Foster on 08-21-2024 MCHC (RBC) [Mass/Vol] 33.5 g/dL 32-36 [facility] Mean platelet volume determi nationOrdered By: Irma Foster on 08-21-2024 Platelet mean volume (Bld) [Entitic vol] 10.6 fL 6.2-12.0 [facility] Monocyte percentageOrdered B y: Irma Foster on 08-21-2024 Monocytes/100 WBC (Bld) 9.3 % 0-10 [facility] Neisseria gonorrhoeae nuclei c acid detection by amplified probe techniqueOrdered By: Irma Foster on 08-21-2024 N. gonorrhoeae DNA HOLLEY+probe Ql (Unsp spec) Negative Negative [facility] Comment on above: Performed at: =G - [address] [place] [place] [id number] Director: Jennifer Hoang MD, Phone: [phone] Neutrophil percentageOrdered By: Irma Foster on 08-21-2024 Neutrophils/100 WBC (Bld) 65.2 % 47-70 [facility] No Panel InformationOrdered By: Irma Foster on 08-21-2024 HIV (1&2) Antibody Non-Reactive Nonreactive [facility] Comment on above: Non-ReactiveReactive Repeatedly reactive samples must be confirmed according to CDC recommended confirmatory algorithms. The subresults for either HIVAG or AHIV can be used as an aid in the selection of the confirmation algorithm for reactive samples.Send out specimens with Reactive results to [facility] for confirmation.Order the HIV antibody detection and differentiation: #[id number] Nucleated red blood cell per centageOrdered By: Irma Foster on 08-21-2024 Nucleated RBC/100 WBC (Bld) [Ratio] 0 % 0-5 [facility] Property Supervisor Office Visit Reporton 08-21-2024 Property Supervisor Office Visit Report [facility] [address], [address] [place] [address] OFFICE VISIT Date of Service: 08/21/24 MR#: [id number] Acct: [id number] Name: YULI AREVALO Rep #: [id number] : 1995 Provider: Dr. Irma joseph MD Age/Sex: 29/F Location: [facility] Status: Signed Intake Vital Signs 12/09/23 15:05 08/21/24 10:04 Height 5 ft 6.5 in 5 ft 6.5 in Weight: 155 lb 6 oz BMI 24.7 BP 115/71 Intake Visit Reasons: NOB: LMP 06/12, MIRIAM 03/19 Manager Pe Required: No Is patient in pain?: No Feel stressed/tense/nervo us/anxious/difficult y sleeping: not at all Allergies No Known Allergies Allergy (Verified 08/21/24 10:05) Medications ???Medication ???Instructions ???Recorded ???Confirmed ???Type multivit-min no.71-iron fum 28 1 cap PO see provid 03/26/2312/08 History mg-folate no.1 1 mg-dha 300 mg capsule (PNV-Gresham) famotidine 20 mg tablet (Pepcid) 20 mg PO BID 30 days #60 tabs 06/2612/09/23 Rx Last Menstrual Period: 06/12/24 Zika: Zika virus screening: Negative : No PFSH PFSH Medical History Hx of infertility Abnormal Pap smear of cervix Chlamydia Seasonal allergies Panic attacks Surgical History [place] teeth extracted Family History Grandmother Thyroid disorder [...] 3-4 times per week duration: 30-45 minutes/day juana/gnosticist: Gnosticist seatbelt use: always do you feel safe at home: Yes additional social history: Damion Lucas 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 Date Name GA/Weeks Outcome Route Bth Weight Gen Labor Lgth Anesthesia Del Locatn Provider FOB 10/25/23 Geo 38 live - full term 7#3oz Male none [facility] Carmella Golden HPI NOB: LMP 06/12, [...] Period: 06/03 (more content not included)... Normal [facility] Platelet countOrdered By: Dafne Foster on 08-21-2024 Platelets (Bld) [#/Vol] 299 10*3/uL 150-450 [facility] RBC Auto (Bld) [#/Vol]Ordere d By: Irma Foster on 08-21-2024 RBC (Bld) [#/Vol] 4.54 10*6/uL 4.2-5.4 [facility] Syphilis Antibodieson 2024 Syphilis Abs Non-Reactive Normal Nonreactive [facility] Comment on above: Performed By: #### L 3890.6006, L3890.6102, L100.0100, L3890.6301, L509.8002, L509.4006, BTS #### [facility] [address] [place], [place], [id number] Type AND Screenon 08-21-2024 Ab SCREEN GEL Negative Normal [facility] Comment on above: Order Comment: PN Performed By: #### L 3890.6006, L3890.6102, L100.0100, L3890.6301, L509.8002, L509.4006, BTS #### [facility] [address] [place], [address] Urine cultureOrdered By: Edil Foster on 08-21-2024 Bacteria identified Cx Nom (U) Culture exhibits no growth. [facility] White blood cell (WBC) count Ordered By: Irma Foster on 08-21-2024 WBC (Bld) [#/Vol] 7.0 10*3/uL 4.4-11.0 [facility] Absolute lymphocyte countOrd ered By: Ernestina Aquino on 08-06-2023 Lymphocytes Auto (Unsp spec) [#/Vol] 1.71 10*3/uL 0.83-4.51 [facility] Automated lymphocyte count a s percentage of total leukocytesOrdered By: Ernestina Aquino on 08-06-2023 Lymphocytes/100 WBC Auto (Unsp spec) 20.3 % 19-41 [facility] Basophil percentageOrdered B y: Ernestina Aquino on 08-06-2023 Basophils/100 WBC (Bld) 0.5 % 0-1 [facility] Eosinophils/100 WBC (Bld) 1.8 % 0-5 [facility] Hemoglobin (Bld) [Mass/Vol] 12.7 g/dL 12.0-15.0 [facility] Monocytes/100 WBC (Bld) 7.2 % 0-10 [facility] Neutrophils (Bld) [#/Vol] 5.9 10*3/uL 2.0-7.7 [facility] Neutrophils/100 WBC (Bld) 69.7 % 47-70 [facility] WBC (Bld) [#/Vol] 8.4 10*3/uL 4.4-11.0 [facility] Determination of erythrocyte mean corpuscular volume (MCV)Ordered By: Ernestina Aquino on 08-06-2023 MCV (RBC) [Entitic vol] 91.1 fL 81-99 [facility] Erythrocyte distribution wid th ratioOrdered By: Ernestina Aquino on 08-06-2023 Erythrocyte distribution width (RBC) [Ratio] 12.3 % 11.6-14.6 [facility] Erythrocyte distribution wid th standard deviationOrdered By: Ernestina Aquino on 08-06-2023 Erythrocyte distribution width (RBC) [Entitic vol] 40.4 fL 35.1-43.9 [facility] Gestational diabetes screen 1-hour screen with 50g oral glucose loadOrdered By: Ernestina Aquino on 08-06-2023 Glucose 1 Hr post 50 g glucose PO [Mass/Vol] 134 mg/dL 70-140 [facility] HIV 1 and HIV-2 antibody ass ay with HIV-1 p24 antigen detectionOrdered By: Ernestina Aquino on 08-06-2023 HIV 1+2 Ab+HIV1 p24 Ag IA Ql Non-Reactive Nonreactive [facility] Hematocrit Auto (Bld) [Volum e fraction]Ordered By: Ernestina Aquino on 08-06-2023 Hematocrit (Bld) [Volume fraction] 38.7 % 37-47 [facility] Immature granulocytes/100 WB C Auto (Bld)Ordered By: Ernestina Aquino on 08-06-2023 Immature granulocytes/100 WBC (Bld) 0.500 % 0.0-0.9 [facility] Comment on above: IG% - Immature Granu locytes (promyelocytes, myelocytes and metamyelocytes) > 1% indicates that a LEFT SHIFT is Present. Laboratory - Chemistry and C hemistry - challengeon 08-06-2023 Glucose Ql (U) Negative [facility] - Hematology and Cell countsOrdered By: Ernestina Aquino on 08-06-2023 MCH (RBC) [Entitic mass] 29.9 pg 27.0-32.0 [facility] MCHC (RBC) [Mass/Vol] 32.8 g/dL 32-36 [facility] Nucleated RBC/100 WBC (Bld) [Ratio] 0 % 0-5 [facility] Platelet mean volume (Bld) [Entitic vol] 10.4 fL 6.2-12.0 [facility] Platelets (Bld) [#/Vol] 245 10*3/uL 150-450 [facility] Laboratory - Urinalysison Protein Ql (U) Negative [facility] RBC Auto (Bld) [#/Vol]Ordere d By: Ernestina Aquino on 08-06-2023 RBC (Bld) [#/Vol] 4.25 10*6/uL 4.2-5.4 [facility] Serum Treponema species anti body detectionOrdered By: Ernestina Aquino on 08-06-2023 Treponema sp Ab Ql (S) Non-Reactive [facility] Absolute lymphocyte countOrd ered By: Ernestina Aquino on 04-09-2023 Lymphocytes Auto (Unsp spec) [#/Vol] 1.64 10*3/uL 0.83-4.51 [facility] Basophil percentageOrdered B y: Ernestina Aquino on 04-09-2023 Basophils/100 WBC (Bld) 0.5 % 0-1 [facility] Eosinophils/100 WBC (Bld) 0.8 % 0-5 [facility] Neutrophils (Bld) [#/Vol] 5.2 10*3/uL 2.0-7.7 [facility] Neutrophils/100 WBC (Bld) 68.3 % 47-70 [facility] WBC (Bld) [#/Vol] 7.6 10*3/uL 4.4-11.0 [facility] Blood erythrocytes count (nu mber/volume)Ordered By: Ernestina Aquino on 04-09-2023 RBC (Bld) [#/Vol] 4.52 10*6/uL 4.2-5.4 [facility] Blood hemoglobin measurement (mass/volume)Ordered By: Ernestina Aquino on 04-09-2023 Hemoglobin (Bld) [Mass/Vol] 13.5 g/dL 12.0-15.0 [facility] Blood lymphocytes/100 leukoc ytesOrdered By: Ernestina Aquino on 04-09-2023 Lymphocytes/100 WBC (Bld) 21.7 % 19-41 [facility] Blood monocytes/100 leukocyt esOrdered By: Ernestina Aquino on 04-09-2023 Monocytes/100 WBC (Bld) 8.6 % 0-10 [facility] Blood platelet mean volumeOr dered By: Ernestina Aquino on 04-09-2023 Platelet mean volume (Bld) [Entitic vol] 10.0 fL 6.2-12.0 [facility] Culture, urineOrdered By: Yasmany Anton on 04-09-2023 Bacteria identified Cx Nom (U) Positive [facility] Bacteria identified Cx Nom (U) Positive [facility] Determination of erythrocyte mean corpuscular volume (MCV)Ordered By: Ernestina Aquino on 04-09-2023 MCV (RBC) [Entitic vol] 89.6 fL 81-99 [facility] HIV 1 and HIV-2 antibody ass ay with HIV-1 p24 antigen detectionOrdered By: Ernestina Aquino on 04-09-2023 HIV 1+2 Ab+HIV1 p24 Ag IA Ql Non-Reactive Nonreactive [facility] Hematocrit Auto (Bld) [Volum e fraction]Ordered By: Ernestina Aquino on 04-09-2023 Hematocrit (Bld) [Volume fraction] 40.5 % 37-47 [facility] - Hematology and Cell countsOrdered By: Ernestina Aquino on 04-09-2023 Erythrocyte distribution width (RBC) [Entitic vol] 40.1 fL 35.1-43.9 [facility] Erythrocyte distribution width (RBC) [Ratio] 12.3 % 11.6-14.6 [facility] Immature granulocytes/100 WBC (Bld) 0.100 % 0.0-0.9 [facility] Comment on above: IG% - Immature Granu locytes (promyelocytes, myelocytes and metamyelocytes) > 1% indicates that a LEFT SHIFT is Present. MCH (RBC) [Entitic mass] 29.9 pg 27.0-32.0 [facility] Nucleated RBC/100 WBC (Bld) [Ratio] 0 % 0-5 [facility] MCHC Auto (RBC) [Mass/Vol]Or dered By: Ernestina Aquino on 04-09-2023 MCHC (RBC) [Mass/Vol] 33.3 g/dL 32-36 [facility] No Panel InformationOrdered By: Ernestina Aquino on 04-09-2023 Hepatitis B Surface Antigen Non-Reactive Nonreactive [facility] Hepatitis C Antibody Non-Reactive Nonreactive [facility] Comment on above: Non Reactive: < 0.8 Equivocal: >/= 0.8 to < 1.0 Reactive: >/= 1.0The CDC recommends that a reactive/equivocal HCV antibody result be followed up by the HCV Nucleic Acid Amplificationtest (491227) Rubella IgG Antibody Reactive Nonreactive [facility] Comment on above: Antibody Results Int erpretation of Immune Status Non Reactive Presumed Non-Immune Equivocal Equivocal Reactive Presumed Immune Miscellaneous Test Comment MAILED SPECIMEN [facility] Platelets bldOrdered By: Elma Aquino on 04-09-2023 Platelets (Bld) [#/Vol] 285 10*3/uL 150-450 [facility] Serum Treponema species anti body detectionOrdered By: Ernestina Aquino on 04-09-2023 Treponema sp Ab Ql (S) Non-Reactive [facility] Cervical or vagninal specime n microscopic examination by cytology stain (reported asOrdered By: Ernestina Aquino on 04-02-2023 Cytology report Cyto stain Doc (Cvx/Vag) Comment . [facility] Comment on above: The Pap smear is [...] rRNA HOLLEY+probe Ql (Unsp spec) Negative Negative [facility] Culture, urineOrdered By: Viridiana Aquino on 04-02-2023 Bacteria identified Cx Nom (U) Mixed Gram Pos & Gram Neg Org [facility] Bacteria identified Cx Nom (U) Mixed Gram Pos & Gram Neg Org [facility] Laboratory - CytologyOrdered By: Ernestina Aquino on 04-02-2023 Hatchery Supervisor Cyto stain Nom (Cvx/Vag) [ID] Comment . [facility] Comment on above: Rosie Malik chnologist (ASC) Laboratory - Microbiology an d Antimicrobial susceptibilityOrdered By: Ernestina Aquino on 04-02-2023 N. gonorrhoeae DNA HOLLEY+probe Ql (Unsp spec) Negative Negative [facility] Comment on above: Performed at: =[address] [id number] Director: Jennifer Hoang MD, Phone: [phone] Laboratory - Miscellaneous t estsOrdered By: Ernestina Aquino on 04-02-2023 Service comment (Unsp spec) [Interp] Comment . [facility] Comment on above: This liquid based Th inPrep(R) pap test was screened withthe use of an image guided system. Service comment (Unsp spec) [Interp] . . [facility] No Panel InformationOrdered By: Ernestina Aquino on 04-02-2023 Human Papillomavirus Screen Comment . [facility] Comment on above: The HPV DNA reflex c riteria were not met with this specimenresult therefore, no HPV testing was performed.Performed at: [facility] Cyto [id number] [facility], [place], [place] [id number] Director: Aden Avila MD, Phone: [phone] at: [facility] - [facility] [address] Yasmani Robertson W [id number] Director: Jennifer Hoang MD, Phone: [phone] Pathology report final diagnosis Narrative Comment . [facility] Comment on above: NEGATIVE FOR INTRAEP ITHELIAL LESION OR MALIGNANCY. CRP [Mass/Vol]on 09-03-2022 Interpretation and review of laboratory results Normal [facility] CRP, Inflammationon 09-04-19 CRP [Mass/Vol] mg/L NINF - 10.0 mg/L [facility] ESR Westergren method (Bld) [Velocity]on 09-03-2022 ESR (Bld) [Velocity] 7 mm/h [facility] Interpretation and review of laboratory results Normal [facility] FACIAL BONES MIN 3 VIEWSon 0 12-10-2020 FACIAL BONES MIN 3 VIEWS [facility] Patient: YULI AREVALO [address] [place] [address] Admit Date: 12/10/20 /Age: 04 1995 ED Physician: FARHEEN Pratt DIAGNOSTIC RADIOLOGY REQUISITION Attending Physician: Med Rec #: [id number] EXAM: FACIAL BONES MIN 3 VIEWS HISTORY: Hit in face by spooked horse outer canthus lac/edema. COMPARISON: None. TECHNIQUE: Facial bones 3 views. FINDINGS: Nasal bones and spinous process of maxilla normal. No air-fluid level. No facial bone fracture. Orbital floors are intact. IMPRESSION: Normal facial bones. Authenticated on: 12/10/201656 [id number]/JUAN JOSEIA 56 Job ID# [id number] CC: NONE,NONE FARHEEN Pratt Normal [facility].PROVREPon 12-10-2020 [facility] Patient: YULI AREVALO URGENT CARE PROVIDER REPORT Admit Date: 12/10/20 /Age/Sex: 1995 Author: FARHEEN Pratt Provider: Med Rec #: [id number] History Of Present Illness - General Time Seen by Provider: 12/10/20 15:50 History Provided By: Patient Exam Limitations: No Limitations Patient Complains Of Injury To: Face HPI: 25-year-old female presents to the urgent care with complaint of laceration over her left eye which happened just prior to arrival. 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 she was [...] Referrals: NONE,NONE [Family Provider] - 12/11/20 1308 [id number] [id number] CC: NONE,NONE Normal [facility] CBC, EDIF, PLATELETon 2019 ABSOLUTE BASOPHIL COUNT 0.0 10*3/uL 0 - 0.2 10*3/uL [facility] Comment on above: Testing performed at [place], [place] [address] Basophils/100 WBC (Bld) 0.5 % 0 - 2 % [facility] Differential cell count method Nom (Bld) AUTO DIFF % [facility] Eosinophils (Bld) [#/Vol] 0.10 10*3/uL 0 - 0.7 10*3/uL [facility] Eosinophils/100 WBC (Bld) 1.4 % 0 - 11 % [facility] Erythrocyte distribution width (RBC) [Ratio] 13.2 % 11.5 - 14.5 % [facility] Hematocrit (Bld) [Volume fraction] 41.2 % 36 - 48 % [facility] Hemoglobin (Bld) [Mass/Vol] 14.2 g/dL [facility] Lymphocytes (Bld) [#/Vol] 1.60 10*3/uL 1.2 - 3.4 10*3/uL [facility] Lymphocytes/100 WBC (Bld) 26.6 % 20 - 55 % [facility] MCH (RBC) [Entitic mass] 30.5 pg 26 - 35 PG [facility] MCHC (RBC) [Mass/Vol] 34.4 g/dL [facility] MCV (RBC) [Entitic vol] 88.7 fL [facility] Monocytes (Bld) [#/Vol] 0.5 10*3/uL 0 - 0.7 10*3/uL [facility] Monocytes/100 WBC (Bld) 8.7 % 0 - 10 % [facility] [employer] [facility] Neutrophils (Bld) [#/Vol] 3.8 10*3/uL 1.4 - 6.5 10*3/uL [facility] Neutrophils/100 WBC (Bld) 62.8 % 37 - 75 % [facility] Platelet mean volume (Bld) [Entitic vol] 8.9 fL [facility] Platelets (Bld) [#/Vol] 279 10*3/uL 130 - 400 10*3/uL [facility] RBC (Bld) [#/Vol] 4.65 10*6/uL 4 - 5.4 10*6/uL [facility] WBC (Bld) [#/Vol] 6.1 10*3/uL 3.6 - 11 10*3/uL [facility] TSHon 03-15-2020 TSH Qn 3.230 m[IU]/L [facility] Comment on above: Testing performed at [place], [place] [address] Vital Signs Date Time Vital Sign Value Performing Clinician Facility 01-16-2025 10:120400 Body height 168.91 cm No Primary Care Physician [facility] 01-16-2025 10:12-0400 Body mass index (BMI) [Ratio] 29.7 kg/m2 No Primary Care Physician [facility] 01-16-2025 10:12-0400 Body weight 84.82 kg No Primary Care Physician [facility] 01-16-2025 10:12-0400 Diastolic blood pressure 70 mm[Hg] No Primary Care Physician [facility] 01-16-2025 10:12-0400 Systolic blood pressure 113 mm[Hg] No Primary Care Physician [facility] 01-01-2025 10:03-0400 Body height 168.91 cm No Primary Care Physician [facility] 01-01-2025 10:03-0400 Body mass index (BMI) [Ratio] 28.5 kg/m2 No Primary Care Physician [facility] 01-01-2025 10:03-0400 Body weight 81.44 kg No Primary Care Physician [facility] 01-01-2025 10:03-0400 Diastolic blood pressure 81 mm[Hg] No Primary Care Physician [facility] 01-01-2025 10:03-0400 Systolic blood pressure 137 mm[Hg] No Primary Care Physician [facility] 12-18-2024 10:17-0400 Body weight 80.37 kg No Primary Care Physician [facility] 12-18-2024 10:06-0400 Body height 168.91 cm No Primary Care Physician [facility] 12-18-2024 10:06-0400 Body mass index (BMI) [Ratio] 0.8 kg/m2 No Primary Care Physician [facility] 12-18-2024 10:06-0400 Body weight 2.45 kg No Primary Care Physician [facility] 12-18-2024 10:06-0400 Diastolic blood pressure 70 mm[Hg] No Primary Care Physician [facility] 12-18-2024 10:06-0400 Systolic blood pressure 123 mm[Hg] No Primary Care Physician [facility] 11-20-2024 09:31-0400 Body height 168.91 cm No Primary Care Physician [facility] 11-20-2024 09:31-0400 Body mass index (BMI) [Ratio] 26.8 kg/m2 No Primary Care Physician [facility] 11-20-2024 09:31-0400 Body weight 76.43 kg No Primary Care Physician [facility] 11-20-2024 09:31-0400 Diastolic blood pressure 67 mm[Hg] No Primary Care Physician [facility] 11-20-2024 09:31-0400 Systolic blood pressure 115 mm[Hg] No Primary Care Physician [facility] 10-23-2024 10:17-0400 Body height 168.91 cm No Primary Care Physician [facility] 10-23-2024 10:17-0400 Body mass index (BMI) [Ratio] 26.3 kg/m2 No Primary Care Physician [facility] 10-23-2024 10:17-0400 Body weight 75.06 kg No Primary Care Physician [facility] 10-23-2024 10:17-0400 Diastolic blood pressure 75 mm[Hg] No Primary Care Physician [facility] 10-23-2024 10:17-0400 Systolic blood pressure 122 mm[Hg] No Primary Care Physician [facility] 09-25-2024 13:32-0400 Body mass index (BMI) [Ratio] 25.4 kg/m2 No Primary Care Physician [facility] 09-25-2024 13:32-0400 Body weight 72.68 kg No Primary Care Physician [facility] 09-25-2024 13:32-0400 Diastolic blood pressure 67 mm[Hg] No Primary Care Physician [facility] 09-25-2024 13:32-0400 Systolic blood pressure 114 mm[Hg] No Primary Care Physician [facility] 08-21-2024 10:04-0400 Body height 168.91 cm No Primary Care Physician [facility] 08-21-2024 10:04-0400 Body mass index (BMI) [Ratio] 24.7 kg/m2 No Primary Care Physician [facility] 08-21-2024 10:04-0400 Body weight 70.47 kg No Primary Care Physician [facility] 08-21-2024 10:04-0400 Diastolic blood pressure 71 mm[Hg] No Primary Care Physician [facility] 08-21-2024 10:04-0400 Systolic blood pressure 115 mm[Hg] No Primary Care Physician [facility] 07-13-2024 13:46-0400 Body height 168.9 cm Darling Farmer II, MD Work Phone: [facility] 07-13-2024 13:46-0400 Body mass index (BMI) [Ratio] 24.72 kg/m2 Darling Farmer II, MD Work Phone: [facility] 07-13-2024 13:46-0400 Body temperature 98.1 [degF] Darling Farmer II, MD Work Phone: [facility] 07-13-2024 13:46-0400 Body weight 70.53 kg Darling Farmer II, MD Work Phone: [facility] 07-13-2024 13:46-0400 Diastolic blood pressure 70 mm[Hg] Darling Farmer II, MD Work Phone: [facility] 07-13-2024 13:46-0400 Heart rate 80 /min Darling Farmer II, MD Work Phone: [facility] 07-13-2024 13:46-0400 Respiratory rate 16 /min Darling Farmer II, MD Work Phone: [facility] 07-13-2024 13:46-0400 SaO2% (BldA) [Mass fraction] 99 % Darling Farmer II, MD Work Phone: [facility] 07-13-2024 13:46-0400 Systolic blood pressure 118 mm[Hg] Darling Farmer II, MD Work Phone: [facility] 08-06-2023 14:44-0400 Body height 168.91 cm No Primary Care Physician [facility] 08-06-2023 14:44-0400 Body mass index (BMI) [Ratio] 27.8 kg/m2 No Primary Care Physician [facility] 08-06-2023 14:44-0400 Body weight 79.54 kg No Primary Care Physician [facility] 08-06-2023 14:44-0400 Diastolic blood pressure 78 mm[Hg] No Primary Care Physician [facility] 08-06-2023 14:44-0400 Systolic blood pressure 112 mm[Hg] No Primary Care Physician [facility] 07-09-2023 14:04-0400 Body mass index (BMI) [Ratio] 27 kg/m2 No Primary Care Physician [facility] 07-09-2023 14:04-0400 Body weight 77.22 kg No Primary Care Physician [facility] 07-09-2023 14:04-0400 Diastolic blood pressure 62 mm[Hg] No Primary Care Physician [facility] 07-09-2023 14:04-0400 Systolic blood pressure 101 mm[Hg] No Primary Care Physician [facility] 06-04-2023 13:11-0500 Body height 168.91 cm No Primary Care Physician [facility] 06-04-2023 13:08-0500 Body mass index (BMI) [Ratio] 25.9 kg/m2 No Primary Care Physician [facility] 06-04-2023 13:08-0500 Body weight 73.93 kg No Primary Care Physician [facility] 06-04-2023 13:08-0500 Diastolic blood pressure 64 mm[Hg] No Primary Care Physician [facility] 06-04-2023 13:08-0500 Systolic blood pressure 108 mm[Hg] No Primary Care Physician [facility] 05-07-2023 13:29-0500 Body mass index (BMI) [Ratio] 25.4 kg/m2 No Primary Care Physician [facility] 05-07-2023 13:29-0500 Body weight 72.63 kg No Primary Care Physician [facility] 05-07-2023 13:29-0500 Diastolic blood pressure 62 mm[Hg] No Primary Care Physician [facility] 05-07-2023 13:29-0500 Systolic blood pressure 110 mm[Hg] No Primary Care Physician [facility] 04-02-2023 14:16-0500 Body height 168.91 cm [facility] Ernestina Aquino Work Phone: [facility] 04-02-2023 14:15-0500 Body mass index (BMI) [Ratio] 25 kg/m2 [facility] Ernestina Aquino Work Phone: [facility] 04-02-2023 14:15-0500 Body weight 71.44 kg [facility] Ernestina Aquino Work Phone: [facility] 04-02-2023 14:15-0500 Diastolic blood pressure 73 mm[Hg] [facility] Ernestina Aquino Work Phone: [facility] 04-02-2023 14:15-0500 Systolic blood pressure 109 mm[Hg] [facility] Ernestina Aquino Work Phone: [facility] 09-03-2022 10:50-0400 Body mass index (BMI) [Ratio] 23.27 kg/m2 Anay Paredes MD Work Phone: [facility] 09-03-2022 10:50-0400 Body weight 67.41 kg Anay Paredes MD Work Phone: [facility] 09-03-2022 10:50-0400 Diastolic blood pressure 64 mm[Hg] Anay Paredes MD Work Phone: [facility] 09-03-2022 10:50-0400 Heart rate 65 /min Anay Paredes MD Work Phone: [facility] 09-03-2022 10:50-0400 SaO2% (BldA) [Mass fraction] 99 % Anay Paredes MD Work Phone: [facility] 09-03-2022 10:50-0400 Systolic blood pressure 102 mm[Hg] Anay Paredes MD Work Phone: [facility] 04-03-2021 14:07-0500 Body height 170.2 cm Rex Blackburn MD Work Phone: [facility] 04-03-2021 14:07-0500 Body mass index (BMI) [Ratio] 25.31 kg/m2 Rex Blackburn MD Work Phone: [facility] 04-03-2021 14:07-0500 Body temperature 97.81 [degF] Rex Blackburn MD Work Phone: [facility] 04-03-2021 14:07-0500 Body weight 73.3 kg Rex Blackburn MD Work Phone: [facility] 04-03-2021 14:07-0500 Diastolic blood pressure 72 mm[Hg] Rex Blackburn MD Work Phone: [facility] 04-03-2021 14:07-0500 Heart rate 79 /min Rex Blackburn MD Work Phone: [facility] 04-03-2021 14:07-0500 Respiratory rate 18 /min Rex Blackburn MD Work Phone: [facility] 04-03-2021 14:07-0500 SaO2% (BldA) [Mass fraction] 99 % Rex Blackburn MD Work Phone: [facility] 04-03-2021 14:07-0500 Systolic blood pressure 124 mm[Hg] Rex Blackburn MD Work Phone: [facility] 03-21-2021 14:18-0500 Body height 170.2 cm Rex Blackburn MD Work Phone: [facility] 03-21-2021 14:18-0500 Body mass index (BMI) [Ratio] 24.35 kg/m2 Rex Blackburn MD Work Phone: [facility] 03-21-2021 14:18-0500 Body temperature 98.4 [degF] Rex Blackburn MD Work Phone: [facility] 03-21-2021 14:18-0500 Body weight 70.53 kg Rex Blackburn MD Work Phone: [facility] 03-21-2021 14:18-0500 Diastolic blood pressure 73 mm[Hg] Rex Blackburn MD Work Phone: [facility] 03-21-2021 14:18-0500 SaO2% (BldA) [Mass fraction] 98 % Rex Blackburn MD Work Phone: [facility] 03-21-2021 14:18-0500 Systolic blood pressure 124 mm[Hg] Rex Blackburn MD Work Phone: [facility] 12-10-2020 16:01-0400 Body temperature 97.9 [degF] JULIO C ANTON Work Phone: [facility] Work Phone: 12-10-2020 16:01-0400 Diastolic blood pressure 79 mm[Hg] JULIO C ANTON Work Phone: [facility] Work Phone: 12-10-2020 16:01-0400 Heart rate 83 /min JULIO C ANTON Work Phone: [facility] Work Phone: 12-10-2020 16:01-0400 Respiratory rate 12 /min JULIO C ANTON Work Phone: [facility] Work Phone: 12-10-2020 16:01-0400 SaO2% (BldA) [Mass fraction] 99 % JULIO C ANTON Work Phone: [facility] Work Phone: 12-10-2020 16:01-0400 Systolic blood pressure 116 mm[Hg] JULIO C ANTON Work Phone: [facility] Work Phone: 09-06-2020 13:19-0400 Body height 168.9 cm Paco Kendall MD Work Phone: [facility] 09-06-2020 13:19-0400 Body mass index (BMI) [Ratio] 24.64 kg/m2 Paco Kendall MD Work Phone: [facility] 09-06-2020 13:19-0400 Body temperature 98.4 [degF] Paco Kendall MD Work Phone: [facility] 09-06-2020 13:19-0400 Body weight 70.31 kg Paco Kendall MD Work Phone: [facility] 09-06-2020 13:19-0400 Diastolic blood pressure 80 mm[Hg] Paco Kendall MD Work Phone: [facility] 09-06-2020 13:19-0400 Systolic blood pressure 104 mm[Hg] Paco Kendall MD Work Phone: [facility] [employer] [facility] 03-15-2020 13:58-0500 Body Temperature 98.01 [degF] Paco Kendall [employer] [facility] 03-15-2020 13:58-0500 Body weight 72.67 kg Paco Faiza [employer] [facility] 03-15-2020 13:58-0500 BP Diastolic 60 mm[Hg] Paco Kendall [employer] [facility] 03-15-2020 13:58-0500 BP Systolic 118 mm[Hg] Paco Kendall [employer] [facility] 04-04-2019 13:37-0500 BP Diastolic 84 mm[Hg] [facility] 04-04-2019 13:37-0500 BP Systolic 134 mm[Hg] [facility] 04-04-2019 12:58-0500 BMI (Body Mass Index) 26.31 kg/m2 [facility] 04-04-2019 12:58-0500 Body weight 76.2 kg [facility] 04-04-2019 12:58-0500 Height 170.2 cm [facility] 04-04-2019 12:58-0500 Pulse (Heart Rate) 77 /min [facility] 05-04-2018 13:47-0500 BMI (Body Mass Index) 25.37 kg/m2 [facility] 05-04-2018 13:47-0500 BP Diastolic 81 mm[Hg] [facility] 05-04-2018 13:47-0500 BP Systolic 132 mm[Hg] [facility] 05-04-2018 13:47-0500 Pulse (Heart Rate) 73 /min [facility] 05-04-2018 13:47-0500 Weight 73.48 kg [facility] 03-15-2018 09:07-0500 BMI (Body Mass Index) 25.06 kg/m2 [facility] 03-15-2018 09:07-0500 BP Diastolic 72 mm[Hg] [facility] 03-15-2018 09:07-0500 BP Systolic 117 mm[Hg] [facility] 03-15-2018 09:07-0500 Height 170.2 cm [facility] 03-15-2018 09:07-0500 Pulse (Heart Rate) 77 /min [facility] 03-15-2018 09:07-0500 Weight 72.58 kg [facility] Encounters Encounter Date Encounter Type Care Provider Facility Start: 02-15-2025 ambulatory No [place] [place]: 02-01-2025 End: 02-01-2025 ambulatory No Primary Care Physician Facility[place] Start: 01-16-2025 End: 01-16-[address] Irma Foster MD -[facility] Work Phone: Start: 01-16-2025 End: 01-16-2025 ambulatory No Primary Care Physician -[facility] Start: 01-01-2025 End: 01-01-2025 Patient encounter procedure Georgie Anton CNM -[facility] Work Phone: Start: 01-01-2025 End: 01-01-2025 ambulatory No Primary Care Physician -[facility] Start: 12-18-2024 End: 12-18-2024 Patient encounter procedure Iris GUTIERREZ -[facility] Work Phone: Start: 12-18-2024 End: 12-18-2024 ambulatory No Primary Care Physician -[facility] Start: 12-18-2024 End: 12-18-2024 ambulatory No Primary Care Physician Facility:[facility] Start: 11-20-2024 End: 11-20-[address] Rhiannon Mccrary DO -[facility] Work Phone: Start: 11-20-2024 End: 11-20-2024 ambulatory No Primary Care Physician -[facility] Start: 10-26-2024 End: 10-26-2024 ambulatory MD NO PRIMARY CARE [facility] Start: 10-23-2024 End: 10-23-2024 Patient encounter procedure Georgie Anton CNM -[facility] Work Phone: Start: 10-23-2024 End: 10-23-2024 ambulatory No Primary Care Physician -[facility] Start: 09-25-2024 End: 09-25-2024 Patient encounter procedure Iris Cali NP-Cristi -[facility] Work Phone: Start: 09-25-2024 End: 09-25-2024 ambulatory No Primary Care Physician [facility] Work Phone: Start: 08-21-2024 End: 08-21-[address] Irma Foster MD -[facility] Start: 08-21-2024 End: 08-21-[address] Irma Foster MD -[facility] Work Phone: Start: 08-21-2024 End: 08-21-2024 ambulatory No Primary Care Physician [facility] Work Phone: Start: 08-21-2024 End: 08-21-2024 ambulatory Irma Foster Facility:[facility] Start: 07-13-2024 End: 07-13-2024 Office outpatient new 30 minutes Darling Farmer MD Work Phone: [facility] [place] Comment on above: Nausea and vomiting, unspecified vomiting type (Primary Dx); Less than 8 weeks gestation of Start: 07-13-2024 ambulatory DARLING Bear MARLENY [facility] Start: 08-06-2023 End: 08-06-2023 ambulatory No Primary Care Physician [facility] Work Phone: Start: 08-06-2023 End: 08-06-2023 Patient encounter procedure No Primary Care Physician [facility] Work Phone: Start: 07-09-2023 End: 07-09-2023 Patient encounter procedure No Primary Care Physician [facility] Work Phone: Start: 06-11-2023 End: 06-11-2023 ambulatory No Primary Care Physician [facility] Work Phone: Start: 06-11-2023 End: 06-11-2023 Patient encounter procedure No Primary Care Physician [facility]-Ultrasound, [facility] Work Phone: Start: 06-04-2023 End: 06-04-2023 Patient encounter procedure No Primary Care Physician [facility] Work Phone: Start: 05-07-2023 End: 05-07-2023 Patient encounter procedure No Primary Care Physician [facility] Work Phone: Start: 04-09-2023 End: 04-09-2023 ambulatory CNM Ernestina Aquino Work Phone: [facility] Work Phone: Start: 04-09-2023 End: 04-09-2023 Patient encounter procedure CNM Ernestina Aquino Work Phone: [facility]Laboratory Work Phone: Start: 04-02-2023 End: 04-02-2023 ambulatory CN Ernestina Aquino Work Phone: [facility] Work Phone: Start: 04-02-2023 End: 04-02-2023 Patient encounter procedure GREG Aquino Work Phone: [facility]-Laboratory, Specimen Work Phone: Start: 04-02-2023 End: 04-02-2023 Patient encounter procedure GREG Aquino Work Phone: [facility] Work Phone: Start: 09-25-2022 End: 09-29-2022 ambulatory [facility] Start: 09-17-2022 ambulatory [facility] Start: 09-16-2022 Admission to [facility] Kathleen Gutierrez LPN [facility] Gastroenterology Comment on above: Diarrhea, unspecifie d type (Primary Dx) Start: 09-14-2022 End: 09-18-2022 ambulatory [facility] Start: 09-03-2022 End: 09-07-2022 ambulatory [facility] Start: 09-03-2022 End: 09-03-2022 Office outpatient new 30 minutes Rex Blackburn MD Work Phone: [facility] Gastroenterology Comment on above: Diarrhea, unspecifie d type (Primary Dx) Start: 07-07-2021 [facility] Start: 05-09-2021 End: 05-09-2021 ambulatory SHAWNA COLVIN [facility] Start: 04-06-2021 Orders Only Rex Blakcburn MD Work Phone: [facility] Primary Care Physicians Start: 04-03-2021 End: 04-03-2021 [facility] Start: 04-03-2021 End: 04-03-2021 Office outpatient visit 25 minutes Rex Blackburn MD Work Phone: [facility] Primary Care Physicians Comment on above: Generalized abdomina l pain (Primary Dx); Irritable bowel syndrome with constipation; Encounter for surveillance of contraceptive pills Start: 03-21-2021 End: 03-21-2021 ambulatory REX BLACKBURN [facility] Start: 03-21-2021 End: 03-21-2021 Office outpatient new 30 minutes Rex Blackburn MD Work Phone: [facility] Primary Care Physicians Comment on above: Generalized abdomina l pain (Primary Dx) Start: 12-10-2020 End: 12-10-2020 Emergency department patient visit JULI OC ANTON [facility] Start: 09-06-2020 End: 09-06-2020 Office outpatient visit 15 minutes Deepak Garrett MD Work Phone: [facility] APPRAISER AUDITOR Comment on above: Itching in the vagin al area (Primary Dx) Start: 03-15-2020 End: 03-15-2020 Initial preventive medicine new pt age 18-39yrs Paco Kendall Work Phone: [facility] APPRAISER AUDITOR Comment on above: Other fatigue (Prima ry Dx); Annual physical exam Start: 04-04-2019 End: 04-04-2019 Periodic preventive med est patient 18-39 yrs Fay Oliver Work Phone: [facility] Obstetrics and Gynecology Physicians Comment on above: Encounter for gyneco logical examination without abnormal finding (Primary Dx); Encounter for surveillance of contraceptive pills Start: 05-04-2018 End: 05-04-2018 Office outpatient visit 15 minutes Fay Oliver Work Phone: [facility] Obstetrics and Gynecology Physicians Comment on above: History of chlamydia infection (Primary Dx); Screening for STD (sexually transmitted disease) Start: 03-15-2018 End: 03-15-2018 Initial preventive medicine new pt age 18-39yrs Fay Oliver Work Phone: [facility]etric[facility]necology Physicians Comment [...] HCV Quant by PCR testing - HCVPCR #[id number] Non Reactive: < 0.8 Equivocal: >/= 0.8 to < 1.0 Reactive: >/= 1.0The CDC requires that a reactive/equivocal HCV antibody result be sent out for confirmation. HCV Quant by PCR testing. Start: 08-21-2024 Rubella IgG measurement No Primary Care Physician Comment on above: Antibody Result: Int erpretationNon-Reactive: Non- ImmuneReactive: ImmuneThe following results were obtained with the [employer] Rubella IgG assay. Results from assays of [...] RSV VACCINE (1 - 1-dose 75+ series) [facility] Start: 08-19-[address] [facility] Start: 10-31-2030 Tetanus vaccination Tetanus: Every 1 0yrs [facility] Start: 01-16-2025 [facility] Start: 01-01-2025 End: 01-01-2025 Patient encounter procedure [facility] Work Phone: Start: 12-04-2024 Influenza vaccination INFLUENZ A VACCINE (Season Ended) [facility] Start: 08-21-2024 CBC W Auto Different ial panel - Blood [facility] Start: 08-21-2024 Hepatitis C antibody measurement [facility] Start: 08-21-2024 Rubella IgG measurement [facility] Start: 08-21-2024 Serologic test for syphilis [facility] Start: 08-21-2024 [facility] Start: 08-11-2024 End: 08-11-2024 Clinical Support Encounter 08/11/2024 2:00 PM EDT Clinical Support Encounter [facility] APPRAISER AUDITOR [address] [place] [id number] [facility] APPRAISER AUDITOR Start: 12-05-2023 COVID-19 VACCINE ( season) COVID-19 VACCINE ( season) [facility] Start: 04-02-2023 Liquid based cervica l cytology screening [facility] Start: 12-04-2022 Influenza vaccination Sequenti al Influenza Vaccine (Season Ended) [facility] Start: 12-04-2022 Subsequent hospital visit by physician 12/04/2022 Hospital Encounter [facility] [address] [facility] [address] [place] [id number] Anay Paredes MD [address] [facility] [place] [address] [facility] Start: 09-03-2022 End: 09-04-2023 Comprehensive metabolic 2000 panel - Serum or Plasma [facility] Comment on above: Expected: 09/03/2022 , Expires: 09/04/2023 Start: 09-03-2022 End: 09-04-2023 Measurement of immunoglobulin A in serum specimen [facility] Comment on above: Expected: 09/03/2022 , Expires: 09/04/2023 Start: 09-03-2022 End: 09-04-2023 Quantitative measurement of calprotectin in stool specimen Calprotectin Lab Routine Diarrhea, unspecified type Expected: 09/03/2022, Expires: 09/04/2023 [facility] Comment on above: Expected: 09/03/2022 , Expires: 09/04/2023 Start: 09-03-2022 End: 09-04-2023 Tissue transglutaminase IgA measurement [facility] Work Phone: Comment on above: Expected: 09/03/2022 , Expires: 09/04/2023 Start: 03-21-2022 Depression screening using PHQ-9 (Patient Health Questionnaire 9) score Depression Screening (PHQ-2/9) [facility] Start: 05-02-2021 End: 05-02-2021 Patient encounter procedure 05/02/2021 Office Visit Primary Care Rex Blackburn MD [address] [place] [id number] [facility] Care Physicians Start: 04-03-2021 End: 04-03-2021 Patient encounter procedure 04/03/2021 Office Visit Primary Care Rex Blackburn MD [address] [place] [id number] [facility] Physicians Start: 03-15-2021 History and physical examination, annual for health maintenance Wellness Visit [facility] Start: 03-15-2021 Screening for malign ant neoplasm [facility]ix [facility] Start: 12-04-2020 [facility] Start: 04-04-2020 History and physical examination, annual for health maintenance Wellness Visit [facility] Start: 12-05-2019 Influenza vaccination INFLUENZA VACC INE (#1) [facility] Start: 05-04-2019 Screening for Chlamy promise trachomatis Chlamydia Screening [facility] Start: 03-15-2019 History and physical examination, annual for health maintenance [facility] Start: 12-04-2018 Influenza vaccinatio n given SEQUENTIAL INFLUENZA VACCINE (#1) [facility] Start: 12-04-2017 Influenza vaccination SEQUENTI AL INFLUENZA VACCINE (#1) [facility] Start: 12-04-2017 Influenza vaccinatio n given SEQUENTIAL INFLUENZA VACCINE (#1) [facility] Start: 07-05-2014 Hepatitis B vaccination HEP B VACCINE (1 of 3 - 19+ 3-dose series) [facility] Start: 07-05-2014 Third diphtheria, te tanus and acellular pertussis (DTaP) vaccination TDAP (ADULT) [facility] Start: 07-05-[address] [facility] Start: 2011 Screening for Chlamy promise trachomatis CHLAMYDIA SCREEN [facility] Start: 07-05-2010 HIV screening HIV SCREENING DISCUSSION [facility] Start: 07-05-2010 Vaccination for zakiya n papillomavirus HPV VACCINES (1 - Female 3-dose series) [facility] Start: 07-05-2008 HIV screening HIV SCREENING DISCUSSION [facility] Start: 2007 COVID-19 VACCINE (1) COVID-19 VACCIN E (1) [facility] Start: 07-05-2006 Vaccination for zakiya n papillomavirus [facility] Start: 07-05-2000 COVID-19 Vaccine (1) COVID-19 Vaccin e (1) [facility] Start: 01-05-1996 COVID-19 Vaccine (#1) COVID-19 Vacci ne (#1) [facility] Start: 1995 GONORRHEA SCREEN GONORRHEA SCREEN [facility] Start: 1995 Hepatitis C antibody , confirmatory test HEPATITIS C VIRUS SCREENING [facility] Start: 1995 Hepatitis C screening HEPATITI S C VIRUS SCREENING [facility] Start: 1995 Screening for malign ant neoplasm of cervix PAP SMEAR [facility] Start: 1995 Tetanus vaccination TETANUS EVERY 10 YR [facility] End: 09-04-2023 B12/Folate B12/Folate Lab Routine Diarrhea, unspecified type 1 Occurrences starting 09/03/2022 until 09/04/2023 [facility] Comment on above: 1 Occurrences starti ng 09/03/2022 until 09/04/2023 B12/Folate B12/Folate Lab R outine Diarrhea, unspecified type 09/03/2022 11:34 AM EDT [facility] CBC W Auto Different ial panel - Blood [facility] CBC W Auto Different ial panel - Blood [facility] Chlamydia deoxyribon ucleic acid detection [facility] Chlamydia trachomati s rRNA assay [facility] Comment on above: Ordered: 03/15/2018 Ordered: 05/04/2018 Ordered: 04/04/2019 Colonoscopy COLONOSCOPY Diar michelle, unspecified type [facility] Erythrocyte mean corpuscular volume determination [facility] Hematocrit [Volume Fraction] of Blood [facility] Hemoglobin [Mass/vol ume] in Blood [facility] Hepatitis B surface antigen measurement Hepatitis B Surface Antigen Routine Screening for STD (sexually transmitted disease) History of chlamydia infection 05/04/2018 1:58 PM EST [facility] Hepatitis B surface antigen measurement [facility] Hepatitis B virus adams rface Ag [Presence] in Serum [facility] Hepatitis C antibody measurement Hepatitis C Antibody Routine Screening for STD (sexually transmitted disease) History of chlamydia infection 05/04/2018 1:58 PM EST [facility] Hepatitis C antibody measurement [facility] HIV 1+2 Ab+HIV1 p24 Ag [Presence] in Serum or Plasma by Immunoassay [facility] Human immunodeficien cy virus test HIV Antibody (HIV1/HIV2) Routine Screening for STD (sexually transmitted disease) History of chlamydia infection 05/04/2018 1:58 PM EST [facility] End: 09-04-2023 Iron measurement Iron Study with Ferritin Lab Routine Diarrhea, unspecified type 1 Occurrences starting 09/03/2022 until 09/04/2023 [facility] Comment on above: 1 Occurrences starti ng 09/03/2022 until 09/04/2023 Iron measurement Iron Study with Ferritin Lab Routine Diarrhea, unspecified type 09/03/2022 11:34 AM EDT [facility] Leukocytes [#/volume ] in Blood [facility] Mean corpuscular hemoglobin concentration determination [facility] Mean corpuscular hemoglobin determination [facility] Measurement of gluco se 2 hours after glucose challenge for glucose tolerance test [facility] Microscopic examinat ion of vaginal Papanicolaou smear Thinprep Pap Smear Routine Well woman exam with routine gynecological exam Ordered: 03/15/2018 [facility] Comment on above: Ordered: 03/15/2018 Neisseria gonorrhoea e nucleic acid detection [facility] Comment on above: Ordered: 03/15/2018 Ordered: 05/04/2018 Ordered: 04/04/2019 Neutrophil count [facility] Neutrophil percent differential count [facility] PAP IG, RFX HPV ASCU PAP IG, RFX HPV ASCU LAB SEND OUTS Routine 03/15/2020 2:44 PM EST [facility] Path report.final Dx Spec [facility] Patient Education Facial Laceration (ED) [facility] Work Phone: [facility] Work Phone: Platelets [#/volume] in Blood [facility] Red blood cell count [facility] Red cell distributio n width determination [facility] Rubella IgG measurement [facility] Serologic test for syphilis [facility] T. pallidum IgG Ql (S) Syphilis Antibody Routine Screening for STD (sexually transmitted disease) History of chlamydia infection 05/04/2018 1:58 PM EST [facility] End: 09-04-2023 Tissue transglutaminase IgG measurement Tissue Transglutaminase, IgG Lab Routine Diarrhea, unspecified type 1 Occurrences starting 09/03/2022 until 09/04/2023 [facility] Comment on above: 1 Occurrences starti ng 09/03/2022 until 09/04/2023 Tissue transglutamin ase IgG measurement Tissue Transglutaminase, IgG Lab Routine Diarrhea, unspecified type 09/03/2022 11:34 AM EDT [facility] Treponema sp Ab [Pre sence] in Serum [facility] Trichomonas vaginali s Amplified RNA [facility] Comment on above: Ordered: 03/15/2018 Ordered: 05/04/2018 Ordered: 04/04/2019 [facility] Immunizations Immunization Date Immunization Notes Care Provider [facility] 08-20-2023 tetanus toxoid, reduced diphtheria toxoid, and acellular pertussis vaccine, adsorbed No Primary Care Physician [facility] 10-31-2020 tetanus toxoid, reduced diphtheria toxoid, and acellular pertussis vaccine, adsorbed Rex Blackburn MD Work Phone: [facility] Payers Date Payer Category Payer Self-pay [id number] 2024 Medicaid (Managed Care) NED [employer]oy [employer] [id number] 2024 Private Health Insurance [id number] 2024 Managed Care (unspecified) ANTH HMO PPO POS [id number] 2024 Unknown [id number] 2021 Unknown MMO MED MUTUAL S UPERMED PPO ACCESS/TPA [id number] 2021-Present [address] [address] [place] [address] [id number] 2021 Unknown [id number] 2017 Private Health Insurance TAYLOR VAZQUEZ xxxxxxxxxx 2017-Present xxxxxxxxxx [id number] 2017 Private Health Insurance [id number] 1995 Unknown [id number] [id number]. 903 1995 Unknown [id number] 2.16.840.1.855434.3.579.2. 903 1995 Unknown [id number] 2.16.840.1.109396.3.579.2. 903 1995 Unknown [id number] 2.16.840.1.859077.3.579.2. 903 1995 Unknown [id number] 2.16.840.1.410134.3.579.2. 903 1995 Unknown [id number] 2.16840.1.842603.3.579.2. 903 1995 Unknown [id number] 2.840.1.650391.3.579.2. 983 1995 Unknown [id number] 2.16840.1.251446.3.579.2. 479 Self-pay [id number] Unknown [id number] Unknown [facility] PACKAGE PLAN [id number] Unknown [id number] 2.16840.1.383645.3.579.2. 462 Unknown [id number] 2.16.840.1.731720.3.579.2. 462 Unknown [id number] 2.16.840.1.692257.3.579.2. 462 Unknown [id number] 2.16.840.1.440085.3.579.2. 462 Unknown [id number] 2.16840.1.044490.3.579.2. 462 Unknown [id number] 2.16840.1.959802.3.579.2. 462 Unknown [id number] 2.0.1.949374.3.579.2. 462 Unknown [id number] 2.0.1.602548.3.579.2. 462 Unknown [id number] 2.0.1.421539.3.579.2. 462 Unknown [id number] 20.1.070658.3.579.2. 462 Unknown [id number] 2.0.1.671483.3.579.2. 462 Social History Date Type Detail Facility Start: 03-15-2018 End: 09-25-2024 Tobacco smoking status NVIS Never smoker [facility] Start: 1995 Sex Assigned At Not [facility] Start: 03-15-2018 End: 09-06-2020 Alcohol Comment social [facility] Start: 04-04-2019 End: 07-13-2024 Alcohol intake Current drinker of alcohol (finding) [facility] Start: 09-06-2020 End: 09-03-2022 Tobacco use and exposure [facility] Start: 08-24-2022 End: 09-03-2022 Exposure to SARS-CoV-2 (event) Not sure [facility] Start: 1995 Sex Assigned At Female [facility] Start: 10-22-2021 End: 07-13-2024 History of Social function [facility] Start: 10-22-2021 End: 07-13-2024 Humiliation, Afraid, Rape, and Kick questionnaire [HARK] [facility] Within the last year , have you [...] drinks on 1 occasion? Less than monthly [facility] (I/We) worried wheth er (my/our) food would run out before (I/we) got money to buy more. DK or Refused [facility] Start: 03-15-2018 Gender identity Identifies as female gender (finding) [facility] Start: 03-15-2018 Sexual orientation Heterosexual (finding) [facility] Start: 04-02-2023 End: 07-09-2023 Tobacco smoking status NHIS Unknown if ever smoked [facility] Start: 06-26-2024 [facility] Start: 03-04-2020 Sex Female (finding) [facility] Clinical Notes 09-06-2020 to 01-16-2025 Note Date & Type Note Facility 01-16-2025 Progress note [facility] 01-01-2025 Progress note [facility] 11-20-2024 Progress note [facility] 10-23-2024 Evaluation note Diagnosis Onset Date Resolution [...] Supervision of normal acute January 16 10:09am [facility] Work Phone: 1(359) 466-919907-21-2025 [facility] [address] [place] [address], [address] [place] [address] OFFICE VISIT Date of Service: 10/23/24 MR#: [id number] Acct: [id number] Name: YULI AREAVLO Rep #: [id number] : 1995 Provider: GREG Anton Age/Sex: 29/F Location: [facility] Status: Signed Intake Vital Signs 08/21/24 10:04 09/25/24 13:53 10/23/24 10:17 Height 5 ft 6.5 in 5 ft 6.5 in 5 ft 6.5 in Weight: 165 lb 8 oz BMI 26.3 BP 122/75 H Intake Visit Reasons: 20wk ob Chief Complaint: 20wk OB Manager Pe Required: No Is patient in pain?: No Allergies No Known Allergies Allergy (Verified 10/23/24 10:19) Medications ?Medication ?Instructions ?Recorded ?Confirmed ?Type multivit-min no.71-iron fum 28 1 cap PO see provid 10/23/24 History mg-folate no.1 1 mg-dha 300 mg capsule (PNV-[place]) famotidine 20 mg tablet (Pepcid) 20 mg PO BID 30 days #60 tabs 08/06/23 10/23/24 Rx Last Menstrual Period: 06/12/24 : No PFSH PFSH Medical History Hx of infertility Abnormal Pap smear of cervix Chlamydia Seasonal allergies Panic attacks Surgical History [place] teeth extracted Family History Grandmother Thyroid disorder [...] 3-4 times per week duration: 30-45 minutes/day juana/gnosticist: Gnosticist seatbelt use: always do you feel safe at home: Yes additional social history: Damion Lucas 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 Date Name GA/Weeks Outcome Route Bth Weight Gen Labor Lgth Anesthesia Del Locatn Provider FOB 10/25/23 Geo 38 live - full term 7#3oz Male none [facility] Ernestina Golden HPI 20wk ob Details: [...] Monitoring, Signs and Symptoms of Preeclampsia and [place] [employer] ROS Const Reports system reviewed and [...] of other normal , second trimester Comment: [id number], MIRIAM 03/19/25, PC [place], [place] (2) : [...] Cosigner Signature: Date (if applicable) CC: ~ [facility]06[facility] Evaluation note* Diagnosis Onset Date Resolution Status [...] of normal acute January 01, 2025 9:55am [facility] Work Phone: 1(110) 292-722806-23-2025 [facility] [address], [address] [place] [address] OFFICE VISIT Date of Service: 09/25/24 MR#: [id number] Acct: [id number] Name: YULI AREVALO Rep #: [id number] : 1995 Provider: BRENDA Cali Age/Sex: 29/F Location: [facility] Status: Signed Intake Vital Signs 12/09/23 15:05 08/21/24 10:04 09/25/24 13:32 Height 5 ft 6.5 in 5 ft 6.5 in 5 ft 6.5 in Weight: 160 lb 4 oz BMI 25.4 BP 114/67 Intake Visit Reasons: 16wk ob Chief Complaint: 16 Week OB Manager Pe Required: No Is patient in pain?: No Allergies No Known Allergies Allergy (Verified 09/25/24 13:36) Medications ?Medication ?Instructions ?Recorded ?Confirmed ?Type multivit-min no.71-iron fum 28 1 cap PO see provid 09/25/24 History mg-folate no.1 1 mg-dha 300 mg capsule (PNV-[place]) famotidine 20 mg tablet (Pepcid) 20 mg PO BID 30 days #60 tabs 08/06/23 09/25/24 Rx Last Menstrual Period: 06/12/24 Zika: Zika virus screening: Negative : No PFSH PFSH Medical History Hx of infertility Abnormal Pap smear of cervix Chlamydia Seasonal allergies Panic attacks Surgical History [place] teeth extracted Family History Grandmother Thyroid disorder [...] 3-4 times per week duration: 30-45 minutes/day juana/gnosticist: Gnosticist seatbelt use: always do you feel safe at home: Yes additional social history: Damion Lucas 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 Date Name GA/Weeks Outcome Route Bth Weight Infant Gen Labor Lgth Anesthesia Del Locatn Provider FOB 10/25/23 Geo 38 live - full term 7#3oz Male none [facility] Ernestina Golden HPI 16wk ob Details: [...] Monitoring, Signs and Symptoms of Preeclampsia and [place] [employer] ROS Const Reports system reviewed and [...] of other normal , second trimester Comment: [id number], MIRIAM 03/19/25, PC Geo, [place] (2) : [...] care and follow up. 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-C> Date _ Iris Cali HEATER OPERATOR HEATER OPERATOR-C Cosigner Signature: Date (if applicable) CC: ~ [facility]05-19-2025 Evaluation note* Diagnosis Onset Date Resolution Status Admit Date Anxiety acute August 21, 2024 9:42am Asthma acute August 21, 2024 9:42am acute August 21, 2024 9:42am Supervision of normal acut e August 21, 2024 9:42am Anxiety acute September 25 1:30pm acute September 25 1:30pm Supervision of normal acut e September 25, 2024 1:30pm [facility] [employer] [facility] Work Phone: 1(702) 859-495705-19-2025 Evaluation note* Diagnosis Onset Date Resolution Status [...] normal acut e October 23, 2024 10:13am [facility] Work Phone: 1(940) 997-630505-19-2025 Evaluation note* Diagnosis Onset Date Resolution Status [...] normal acut e November 20, 2024 9:25am [facility] Work Phone: 1(888) 471-764805-19-2025 Evaluation note* Diagnosis Onset Date Resolution Status [...] of normal acute December 18, 2024 9:57am [facility] Work Phone: 1(922) 918-151805-19-2025 [facility] [address] [place] [address], [address] [place] [address] OFFICE VISIT Date of Service: 08/21/24 MR#: [id number] Acct: [id number] Name: YULI AREVALO Rep #: [id number] : 1995 Provider: Dr. Jimmy Foster MD Age/Sex: 29/F Location: [facility] Status: Signed Intake Vital Signs 12/09/23 15:05 08/21/24 10:04 Height 5 ft 6.5 in 5 ft 6.5 in Weight: 155 lb 6 oz BMI 24.7 BP 115/71 Intake Visit Reasons: NOB: LMP 310, MIRIAM 03/19 Manager Pe Required: No Is patient in pain?: No Feel stressed/tense/nervous/anxious/difficulty sleeping: not at all Allergies No Known Allergies Allergy (Verified 08/21/24 10:05) Medications ?Medication ?Instructions ?Recorded ?Confirmed ?Type multivit-min no.71-iron fum 28 1 cap PO see provid 12/09/23 History mg-folate no.1 1 mg-dha 300 mg capsule (PNV-Gresham) famotidine 20 mg tablet (Pepcid) 20 mg PO BID 30 days #60 tabs 08/06/23 12/09/23 Rx Last Menstrual Period: 06/12/24 Zika: Zika virus screening: Negative : No PFSH PFSH Medical History Hx of infertility Abnormal Pap smear of cervix Chlamydia Seasonal allergies Panic attacks Surgical History [place] teeth extracted Family History Grandmother Thyroid disorder [...] 3-4 times per week duration: 30-45 minutes/day juana/gnosticist: Gnosticist seatbelt use: always do you feel safe at home: Yes additional social history: Damion Lucas 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 Date Name GA/Weeks Outcome Route Bth Weight Infant Gen Labor Lgth Anesthesia Del Locatn Provider FOB 10/25/23 Geo 38 live - full term 7#3oz Male none [facility] Ernestina Golden HPI NOB: LMP 06/12, [...] childhood asthma, exercise induced), Drug/latex allergies/reactions, Breast, Fundraising Sale Representative surgery, Anesthetic complications, History of abnormal pap, [...] Monitoring, Signs and Symptoms of Preeclampsia and [place] [employer] ROS Const Reports system reviewed and [...] correa MD> Date _ Irma Foster MD [facility] Signature: Date (if applicable) CC: ~ [facility]04-10-2025 History of Present illness Narrative* Emory Vallecillo [...] like her to get established with a exhaust emissions automotive technician local ly and help us use are [...] 8 weeks gestation of documented in this encounterV[facility]12-29-2023 NotePap Smear Specimen AdequacyDepine rest christian mental health serviceser 2022 11:59pmComment.Satisfactory for evaluation. Endocervical and/or squamous metaplasticcells (endocervical component)are present.[facility] A#[id number] [facility] HospitalComment on above: Satisfactory for evaluation. Endocervical and/or squamous metaplasticcells (endocervical component)are present.04-02-2023 NotePap Smear Specimen Adequacy April 03, 2023 12:59amComment.Satisfactory for evaluation. Endocervical and/or squamous metaplasticcells (endocervical component)are present.[facility] A#[id number] [facility] HospitalComment on above:Satisfactory for evaluation. Endocervical and/or squamous [...] 4) Explore FODMAPs as a trigger (visit [employer]) 5)Start logging a food diary to identify [...] lactose. For example, hard cheeses, such as Estonian or cheddar, have small amounts of lactose and generally cause no symptoms. You may be able to tolerate cultured milk products, such as yogurt, becausethe bacteria used in the culturing process naturally produce the enzyme that breaks down lactose. Buying lactose-reduced or lactose-free products. You can find these products at most supermarkets in the refrigerated dairy section. Using lactase enzyme tablets or drops. Reky-zzy-tioulrs tablets or drops containing the lactase enzyme (Dairy Ease, Lactaid, others) may help you digest dairy products. You can take tablets just before a meal or snack. Or the drops can be added to a carton of milk. Not everyone with lactose intolerance is helped by these products. documented in this [id number] History of Present illness Narrative* Anay Paredes MD - 09/03/2022 10:[address] [facility] [address] [place] [id number] Yuliso Arevalo is here today for Chief Complaint Patient presents with Consult Inconsistent constipation with diarrhea Abd pain, and cramping History: HPI 27yo WF referred by Dr Blackburn in [place]. She complains of generalized abd cramping and [...] 4) Explore FODMAPs as a trigger (visit [employer]) 5)Start logging a food diary to identify [...] lactose. For example, hard cheeses, such as Estonian or cheddar, have small amounts of lactose and generally cause no symptoms. You may be able to tolerate cultured milk products, such as yogurt, becausethe bacteria used in the culturing process naturally produce the enzyme that breaks down lactose. Buying lactose-reduced or lactose-free products. You can find these products at most supermarkets in the refrigerated dairy section. Using lactase enzyme tablets or drops. Gxgb-lhk-jotciqg tablets or drops containing the lactase enzyme [...] Sincerely; Anay Paredes MD documented in this [id number] Miscellaneous Notes* Assessment & Plan Note - [...] contraceptive pills Refilled control. documented in this [id number] History of Present illness Narrative* Rex Blackburn MD - 04/03/2021 2:31 PM EST OFFICE VISIT PROGRESS NOTE HPI Yuli rAevalo is here to follow up for abdominal [...] done in Apr at Dr. Kendall in [place], will call and get report documented in this [id number] Miscellaneous Notes* Assessment & Plan Note - Rex Blackburn MD - 03/31/2021 12:54 AM EST Associated Problem(s): Abdominal pain Most likely due to constipation. Discussed doing a bowel clean out with miralax. Follow up in 2 weeks. documented in this [id number] History of Present illness Narrative* Rex Blackubrn MD - 03/21/2021 2:59 PM EST OFFICE [...] Flu Vaccine: pt declined documented in this [id number] Hospital Discharge instructions Additional Instructions Facial x-ray [...] provider or return for further concerns as necessary.[facility] Work Phone: [phone]) 176-641406-04-2021 History of Present illness Narrative* Paco Kendall MD - 09/06/2020 1:30 PM EDT [facility] HPI: Ms. Yuli Arevalo is a 25 [...] movement frequency at least every 1-2 days. 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 Menses: Prior to OCPs, every month, with 5 days of medium bleeding. Menarche: Age ~9 Menopause: N/A Last Pap: NILM 03/15/2020 History of abnormal Paps: Denies Sexual activity: Active with for 3 years ( for 1 year) Contraception: OCPs History of STIs: Remote history of chlamydia (2018) Family Fundraising Sale Representative Cancer: Denies Mammogram: Due at age 40 [...] discharge. x 1-2 months documented [facility]* Diagnosis Itching in the vaginal area- Primary Pruritus of genital organs documented in this encounter [facility] noteNo assessment information availableSelect [facility] Work Phone: Evaluation note* Diagnosis Generalized abdominal pain- Primary Abdominal pain, generalized [facility] Diagnosis Generalized abdominal pain- Primary Abdominal pain, generalized Irritable bowel syndrome with constipation Irritable bowel syndrome Encounter for surveillance of contraceptive pills documented [facility] this encounter [facility]* Diagnosis Diarrhea, unspecified type- Primary documented [facility]* Diagnosis Diarrhea, unspecified type- Primary [facility]* Diagnosis Onset Date Resolution Status Anxiety acute Asthma acute Infertility acute Pelvic pain acute Pre-conception counseling ac [place] acute Supervision of high-risk [facility] Work Phone: Evaluation note* Diagnosis Onset Date Resolution Status Anxiety acute Asthma acute Infertility acute Pelvic pain acute Pre-conception counseling ac [place] acute Supervision of high-risk acute Anxiety acute Asthma acute acute Supervision of high-risk acute Anxiety acute Asthma acute Infertility acute Pelvic pain acute Pre-conception counseling ac [place] acute Supervision of high-risk [facility] Work Phone: Evaluation note* Diagnosis Onset Date Resolution Status Anxiety acute Asthma acute acute Supervision of high-risk acute Anxiety acute Asthma acute Infertility acute Pelvic pain acute Pre-conception counseling ac [place] acute Supervision of high-risk acute Anxiety acute Asthma acute Infertility acute Pelvic pain acute Pre-conception counseling ac [place] acute Supervision of high-risk acute Anxiety acute Asthma acute Infertility acute Pelvic pain acute Pre-conception counseling ac [place] acute Supervision of high-risk [facility] Work Phone: Evaluation note* Diagnosis Nausea and vomiting, unspecified vomiting type- Primary Less than 8 weeks gestation of state, incidental documented [facility] encounter [facility] Diagnosis Onset Date Resolution Status Admit Date Anxiety acute August 21, 2024 9:42am Asthma acute August 21, 2024 9:42am acute August 21, 2024 9:42am Supervision of normal acut e August 21, 2024 9:42am [facility] Work Phone: Progress note Author Irma Foster [facility] Note Date/Time August 21, 2024 10:58 am [facility] [address] [place] [address], [address] [place] [address] OFFICE VISIT Date of Service: 08/21/24 MR#: [id number] Acct: [id number] Name: YULI AREVALO Rep #: [id number] : 1995 Provider: Dr. Jimmy Foster MD Age/Sex: 29/F Location: [facility] Status: Signed Intake Vital Signs 12/09/23 15:05 08/21/24 10:04 Height 5 ft 6.5 in 5 ft 6.5 in Weight: 155 lb 6 oz BMI 24.7 BP 115/71 Intake Visit Reasons: NOB: LMP 06/12, MIRIAM 03/19 Manager Pe Required: No Is patient in pain?: No Feel stressed/tense/nervous/anxious/difficulty sleeping: not at all Allergies No Known Allergies Allergy (Verified 08/21/24 10:05) Medications ?Medication ?Instructions ?Recorded ?Confirmed ?Type multivit-min no.71-iron fum 28 1 cap PO see provid 12/09/23 History mg-folate no.1 1 mg-dha 300 mg capsule (PNV-Gresham) famotidine 20 mg tablet (Pepcid) 20 mg PO BID 30 days #60 tabs 08/06/23 12/09/23 Rx Last Menstrual Period: 06/12/24 Zika: Zika virus screening: Negative : No PFSH PFSH Medical History Hx of infertility Abnormal Pap smear of cervix Chlamydia Seasonal allergies Panic attacks Surgical History [place] teeth extracted Family History Grandmother Thyroid disorder [...] 3-4 times per week duration: 30-45 minutes/day juana/gnosticist: Gnosticist seatbelt use: always do you feel safe at home: Yes additional social history: Damion Lucas 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 Date Name GA/Weeks Outcome Route Bth Weight Gen Labor Lgth Anesthesia Del Locatn Provider FOB 10/25/23 Geo 38 live - full term 7#3oz Male none [facility] Ernestina Golden HPI NOB: LMP 06/12, [...] childhood asthma, exercise induced), Drug/latex allergies/reactions, Breast, Fundraising Sale Representative surgery, Anesthetic complications, History of abnormal pap, [...] Monitoring, Signs and Symptoms of Preeclampsia and [place] [employer] ROS Const Reports system reviewed and [...] comfortable and no acute distress Orientation: alert [facility] Head: normal to inspection, normocephalic and atraumatic [...] to patient and patient chose: declined 08/21/24 6572 <Electronically signed by Irma correa MD> Date _ Irma Foster MD Cosigner Signature: Date (if applicable) CC: ~ [facility] Work Phone: Progress note Author Iris Cali [facility] Note Date/Time September 25, 2024 1:52 pm [facility] [address], [address] [place] [address] OFFICE VISIT Date of Service: 09/25/24 MR#: [id number] Acct: [id number] Name: YULI AREVALO Rep #: [id number] : 1995 Provider: BRENDA Cali Age/Sex: 29/F Location: [facility] Status: Signed Intake Vital Signs 12/09/23 15:05 08/21/24 10:04 09/25/24 13:32 Height 5 ft 6.5 in 5 ft 6.5 in 5 ft 6.5 in Weight: 160 lb 4 oz BMI 25.4 BP 114/67 Intake Visit Reasons: 16wk ob Chief Complaint: 16 Week OB Manager Pe Required: No Is patient in pain?: No Allergies No Known Allergies Allergy (Verified 09/25/24 13:36) Medications ?Medication ?Instructions ?Recorded ?Confirmed ?Type multivit-min no.71-iron fum 28 1 cap PO see provid 09/25/24 History mg-folate no.1 1 mg-dha 300 mg capsule (PNV-Gresham) famotidine 20 mg tablet (Pepcid) 20 mg PO BID 30 days #60 tabs 08/06/23 09/25/24 Rx Last Menstrual Period: 06/12/24 Zika: Zika virus screening: Negative : No PFSH PFSH Medical History Hx of infertility Abnormal Pap smear of cervix Chlamydia Seasonal allergies Panic attacks Surgical History [place] teeth extracted Family History Grandmother Thyroid disorder [...] 3-4 times per week duration: 30-45 minutes/day juana/gnosticist: Gnosticist seatbelt use: always do you feel safe at home: Yes additional social history: Damion Lucas 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 Date Name GA/Weeks Outcome Route Bth Weight Infant Gen Labor Lgth Anesthesia Del Locatn Provider FOB 10/25/23 Geo 38 live - full term 7#3oz Male none [facility] Ernestina Aquino [place] HPI 16wk ob [...] Monitoring, Signs and Symptoms of Preeclampsia and [place] Education ROS Const Reports system reviewed and [...] of other normal , second trimester Comment: [id number], MIRIAM 03/19/25, PC Geo, [place] (2) : [...] 09/25/24 1352 <Electronically signed by Iris lundberg HEATER OPERATOR HEATER OPERATOR-C> Date _ Iris Cali NP HEATER OPERATOR-C Cosigner Signature: Date (if applicable) CC: ~ [facility] Work Phone: Progress note Author Georgie Anton [facility] Note Date/Time October 23, 2024 10:3 6am [facility] [address], [address] [place] [address] OFFICE VISIT Date of Service: 10/23/24 MR#: [id number] Acct: [id number] Name: YULI AREVALO Rep #: [id number] : 1995 Provider: GREG Anton Age/Sex: 29/F Location: [facility] Status: Signed Intake Vital Signs 08/21/24 10:04 09/25/24 13:53 10/23/24 10:17 Height 5 ft 6.5 in 5 ft 6.5 in 5 ft 6.5 in Weight: 165 lb 8 oz BMI 26.3 BP 122/75 H Intake Visit Reasons: 20wk ob Chief Complaint: 20wk OB Manager Pe Required: No Is patient in pain?: No Allergies No Known Allergies Allergy (Verified 10/23/24 10:19) Medications ?Medication ?Instructions ?Recorded ?Confirmed ?Type multivit-min no.71-iron fum 28 1 cap PO see provid 10/23/24 History mg-folate no.1 1 mg-dha 300 mg capsule (PNV-Gresham) famotidine 20 mg tablet (Pepcid) 20 mg PO BID 30 days #60 tabs 08/06/23 10/23/24 Rx Last Menstrual Period: 06/12/24 : No PFSH PFSH Medical History Hx of infertility Abnormal Pap smear of cervix Chlamydia Seasonal allergies Panic attacks Surgical History [place] teeth extracted Family History Grandmother Thyroid disorder [...] 3-4 times per week duration: 30-45 minutes/day juana/gnosticist: Gnosticist seatbelt use: always do you feel safe at home: Yes additional social history: Damion Lucas 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 Date Name GA/Weeks Outcome Route Bth Weight Gen Labor Lgth Anesthesia Del Locatn Provider FOB 10/25/23 Geo 38 live - full term 7#3oz Male none [facility] Ernestina Golden HPI 20wk ob Details: [...] Monitoring, Signs and Symptoms of Preeclampsia and [place] Education ROS Const Reports system reviewed and [...] of other normal , second trimester Comment: [id number], MIRIAM 03/19/25, PC Geo, [place] (2) : [...] Cosigner Signature: Date (if applicable) CC: ~ [facility] Work Phone: Progress note Author Rhiannon Sheikh [facility] Note Date/Time November 20, 2024 9: 45am [facility] [address] [place] [address], [address] [place] [address] OFFICE VISIT Date of Service: 11/20/24 MR#: [id number] Acct: [id number] Name: YULI AREVALO Rep #: [id number] : 1995 Provider: Dr. Nuvia Mccrary, Age/Sex: 29/F Location: [facility] Status: Signed Intake Vital Signs 09/25/24 13:32 09/25/24 13:53 10/23/24 10:17 11/20/24 09:31 Height 5 ft 6.5 in 5 ft 6.5 in 5 ft 6.5 in 5 ft 6.5 in Weight: 168 lb 8 oz BMI 26.8 BP 115/67 Intake Visit Reasons: 24 wk ob Manager Pe Required: No Is patient in pain?: No Allergies No Known Allergies Allergy (Verified 11/20/24 09:31) Medications ?Medication ?Instructions ?Recorded ?Confirmed ?Type multivit-min no.71-iron fum 28 1 cap PO see provid 11/20/24 History mg-folate no.1 1 mg-dha 300 mg capsule (PNV-Gresham) famotidine 20 mg tablet (Pepcid) 20 mg PO BID 30 days #60 tabs 08/06/23 11/20/24 Rx Last Menstrual Period: 06/12/24 Zika: Zika virus screening: Negative : No PFSH PFSH Medical History Hx of infertility Abnormal Pap smear of cervix Chlamydia Seasonal allergies Panic attacks Surgical History [place] teeth extracted Family History Grandmother Thyroid disorder [...] 3-4 times per week duration: 30-45 minutes/day juana/gnosticist: Gnosticist seatbelt use: always do you feel safe at home: Yes additional social history: Damion Lucas 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 Date Name GA/Weeks Outcome Route Bth Weight Infant Gen Labor Lgth Anesthesia Del Locatn Provider FOB 10/25/23 Geo 38 live - full term 7#3oz Male none [facility] Ernestina Golden HPI 24 wk ob [...] of other normal , second trimester Comment: [id number], MIRIAM 03/19/25, PC Geo, [place] (2) : [...] Cosigner Signature: Date (if applicable) CC: ~ [facility] Work Phone: Progress note Author Georgie Anton [facility] Note Date/Time January 01, 2025 10:15[facility] [address], [address] [place] [address] OFFICE VISIT Date of Service: 01/01/25 MR#: [id number] Acct: [id number] Name: YULI AREVALO Rep #: [id number] : 1995 Provider: GREG Anton Age/Sex: 29/F Location: [facility] Status: Signed Intake Vital Signs 10/23/24 10:17 12/18/24 10:06 01/01/25 10:03 01/01/25 10:03 Height 5 ft 6.5 in 5 ft 6.5 in 5 ft 6.5 in 5 ft 6.5 in Weight: 179 lb 9 oz BMI 28.5 BP 137/81 H Intake Visit Reasons: 30wk ob Manager Pe Required: No Is patient in pain?: No Allergies No Known Allergies Allergy (Verified 01/01/25 10:02) Medications ?Medication ?Instructions ?Recorded ?Confirmed ?Type multivit-min no.71-iron fum 28 1 cap PO see provid 01/01/25 History mg-folate no.1 1 mg-dha 300 mg capsule (PNV-Gresham) famotidine 20 mg tablet (Pepcid) 20 mg PO BID 30 days #60 tabs 08/06/23 01/01/25 Rx Last Menstrual Period: 06/12/24 Zika: Zika virus screening: Negative : No PFSH PFSH Medical History Hx of infertility Abnormal Pap smear of cervix Chlamydia Seasonal allergies Panic attacks Surgical History [place] teeth extracted Family History Grandmother Thyroid disorder [...] 3-4 times per week duration: 30-45 minutes/day juana/gnosticist: Gnosticist seatbelt use: always do you feel safe at home: Yes additional social history: Damion Lucas 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 Date Name GA/Weeks Outcome Route Bth Weight Gen Labor Lgth Anesthesia Del Locatn Provider FOB 10/25/23 Geo 38 live - full term 7#3oz Male none [facility] Ernestina Golden HPI 30wk ob Details: [...] Symptoms of Preeclampsia, Infant Feeding No , [place] Education and Family Medical Leave or Disability [...] of other normal , second trimester Comment: [id number], MIRIAM 03/19/25, ALBERT Guardado, [place] (2) : [...] Cosigner Signature: Date (if applicable) CC: ~ [facility] Work Phone: Progress note Author Irma Foster [facility] Note Date/Time January 16, 2025 1 0:38am [facility] [address], [address] [place] [address] OFFICE VISIT Date of Service: 01/16/25 MR#: [id number] Acct: [id number] Name: YULI AREVLAO Rep #: [id number] : 1995 Provider: Dr. Jimmy Foster MD Age/Sex: 29/F Location: [facility] Status: Signed Intake Vital Signs 12/18/24 10:06 01/01/25 10:03 01/16/25 10:12 Height 5 ft 6.5 in 5 ft 6.5 in 5 ft 6.5 in Weight: 187 lb BMI 29.7 BP 113/70 Intake Visit Reasons: 32wk ob Manager Pe Required: No Is patient in pain?: No Allergies No Known Allergies Allergy (Verified 01/16/25 10:15) Medications ?Medication ?Instructions ?Recorded ?Confirmed ?Type multivit-min no.71-iron fum 28 1 cap PO see provid 01/16/25 History mg-folate no.1 1 mg-dha 300 mg capsule (PNV-[place]) famotidine 20 mg tablet (Pepcid) 20 mg PO BID 30 days #60 tabs 08/06/23 01/16/25 Rx Last Menstrual Period: 06/12/24 Zika: Zika virus screening: Negative : No PFSH PFSH Medical History (Updated 01/16/25 @ 10:[address] 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 Date Name GA/Weeks Outcome Route Bth Weight Gen Labor Lgth Anes t hesia Del Locatn Provider FOB 10/25/23 Geo 38 live - full term 7#3oz Male none [facility] Ernestina Golden HPI 32wk ob Details: [...] of other normal , second trimester Comment: [id number], MIRIAM 03/19/25, girl Julian Guardado, [place] (2) : Status: Acute Qualifiers: Weeks of gestation: 31 weeks Qualified Code(s): Z3A.31 - 31 weeks gestation of Comment: discussed NIPT & Carrier testing-declined, nl anatomy (3) Asthma: Status: Acute Comment: mild Orders: Orders POC Urinalysis 2 Dip (Clinic) Today 01/16/25 1038 <Electronically signed by Irma correa MD> Date _ Irma Foster MD [facility] Signature: Date (if applicable) CC: ~ [facility] Work Phone: Reason for referral (narrative)No reason for referral information available[facility] Work Phone: Instructions * Patient Instructions - [...] a time each month to do a [id number] breast self-exam. Other women like a less [...] Log into your personal health record on [email or web address] and enter P148 in the Education box to learn more about Breast Self-Exam: Care Instructions. Current as of: August 14, 2016 Content Version: 11.6 6529-9591 [employer]. Care instructions adapted under license by your healthcare professional. If you have questions about a medical condition or this instruction, always ask your healthcare professional. [employer] disclaims any warranty or liability for your [...] a time each month to do a [id number]-[id number] breast self-exam. Other women like a less [...] Log into your personal health record on [email or web address] and enter P148 in the Education box to learn more about Breast Self-Exam: Care Instructions. Current as of: November 23, 2018 Content Version: 12.3 [employer]. Care instructions adapted under license by your healthcare professional. If you have questions about a medical condition or this instruction, always ask your healthcare professional. [employer] disclaims any warranty or liability for your use of this information. documented in this encounter History of Present Illness * Fay Oliver MD - 03/15/2018 9:23 AM EST Formatting of this note may be different from the original. [facility] [address] [place] [address] HPI: Yuli Stevenson is a 22 y.o. female who presents for an annual exam. The patient has no complaints today. The patient is sexually active. INTERNAL AFFAIRS INVESTIGATOR screening history: last pap: was normal 1 year prior per pt. Moved here form [place]. 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 The [...] Oliver MD - 05/04/2018 1:48 PM EST [facility] [address] [place] [address] HPI: Yuli Stevenson is a 22 y.o. [...] Oliver MD - 04/04/2019 1:08 PM EST [facility] [address] [place] [address] HPI: Yuli Stevenson is a 23 y.o. female who presents for an annual exam. The patient has no complaints today. The patient is sexually active. INTERNAL AFFAIRS INVESTIGATOR screening history: last pap: was normal, NILM [...] file Gets together: Not on file Attends voodoo service: Not on file Active member of [...] Kendall MD - 03/15/2020 2:10 PM EST [facility] [place] [facility] Visit Ms. Yuli Arevalo is a 24 y.o. who presents for her annual exam. Ms. Arevalo has well controlled asthma and seasonal allergies, and a history of anemia. She does nothave a PCP Fundraising Sale Representative History: Last menstrual period: Patient's last menstrual period was 03/05/2020 (exact date). Menses: Prior to OCPs, every month, with 5 days of medium bleeding. Menarche: Age ~9 Menopause: N/A Last Pap: Normal per patient 2018. History of abnormal Paps: Denies Sexual activity: Active with for 2 years Contraception: OCPs History of STIs: Remote history of chlamydia (2018) Family Fundraising Sale Representative Cancer: Denies Mammogram: Due at age 40 [...] Smoker Physical Exam Exam conducted with a clinical trial data manager present. Constitutional: General: She is awake. She [...] FoundDocuments on File Type Date Recorded Patient Code And Test Clerk Expl anation Advance Directives and Living Will [...] occ dryness w/IC Reason Comments Annual Exam HEATER OPERATOR yearly exam, last pap 2018 was negative. done with [facility] Status Reason Specialty Diagnoses / Procedures Referre d By Contact Referred To Contact Closed Diagnoses Encounter to establish care System, Provider Not In Teetee Blanchard, DENTAL SECRETARY-CARTON FORMING MACHINE HELPER [id number] [place] [address] Reason Comments Vaginal Discharge vaginal itching with [...] abdominal pain Rex Blackburn MD [address] [place] [address] Anay Paredes MD [facility] [place] [address] Referral ID Status Reason Start Date Expiration Date Visits Re quested Visits Authorized [id number] Closed 07/20/2022 07/20/2023 1 1 Reason Comments [...] section and content) DATE CREATED AUTHOR 12/12/2020 [facility] DATE CREATED AUTHOR AUTHOR'S ORGANIZ ATION [facility] DATE CREATED AUTHOR AUTHOR'S ORGANIZ ATION 09/12/2022 [facility] DATE CREATED AUTHOR AUTHOR'S ORGANIZ ATION 09/29/2022 [facility] DATE CREATED AUTHOR AUTHOR'S ORGANIZ ATION 07/14/2024 [facility] DATE CREATED AUTHOR AUTHOR'S ORGANIZ ATION 10/27/2024 [facility] DATE CREATED AUTHOR AUTHOR'S ORGANIZ ATION 02/13/2025 [facility] Care Teams (unrecognized sec tion and content) News Analyst Relationship Specialty Start Date End Date Rex Blackburn MD [address] [place] [address] PCP - General Family Medicine 03/21/21 News Analyst Relationship Specialty Start Date End Date Rex Blackburn MD [address] [place] [address] PCP - General Family Medicine 03/21/21 News Analyst Relationship Specialty Start Date End Date Rex Blackburn MD [address] [place] [address] PCP - General Family Medicine 03/21/21 News Analyst Relationship Specialty Start Date End Date Rex Blackburn MD [address] [place] [address] PCP - General Family Medicine 03/21/21 News Analyst Relationship Specialty Start Date End Date Rex Blackburn MD [address] [place] [address] PCP - General Family Medicine 03/21/21 Team [...] CNM Attending Provider, Referring Pr ovider Active News Analyst Relationship Specialty Start Date End Date Darling Farmer II, MD [address] [place] [address] PCP - General Internal Medicine 07/13/24 Team [...] End: September 25, 2024 Iris Cali NP, HEATER OPERATOR-C Attending Provider Active Start: September 25, 2024 [...] 2024 End: September 25, 2024 Iris Cali HEATER OPERATOR, HEATER OPERATOR-C Attending Provider Active Start: September 25, 2024 [...] End: December 18, 2024 Iris Cali NP, HEATER OPERATOR-C Attending Provider Active Start: December 18, 2024 [...] End: September 25, 2024 Iris Cali NP HEATER OPERATOR-C Attending physician Active Start: September 25, 2024 [...] End: December 18, 2024 Iris Cali NP HEATER OPERATOR-C Attending physician Active Start: December 18, 2024 [...] End: December 18, 2024 Iris Cali NP, HEATER OPERATOR-C Attending physician Active Start: December 18, 2024 [...] ON THE PRIMARY CLINICAL RECORDS. [facility] [employer] [facility]. provides no warranty or guarantee of the accuracy or completeness of information in this document.
[2025-03-14] VITALS (37 sets, daily range): BP systolic 109–137; BP diastolic 68–87; PULSE 64–102; RESP 15–18; TEMP 36.4–36.6; O2SAT 90–100
[2025-03-14 00:20] LABS: Hematocrit 40.8 % (37-47); Hemoglobin 13.7 g/dL (12.0-15.0); Immature Granulocytes Count 0.080 X10^3/uL (0.0-0.0); Mean Corp Hgb Conc 33.6 g/dL (32-36); Mean Corpuscular Volume 90.3 fL (81-99); Mean Platelet Vol. 10.5 fl (6.2-12.0); NRBC Flagged by Analyzer 0 % (0-5); Platelet Count 231 K/mm3 (150-450); RBC Distribution Width CV 13.2 % (11.6-14.6); RBC Distribution Width SD 43.4 fl (35.1-43.9); Red Blood Count 4.52 M/mm3 (4.2-5.4); White Blood Count 13.4 K/mm3 (4.4-11.0)
[2025-03-14] MEDS: Oxytocin 15 Units/NS 250ml 15 UNITS/250 ML IV.SOLN 334 UNITS IV (00:32)
--- NOTE | 2025-03-14 00:54 | HP.PCM.OB_ITS ---
HPI - General General Date of Admission: 03/13/25 HPI Narrative KATHY AREVALO, is a 29 F who presents @39 weeks presents IAL regular ctx delivered within an hour of presentation Maternal Data Information MIRIAM Calculator Estimated Delivery Date Method Current WG Current Estimate 03/19/25 LMP (Certain) 39w 2d Other Estimates 03/12/25 Ultrasound #1 40w 2d PFSH PFSH Medical History Hx of infertility Abnormal Pap smear of cervix Chlamydia Seasonal allergies Home Medications ?Medication ?Instructions ?Recorded ?Last Taken ?Type multivit-min no.71-iron fum 28 1 cap PO DAILY pregnanc y 03/26/23 03/13/25 History mg-folate no.1 1 mg-dha 300 mg capsule (PNV-[place]) famotidine 20 mg tablet (Pepcid) 20 mg PO BID 30 days #60 tabs 08/06/23 Unknown Rx Allergy/AdvReac Type Severity Reaction Status Date / Time No Known Allergies Allergy Verified 03/13/25 23:23 Family History Grandmother Thyroid disorder Maternal hyperthyroidism prior to cancer Cancer thyroid ca- maternal Mother Thyroid disorder Hyperthyroidism Other Diabetes Surgical History [place] teeth extracted Social History adopted: No household members: spouse and children housing: house number of children: 1 current occupational status: employed 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 Date Name GA/Weeks Outcome Route Bth Weight Gen Labor Lgth Anesthesia Del Locatn Provider FOB 10/25/23 Geo 38 live - full term 7#3oz Male none [facility] Ernestina Aquino [place] Visit Details Expected Delivery Route/Plan Labor Preferences- CB/BF classes: no labor support person: [place] labor intervention preferences: [] pain management options preferred: limited cut cord/dad catch: mom cord : yes PP control planned: discussed discussed possible routes of delivery and associated risks: [] special requests: []. Plans Covid status: [] Flu vaccine: declined Tdap vaccine: declined Rhogam: Na LARC form signed: yes movement and labor precautions reviewed. Problem list reviewed and updated with the most current plan of care details and appropriate orders placed. Relevant counseling for the gestational age provided. Continue routine care and follow up unless otherwise noted in visit notes/problem list details OB Flowsheet Initial Weight: 155 lb Date -?-?-?-?-?-?-?-?-?-?-?-?- EGA Weight BP Urine Prot -?-?-?-?-?-?-?-?-?-?-?-?- Glucose FHR FuHt Pres Dilation -?-?-?-?-?-?-?-?-?-?-?-?- Effaced St Visit Note 08/21/24 -?-?-?-?-?-?-?-?-?-?-?-?- 10w 0d 155 lb 6 oz (+6 oz) 115/71 -?-?-?-?-?-?-?-?-?-?-?-?- 160 -?-?-?-?-?--?-?-?-?-?-?-?- SM- no vb crampi ng CRL cons with LMP SM- no vb cramping CRL 4.04c m cons with LMP 09/25/24 -?-?-?-?-?-?-?-?-?-?-?-?- 15w 0d 160 lb 4 oz (+5 lb 4 oz) 114/67 Negative -?-?-?-?-?-?-?-?-?-?-?-?- Negative 163 -?-?-?-?-?-?-?-?-?-?-?-?- MH-No VB. Nausea resolved. Br US confirm FHT 10/23/24 -?-?-?-?-?-?-?-?-?-?-?-?- 19w 0d 165 lb 8 oz (+10 lb 8 oz) 122/75 Negative -?-?-?-?-?-?-?-?-?-?-?-?- Negative 145 -?-?-?-?-?-?-?-?-?-?-?-?- KW- no vb/crampi ng. anatomy US on thurs. 11/20/24 -?-?-?-?-?-?-?-?-?-?-?-?- 23w 0d 168 lb 8 oz (+13 lb 8 oz) 115/67 Negative -?-?-?-?-?-?-?-?-?-?-?-?- Negative 145 25 -?-?-?-?-?-?-?-?-?-?-?-?- JV- no lof, vagi nal bleeding, or cramping. normal anatomy scan. 12/18/24 -?-?-?-?-?-?-?-?-?-?-?-?- 27w 0d 5 lb 6.5 oz (-149 lb 9.5 oz) 177 lb 3.2 oz (+22 lb 3.2 oz) 123/70 Negative -?-?-?-?-?-?-?-?-?-?-?-?- Negative 142 27 -?-?-?-?-?-?-?-?-?-?-?-?- MH-No Vb, LOF. G ood FM. Larc. 28 wk labs pending 01/01/25 -?-?-?-?-?-?-?-?-?-?-?-?- 29w 0d 179 lb 9 oz (+24 lb 9 oz) 137/81 Negative -?-?-?-?-?-?-?-?-?-?-?-?- Negative 140 29 -?-?-?-?-?-?-?-?-?--?-?-?- KW- no vb/lof/ct x. good fm. 01/16/25 -?-?-?-?-?-?-?-?-?-?-?-?- 31w 1d 187 lb (+32 lb) 113/70 -?-?-?-?-?-?-?-?-?-?-?-?- 140 30 -?-?-?-?-?-?-?-?-?-?-?-?- Sm- no vb lof go od fm n oregular ctx 02/01/25 -?-?-?-?-?-?-?-?-?-?-?-?- 33w 3d 190 lb 8 oz (+35 lb 8 oz) 116/68 Negative -?-?-?-?-?-?-?-?-?-?-?-?- Negative 140 33 -?-?-?-?-?-?-?-?-?-?-?-?- SM- no vb lof go od fm no regular ctx 02/15/25 -?-?-?-?-?-?-?-?-?-?-?-?- 35w 3d 188 lb 7 oz (+33 lb 7 oz) 115/79 -?-?-?-?-?-?-?-?-?-?-?-?- 159 35 -?-?-?-?-?-?-?-?-?-?-?-?- JV- no lof, vagi nal bleeding, or dec fm. plan reviewed. 02/20/25 -?-?-?-?-?-?-?-?-?-?-?-?- 36w 1d 190 lb 4 oz (+35 lb 4 oz) 108/71 Negative -?-?-?-?-?-?-?-?-?-?-?-?- Negative 145 36 Cephalic 1 -?-?-?-?-?-?-?-?-?-?-?-?- 50 -2 JV- no lof , vaginal bleeding, or dec fm. 02/28/25 -?-?-?-?-?-?-?-?-?-?-?-?- 37w 2d 195 lb 3 oz (+40 lb 3 oz) 114/76 Negative -?-?-?-?-?-?-?-?-?-?-?-?- Negative 140 37 -?-?-?-?-?-?-?-?-?-?-?-?- JV- no lof, vagi nal bleeding, or dec fm. 03/06/25 -?-?-?-?-?-?-?-?-?-?-?-?- 38w 1d 195 lb (+40 lb) 117/69 -?-?-?-?-?-?-?-?-?-?-?-?- 134 38 Cephalic 1 -?-?-?-?-?-?-?-?-?-?-?-?- 50 -2 KV- Good F M. No ctx/LOF/VB. No concerns today. 03/13/25 -?-?-?-?-?-?-?-?-?-?-?-?- 39w 1d 197 lb 3 oz (+42 lb 3 oz) 116/79 -?-?-?-?-?-?-?-?-?-?-?-?- 150 39 Cephalic 4 -?-?-?-?-?-?-?-?-?-?-?-?- 60 -2 KW- no vb/ lof/ctx. good fm NST FHR Rate Baby A Baseline: 140 Variability:: Moderate Accelerations:: 15 x 15 Decelerations:: None NST Reactive:: Yes FHR Category:: Category I Uterine Activity:: q3-5 ROS Constitutional Constitutional: Reports systems reviewed and no addt'l complaints, except as documented ENT HEENT: Reports systems reviewed and no addt'l complaints, except as documented Cardiovascular Cardiovascular: Reports systems reviewed and no addt'l complaints, except as documented Respiratory/Chest Respiratory/Chest: Reports systems reviewed and no addt'l complaints, except as documented Gastrointestinal Gastrointestinal: Reports systems reviewed and no addt'l complaints, except as documented and nausea; Denies abdominal pain Genitourinary Genitourinary: Reports systems reviewed and no addt'l complaints, except as documented, contractions Details: present and frequency (regular ) and movement Details: present Musculoskeletal Musculoskeletal: Reports systems reviewed and no addt'l complaints, except as documented Integumentary Integumentary: Reports as per HPI Neurologic Neurologic: Reports systems reviewed and no addt'l complaints, except as documented Endocrine Endocrinology: Reports systems reviewed and no addt'l complaints, except as documented Vital Signs Vital Signs Vital Signs: 03/13/25 23:29 03/13/25 23:29 03/13/25 23:29 Temperature Temperature Source Temporal Pulse Rate 82 Respiratory Rate Blood Pressure BP Systolic BP Diastolic Pulse Ox 98 03/13/25 23:29 03/13/25 23:29 03/13/25 23:30 Temperature 97.5 F L Temperature Source Pulse Rate Respiratory Rate 15 Blood Pressure 122/68 H BP Systolic 122 BP Diastolic 68 Pulse Ox 03/13/25 23:30 03/13/25 23:30 03/14/25 00:46 Temperature Temperature Source Pulse Rate 81 86 Respiratory Rate Blood Pressure BP Systolic BP Diastolic Pulse Ox 85 03/14/25 00:46 03/14/25 00:46 03/14/25 00:46 Temperature Temperature Source Temporal Pulse Rate Respiratory Rate 15 Blood Pressure BP Systolic BP Diastolic Pulse Ox 100 03/14/25 00:46 03/14/25 00:47 03/14/25 00:47 Temperature 97.8 F Temperature Source Pulse Rate 86 Respiratory Rate Blood Pressure 129/73 H BP Systolic 129 BP Diastolic 73 Pulse Ox 03/14/25 00:51 03/14/25 00:51 Temperature Temperature Source Pulse Rate 86 Respiratory Rate Blood Pressure BP Systolic BP Diastolic Pulse Ox 100 Weight Weight: 200 lb 14.4 oz Body Mass Index (BMI) 31.9 Physical Exam Const alert, oriented x3 and healthy appearing Constitutional Narrative: uncomfortable with contractions HEENT normocephalic and moist oral mucous membranes Head and Scalp: atraumatic Neck full ROM, no lymphadenopathy, supple and thyroid normal General: trachea midline Thyroid: thyroid normal Lymph Lymphatic: no lymphadenopathy noted Chest inspection of chest normal Resp normal respiratory effort Cardio regular rate GI soft to palpation and non-tender GI Narrative: gravid Inspection: gravid external exam normal Bimanual Exam - Vag & Uterus: uterus non-tender Manual OB Exam: estimated gestational size appropriate, presentation cephalic, dilated, effaced and station Extremity normal to inspection General Extremity: Negative for edema Skin no rashes or lesions noted Neuro deep tendon reflexes 2+ bilaterally Motor Exam: strength 5/5 throughout and clonus absent Psych mental status grossly normal Labs Labs Labs: 2 Blood Type O POSITIVE Antibody Screen NEGATIVE Hct, (37-47) 40.8 % Hgb, (12.0-15.0) 13.7 g/dL Pap Smear Negative Obstetrics Ultrasound Syphilis Total Ab, (Nonreactive) Nonreactive Rubella IgG Antibody, (Nonreactive) REAC Hep Bs Antigen, (Nonreactive) Nonreactive Hepatitis C Antibody, (Nonreactive) Nonreactive Chlamydia DNA ([place]), (Negative) Negative N.gonorrhoeae DNA ([place]), (Negative) Negative HIV 1&2 Antibody, (Nonreactive) Nonreactive Glucose 1 Hr 50 gm, (70-140) 81 mg/dL Rhogam given: No Assessment & Plan (1) Active labor at term: (2) Supervision of normal : QUALIFIERS: Normal : other normal Trimester: second trimester Qualified Code(s): Z34.82 - Encounter for supervision of other normal , second trimester COMMENT: [id number], MIRIAM 03/19/25, girl Aneira ALBERT Guardado, [place] (3) : QUALIFIERS: Weeks of gestation: 39 weeks Qualified Code(s): Z3A.39 - 39 weeks gestation of COMMENT: Neg GBS. discussed NIPT & Carrier testing-declined, nl anatomy (4) Asthma: COMMENT: mild PLAN: Plan Patient presents IAL, plan expectant management for , Pain management: minimal GBS neg. Management of any complications: none I have reviewed the [facility] and made any clinically relevant updates.
--- NOTE | 2025-03-14 00:59 | OB.VAGDELI_ITS ---
Assessment & Plan (1) Supervision of normal : QUALIFIERS: Normal : other normal Trimester: second trimester Qualified Code(s): Z34.82 - Encounter for supervision of other normal , second trimester COMMENT: [id number], MIRIAM 03/19/25, girl Julian Guardado, [place] (2) : QUALIFIERS: Weeks of gestation: 39 weeks Qualified Code(s): Z3A.39 - 39 weeks gestation of COMMENT: Neg GBS. discussed NIPT & Carrier testing-declined, nl anatomy Maternal Data Information MIRIAM Calculator Estimated Delivery Date Method Current WG Current Estimate 03/19/25 LMP (Certain) 39w 2d Other Estimates 03/12/25 Ultrasound #1 40w 2d Vaginal Delivery Maternal Presentation Maternal Presentation: see assessment and plan Vaginal Delivery Information Procedure Performed: Spontaneous Vaginal Delivery Surgeon/Practitioner: Irma Foster Date of Procedure: 03/14/25 Pre-Procedure Diagnosis: see assessment and plan Post-Procedure Diagnosis: same Type of anesthesia: Local with 1% Lidocaine Estimated Blood Loss: 200 Findings Description of procedure: Patient began pushing and delivered the head in the LOP presentation. The head was delivered atraumatically . The anterior and posterior shoulders delivered without complication followed by the rest of the infant and the infant was placed on the maternal abdomen. Delayed cord clamping was employed for approximately 60 seconds. Cord was clamped and cut and gentle traction was applied to the cord and the placenta delivered spontaneously immediately following it was noted to be intact with three-vessel cord. The perineum and vagina were inspected and was noted to have a first-degree laceration that was repaired in the usual fashion with 3-0 vicryl rapide after prepping with betadine and injecting with lidocaine . EBL was 200. Patient and infant tolerated delivery well. Presentation: Vertex Placental Delivery Description: Spontaneous Specimen collected: Yes Description of specimen(s) removed: placenta Stereoptic Projection Topographer gum puller: No Post Vaginal Deli Medications given after delivery: Other (pitocin) Complication Complications: No Multi Select Codes Urinary/Genital Urinary/Genital CPT Codes: 57852 Vaginal Delivery global pk
--- NOTE | 2025-03-14 01:01 | PCM.DC ---
Discharge Instructions DC O2, CPAP, BIPAP needs Home O2 Discharge instructions: No Dressing / Incision Discharge Activity: Return to Normal Activity, May Not Drive (while taking narcotic pain medications.) and May Shower May resume sexual activity in: 4-6 weeks Dressing / Incision Call your doctor if your incision/area has: Continuous Slow Oozing, Sudden Increased Bleeding, Increased Pain/ Swelling, Increased Redness and Foul Smelling Discharge Follow Up Care Please Follow Up With: Irma Foster MD When: Call [phone] to make an appointment with your doctor in 6 weeks. If you had elevated blood pressure or 4th degree laceration, you will need to be seen in 2 weeks. Test Results: Test results from this visit will be discussed in further detail at your follow-up appointment, if applicable. Discharge Plan Admission Admit Date/Time: 03/13/25 23:40 Attending Provider: Irma Foster Primary Care Provider: Care PhysicianLorie Primary Discharge Orders/Prescriptions Prescriptions: No Action PNV-[place] 28-1-300 mg capsule 1 cap PO DAILY famotidine [Pepcid] 20 mg tablet 20 mg PO BID 30 Days Qty: 60 6RF Referrals / Follow Up: Care Physician,No Primary [Primary Care Provider, Medical]
[2025-03-14 01:27] LABS: Syphilis Antibodies Nonreactive (Nonreactive)
[2025-03-14] MEDS: Oxytocin 15 Units/NS 250ml 15 UNITS/250 ML IV.SOLN 83 UNITS IV (01:55)
--- NOTE | 2025-03-14 14:38 | CASEMGMT ---
Social Work Assessment Labor and Delivery Unit Patient Address: [address] [place] [address]. [place] [address] Phone number: [phone] Date of Referral: 03/13/25 Time of Referral:? 2344 Referred By: Dr. Foster Date of Intervention: ??03/14/25 Time of Intervention:? 3564 Reason for Referral:? mother of patient is an alcoholic Sw completed chart review and acknowledges social work consult. Sw presented to bedside and introduced self to mother of baby, MARVA Roldan. Sw explained reason for sw involvement and completed psychosocial assessment. History obtained from: medical records, MOB Household composition: Currently residing in the home is HEATH HERNANDEZ, their one year old son, Geo and baby when ready for discharge. MARY denies any housing concerns stating that their home is safe and secure. Patient's parent/guardian status:? ?MARY states that she and HEATH have been together for 7 years after meeting each other online. MARY denies domestic violence or intimate partner violence. [place] baby is second baby for parents together. Medical History: ?MARY is 29 year old female who is 2, para 1- now 2 following labor and delivery of . MARY received routine care during with [place]. MARY presented to hospital and delivered baby via vaginal delivery on 03/14/25 at 39 weeks gestation. Baby girl, named Julian Rashid was born weighing 7lbs 1oz with apgars of 8 and 9 at one and five minutes of life, respectfully. MARY is breast feeding and states that baby will be followed by Dr. Esquivel for pediatric care and follow up. Educational Status:? Both parents graduated from high school, MOB attended some college, but did not graduate. HEATH obtained a certification in welding. No problems with reading, learning or comprehension. Financial Status: Both parents are gainfully employed outside of the home. 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 Supplies:??All necessary baby supplies obtained, including: car seat, safe sleep space, clothes, diapers and wipes. Childcare/Caregiver(s): MOB will be the primary caregiver to baby, when both parents have returned to work they will be alternating schedules so that one of them will always be with their children and not having to rely on childcare providers. ? Transportation:?? Both parents have their drivers license and reliable means of transportation, no barriers. Programs/Agencies Involved: Parents are not connected to any community resources that provide financial assistance. ??? Children Services/Legal Issues: No history of children services involvement, no issues or concerns warranting referral to be made at this time. ??? Behavioral Health Issues: ??Mental Health History: MOB denies mental health history or diagnoses for herself or FOB. Substance Use History:?MOB denies substance use prior to and during . ? Family History:?MOB states that she is not sure if she would label her mother as an alcoholic, but does identify that her mom drinks in access. MOB states that she has not seen or talked to her mom in over four years. MOB states that she does not drink or use drugs. Importance of recognizing genetic history and using healthy and safe coping mechanisms opposed to seeking comfort from drugs or alcohol. MOB agreed. ? Drug Screens: ??No drug screens observed while completing chart review. Family/Social Stressors:? MOB denies any issues, stressors or concerns at this time. Support Systems: MOB states that FOXavi is her biggest support, MOB states that each of them have limited friends and family. Depression/Shaken Baby/Safe Sleeping:? Sw educated MOB on signs and symptoms of baby blues and mood and anxiety disorders to be mindful of going into this period. MOB states that she has heard these terms and is aware of what to be on the lookout for. MOB states that she did not struggle after she had her first baby. MOB states that she and FOXavi tried for 18 months to get with her son, so that was when she felt anxious, so when she finally got her anxiety went away and the past few years is the happiest she has felt. MOB states that since baby has been born she has felt really happy, she feels like herself and reports to feeling a connection and a piper with baby. Sw expressed importance of safe sleep inside and outside of the bedroom. Sw educated MOB on always placing baby in bedside bassinet and not sleeping with baby in bed with her. Sw explained that baby's bassinet should be free of any blankets, pillows or stuffed animals. And baby should be sleeping in a onsie and a sleep sack/ swaddle sack for sleep. MOB expressed understanding. Sw discouraged sleeping with baby on a couch or in a reclining chair explaining that sleep accidents also happen in those areas as well. Sw educated MOB on shaken baby prevention. MOB expressed understanding. ASSESSMENT:? MOB and baby admitted following labor and delivery. MOB had family history of alcohol abuse, and reports that she does not use or abuse drugs or alcohol. MARY is aware of her genetic makeup, and states that she does not use substances as a way to cope when she is feeling anxious or stressed. MOB states that she does not typically feel anxious or stressed to begin with. MOB was receptive to meeting with social work and completing assessment. MOB was observed laying in bed and holding baby. MOB would look at baby from time to time throughout conversation in a loving manner and touch/ stroke her face. MOB talked about her older child in a loving tone, who is currently at home with HEATH due to visitor restrictions. MARY was talkative and conversation flowed easily and naturally. MARY reports that HEATH is her biggest support person, stating that she is originally from [place], so most of her family is still living there. MARY has obtained all necessary baby items and although she has to wait 24 hours for baby testing, she states that if she could she feels as though she could leave hospital now. MOB was very relaxed and calm, she was smiling and happy. PLAN:? No other services requested or indicated. MOB and baby to be discharged when medically ready. Parents were provided literature regarding: signs and symptoms of baby blues and mood and anxiety disorders, Help Me Grow, shaken baby prevention, ABCs of safe sleep and a list of county resources that are available for them should any needs present themselves. Mikki Talley, LINEN CLERK, CHILD CARE CENTRE DIRECTOR
[2025-03-15 00:42] VITALS: BP 103/72; PULSE 76; RESP 16; TEMP 36.2; O2SAT 97
--- NOTE | 2025-03-15 07:55 | PCM.PN.OB ---
Subjective Subjective Patient doing well without complaints. Tolerating PO. Ambulating and voiding without difficulty. Feeding well. Denies chest pain, shortness of breath, calf pain/swelling, fevers, chills, lightheadedness. Objective Data Objective Data Vital Signs: Vital Signs Temp Pulse Resp BP Pulse Ox O2 Del Method 97.2 F L 76 16 103/72 97 Room Air 03/15/25 00:42 03/15/25 00:42 03/15/25 00:42 03/15/25 00:42 03/15/25 00:42 03/15/25 00:42 Oxygen Delivery Method Room Air Weight: 200 lb 14.4 oz Body Mass Index (BMI) 31.9 Intake & Output: Intake and Output for Last 24 Hours 03/13/25 03/14/25 03/15/25 23:59 23:59 23:59 Intake Total 500 / 500 Output Total 800 / 800 Balance -300 / -300 Lab / Micro Data 03/13/25 23:45 Physical Exam Const alert and oriented x3 HEENT normocephalic Eyes PERRL Neck full ROM Resp normal respiratory effort GI soft to palpation GI Narrative: FF below U Assessment & Plan (1) Vaginal delivery: COMMENT: crystal aneira 39 PLAN: Plan s/p PPD # 1 1. routine post delivery care 2. breast feeding- support given 3. rh positive 4. rubella immune 5. home today
[2025-03-15 08:45] VITALS: BP 106/74; PULSE 77; RESP 16; TEMP 36.2; O2SAT 97
== END 2025-03-15 11:20 | disposition home or self-care (01) | DRG 807 ==
LOC: WPOUT 23:42 → WP 23:42
PROVIDERS: Admitting Provider Pediatrics; Visit Provider Obstetrics & Gynecology
DX: O99.52 Diseases of the respiratory system complicating childbirth (principal); Z37.0 Single live birth; J45.909 Unspecified asthma, uncomplicated; O70.0 First degree perineal laceration during delivery; Z3A.39 39 weeks gestation of pregnancy; Z87.891 Personal history of nicotine dependence
CPT/HCPCS: 59025; 59050; 85025; 86780; 86850; 86900; 86901; 99221; A4216; G0378